=== PATIENT | female | born 1940 | race Caucasian/White ===

== ENCOUNTER 2016-07-15 17:40 | Emergency (ER) | payer BC, MEDICARE ==
--- NOTE | 2016-07-15 18:50 | REP ---
Clinical: Trauma. Comparison: 05/18/2014 . Findings: Age-related atrophy and microvascular ischemic changes are appreciated. The ventricles and sulci are symmetric. Randolph-white differentiation is maintained. There is no evidence for acute intracranial hemorrhage, mass/mass effect, pathology or infarction. Small chronic low density focus in the left hazel radiata unchanged from prior examination. No extra-axial fluid collection. Calvarium is intact. Paranasal sinuses and mastoid air cells are clear. Impression: Age related atrophy and microvascular ischemic changes. No acute intracranial hemorrhage, infarction, or mass/mass effect. Signed by Loc Garcia MD 07/15/2016 06:42 P
[2016-07-15] MEDS ORDERED: PERCOCET 5MG/325MG TAB As Ordered ONE (19:46)
[2016-07-15] MEDS ORDERED: OXYCODONE/APAP 5MG/325MG(BULK) 1 TAB TAB As Ordered ONE (19:47)
--- NOTE | 2016-07-15 19:51 | REP ---
Clinical: Trauma. Technique: AP, lateral, bilateral oblique and sunrise views. Findings: Five views of the left knee demonstrates moderate age-related arthritic degenerative changes. Soft tissue swelling. No acute fracture or dislocation. No obvious effusion. Impression: Degenerative changes and swelling. No obvious acute fracture or dislocation. If the patient remains symptomatic consider CT or MRI for further investigation. Signed by Loc Garcia MD 07/15/2016 07:43 P
--- NOTE | 2016-07-15 19:54 | REP ---
Clinical: Trauma. Technique: AP, lateral, bilateral oblique views of the left wrist. Findings: A comminuted posterior displaced fracture of the distal radius. Distal ulna and carpal bones appear intact. Visualized metacarpal bones appear intact. Impression: Comminuted intra-articular fracture of the distal radius with posterior displacement and angulation. Signed by Loc Garcia MD 07/15/2016 07:44 P
--- NOTE | 2016-07-15 20:14 | EDDOCDS ---
Physician Documentation [facility] Name: Leeanna Garcia Age: 75 yrs Sex: Female : 1940 Arrival Date: 07/15/2016 Time: 17:40 Bed 17 Private MD: Bridger Aponte Disposition: 07/15/16 19:51 Discharged to Home/Self Care. Impression: Displaced fracture of neck of left radius. - Condition is Stable. - Discharge Instructions: Head Injury, Adult, Wrist Fracture, Knee Pain. - Prescriptions for Percocet 5- 325 mg Oral Tablet - take 1 tablet by ORAL route every 6 hours As needed MDD: 4 tabs; 20 tablet. - Medication Reconciliation, Local Pharmacy Hours form. - Follow up: Bridger Aponte; When: 2 - 3 days; Reason: Recheck today's complaints, Continuance of care. Follow up: [facility]; When: Call to arrange an appointment; Reason: Further diagnostic work-up, Recheck today's complaints, Continuance of care. - Problem is new. - Symptoms are unchanged. Historical: - Allergies: No known drug Allergies; - Home Meds: 1. Synthroid 125 mcg Oral tab 1 tab once daily 2. Nexium 40 mg Oral cpDR 1 cap once daily 3. Cymbalta Unknown Oral once daily 4. Iron CR 100 mg Oral daily 5. pravastatin 40 mg oral tab nightly 6. losartan oral Unknown oral nightly 7. carvedilol oral Unknown oral 8. Melatonin Unknown Oral daily 9. Klonopin Unknown Oral Unknown (Last dose: 07/14/2016 22:00) 10. Requip Unknown Oral Unknown (Last dose: 07/15/2016 16:00) - PMHx: Hypertension; CAD; Hypercholesterolemia; GERD; Thyroid problem; - PSHx: Cesearean Section; Stents, Coronary; back surgeries; Laparoscopy; Adenoidectomy; Tonsillectomy; Appendectomy; - Social history: Smoking status: Patient states former smoker of tobacco. No barriers to communication noted, The patient speaks fluent Swiss. - Family history: Not pertinent. - : The pt / caregiver states he / she is not on anticoagulants. Home medication list is obtained from the patient. - Exposure Risk Screening:: None identified. Vital Signs: 07/15 17:41 BP 187 / 83; Pulse 80; Resp 18 S; Temp 97.9(O); Pulse Ox 99% on R/A; Weight 117.48 kg / dd6 259 lbs (R); Height 5 ft. 4 in. (162.56 cm) (R); 19:23 BP 202 / 86; Pulse 66; Resp 20; Temp 98(O); Pulse Ox 98% on R/A; Pain 8/10; jmv 20:04 BP 199 / 87 RA Sitting (auto/reg); Pulse 80 MON; Resp 22 S; Temp 98.0(T); Pulse Ox 96% cln on R/A; Pain 8/10; 17:41 Body Mass Index 44.46 (117.48 kg, 162.56 cm) dd6 MDM: 18:26 Knee, Complete Ordered. EDMS 18:26 Wrist, Complete Ordered. EDMS 18:26 CT Head Without Contrast Ordered. EDMS 19:44 oxyCODONE-acetaminophen 5 mg-325 mg 2 tabs PO once ordered. ke 19:44 oxyCODONE-acetaminophen 4 pack 5 mg-325 mg 1 packets PO once; Dispense with pt, take as ke per instruction on package ordered. 19:53 Sling ordered. ke Administered Medications: 19:53 Drug: oxyCODONE-acetaminophen 2 tabs [oxycodone-acetaminophen 5 mg-325 mg tablet (2 mgs tabs)] Route: PO; 19:53 Drug: oxyCODONE-acetaminophen 4 pack 1 packets [oxycodone-acetaminophen 5 mg-325 mg mgs tablet (1 tabs)] {Co-Signature: ko2 (Ana Fuller RN).} Route: PO; 19:54 Follow up: Response: Med's dispensed home mgs Signatures: Dispatcher [employer] EDKat Vargas RN Gerard Montemayor RN RN jmk Elsner, Karl, FNP HARNESS CUTTER Joselito Judd RN RN mgs Ana Fuller RN ko2 MTDD
--- NOTE | 2016-07-15 20:14 | EDDOCDS ---
Nurse's Notes [facility] Name: Leeanna Garcia Age: 75 yrs Sex: Female : 1940 Arrival Date: 07/15/2016 Time: 17:40 Bed 17 Private MD: Bridger Aponte Diagnosis: Displaced fracture of neck of left radius Presentation: 07/15 17:45 Presenting complaint: Patient states: she stepped out the door and tripped over the kcs sill and fell hitting her head - did not get knocked out. Presenting complaint: Patient states: injured her left knee, left wrist and right hand. Adult Sepsis Screening: The patient does not have new or worsening altered mentation. Patient's respiratory rate is less than 22. Systolic blood pressure is greater than 100. Patient has a qSOFA score of 0- Negative Sepsis Screen. Suicide/Homicide risk assessment- the patient denies having any suicidal and/or homicidal ideations and does not present with any other emotional, behavioral or mental health complaints. 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 Transition of care: patient was not received from another setting of care. Red Flag criteria, patient assessed and is suitable to finish the RCE Process. the to bed 17 - awaiting room to be cleaned. 17:45 Acuity: JENNIFFER Level 3 kcs 17:45 Method Of Arrival: Walkin/Carried/Asstd kcs Triage Assessment: 17:52 General: Appears comfortable, obese, well developed, well nourished, well groomed, kcs Behavior is cooperative, pleasant. Pain: Location: left wrist Pain currently is 8 out of 10 on a pain scale. Neurological: Level of Consciousness is awake, alert. Respiratory: Airway is patent Respiratory effort is even, unlabored, Respiratory pattern is regular, symmetrical. Derm: Skin is intact, is healthy with good turgor, Skin is dry, Skin is normal. 18:01 General: Bruising an slight swelling to right forehead - bruising to back of right kcs hand, abrasion to left knee and ? bony deformity to left wrist - strong left radial pulse and good CSM -pain with movement of left wrist - left wrist elevated and ice pack applied over washcloth.. Historical: - Allergies: No known drug Allergies; - Home Meds: 1. Synthroid 125 mcg Oral tab 1 tab once daily 2. Nexium 40 mg Oral cpDR 1 cap once daily 3. Cymbalta Unknown Oral once daily 4. Iron CR 100 mg Oral daily 5. pravastatin 40 mg oral tab nightly 6. losartan oral Unknown oral nightly 7. carvedilol oral Unknown oral 8. Melatonin Unknown Oral daily 9. Klonopin Unknown Oral Unknown (Last dose: 07/14/2016 22:00) 10. Requip Unknown Oral Unknown (Last dose: 07/15/2016 16:00) - PMHx: Hypertension; CAD; Hypercholesterolemia; GERD; Thyroid problem; - PSHx: Cesearean Section; Stents, Coronary; back surgeries; Laparoscopy; Adenoidectomy; Tonsillectomy; Appendectomy; - Social history: Smoking status: Patient states former smoker of tobacco. No barriers to communication noted, The patient speaks fluent Malagasy. - Family history: Not pertinent. - : The pt / caregiver states he / she is not on anticoagulants. Home medication list is obtained from the patient. - Exposure Risk Screening:: None identified. Screenin:06 Screening information is obtained from the patient. Fall risk: No risks identified. jmk Assistance ADL's: requires no assistance with activities of daily living. Abuse/DV Screen: The patient / caregiver reports he/she is: not in a situation that causes fear, pain or injury. Nutritional screening: No deficits noted. Advance Directives: Currently, there is a health care proxy, spouse, marcelo. There is no active DNR order. There is a living will, There is no Power of Financial Risk Manager. home support is adequate. Assessment: 18:06 General: Appears skin warm and dry color satisfactory. Moist pink oral mucosa. alert jmk and oriented with good recall of events,. AMILCAR brisk. 2" area of early ecchymosis with swelling to right forehead area. denies neck pain with palpation. chest CTA. abd obese and non distended with bowel sounds present x 4. denies abd or pelvic pain. left knee with very superficial abrasion over approx 2" area to patellar region. without obvious swelling. Is able to straight leg raise, left wrist with visible swelling with early ecchymosis. pulse is intact. 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 18:44 General: Appears comfortable, Behavior is appropriate for age, cooperative. kc3 Neurological: Level of Consciousness is awake, alert, obeys commands, Oriented to person, place, time. Respiratory: Respiratory effort is even, unlabored, Respiratory pattern is regular, symmetrical. Derm: Skin is pink, warm & dry. Musculoskeletal: Circulation, motion, and sensation intact other ? deformity to left wrist. 19:11 General: Appears uncomfortable, Behavior is appropriate for age, cooperative. Pain: mgs Location: left wrist Pain currently is 8 out of 10 on a pain scale. Neurological: Level of Consciousness is awake, alert, Oriented to person, place, time. Cardiovascular: Capillary refill < 3 seconds. Respiratory: Airway is patent Respiratory effort is even, unlabored, Respiratory pattern is regular, symmetrical. Derm: Skin is pink, warm & dry. 19:42 Adult Sepsis Screening: The patient does not have new or worsening altered mentation. mgs Patient's respiratory rate is less than 22. Systolic blood pressure is greater than 100. Patient has a qSOFA score of 0- Negative Sepsis Screen. 20:10 General: Appears comfortable, Behavior is appropriate for age, cooperative. Pain: mgs Location: left wrist Pain currently is 7 out of 10 on a pain scale. Neurological: Level of Consciousness is awake, alert, Oriented to person, place, time. Cardiovascular: Capillary refill < 3 seconds. Respiratory: Airway is patent Respiratory effort is even, unlabored, Respiratory pattern is regular, symmetrical. Derm: Skin is pink, warm & dry. 20:13 General: QMP aware of blood pressure. mgs Vital Signs: 17:41 BP 187 / 83; Pulse 80; Resp 18 S; Temp 97.9(O); Pulse Ox 99% on R/A; Weight 117.48 kg dd6 (R); Height 5 ft. 4 in. (162.56 cm) (R); 19:23 BP 202 / 86; Pulse 66; Resp 20; Temp 98(O); Pulse Ox 98% on R/A; Pain 8/10; jmv 20:04 BP 199 / 87 RA Sitting (auto/reg); Pulse 80 MON; Resp 22 S; Temp 98.0(T); Pulse Ox 96% cln on R/A; Pain 8/10; 17:41 Body Mass Index 44.46 (117.48 kg, 162.56 cm) dd6 Vitals: 17:41 Log In Time: July 15, 2016 at 17:39. dd6 ED Course: 17:41 Patient visited by Lloyd Tesfaye PCA. dd6 17:41 Bridger Aponte is Private Physician. dd6 17:41 Patient moved to Waiting dd6 17:42 Patient moved to Pre RCE dd6 17:47 Triage Initiated kcs 17:54 Melita Reeder,RN is Primary Nurse. kcs 17:54 Patient moved to 17 kcs 18:06 The patient / caregiver is instructed regarding the plan of care and ED course. jmk 18:44 Patient visited by Melita Reeder RN. kc3 19:09 CT Head Without Contrast Returned. EDMS 19:15 Patient visited by Joselito Rivera,SILVAI. mgs 19:22 Ubaldo Dumont FNP is PHCP. ke 19:22 Patient visited by Ubaldo Dumont FNP. ke 19:22 Patient visited by Ubaldo Dumont FNP. ke 19:23 Patient visited by Boy Bloom PCA. jmv 19:49 Bridger Aponte is Referral Physician. ke 19:49 [facility] is Referral Physician. ke 20:04 Sling applied to left arm. emmett 20:05 Patient visited by Homa Lerner PCA. cln 20:11 No IV's were initiated during this patient's visit. No procedures done that require mgs assistance. 20:12 Primary Nurse role handed off by Melita Reeder RN emmett 20:13 Patient visited by Joselito Rivera,SILVIA. mgs Administered Medications: 19:53 Drug: oxyCODONE-acetaminophen 2 tabs [oxycodone-acetaminophen 5 mg-325 mg tablet (2 mgs tabs)] Route: PO; 19:53 Drug: oxyCODONE-acetaminophen 4 pack 1 packets [oxycodone-acetaminophen 5 mg-325 mg mgs tablet (1 tabs)] {Co-Signature: ko2 (Ana Fuller RN).} Route: PO; 19:54 Follow up: Response: Med's dispensed home mgs Order Results: Radiology Order: CT Head Without Contrast Test: CT Head Without Contrast REASON FOR EXAMINATION: Trauma; Clinical: Trauma.; ; Comparison: 05/18/2014 .; ; Findings:; Age-related atrophy and microvascular ischemic changes are appreciated. The; ventricles and sulci are symmetric. Randolph-white differentiation is maintained.; There is no evidence for acute intracranial hemorrhage, mass/mass effect,; pathology or infarction. Small chronic low density focus in the left hazel; radiata unchanged from prior examination. No extra-axial fluid collection.; Calvarium is intact. Paranasal sinuses and mastoid air cells are clear.; ; Impression:; Age related atrophy and microvascular ischemic changes.; No acute intracranial hemorrhage, infarction, or mass/mass effect.; ; ; Signed by; Loc Garcia MD 07/15/2016 06:42 P; Outcome: 19:51 Discharge ordered by Provider. ke 20:11 Discharge Assessment: Patient awake, alert and oriented x 3. No cognitive and/or mgs functional deficits noted. Patient verbalized understanding of disposition instructions. patient administered narcotics - yes. Pt provided with safe discharge. The following High Risk Discharge criteria are identified: None. Discharged to home ambulatory, with family. Condition: stable. Discharge instructions given to patient, Instructed on discharge instructions, Demonstrated understanding of instructions, medications, Pt was receptive of discharge instructions/ teaching. Prescriptions given X 1. Property sent home with patient. 20:13 CT Study completed. mgs 20:13 Patient left the ED. mgs Signatures: Dispatcher [employer] EDMS Kat Nicholas, RN Gerard Montemayor,RN RN Ubaldo Doll, PROFESSIONAL CASTER PROFESSIONAL CASTER Lloyd Alfaro, [place] UNDERWRITER VA UNDERWRITER dd6 Zayda Wells, [place] UNDERWRITER VA UNDERWRITER Joselito Haro RN RN mgs Melita Reeder RN RN kc3 Homa Lerner, [place] UNDERWRITER VA UNDERWRITER cln Boy Bloom, [place] UNDERWRITER VA UNDERWRITER jmv Ana Fuller RN ko2 MTDD
--- NOTE | 2016-07-17 21:14 | EDDOCDS ---
Nurse's Notes [facility] Name: Leeanna Garcia Age: 75 yrs Sex: Female : 1940 Arrival Date: 07/15/2016 Time: 17:40 Bed 17 Private MD: Bridger Aponte Diagnosis: Displaced fracture of neck of left radius Presentation: 07/15 17:45 Presenting complaint: Patient states: she stepped out the door and tripped over the kcs sill and fell hitting her head - did not get knocked out. Presenting complaint: Patient states: injured her left knee, left wrist and right hand. Adult Sepsis Screening: The patient does not have new or worsening altered mentation. Patient's respiratory rate is less than 22. Systolic blood pressure is greater than 100. Patient has a qSOFA score of 0- Negative Sepsis Screen. Suicide/Homicide risk assessment- the patient denies having any suicidal and/or homicidal ideations and does not present with any other emotional, behavioral or mental health complaints. Status: Patient is not a street light servicer helper or dependent. Transition of care: patient was not received from another setting of care. Red Flag criteria, patient assessed and is suitable to finish the RCE Process. the to bed 17 - awaiting room to be cleaned. 17:45 Acuity: JENNIFFER Level 3 kcs 17:45 Method Of Arrival: Walkin/Carried/Asstd kcs Triage Assessment: 17:52 General: Appears comfortable, obese, well developed, well nourished, well groomed, kcs Behavior is cooperative, pleasant. Pain: Location: left wrist Pain currently is 8 out of 10 on a pain scale. Neurological: Level of Consciousness is awake, alert. Respiratory: Airway is patent Respiratory effort is even, unlabored, Respiratory pattern is regular, symmetrical. Derm: Skin is intact, is healthy with good turgor, Skin is dry, Skin is normal. 18:01 General: Bruising an slight swelling to right forehead - bruising to back of right kcs hand, abrasion to left knee and ? bony deformity to left wrist - strong left radial pulse and good CSM -pain with movement of left wrist - left wrist elevated and ice pack applied over washcloth.. Historical: - Allergies: No known drug Allergies; - Home Meds: 1. Synthroid 125 mcg Oral tab 1 tab once daily 2. Nexium 40 mg Oral cpDR 1 cap once daily 3. Cymbalta Unknown Oral once daily 4. Iron CR 100 mg Oral daily 5. pravastatin 40 mg oral tab nightly 6. losartan oral Unknown oral nightly 7. carvedilol oral Unknown oral 8. Melatonin Unknown Oral daily 9. Klonopin Unknown Oral Unknown (Last dose: 07/14/2016 22:00) 10. Requip Unknown Oral Unknown (Last dose: 07/15/2016 16:00) - PMHx: Hypertension; CAD; Hypercholesterolemia; GERD; Thyroid problem; - PSHx: Cesearean Section; Stents, Coronary; back surgeries; Laparoscopy; Adenoidectomy; Tonsillectomy; Appendectomy; - Social history: Smoking status: Patient states former smoker of tobacco. No barriers to communication noted, The patient speaks fluent Gambian. - Family history: Not pertinent. - : The pt / caregiver states he / she is not on anticoagulants. Home medication list is obtained from the patient. - Exposure Risk Screening:: None identified. Screenin:06 Screening information is obtained from the patient. Fall risk: No risks identified. jmk Assistance ADL's: requires no assistance with activities of daily living. Abuse/DV Screen: The patient / caregiver reports he/she is: not in a situation that causes fear, pain or injury. Nutritional screening: No deficits noted. Advance Directives: Currently, there is a health care proxy, spouse, marcelo. There is no active DNR order. There is a living will, There is no Power of Call Center Assistant. home support is adequate. Assessment: 18:06 General: Appears skin warm and dry color satisfactory. Moist pink oral mucosa. alert jmk and oriented with good recall of events,. AMILCAR brisk. 2" area of early ecchymosis with swelling to right forehead area. denies neck pain with palpation. chest CTA. abd obese and non distended with bowel sounds present x 4. denies abd or pelvic pain. left knee with very superficial abrasion over approx 2" area to patellar region. without obvious swelling. Is able to straight leg raise, left wrist with visible swelling with early ecchymosis. pulse is intact. CARRIER OPERATOR less than 2 sec, Rings removed and provided to spouse at bedside.. 18:44 General: Appears comfortable, Behavior is appropriate for age, cooperative. kc3 Neurological: Level of Consciousness is awake, alert, obeys commands, Oriented to person, place, time. Respiratory: Respiratory effort is even, unlabored, Respiratory pattern is regular, symmetrical. Derm: Skin is pink, warm & dry. Musculoskeletal: Circulation, motion, and sensation intact other ? deformity to left wrist. 19:11 General: Appears uncomfortable, Behavior is appropriate for age, cooperative. Pain: mgs Location: left wrist Pain currently is 8 out of 10 on a pain scale. Neurological: Level of Consciousness is awake, alert, Oriented to person, place, time. Cardiovascular: Capillary refill < 3 seconds. Respiratory: Airway is patent Respiratory effort is even, unlabored, Respiratory pattern is regular, symmetrical. Derm: Skin is pink, warm & dry. 19:42 Adult Sepsis Screening: The patient does not have new or worsening altered mentation. mgs Patient's respiratory rate is less than 22. Systolic blood pressure is greater than 100. Patient has a qSOFA score of 0- Negative Sepsis Screen. 20:10 General: Appears comfortable, Behavior is appropriate for age, cooperative. Pain: mgs Location: left wrist Pain currently is 7 out of 10 on a pain scale. Neurological: Level of Consciousness is awake, alert, Oriented to person, place, time. Cardiovascular: Capillary refill < 3 seconds. Respiratory: Airway is patent Respiratory effort is even, unlabored, Respiratory pattern is regular, symmetrical. Derm: Skin is pink, warm & dry. 20:13 General: QMP aware of blood pressure. mgs Vital Signs: 17:41 BP 187 / 83; Pulse 80; Resp 18 S; Temp 97.9(O); Pulse Ox 99% on R/A; Weight 117.48 kg dd6 (R); Height 5 ft. 4 in. (162.56 cm) (R); 19:23 BP 202 / 86; Pulse 66; Resp 20; Temp 98(O); Pulse Ox 98% on R/A; Pain 8/10; jmv 20:04 BP 199 / 87 RA Sitting (auto/reg); Pulse 80 MON; Resp 22 S; Temp 98.0(T); Pulse Ox 96% cln on R/A; Pain 8/10; 17:41 Body Mass Index 44.46 (117.48 kg, 162.56 cm) dd6 Vitals: 17:41 Log In Time: July 15, 2016 at 17:39. dd6 ED Course: 17:41 Patient visited by Lloyd Tesfaye PCA. dd6 17:41 Bridger Aponte is Private Physician. dd6 17:41 Patient moved to Waiting dd6 17:42 Patient moved to Pre RCE dd6 17:47 Triage Initiated kcs 17:54 Melita Reeder,RN is Primary Nurse. kcs 17:54 Patient moved to 17 kcs 18:06 The patient / caregiver is instructed regarding the plan of care and ED course. jmk 18:44 Patient visited by Melita Reeder RN. kc3 19:09 CT Head Without Contrast Returned. EDMS 19:15 Patient visited by Joselito iRvera,SILVIA. mgs 19:22 Ubaldo Dumont FNP is PHCP. ke 19:22 Patient visited by Ubaldo Dumont FNP. ke 19:22 Patient visited by Ubaldo Dumont FNP. ke 19:23 Patient visited by Boy Bloom PCA. jmv 19:49 Bridger Aponte is Referral Physician. ke 19:49 [facility] is Referral Physician. ke 20:04 Sling applied to left arm. emmett 20:05 Patient visited by Homa Lerner PCA. cln 20:11 No IV's were initiated during this patient's visit. No procedures done that require mgs assistance. 20:12 Primary Nurse role handed off by Melita Reeder RN emmett 20:13 Patient visited by Joselito Rivera,SILVIA. mgs 20:20 Knee, Complete Returned. EDMS 20:20 Wrist, Complete Returned. EDMS 20:43 [facility] Payment Agreement was scanned into [employer] and attached to record. zo 07/16 03:48 T-Sheet-- Draft Copy was scanned into [employer] and attached to record. hs2 Administered Medications: 07/15 19:53 Drug: oxyCODONE-acetaminophen 2 tabs [oxycodone-acetaminophen 5 mg-325 mg tablet (2 mgs tabs)] Route: PO; 19:53 Drug: oxyCODONE-acetaminophen 4 pack 1 packets [oxycodone-acetaminophen 5 mg-325 mg mgs tablet (1 tabs)] {Co-Signature: ko2 (Ana Fuller RN).} Route: PO; 19:54 Follow up: Response: Med's dispensed home mgs Order Results: Radiology Order: Knee, Complete Test: Knee, Complete REASON FOR EXAMINATION: Trauma; Clinical: Trauma.; ; Technique: AP, lateral, bilateral oblique and sunrise views.; ; Findings:; Five views of the left knee demonstrates moderate age-related arthritic; degenerative changes. Soft tissue swelling. No acute fracture or dislocation.; No obvious effusion.; ; Impression:; Degenerative changes and swelling.; No obvious acute fracture or dislocation.; If the patient remains symptomatic consider CT or MRI for further investigation.; ; ; Signed by; Loc Garcia MD 07/15/2016 07:43 P; Radiology Order: Wrist, Complete Test: Wrist, Complete REASON FOR EXAMINATION: Trauma; Clinical: Trauma.; ; Technique: AP, lateral, bilateral oblique views of the left wrist.; ; Findings:; A comminuted posterior displaced fracture of the distal radius. Distal ulna and; carpal bones appear intact. Visualized metacarpal bones appear intact.; ; Impression:; Comminuted intra-articular fracture of the distal radius with posterior; displacement and angulation.; ; ; Signed by; Loc Garcia MD 07/15/2016 07:44 P; Radiology Order: CT Head Without Contrast Test: CT Head Without Contrast REASON FOR EXAMINATION: Trauma; Clinical: Trauma.; ; Comparison: 05/18/2014 .; ; Findings:; Age-related atrophy and microvascular ischemic changes are appreciated. The; ventricles and sulci are symmetric. Randolph-white differentiation is maintained.; There is no evidence for acute intracranial hemorrhage, mass/mass effect,; pathology or infarction. Small chronic low density focus in the left hazel; radiata unchanged from prior examination. No extra-axial fluid collection.; Calvarium is intact. Paranasal sinuses and mastoid air cells are clear.; ; Impression:; Age related atrophy and microvascular ischemic changes.; No acute intracranial hemorrhage, infarction, or mass/mass effect.; ; ; Signed by; Loc Garcia MD 07/15/2016 06:42 P; Outcome: 19:51 Discharge ordered by Provider. ke 20:11 Discharge Assessment: Patient awake, alert and oriented x 3. No cognitive and/or mgs functional deficits noted. Patient verbalized understanding of disposition instructions. patient administered narcotics - yes. Pt provided with safe discharge. The following High Risk Discharge criteria are identified: None. Discharged to home ambulatory, with family. Condition: stable. Discharge instructions given to patient, Instructed on discharge instructions, Demonstrated understanding of instructions, medications, Pt was receptive of discharge instructions/ teaching. Prescriptions given X 1. Property sent home with patient. 20:13 CT Study completed. mgs 20:13 Patient left the ED. mgs Signatures: Dispatcher [employer] EDKat Vargas, RN RN Gerard Robbins,RN RN Ubaldo Doll, ROBOTIC WELDING OPERATOR ROBOTIC WELDING OPERATOR Cornelius Martínez Daniell, MECHANIC RECOVERY MECHANIC RECOVERY dd6 Zayda Wells, MECHANIC RECOVERY MECHANIC RECOVERY emmett Joselito Rivera,RN RN mgs Melita Reeder,RN RN kc3 Jael Davis, Reg Reg hs2 Homa Lerner, MECHANIC RECOVERY MECHANIC RECOVERY Boy Ramos, MECHANIC RECOVERY MECHANIC RECOVERY jmv Ana Fuller RN ko2 Chart Complete MTDAlexx
--- NOTE | 2016-07-17 21:14 | EDDOCDS ---
Physician Documentation [facility] Name: Leeanna Garcia Age: 75 yrs Sex: Female : 1940 Arrival Date: 07/15/2016 Time: 17:40 Bed 17 Private MD: Bridger Aponte Disposition: 07/15/16 19:51 Discharged to Home/Self Care. Impression: Displaced fracture of neck of left radius. - Condition is Stable. - Discharge Instructions: Head Injury, Adult, Wrist Fracture, Knee Pain. - Prescriptions for Percocet 5- 325 mg Oral Tablet - take 1 tablet by ORAL route every 6 hours As needed MDD: 4 tabs; 20 tablet. - Medication Reconciliation, Local Pharmacy Hours form. - Follow up: Bridger Aponte; When: 2 - 3 days; Reason: Recheck today's complaints, Continuance of care. Follow up: [facility]; When: Call to arrange an appointment; Reason: Further diagnostic work-up, Recheck today's complaints, Continuance of care. - Problem is new. - Symptoms are unchanged. Historical: - Allergies: No known drug Allergies; - Home Meds: 1. Synthroid 125 mcg Oral tab 1 tab once daily 2. Nexium 40 mg Oral cpDR 1 cap once daily 3. Cymbalta Unknown Oral once daily 4. Iron CR 100 mg Oral daily 5. pravastatin 40 mg oral tab nightly 6. losartan oral Unknown oral nightly 7. carvedilol oral Unknown oral 8. Melatonin Unknown Oral daily 9. Klonopin Unknown Oral Unknown (Last dose: 07/14/2016 22:00) 10. Requip Unknown Oral Unknown (Last dose: 07/15/2016 16:00) - PMHx: Hypertension; CAD; Hypercholesterolemia; GERD; Thyroid problem; - PSHx: Cesearean Section; Stents, Coronary; back surgeries; Laparoscopy; Adenoidectomy; Tonsillectomy; Appendectomy; - Social history: Smoking status: Patient states former smoker of tobacco. No barriers to communication noted, The patient speaks fluent Belgian. - Family history: Not pertinent. - : The pt / caregiver states he / she is not on anticoagulants. Home medication list is obtained from the patient. - Exposure Risk Screening:: None identified. Vital Signs: 07/15 17:41 BP 187 / 83; Pulse 80; Resp 18 S; Temp 97.9(O); Pulse Ox 99% on R/A; Weight 117.48 kg / dd6 259 lbs (R); Height 5 ft. 4 in. (162.56 cm) (R); 19:23 BP 202 / 86; Pulse 66; Resp 20; Temp 98(O); Pulse Ox 98% on R/A; Pain 8/10; jmv 20:04 BP 199 / 87 RA Sitting (auto/reg); Pulse 80 MON; Resp 22 S; Temp 98.0(T); Pulse Ox 96% cln on R/A; Pain 8/10; 17:41 Body Mass Index 44.46 (117.48 kg, 162.56 cm) dd6 MDM: 18:26 Knee, Complete Ordered. EDMS 18:26 Wrist, Complete Ordered. EDMS 18:26 CT Head Without Contrast Ordered. EDMS 19:44 oxyCODONE-acetaminophen 5 mg-325 mg 2 tabs PO once ordered. ke 19:44 oxyCODONE-acetaminophen 4 pack 5 mg-325 mg 1 packets PO once; Dispense with pt, take as ke per instruction on package ordered. 19:53 Sling ordered. ke 20:43 [facility] Payment Agreement was scanned into [employer] and attached to record. zo 20:43 Financial registration complete. zo 07/16 03:48 T-Sheet-- Draft Copy was scanned into [employer] and attached to record. hs2 Administered Medications: 07/15 19:53 Drug: oxyCODONE-acetaminophen 2 tabs [oxycodone-acetaminophen 5 mg-325 mg tablet (2 mgs tabs)] Route: PO; 19:53 Drug: oxyCODONE-acetaminophen 4 pack 1 packets [oxycodone-acetaminophen 5 mg-325 mg mgs tablet (1 tabs)] {Co-Signature: ko2 (Ana Fuller RN).} Route: PO; 19:54 Follow up: Response: Med's dispensed home mgs Signatures: Dispatcher [employer] EDKat Vargas RN RN kcs Knapp, Jean, RN RN jmk Elsner, Karl, HOUSING INSPECTORS HOUSING INSPECTORS Cornelius Martínez Matthew, RN RN mgs Jael Davis, Reg Reg hs2 Ana Fuller RN ko2 The chart was reviewed and I authenticate all verbal orders and agree with the evaluation and treatment provided.Attachments: 20:43 [facility] Payment Agreement zo 07/16 03:48 T-Sheet-- Draft Copy hs2 Chart Complete MTDD
--- NOTE | 2016-07-17 21:14 | EDDOCDS ---
Physician Documentation [facility] Name: Leeanna Garcia Age: 75 yrs Sex: Female : 1940 Arrival Date: 07/15/2016 Time: 17:40 Bed 17 Private MD: Bridger Aponte Disposition: 07/15/16 19:51 Discharged to Home/Self Care. Impression: Displaced fracture of neck of left radius. - Condition is Stable. - Discharge Instructions: Head Injury, Adult, Wrist Fracture, Knee Pain. - Prescriptions for Percocet 5- 325 mg Oral Tablet - take 1 tablet by ORAL route every 6 hours As needed MDD: 4 tabs; 20 tablet. - Medication Reconciliation, Local Pharmacy Hours form. - Follow up: Bridger Aponte; When: 2 - 3 days; Reason: Recheck today's complaints, Continuance of care. Follow up: [facility]; When: Call to arrange an appointment; Reason: Further diagnostic work-up, Recheck today's complaints, Continuance of care. - Problem is new. - Symptoms are unchanged. Historical: - Allergies: No known drug Allergies; - Home Meds: 1. Synthroid 125 mcg Oral tab 1 tab once daily 2. Nexium 40 mg Oral cpDR 1 cap once daily 3. Cymbalta Unknown Oral once daily 4. Iron CR 100 mg Oral daily 5. pravastatin 40 mg oral tab nightly 6. losartan oral Unknown oral nightly 7. carvedilol oral Unknown oral 8. Melatonin Unknown Oral daily 9. Klonopin Unknown Oral Unknown (Last dose: 07/14/2016 22:00) 10. Requip Unknown Oral Unknown (Last dose: 07/15/2016 16:00) - PMHx: Hypertension; CAD; Hypercholesterolemia; GERD; Thyroid problem; - PSHx: Cesearean Section; Stents, Coronary; back surgeries; Laparoscopy; Adenoidectomy; Tonsillectomy; Appendectomy; - Social history: Smoking status: Patient states former smoker of tobacco. No barriers to communication noted, The patient speaks fluent Azerbaijani. - Family history: Not pertinent. - : The pt / caregiver states he / she is not on anticoagulants. Home medication list is obtained from the patient. - Exposure Risk Screening:: None identified. Vital Signs: 07/15 17:41 BP 187 / 83; Pulse 80; Resp 18 S; Temp 97.9(O); Pulse Ox 99% on R/A; Weight 117.48 kg / dd6 259 lbs (R); Height 5 ft. 4 in. (162.56 cm) (R); 19:23 BP 202 / 86; Pulse 66; Resp 20; Temp 98(O); Pulse Ox 98% on R/A; Pain 8/10; jmv 20:04 BP 199 / 87 RA Sitting (auto/reg); Pulse 80 MON; Resp 22 S; Temp 98.0(T); Pulse Ox 96% cln on R/A; Pain 8/10; 17:41 Body Mass Index 44.46 (117.48 kg, 162.56 cm) dd6 MDM: 18:26 Knee, Complete Ordered. EDMS 18:26 Wrist, Complete Ordered. EDMS 18:26 CT Head Without Contrast Ordered. EDMS 19:44 oxyCODONE-acetaminophen 5 mg-325 mg 2 tabs PO once ordered. ke 19:44 oxyCODONE-acetaminophen 4 pack 5 mg-325 mg 1 packets PO once; Dispense with pt, take as ke per instruction on package ordered. 19:53 Sling ordered. ke 20:43 [facility] Payment Agreement was scanned into [employer] and attached to record. zo 20:43 Financial registration complete. zo 07/16 03:48 T-Sheet-- Draft Copy was scanned into [employer] and attached to record. hs2 Administered Medications: 07/15 19:53 Drug: oxyCODONE-acetaminophen 2 tabs [oxycodone-acetaminophen 5 mg-325 mg tablet (2 mgs tabs)] Route: PO; 19:53 Drug: oxyCODONE-acetaminophen 4 pack 1 packets [oxycodone-acetaminophen 5 mg-325 mg mgs tablet (1 tabs)] {Co-Signature: ko2 (Ana Fuller RN).} Route: PO; 19:54 Follow up: Response: Med's dispensed home mgs Signatures: Dispatcher [employer] EDKat Vargas RN RN kcs Knapp, Jean, RN RN jmk Elsner, Karl, SUPERINTENDENT CONTAINER TERMINAL SUPERINTENDENT CONTAINER TERMINAL Cornelius Martínez Matthew, RN RN mgs Jael Davis, Reg Reg hs2 Ana Fuller RN ko2 The chart was reviewed and I authenticate all verbal orders and agree with the evaluation and treatment provided.Attachments: 20:43 [facility] Payment Agreement zo 07/16 03:48 T-Sheet-- Draft Copy hs2 Chart Complete MTDD
== END 2016-07-15 20:13 | disposition home or self-care (01) ==
LOC: M ED 17:40
DX: S52.502A Unspecified fracture of the lower end of left radius, initial encounter for closed fracture (principal); W18.09XA Striking against other object with subsequent fall, initial encounter; Y92.019 Unspecified place in single-family (private) house as the place of occurrence of the external cause; Y93.89 Activity, other specified; Y99.8 Other external cause status; M79.89 Other specified soft tissue disorders; I10 Essential (primary) hypertension; I25.10 Atherosclerotic heart disease of native coronary artery without angina pectoris; E78.00 Pure hypercholesterolemia, unspecified; E07.9 Disorder of thyroid, unspecified; K21.9 Gastro-esophageal reflux disease without esophagitis; Z90.89 Acquired absence of other organs; Z95.5 Presence of coronary angioplasty implant and graft; Z87.891 Personal history of nicotine dependence; Z79.899 Other long term (current) drug therapy

== ENCOUNTER 2016-10-14 18:19 | Emergency (ER) | payer MEDICARE ==
[~2016-10-14] VITALS: Ht 162.6 cm; Wt 119.7 kg
[2016-10-14] MEDS ORDERED: PRAV40TA2 (18:54)
[2016-10-14] MEDS ORDERED: AMIT8CAP4 (18:54)
[2016-10-14] MEDS ORDERED: GLUC1CAP10 PO (18:54)
[2016-10-14] MEDS ORDERED: ROPI1TAB (18:54)
[2016-10-14] MEDS ORDERED: DULO1CAP3 (18:54)
[2016-10-14] MEDS ORDERED: CARV6.25 (18:54)
[2016-10-14] MEDS ORDERED: SYNT125T (18:54)
[2016-10-14] MEDS ORDERED: CLON0.5T (18:54)
[2016-10-14] MEDS ORDERED: LOSA25TA8 (18:54)
[2016-10-14] MEDS ORDERED: ESOM1CAP5 (18:54)
[2016-10-14] MEDS ORDERED: NORCO, ANEXSIA 5/325MG TABLET (HYDROcodone/ACETAMINOPHEN) PO ONE ×2 (19:45→21:00)
[2016-10-14] MEDS ORDERED: NORCOTAB PO (20:39)
[2016-10-14 20:45] VITALS: BP 128/74
--- NOTE | 2016-10-14 21:15 | ER ---
DATE OF CONSULTATION: 10/14/2016 CONSULTATION REPORT FOR: Syd Rajput DO and PIPPA Miller REASON FOR CONSULTATION: Left wrist injury. HISTORY OF PRESENT ILLNESS: Leeanna Garcia is a 75-year-old right hand dominant female who has a history of a left displaced distal radius fracture which she sustained on 07/15/2016, resulting in significant comminuted and dorsal displacement with angulation. She reportedly underwent closed reduction and was treated nonoperatively. She was taken out of her cast approximately 4 weeks ago and has slowly returned to normal function. Earlier today she sustained a fall from a stool onto her outstretched left upper extremity resulting in volar sided left wrist pain, resulting in presentation to the emergency department (ED) for further evaluation. She denies any numbness, tingling, or burning sensations distally above her left hand. She is able to flex and extend her wrist without significant pain. She denies any associated symptoms. PAST MEDICAL HISTORY: Significant for hypothyroidism, hypertension, coronary artery disease, hypercholesterolemia, gastroesophageal reflux disease (GERD), arthritis. ALLERGIES: No known drug allergies. MEDICATIONS: - Synthroid - clonazepam - duloxetine - carvedilol - losartan - lubiprostone - pravastatin - ropinirole - Nexium - glucosamine chondroitin supplementation PAST SURGICAL HISTORY: section, hysterectomy, scoliosis correction, appendectomy, tonsils and adenoids. FAMILY HISTORY: Noncontributory. SOCIAL HISTORY: Patient lives independently with her . She is a former smoker. Does not drink or use illicit drugs. REVIEW OF SYSTEMS: CONSTITUTIONAL: No fevers, chills, or night sweats. NEUROLOGIC: No numbness, tingling, or burning sensations. CARDIOVASCULAR: No chest pain, no palpitations. RESPIRATORY: No cough, wheeze, or shortness of breath. GASTROINTESTINAL (GI): No nausea, vomiting, or diarrhea. ENDOCRINE: No heat or cold intolerance or recent weight gain or loss. PHYSICAL EXAMINATION: VITAL SIGNS: Temperature 97.4, heart rate 89, blood pressure 146/67, respiratory rate 18, oxygen saturation 97% on room air. GENERAL: This is an obese female who appears her stated age, in no acute distress. NEUROLOGIC: She is awake, alert, and oriented to person, place, and time. She has intact sensory and motor function in her left upper extremity radial, median , ulnar and PIN distributions. CARDIOVASCULAR: She has 2+ radial pulse and brisk capillary refill in all digits of her left upper extremity. SKIN: There are no open wounds. There is a small superficial abrasion on the volar aspect of the left wrist. MUSCULOSKELETAL: Full physical exam of the left wrist demonstrates some visible deformity. There is a mild amount of swelling at the lower aspect of the wrist. There is no tenderness at the fracture site on the dorsal or radial aspect of the wrist. There is mild tenderness in the volar aspect of the wrist. There is no tenderness about the ulna. Patient has no pain with passive range of motion of the wrist. She has 5/5 strength with flexion and extension of the wrist with pain. There is mild pain with resisted motion. Plain radiographs of the original injury sustained in July 2016 were reviewed demonstrating displaced intraarticular distal radius fracture with approximately 42 degrees of dorsal tilt with about 4 mm of ulnar positivity and complete loss of radial height inclination. Post reduction views are not visible, however radiographs taken today demonstrate evidence of consolidation of the previous fracture with approximately 48 degrees of dorsal tilt, evidence of consolidation , approximately 4 mm of ulnar positivity, and complete loss of radial height and inclination. ASSESSMENT: This is a 75-year-old female with a significantly displaced distal radius fracture of the left wrist that appears minimally changed from 3 months ago with no tenderness at the fracture site, but somewhat mild volar tenderness with a small superficial abrasion. PLAN: I had a long discussion with the patient regarding the natural history of her condition. She has a significantly displaced left distal radius fracture that appears relatively unchanged from 3 months ago with clinical and radiographic evidence of fracture consolidation. Given this fact, I do not think that there would be a large utility in a closed reduction in the emergency department. Also discussed possibility for open reduction internal fixation with the patient. Given that she had relatively good function of the wrist just recently, she would like to avoid surgery if possible. I placed the patient into a removable wrist splint and she will followup in the office to discuss further treatment options to include watchful waiting versus an attempt at open reduction internal fixation. The patient expressed understanding and agreed with the plan. All of her questions were answered. LUCY
--- NOTE | 2016-10-15 06:10 | REP ---
LEFT FOREARM: Pain after trauma. Two views of the left forearm show a Colles fracture and associated soft tissue swelling. TWO VIEWS OF THE LEFT WRIST: Two views of the left wrist show a Colles fracture with bony demineralization and soft tissue swelling. Signed by Jose Guzman DO 10/15/2016 04:55 P
== END 2016-10-14 21:04 | disposition home or self-care (01) ==
LOC: M ED 19:53
DX: S52.532A Colles' fracture of left radius, initial encounter for closed fracture (principal); W01.0XXA Fall on same level from slipping, tripping and stumbling without subsequent striking against object, initial encounter; Y92.009 Unspecified place in unspecified non-institutional (private) residence as the place of occurrence of the external cause; Y93.89 Activity, other specified; Y99.8 Other external cause status; I10 Essential (primary) hypertension; I25.10 Atherosclerotic heart disease of native coronary artery without angina pectoris; Z95.5 Presence of coronary angioplasty implant and graft; E78.00 Pure hypercholesterolemia, unspecified; K21.9 Gastro-esophageal reflux disease without esophagitis; M19.90 Unspecified osteoarthritis, unspecified site; E03.9 Hypothyroidism, unspecified; Z87.891 Personal history of nicotine dependence; Z79.899 Other long term (current) drug therapy; Z87.81 Personal history of (healed) traumatic fracture

== ENCOUNTER → 2016-10-30 | Outpatient (REF) | payer MEDICARE, BC ==
[~2016-10-30] MED LIST: AMIT8CAP4; CARV6.25; CLON0.5T; DULO1CAP3; ESOM1CAP5; GLUC1CAP10 PO; LOSA25TA8; NORCOTAB PO; PRAV40TA2; ROPI1TAB; SYNT125T
[2016-10-30 12:07] LABS: MEAN CORPUSCULAR HEMOGLOBIN 31.9 pg (27.0-33.0); MEAN CORPUSCULAR HGB CONC 32.5 g/dl (32.0-36.5); MEAN CORPUSCULAR VOLUME 98.2 fl (80.0-96.0); RED CELL DISTRIBUTION WIDTH 12.3 % (11.5-14.5); WHITE BLOOD COUNT 6.5 K/mm3 (4.0-10.0)
[2016-10-30 12:53] LABS: ALBUMIN 3.5 GM/DL (3.2-5.2); ALBUMIN/GLOBULIN RATIO 0.97 (1.00-1.93); ALKALINE PHOSPHATASE 100 U/L (45-117); ALT/SGPT 16 U/L (12-78); ANION GAP 6 MEQ/L (8-16); AST/SGOT 12 U/L (15-37); BILIRUBIN,TOTAL 0.3 MG/DL (0.2-1.0); BLOOD UREA NITROGEN 16 MG/DL (7-18); CALCIUM LEVEL 8.8 MG/DL (8.8-10.2); CARBON DIOXIDE LEVEL 29 MEQ/L (21-32); CHLORIDE LEVEL 106 MEQ/L (98-107); CHOLESTEROL LEVEL 158 MG/DL (<200); CREATININE FOR GFR 0.77 MG/DL (0.55-1.02); GLOMERULAR FILTRATION RATE > 60.0 (>39); GLUCOSE, FASTING 89 MG/DL (83-110); POTASSIUM SERUM 4.5 MEQ/L (3.5-5.1); SODIUM LEVEL 141 MEQ/L (136-145); TOTAL PROTEIN 7.1 GM/DL (6.4-8.2); TRIGLYCERIDES LEVEL 76 MG/DL (<150)
== END ==
LOC: M SFHCPLAZ 09:10
PROVIDERS: ATTEND Internal Medicine
DX: D64.9 Anemia, unspecified (principal); E78.00 Pure hypercholesterolemia, unspecified; E03.9 Hypothyroidism, unspecified

== ENCOUNTER → 2016-11-13 | Outpatient (CLI) | payer MEDICARE ==
[~2016-11-13] MED LIST changes: -AMIT8CAP4; +AMIT8CAP4 PO; +ASPI1TAB PO; +COEN100C PO; +IRON1TAB PO; +LOSA25TA8 PO; +LYSI1000 PO; +MAGN400C2 PO; +MELA5TAB14 PO; +MULT1TAB10 PO; +NIGH25TA11 PO; -PRAV40TA2; +PRAV40TA2 PO; +ROPI1TAB PO; +ROPI2TAB PO; +TOPA200T6 PO; +potassium PO; +thyroxine PO
[2016-11-13 11:50] LABS: MEAN CORPUSCULAR HEMOGLOBIN 32.8 pg (27.0-33.0); MEAN CORPUSCULAR HGB CONC 33.1 g/dl (32.0-36.5); RED CELL DISTRIBUTION WIDTH 12.1 % (11.5-14.5); WHITE BLOOD COUNT 6.8 K/mm3 (4.0-10.0)
--- NOTE | 2016-11-13 12:20 | REP ---
Chest two views HISTORY: Arthritis Comparison: 11/19/2010 The lungs are clear. The heart is normal in size. The pulmonary vasculature is normal in appearance. The bony structure is intact. The patient is status post thoracolumbar posterior spinal fusion. IMPRESSION: No acute disease. Signed by Heber Mac MD 11/13/2016 12:12 P
[2016-11-13 12:24] LABS: ALBUMIN 3.5 GM/DL (3.2-5.2); ALKALINE PHOSPHATASE 91 U/L (45-117); ALT/SGPT 17 U/L (12-78); ANION GAP 6 MEQ/L (8-16); AST/SGOT 11 U/L (15-37); BILIRUBIN,TOTAL 0.3 MG/DL (0.2-1.0); BLOOD UREA NITROGEN 19 MG/DL (7-18); CALCIUM LEVEL 9.1 MG/DL (8.8-10.2); CARBON DIOXIDE LEVEL 31 MEQ/L (21-32); CHLORIDE LEVEL 107 MEQ/L (98-107); CREATININE FOR GFR 0.74 MG/DL (0.55-1.02); GLOMERULAR FILTRATION RATE > 60.0 (>39); GLUCOSE, FASTING 101 MG/DL (83-110); SODIUM LEVEL 144 MEQ/L (136-145)
--- NOTE | 2016-11-14 18:33 | ECGEPIP ---
Stationary ECG Study [facility] Test Date: 2016-11-13 Pat Name: MARCELO LOUIS Department: Room: - Gender: F Classroom Instructional Aide: DONNIE : 1940 Requested By: Berna Polanco Order Number: [id number] Reading MD: Lewis North Measurements Intervals [place] Rate: 70 P: 58 NH: 171 QRS: 17 QRSD: 123 T: 40 QT: 397 QTc: 429 Interpretive Statements SINUS RHYTHM RIGHT BUNDLE BRANCH BLOCK NO PRIOR TRACING IN THE SYSTEM Electronically Signed On 11-14-2016 18:33:05 EDT by Lewis North
== END ==
LOC: M ADMPAT 09:23
PROVIDERS: ATTEND Orthopaedic Surgery
DX: Z01.818 Encounter for other preprocedural examination (principal); M17.12 Unilateral primary osteoarthritis, left knee; D64.9 Anemia, unspecified; I11.9 Hypertensive heart disease without heart failure; I35.9 Nonrheumatic aortic valve disorder, unspecified; I25.10 Atherosclerotic heart disease of native coronary artery without angina pectoris; E78.00 Pure hypercholesterolemia, unspecified; Z79.899 Other long term (current) drug therapy; E03.9 Hypothyroidism, unspecified; K21.9 Gastro-esophageal reflux disease without esophagitis; G47.32 High altitude periodic breathing; F34.1 Dysthymic disorder; L40.0 Psoriasis vulgaris; M85.9 Disorder of bone density and structure, unspecified

== ENCOUNTER 2016-11-27 12:04 | Inpatient (IN) | payer MEDICARE ==
[2016-11-13 10:22] VITALS: BP 148/76
--- NOTE | 2016-11-21 15:33 | HPE ---
DATE OF ADMISSION: 11/27/2016 ATTENDING PHYSICIAN: Dr. Collin Thorne ADMISSION DIAGNOSIS: Osteoarthritis left knee. HISTORY: This is a pleasant 75-year-old female patient with progressively worsening left knee pain and stiffness. She has failed to improve with conservative management. She has pain with weightbearing activities and activities of daily living. She has elected for surgery for her continued symptoms. She has consented for a left total knee arthroplasty by Dr. Collin Thorne. Medical optimization Dr. Aponte. X-rays of her left knee notable for end-stage degenerative changes of the left knee. ALLERGIES: No known drug allergies. CURRENT MEDICATIONS: - lysine 500 mg two tablets in the morning on an empty stomach - magnesium 400 mg one tablet once per day - potassium otc she is unclear on the dose one tablet once per day - coenzyme Q10 100 mg one tablet once per day - iron 65 mg one tablet Friday and Friday - levothyroxine 125 mcg half a tablet once per day - Requip one tablet in the morning, two tablets at 2 p.m., two tablets at 9 p.m. - Cymbalta 60 mg one tablet in the morning - Nexium 40 mg one tablet in the morning - glucosamine chondroitin one tablet in the morning - multivitamin once per day - Topamax 200 mg one tablet in the morning - Coreg 6.25 mg one tablet twice a day - Klonopin 0.5 mg one tablet as needed for restless legs - Amitiza 80 mcg one tablet per day for constipation - melatonin 5 mg one tablet once per day - koly-mwk-rusvago sleep aid - baby aspirin 81 mg one tablet once per day, she will discontinue that 5 days prior to surgery - Cozaar 25 mg one tablet once per day - pravastatin 40 mg one tablet once per day MEDICAL HISTORY: Includes elevated cholesterol, coronary artery disease, hypothyroidism, chronic constipation, carotid artery stenosis, gastric reflux disease, sleep apnea, gallbladder disease, psoriasis, restless leg syndrome, anemia and aortic stenosis, along with symptomatic osteoarthritis of both knees. SURGICAL HISTORY: Includes tonsils removed, appendectomy, abdominal adhesion removal, section, hysterectomy, X-STOP placement and X-STOP removal, lumbar fusion, three heart stents. FAMILY HISTORY: Noncontributory. SOCIAL HISTORY: She does not smoke. She does not use alcohol. She is retired. REVIEW OF SYSTEMS: Denies fever or chills. Denies chest pain, shortness of breath or cough. Denies difficulty breathing. Denies abdominal pain. Denies nausea or vomiting. Denies recent upper respiratory infection (URI) or urinary tract infection (UTI) symptoms. Denies any change in her bowel or bladder habits. Denies nausea or vomiting. Has persistent pain in her left knee with weightbearing activities. PHYSICAL EXAMINATION: Today: Reveals an elderly female patient who ambulates with the use of a cane. She favors her left side. Exam of the left knee does reveal tenderness mainly over the medial aspect of the knee but some lateral tenderness as well. Range of motion is she can get to 120 degrees and she can almost completely extend, though there is irritability with extremes of range of motion. The skin is intact. No erythema, edema or ecchymosis. There is some venous congestion and 1+ pitting edema of the bilateral lower extremities. No irritability with hip range of motion. The neck is supple without adenopathy or jugular venous distention (JVD). Lungs are clear to auscultation without rales or wheeze. Heart: Regular rate and rhythm. Abdomen: Bowel sounds are present. Current vital signs: Blood pressure 130/70, pulse 62, respirations 16, temperature 97.2, height 64 inches, weight 258 pounds. IMPRESSION: Symptomatic osteoarthritis of the left knee. LABORATORY DATA: PT 13.3, INR 1.0. Urine culture no growth. Nasal culture normal varnider. Urinalysis remarkable for 1+ leukocyte esterase, otherwise unremarkable. Sedimentation rate 49, glucose 101, BUN 19, creatinine 0.74, sodium 144, potassium 4.0, WBC count 6.8, RBC count 3.7, hemoglobin 12.1, hematocrit 36.6. Chest x-ray: No acute cardiopulmonary disease process noted. EKG sinus rhythm. PLAN: She has consented for a left total knee arthroplasty by Dr. Thorne. LUCY
[~2016-11-27] VITALS: Ht 162.6 cm; Wt 128.0 kg
[2016-11-27] MEDS ORDERED: LR 1,000 ML IV ONE (12:15)
[2016-11-27] MEDS ORDERED: LR 1,000 ML IV SCH ×3 (12:15→19:15)
[2016-11-27] MEDS ORDERED: ACETAMINOPHEN 500 MG TAB PO ONE (12:15)
[2016-11-27] MEDS ORDERED: rOPINIRole 1MG TAB PO ONE (14:00)
[2016-11-27] MEDS ORDERED: MIDAZOLAM INJ 2 MG/2 ML VIAL (J2250) As Ordered ONE ×2 (15:41→17:33)
[2016-11-27] MEDS ORDERED: fentaNYL 100 MCG/2 ML INJECTION (J3010) As Ordered ONE ×3 (15:41→16:56)
[2016-11-27] MEDS ORDERED: BUPIVACAINE HCL 0.5% 10 ML VIAL As Ordered ONE (15:49)
[2016-11-27] MEDS ORDERED: TRANEXAMIC ACID 100 MG/ML 10ML VIAL As Ordered ONE (15:49)
[2016-11-27] MEDS ORDERED: ROPIvacaine 0.5% 30 ML INJECTION (J2795) As Ordered ONE (15:49)
[2016-11-27] MEDS ORDERED: EPINEPHrine INJ 1 MG/ML 1ML VIAL/AMP As Ordered ONE (15:50)
[2016-11-27] MEDS ORDERED: ceFAZolin 1GM INJ (J0690) As Ordered ONE (15:50)
[2016-11-27] MEDS: MIDAZOLAM INJ 2 MG/2 ML VIAL (J2250) IV PRN (15:57)
[2016-11-27] MEDS ORDERED: fentaNYL 100 MCG/2 ML INJECTION (J3010) IV PRN ×2 (16:30→19:15)
[2016-11-27] MEDS ORDERED: PROPOFOL 500 MG/50 ML VIAL As Ordered ONE (16:56)
[2016-11-27] MEDS ORDERED: ONDANSETRON 4MG/2ML VIAL (J2405) As Ordered ONE (16:56)
[2016-11-27] MEDS ORDERED: dexameTHASONE 4 MG/ML 1ML VIAL (J1100) As Ordered ONE (16:56)
[2016-11-27] MEDS ORDERED: METOCLOPRAMIDE INJ 10MG/2ML VIAL (J2765) As Ordered ONE (16:57)
[2016-11-27] MEDS ORDERED: PHENYLephrine HCL 500 MCG/5 ML (100MCG/ML) SYRINGE (J2370) As Ordered ONE (16:58)
[2016-11-27] MEDS ORDERED: LIDOCAINE 2% INJ 100 MG/5 ML SDV (FOR ANES.) As Ordered ONE (16:58)
[2016-11-27] MEDS ORDERED: MORPHINE 10 MG/ML 1ML VIAL As Ordered ONE (17:31)
[2016-11-27] MEDS ORDERED: LABETALOL HCL 100 MG/20 ML VIAL As Ordered ONE (17:36)
[2016-11-27] MEDS ORDERED: PROPOFOL 200 MG/20 ML VIAL As Ordered ONE (18:21)
[2016-11-27] MEDS ORDERED: MORPHINE 1MG/ML IN 0.9% NACL 100ML IV BAG As Ordered ONE (18:33)
[2016-11-27] MEDS ORDERED: EPIDURAL/PCA KEYS XX PRN (19:00)
[2016-11-27] MEDS ORDERED: NALBUPHINE HCL 10 MG/ML AMP (J2300) IV PRN (19:00)
[2016-11-27] MEDS ORDERED: PATIENT IS CURRENTLY ON AN ON-Q PAIN BUSTER PAIN RELIEF SYSTEM XX SCH (19:00)
[2016-11-27] MEDS ORDERED: MORPHINE 1MG/ML IN 0.9% NACL 100ML IV BAG IV PRN (19:00)
[2016-11-27] MEDS ORDERED: ONDANSETRON 4MG/2ML VIAL (J2405) IV PRN ×2 (19:00→19:15)
[2016-11-27] MEDS ORDERED: diphenhydrAMINE INJ 50MG/ML VIAL (J1200) IV PRN (19:00)
[2016-11-27] MEDS ORDERED: NALOXONE INJ 0.4 MG/1 ML VIAL (J2310) IV PRN (19:00)
[2016-11-27] MEDS ORDERED: METOCLOPRAMIDE INJ 10MG/2ML VIAL (J2765) IV PRN (19:15)
[2016-11-27] MEDS ORDERED: WARFARIN SOD 5 MG TAB PO ONE (19:15)
[2016-11-27] MEDS ORDERED: ACETAMINOPHEN TAB 650MG DOSE (2X325MG) PO PRN (19:15)
[2016-11-27] MEDS ORDERED: MORPHINE 2 MG/ML 1ML SYRINGE IV PRN (19:15)
[2016-11-27] MEDS ORDERED: FLEET ENEMA PR PRN (19:15)
[2016-11-27] MEDS ORDERED: PERCOCET 5MG/325MG TAB PO PRN (19:15)
[2016-11-27] MEDS: hydrALAZINE INJ 20 MG/ML VIAL IV SCH ×6 (19:15→19:40)
[2016-11-27 20:15] VITALS: BP 187/78
--- NOTE | 2016-11-27 20:28 | IPNPDOC ---
Subjective Date Seen The patient was seen on 11/27/16. Subjective Chief Complaint/HPI The patient is a 75-year-old female admitted with a reason for visit of Left Knee Arthritis. Events since last encounter pateint admitted for elective left total knee arthroplasty, preop clearance was done by Dr Mcconnell, surgery was uneventful. patient denies any chest pain or SOB , denies any nausea or vomiting or diarrhea Objective Physical Examination General Exam: Positive: Alert, No Acute Distress Eye Exam: Positive: PERRLA, Conjunctiva & lids normal, EOMI, Negative: Sclera icteric ENT Exam: Positive: Atraumatic, Mucous membr. moist/pink, Pharynx Normal Neck Exam: Positive: Supple, Negative: JVD, thyromegaly Chest Exam: Positive: Clear to auscultation, Normal air movement Heart Exam: Positive: Rate Normal, Regular Rhythm, Normal S1, Normal S2, Murmurs Abdomen Exam: Positive: Normal bowel sounds, Soft, Negative: Tenderness, Hepatospenomegaly Extremity Exam: Positive: Normal pulses, Negative: Clubbing, Cyanosis, Edema Assessment /Plan Problems (1) S/P total knee arthroplasty Problem Text: patient will be followed by Dr De Luna from 11/28/16 pain control and dvt prophylaxis as per ortho protocol. (2) Hypothyroid Status: Chronic Problem Text: continue synthroid (3) Hyperlipidemia Status: Chronic Problem Text: continue statin (4) CAD (coronary artery disease) Status: Chronic (5) DOMI (obstructive sleep apnea) Status: Chronic (6) Carotid arterial disease Status: Chronic (7) Psoriasis Status: Chronic (8) GERD (gastroesophageal reflux disease) Status: Chronic Problem Text: continue PPI (9) Restless leg syndrome Status: Chronic Problem Text: continue ropirinole (10) Aortic stenosis Status: Chronic (11) Hypertension Problem Text: continue coreg will hold losartan for now. will restart tomorrow. Plan/VTE VTE Prophylaxis Ordered?: Yes VS, I&O, 24H, Fishbone Vital Signs/I&O Vital Signs Date Time Temp Pulse Resp B/P (MAP) Pulse Ox O2 Delivery O2 Flow Rate FiO2 11/27/16 19:25 152/58 (89) 11/27/16 19:23 73 95 11/27/16 18:41 98.0 18 Nasal Cannula 2 DANIS PRASAD MD November 27, 2016 20:28
[2016-11-27 20:45] VITALS: BP 173/79
[2016-11-27] MEDS ORDERED: diphenhydrAMINE 25 MG CAP PO SCH (21:00)
[2016-11-27] MEDS: rOPINIRole 1MG TAB PO SCH (21:00)
[2016-11-27 21:45] VITALS: BP 173/77
[2016-11-27 22:45] VITALS: BP 164/83
[2016-11-27 23:45] VITALS: BP 127/81
[2016-11-27] MEDS: CARVedilol 6.25 MG TAB PO SCH (23:47)
[2016-11-27] MEDS: PRAVASTATIN 20 MG TAB PO SCH (23:47)
[2016-11-28 00:45] VITALS: BP 159/75
[2016-11-28 04:45] VITALS: BP 162/81
[2016-11-28] MEDS: LEVOTHYROXINE 0.125 MG TAB (125 MCG) PO SCH (05:47)
[2016-11-28] MEDS ORDERED: ONDANSETRON 4 MG TAB (S0181) PO PRN (06:30)
[2016-11-28 06:59] LABS: BASO % 0.1 % (0.0-1.0); EOS % 0.1 % (0.0-3.0); INR 1.12; LARGE UNSTAINED CELL # 0.2 K/mm3 (0.0-0.4); LARGE UNSTAINED CELL % 1.4 % (0.0-4.0); LYMPH # 0.9 K/mm3 (1.5-4.5); MEAN CORPUSCULAR HEMOGLOBIN 32.8 pg (27.0-33.0); MEAN CORPUSCULAR HGB CONC 32.5 g/dl (32.0-36.5); MEAN CORPUSCULAR VOLUME 100.9 fl (80.0-96.0); MONO # 0.6 K/mm3 (0.0-0.8); MONO % 5.3 % (0.0-5.0); NEUTROPHILS # 9.5 K/mm3 (1.8-7.7); PLATELET COUNT, AUTOMATED 305 k/mm3 (150-450); WHITE BLOOD COUNT 11.2 K/mm3 (4.0-10.0)
[2016-11-28 07:07] LABS: ANION GAP 7 MEQ/L (8-16); BLOOD UREA NITROGEN 20 MG/DL (7-18); CALCIUM LEVEL 8.6 MG/DL (8.8-10.2); CARBON DIOXIDE LEVEL 28 MEQ/L (21-32); CHLORIDE LEVEL 103 MEQ/L (98-107); CREATININE FOR GFR 0.77 MG/DL (0.55-1.02); GLOMERULAR FILTRATION RATE > 60.0 (>39); GLUCOSE, FASTING 104 MG/DL (83-110); POTASSIUM SERUM 4.4 MEQ/L (3.5-5.1); SODIUM LEVEL 138 MEQ/L (136-145)
--- NOTE | 2016-11-28 08:15 | RO ---
DATE OF PROCEDURE: 11/27/2016 PREPROCEDURE DIAGNOSIS: Left knee degenerative arthritis. POSTPROCEDURE DIAGNOSIS: Left knee degenerative arthritis. PROCEDURE: Left total knee arthroplasty using a size 4 narrow cruciate retaining femoral component and a size 3 tibial tray with 10 mm rotating platform polyethylene insert, 35 mm polyethylene button. All components were cemented. Prosthesis made by [employer]. It was a PFC knee. SURGEON: Dr. Berna Thorne. SEXUAL HEALTH PHYSICIAN: Jennifer Nathan. ANESTHESIA: General laryngeal mask anesthetic with left femoral nerve block. COMPLICATIONS: None. SPECIMENS: Joint surface. ESTIMATED BLOOD LOSS: 150 mL. PROCEDURE: After antibiotics were given intravenously preoperatively and successful left femoral nerve block and then general laryngeal mask anesthetic was established, and a tourniquet was placed on the left upper thigh and not inflated. She had a very large thigh difficult to maintain the tourniquet but we were able to eventually do so. Then the left lower extremity was prepped and draped in the usual sterile fashion and then elevated and then after appropriate tie out, the tourniquet was inflated to 275 mmHg. A longitudinal incision was then made for medial parapatellar approach to the knee. Bovie cautery was used to coagulate crossing vessels down to the deep fascia, then the arthrotomy was performed. Subperiosteal dissection around the proximal medial portion of the tibia was performed and then proximal lateral portion of the tibia, then we everted the patella and flexed the knee. There was difficult exposure most of the case because of the large size of her leg and the tissues were relatively tight and not very pliable and there was a continuous venous ooze because of the size of her leg and the tourniquet was not really a complete vein arterial tourniquet even though I increased the pressure to 300. I drilled down the center of the femoral canal followed by the intramedullary eryn and distal femoral cutting jig set at 5 degree valgus cut at 10 mm resection level for a left knee. Pinned into position. Distal femoral cut performed. The AP sizing jig was pinned into position and measured for a size 4 and then the 3 degree external rotation block was applied and the drill holes made and then the 4-in-1 block applied. Then we performed the anterior posterior chamfer cuts. We then exposed the proximal tibia and used the extramedullary eryn to be sure we appeared to be parallel to the mechanical axis of the tibia. We referencing off the medial tibial condyle. Pinned the block into position. Secondary check looked like we were well aligned and then the proximal tibial osteotomy performed. We then placed the alignment market maker laterally and performed a completion medial meniscectomy performed. Debridement of the posterior medial osteophytes. We then placed the alignment market maker medially and performed a completion lateral meniscectomy, debridement of posterior lateral osteophytes. The space blocks were then applied. The 10 mm fit just right. I did not I needed to go any larger and she had good stability of varus valgus stress testing both in flexion and in extension. We then exposed the tibia size for a #3 tibial tray which was pinned into position followed by the reamer and broach and then we placed trial and then placed the trial femoral component. I fit nicely. Brought the knee into extension, everted the patella, performed patellar osteotomy size for a 35 button. Lug holes were drilled and the trial prosthesis was applied and the patellofemoral tracking was anatomic. We drilled the lug holes for the femur, removed all the trial components, copiously pulsatile lavage and irrigated out the knee joint. Ms. Jennifer Nathan mixed the cement on the back table as I prepared the bony surfaces for cementing. Tried to get it as dry as possible with slight venous ooze but eventually we were able to get it reasonably dry and then cemented the tibial tray, removed excess cement, placed the polyethylene and then cemented the femoral component, removed the excess cement, brought the knee into extension and cemented the patellar button, removed excess cement and held the knee in extension until the cement hardened while we copiously pulsatile lavage irrigated out the knee joint once again, then applied the Tranexamic axis. Once the cement had hardened, I closed the apex of the arthrotomy with two #1 PDS sutures and the medial parapatellar area with one PDS #1 suture and flexed and extended the knee again. The patellar tracking was anatomic. We used the #1 running double arm Stratafix to close the capsule and then released the tourniquet and then flexed and extended the knee again. She had good range of motion. Irrigated out the subdermal tissues and closed the deep subdermal tissues with interrupted #2-0 PDS sutures, skin was closed with hilario covered by Adaptic dry sterile bulky dressing after we applied the PainBuster. She was then awakened from general laryngeal mask anesthetic after having tolerated the procedure well, transferred to the recovery room in stable condition. There were no intraoperative complications.
[2016-11-28] MEDS: PERCOCET 5MG/325MG TAB PO PRN ×4 (08:26→20:20)
[2016-11-28] MEDS: rOPINIRole 1MG TAB PO SCH ×3 (08:27→20:21)
[2016-11-28] MEDS: TOPIRAMATE (TopAMAX) 100 MG TAB PO SCH (08:27)
[2016-11-28] MEDS: SENOKOT S TAB PO SCH ×2 (08:27→20:21)
[2016-11-28] MEDS: DULoxetine 30 MG CAP (CYMBALTA) PO SCH (08:27)
[2016-11-28] MEDS: MOM 30ML SUSPENSION UDC PO SCH (08:30)
[2016-11-28] MEDS: MIRALAX *UNIT DOSE* 17GM PACKET PO SCH (08:30)
[2016-11-28] MEDS: CARVedilol 6.25 MG TAB PO SCH ×2 (08:30→20:21)
--- NOTE | 2016-11-28 08:54 | REP ---
Left knee to the views postoperative study: Comparison is 07/15/2016. There is a total knee arthroplasty as an interval change. The components are tightly applied and in satisfactory positions alignment. Skin hilario are incidentally noted. Signed by Huang Almazan MD 11/28/2016 08:46 A
[2016-11-28] MEDS: LOSARTAN 25 MG TAB PO SCH (12:22)
--- NOTE | 2016-11-28 14:18 | IPNPDOC ---
Text Note Date of Service The patient was seen on 11/28/16. NOTE Subjective: Pt feels well. Denies any complaints. Objective: Vitals: (see below) General: No acute distress, laying comfortably in bed. HEENT: Moist mucous membranes. Neck: No JVD or lymphadenopathy Cardiac: RRR, No murmurs Pulm: Clear to auscultation b/l. No wheezing, rhonchi Abd: NT/ND + BS. Obese Ext: No edema or cyanosis. Left knee with some swelling. No bleeding. Distal pulses intact. No erythema. Labs (see below) Images: CXR 11/27/16 Impression: Chronic changes predominantly involving the right hemithorax. No obvious acute cardiopulmonary process. Assessment/Plan 1. POD #1 s/p Left total knee arthroplasty - pain and DVT prophy management per ortho 2. HTN - uncontrolled. ARB restarted. 3. Hhypothyroidism- on synthroid 4. HLD - on statin 5. H/o CAD/Cartoid artery disease. ASA held while pt is on coumadin. Will need to be restarted once coumdain d/c. On statin/BB. 6. H/o Psoriasis 7. H/o GERD on PPI 8. H/o RLS on ropinirole 9. Chronic DVT prophy: Per orthopedics. VS,Fishbone, I+O VS, Fishbone, I+O Laboratory Tests 11/28/16 06:16 Red Blood Count 3.43 L, Mean Corpuscular Volume 100.9 H, Mean Corpuscular Hemoglobin 32.8, Mean Corpuscular Hemoglobin Concent 32.5, Red Cell Distribution Width 12.0, Neutrophils (%) (Auto) 85.0 H, Lymphocytes (%) (Auto) 8.0 L, Monocytes (%) (Auto) 5.3 H, Eosinophils (%) (Auto) 0.1, Basophils (%) ( Auto) 0.1, Neutrophils # (Auto) 9.5 H, Lymphocytes # (Auto) 0.9 L, Monocytes # ( Auto) 0.6, Eosinophils # (Auto) 0.0, Basophils # (Auto) 0.0, Calcium Level 8.6 L Vital Signs Date Time Temp Pulse Resp B/P (MAP) Pulse Ox O2 Delivery O2 Flow Rate FiO2 11/28/16 14:09 92 Room Air 11/28/16 12:48 16 11/28/16 12:22 146/72 11/28/16 08:30 86 11/28/16 07:30 0.0 11/28/16 04:45 98.6 I&O- Last 24 Hours up to 6 AM 11/28/16 05:59 Intake Total 1820 ml Output Total 550 ml Balance 1270 ml SAI SORTO MD November 28, 2016 14:18
[2016-11-28] MEDS ORDERED: MAALOX 30 ML SUSP *UDC PO PRN (15:45)
[2016-11-28] MEDS: PANTOPRAZOLE 40MG TAB (PROTONIX) PO SCH (16:09)
[2016-11-28] MEDS ORDERED: WARFARIN SOD 5 MG TAB PO ONE (17:00)
[2016-11-28] MEDS: PRAVASTATIN 20 MG TAB PO SCH (20:21)
[2016-11-28 22:00] VITALS: BP 149/71
[2016-11-29] MEDS: PERCOCET 5MG/325MG TAB PO PRN ×3 (01:59→12:19)
[2016-11-29 06:00] VITALS: BP 116/57
[2016-11-29] MEDS: LEVOTHYROXINE 0.125 MG TAB (125 MCG) PO SCH (06:11)
[2016-11-29 06:50] LABS: BASO % 0.2 % (0.0-1.0); EOS # 0.3 K/mm3 (0.0-0.50); EOS % 2.3 % (0.0-3.0); LARGE UNSTAINED CELL # 0.2 K/mm3 (0.0-0.4); LARGE UNSTAINED CELL % 1.7 % (0.0-4.0); LYMPH # 1.4 K/mm3 (1.5-4.5); LYMPH % 12.1 % (24.0-44.0); MEAN CORPUSCULAR HEMOGLOBIN 32.7 pg (27.0-33.0); MEAN CORPUSCULAR HGB CONC 32.9 g/dl (32.0-36.5); MEAN CORPUSCULAR VOLUME 99.6 fl (80.0-96.0); MONO # 0.5 K/mm3 (0.0-0.8); MONO % 4.2 % (0.0-5.0); NEUTROPHILS # 9.1 K/mm3 (1.8-7.7); NEUTROPHILS % 79.5 % (36.0-66.0); PLATELET COUNT, AUTOMATED 277 k/mm3 (150-450); RED CELL DISTRIBUTION WIDTH 12.1 % (11.5-14.5); WHITE BLOOD COUNT 11.5 K/mm3 (4.0-10.0)
[2016-11-29 06:55] LABS: INR 1.67
[2016-11-29 07:10] LABS: ANION GAP 6 MEQ/L (8-16); BLOOD UREA NITROGEN 21 MG/DL (7-18); CALCIUM LEVEL 8.2 MG/DL (8.8-10.2); CARBON DIOXIDE LEVEL 28 MEQ/L (21-32); CHLORIDE LEVEL 98 MEQ/L (98-107); CREATININE FOR GFR 0.71 MG/DL (0.55-1.02); GLOMERULAR FILTRATION RATE > 60.0 (>39); GLUCOSE, FASTING 101 MG/DL (83-110); SODIUM LEVEL 132 MEQ/L (136-145)
[2016-11-29] MEDS ORDERED: ROPIvacaine 0.5% 30 ML INJECTION (J2795) ONE (07:21)
[2016-11-29] MEDS ORDERED: LIDOCAINE 1% MDV 20ML VIAL ONE (07:21)
[2016-11-29] MEDS ORDERED: COUM2.5T11 PO (07:56)
[2016-11-29] MEDS ORDERED: PERC5TAB6 PO (07:56)
[2016-11-29] MEDS: MIRALAX *UNIT DOSE* 17GM PACKET PO SCH (08:18)
[2016-11-29] MEDS: PANTOPRAZOLE 40MG TAB (PROTONIX) PO SCH (08:18)
[2016-11-29] MEDS: TOPIRAMATE (TopAMAX) 100 MG TAB PO SCH (08:18)
[2016-11-29] MEDS: SENOKOT S TAB PO SCH (08:18)
[2016-11-29] MEDS: DULoxetine 30 MG CAP (CYMBALTA) PO SCH (08:18)
[2016-11-29] MEDS: MOM 30ML SUSPENSION UDC PO SCH (08:18)
[2016-11-29] MEDS: LOSARTAN 25 MG TAB PO SCH (08:18)
[2016-11-29] MEDS: rOPINIRole 1MG TAB PO SCH (08:18)
[2016-11-29 08:19] VITALS: BP 116/57
[2016-11-29] MEDS: CARVedilol 6.25 MG TAB PO SCH (08:19)
[2016-11-29] MEDS ORDERED: MAGNESIUM CITRATE 300 ML BTL PO ONE (09:30)
[2016-11-29 12:06] VITALS: BP 154/66
--- NOTE | 2016-11-29 15:07 | IPNPDOC ---
Text Note Date of Service The patient was seen on 11/29/16. NOTE Subjective: Denies any complaints. No acute changes overnight. Objective: Vitals: (see below) General: No acute distress, laying comfortably in bed. HEENT: Moist mucous membranes. Neck: No JVD or lymphadenopathy Cardiac: RRR, No murmurs Pulm: Clear to auscultation b/l. No wheezing, rhonchi Abd: NT/ND + BS. Obese Ext: No edema or cyanosis. Left knee with some swelling. Serosang drainage from left knee surgical site. Distal pulses intact. No erythema. Labs (see below) Images: CXR 11/27/16 Impression: Chronic changes predominantly involving the right hemithorax. No obvious acute cardiopulmonary process. Assessment/Plan 1. POD #1 s/p Left total knee arthroplasty - pain and DVT prophy management per ortho 2. HTN - controlled. On ARB. 3. Hhypothyroidism- on synthroid 4. HLD - on statin 5. H/o CAD/Cartoid artery disease. ASA held while pt is on coumadin. Will need to be restarted once coumdain d/c. On statin/BB. 6. H/o Psoriasis 7. H/o GERD on PPI 8. H/o RLS on ropinirole 9. Chronic DVT prophy: Per orthopedics. VS,Fishbone, I+O VS, Fishbone, I+O Laboratory Tests 11/29/16 06:40 Red Blood Count 3.08 L, Mean Corpuscular Volume 99.6 H, Mean Corpuscular Hemoglobin 32.7, Mean Corpuscular Hemoglobin Concent 32.9, Red Cell Distribution Width 12.1, Neutrophils (%) (Auto) 79.5 H, Lymphocytes (%) (Auto) 12.1 L, Monocytes (%) (Auto) 4.2, Eosinophils (%) (Auto) 2.3, Basophils (%) ( Auto) 0.2, Neutrophils # (Auto) 9.1 H, Lymphocytes # (Auto) 1.4 L, Monocytes # ( Auto) 0.5, Eosinophils # (Auto) 0.3, Basophils # (Auto) 0.0, Calcium Level 8.2 L Vital Signs Date Time Temp Pulse Resp B/P (MAP) Pulse Ox O2 Delivery O2 Flow Rate FiO2 11/29/16 12:19 20 11/29/16 12:06 98.4 76 154/66 (95) 94 Room Air 11/28/16 07:30 0.0 I&O- Last 24 Hours up to 6 AM 11/29/16 06:00 Intake Total 740 ml Output Total 900 ml Balance -160 ml SAI SORTO MD November 29, 2016 15:07
--- NOTE | 2016-12-02 19:58 | DSES ---
DATE OF ADMISSION: 11/27/2016 DATE OF DISCHARGE: 12/02/2016 ATTENDING PHYSICIAN: Dr. Collin Thorne ADMISSION DIAGNOSIS: Osteoarthritis of left knee. OTHER DIAGNOSES: Hypothyroidism, elevated lipids, coronary artery disease, sleep apnea, psoriasis, gastric reflux disease, restless leg syndrome, aortic stenosis, hypertension. DISCHARGE DIAGNOSIS: Osteoarthritis left knee status post left total knee arthroplasty. OPERATION PERFORMED: Left total knee arthroplasty. HISTORY: This is a pleasant 75-year-old patient with progressively worsening left knee pain and stiffness. She failed to improve with conservative management. She was admitted for elective knee replacement on the left side. HOSPITAL COURSE: The patient was admitted on day of surgery, underwent a left total knee arthroplasty which was uneventful. She did well in the postoperative period and hospital course was without complications. She was up with physical therapy per their protocol and her pain was controlled. On day of discharge she was doing well, weightbearing as tolerated on left lower extremity. She will move her left knee to prevent stiffness. She will use adjusted dose Coumadin and thromboembolism deterrent (ELI) stockings for 30 days postoperative for deep venous thrombosis (DVT) prophylaxis. She will resume her preoperative medications and diet. She will use oral pain medications for pain control. She will followup in our office in 10-14 days for surgical followup. She was given instructions to include but not limited to wound monitoring and activity limitations. Please refer to the medical record for further details.
== END 2016-11-29 12:20 | disposition home health service (06) | DRG 470 ==
LOC: M OR 12:04 → M MS5PR 19:45
PROVIDERS: ADMIT Orthopaedic Surgery; ATTEND Orthopaedic Surgery
PROC: 0SRD0J9 Replacement of Left Knee Joint with Synthetic Substitute, Cemented, Open Approach (ICD-10-PCS; principal; 2016-11-27 16:15)
DX: M17.12 Unilateral primary osteoarthritis, left knee (principal); E78.00 Pure hypercholesterolemia, unspecified; I25.10 Atherosclerotic heart disease of native coronary artery without angina pectoris; E03.9 Hypothyroidism, unspecified; K21.9 Gastro-esophageal reflux disease without esophagitis; G47.33 Obstructive sleep apnea (adult) (pediatric); G25.81 Restless legs syndrome; I65.29 Occlusion and stenosis of unspecified carotid artery; E78.5 Hyperlipidemia, unspecified; L40.9 Psoriasis, unspecified; I10 Essential (primary) hypertension; Z79.82 Long term (current) use of aspirin; Z79.899 Other long term (current) drug therapy; Z95.9 Presence of cardiac and vascular implant and graft, unspecified; Z90.710 Acquired absence of both cervix and uterus

== ENCOUNTER → 2016-12-03 | Outpatient (REF) | payer MEDICARE ==
[~2016-12-03] MED LIST changes: +COUM2.5T11 PO; +PERC5TAB6 PO
[2016-12-03 16:16] LABS: INR 1.42
== END ==
LOC: M SHH 15:50
PROVIDERS: ATTEND Nurse Practitioner Family
DX: Z79.01 Long term (current) use of anticoagulants (principal)

== ENCOUNTER → 2016-12-05 | Outpatient (REF) | payer MEDICARE ==
[2016-12-05 15:57] LABS: INR 1.52
== END ==
LOC: M SHH 15:11
PROVIDERS: ATTEND Nurse Practitioner Family
DX: Z79.01 Long term (current) use of anticoagulants (principal)

== ENCOUNTER → 2016-12-10 | Outpatient (REF) | payer MEDICARE ==
[2016-12-10 13:32] LABS: INR 2.72
== END ==
LOC: M SHH 12:28
PROVIDERS: ATTEND Nurse Practitioner Family
DX: Z79.01 Long term (current) use of anticoagulants (principal)

== ENCOUNTER → 2016-12-12 | Outpatient (REF) | payer MEDICARE ==
[2016-12-12 14:28] LABS: INR 2.46
== END ==
LOC: M SHH 13:33
PROVIDERS: ATTEND Nurse Practitioner Family
DX: Z79.01 Long term (current) use of anticoagulants (principal)

== ENCOUNTER → 2016-12-16 | Outpatient (REF) | payer MEDICARE ==
[2016-12-16 12:16] LABS: INR 1.85
== END ==
LOC: M LAB REF 11:17
PROVIDERS: ATTEND Nurse Practitioner Family
DX: Z79.01 Long term (current) use of anticoagulants (principal); Z96.652 Presence of left artificial knee joint

== ENCOUNTER → 2016-12-19 | Outpatient (REF) | payer MEDICARE ==
[2016-12-19 11:27] LABS: INR 1.5
== END ==
LOC: M SHH 10:54
PROVIDERS: ATTEND Nurse Practitioner Family
DX: Z51.81 Encounter for therapeutic drug level monitoring (principal); Z79.01 Long term (current) use of anticoagulants

== ENCOUNTER → 2016-12-23 | Outpatient (REF) | payer MEDICARE ==
[2016-12-23 12:26] LABS: INR 1.45
== END ==
LOC: M SHH 11:58
PROVIDERS: ATTEND Nurse Practitioner Family
DX: Z51.81 Encounter for therapeutic drug level monitoring (principal); Z79.01 Long term (current) use of anticoagulants

== ENCOUNTER → 2016-12-26 | Outpatient (REF) | payer MEDICARE ==
[2016-12-26 14:10] LABS: INR 1.58
== END ==
LOC: M SHH 13:33
PROVIDERS: ATTEND Nurse Practitioner Family
DX: Z51.81 Encounter for therapeutic drug level monitoring (principal); Z79.01 Long term (current) use of anticoagulants

== ENCOUNTER → 2017-03-12 | Outpatient (CLI) | payer MEDICARE ==
[~2017-03-12] MED LIST changes: -COUM2.5T11 PO; +COUM2.5T17 PO; -MELA5TAB14 PO; +MELA5TAB17 PO; +PERC5TAB12 PO; -PERC5TAB6 PO; -TOPA200T6 PO; +TOPA200T7 PO
--- NOTE | 2017-03-12 10:42 | REP ---
MRI LEFT WRIST WITHOUT CONTRAST: HISTORY: Left wrist sprain. Injury times two in July and October 2016. Comparison radiographs October 14, 2016. TECHNIQUE: Axial, coronal, and sagittal imaging planes are utilized. T1 and T2-weighted scans obtain in the usual fashion with and without fat saturation. FINDINGS: Radiographs demonstrate an impacted displaced distal radial metaphyseal fracture of the left wrist. On MR images, the displacement is improved but there is still considerable impaction in the alignment of the distal radial metaphyseal fracture. There is positive ulnar variance as a result. Some marrow edema persists along a portion of the fracture line where there is overriding. There is apex volar angulation visible on the sagittal images at the distal radial metaphyseal fracture. No radiocarpal malalignment is seen. There is subcortical cyst in the volar aspect of the lunate bone. No carpal fracture is seen. No tendinopathy is seen. Carpal tunnel and its contents are unremarkable. IMPRESSION: Healing distal radial fracture with impaction and apex volar angulation. Some residual marrow edema. Positive ulnar variance. Subcortical cyst formation in the volar aspect of the lunate. Signed by Peyman Gary MD 03/12/2017 01:41 P
== END ==
LOC: M RAD 06:40
PROVIDERS: ATTEND Physician Assistant Surgical
DX: S63.502D Unspecified sprain of left wrist, subsequent encounter (principal); X58.XXXD Exposure to other specified factors, subsequent encounter; Y93.9 Activity, unspecified; Y92.9 Unspecified place or not applicable; Y99.8 Other external cause status

== ENCOUNTER → 2017-03-25 | Outpatient (CLI) | payer MEDICARE ==
[2017-03-25 14:25] LABS: BASO % 0.3 % (0.0-1.0); EOS # 0.3 K/mm3 (0.0-0.50); LARGE UNSTAINED CELL # 0.1 K/mm3 (0.0-0.4); LARGE UNSTAINED CELL % 1.5 % (0.0-4.0); LYMPH % 13.8 % (24.0-44.0); MEAN CORPUSCULAR HGB CONC 31.5 g/dl (32.0-36.5); MEAN CORPUSCULAR VOLUME 92.2 fl (80.0-96.0); MONO # 0.4 K/mm3 (0.0-0.8); MONO % 5.7 % (0.0-5.0); NEUTROPHILS % 74.8 % (36.0-66.0); PLATELET COUNT, AUTOMATED 313 k/mm3 (150-450); RED CELL DISTRIBUTION WIDTH 13.2 % (11.5-14.5); WHITE BLOOD COUNT 6.7 K/mm3 (4.0-10.0)
[2017-03-25 14:50] LABS: VITAMIN B12 LEVEL 624 PG/ML (247-911)
[2017-03-25 14:52] LABS: FOLATE > 24.0 NG/ML (>5.4)
[2017-03-25 14:55] LABS: ALBUMIN 3.4 GM/DL (3.2-5.2); ALBUMIN/GLOBULIN RATIO 0.92 (1.00-1.93); ALKALINE PHOSPHATASE 83 U/L (45-117); ALT/SGPT 21 U/L (12-78); ANION GAP 8 MEQ/L (8-16); AST/SGOT 14 U/L (15-37); BILIRUBIN,TOTAL 0.3 MG/DL (0.2-1.0); BLOOD UREA NITROGEN 20 MG/DL (7-18); CARBON DIOXIDE LEVEL 30 MEQ/L (21-32); CHLORIDE LEVEL 103 MEQ/L (98-107); CREATININE FOR GFR 0.75 MG/DL (0.55-1.02); GLOMERULAR FILTRATION RATE > 60.0 (>39); GLUCOSE, FASTING 72 MG/DL (83-110); POTASSIUM SERUM 4.2 MEQ/L (3.5-5.1); SODIUM LEVEL 141 MEQ/L (136-145); TOTAL PROTEIN 7.1 GM/DL (6.4-8.2)
[2017-03-25 15:08] LABS: ERYTHROCYTE SEDIMENTATION RATE 45 mm/hr (0-30)
[2017-03-27 09:27] LABS: ALBUMIN 3.64 GM/DL (3.29-5.55); ALBUMIN % 51.2 % (55.8-66.1); GAMMA GLOBULIN % 15.4 % (11.1-18.8)
[2017-03-28 00:06] LABS: SJOGREN'S ANTI SS-A <0.2 AI (0.0-0.9); SJOGREN'S ANTI SS-B <0.2 AI (0.0-0.9); VITAMIN E LEVEL 13.1 mg/L (6.5-21.5)
== END ==
LOC: M LRY 10:22
PROVIDERS: ATTEND Psychiatry & Neurology Neurology
DX: G62.9 Polyneuropathy, unspecified (principal)

== ENCOUNTER → 2017-05-07 | Outpatient (REF) | payer MEDICARE, BC ==
[2017-05-07 11:54] LABS: MEAN CORPUSCULAR HEMOGLOBIN 28.6 pg (27.0-33.0); MEAN CORPUSCULAR HGB CONC 31.5 g/dl (32.0-36.5); MEAN CORPUSCULAR VOLUME 90.8 fl (80.0-96.0); PLATELET COUNT, AUTOMATED 311 10^3/uL (150-450); RED CELL DISTRIBUTION WIDTH 15.9 % (11.5-14.5); WHITE BLOOD COUNT 6.8 10^3/uL (4.0-10.0)
[2017-05-07 12:20] LABS: ALBUMIN 3.4 GM/DL (3.2-5.2); ALBUMIN/GLOBULIN RATIO 0.87 (1.00-1.93); ALKALINE PHOSPHATASE 93 U/L (45-117); ALT/SGPT 18 U/L (12-78); ANION GAP 4 MEQ/L (8-16); AST/SGOT 12 U/L (15-37); BILIRUBIN,TOTAL 0.3 MG/DL (0.2-1.0); BLOOD UREA NITROGEN 19 MG/DL (7-18); CALCIUM LEVEL 9.1 MG/DL (8.8-10.2); CARBON DIOXIDE LEVEL 32 MEQ/L (21-32); CHLORIDE LEVEL 104 MEQ/L (98-107); CREATININE FOR GFR 0.78 MG/DL (0.55-1.02); GLOMERULAR FILTRATION RATE > 60.0 (>39); GLUCOSE, FASTING 98 MG/DL (83-110); POTASSIUM SERUM 4.5 MEQ/L (3.5-5.1); SODIUM LEVEL 140 MEQ/L (136-145); TOTAL PROTEIN 7.3 GM/DL (6.4-8.2)
== END ==
LOC: M SFHCPLAZ 08:09
PROVIDERS: ATTEND Internal Medicine
DX: D64.9 Anemia, unspecified (principal); I11.9 Hypertensive heart disease without heart failure

== ENCOUNTER → 2017-06-18 | Outpatient (REF) | payer MEDICARE ==
[2017-06-18 11:14] LABS: BLOOD UREA NITROGEN 24 MG/DL (7-18); CREATININE FOR GFR 0.76 MG/DL (0.55-1.02); GLOMERULAR FILTRATION RATE > 60.0 (>39)
== END ==
LOC: M LABDRAW1 10:28
PROVIDERS: ATTEND Physical Medicine & Rehabilitation
DX: M51.37 Other intervertebral disc degeneration, lumbosacral region (principal)

== ENCOUNTER → 2017-11-14 | Outpatient (REF) | payer MEDICARE ==
[2017-11-14 12:12] LABS: HEMOGLOBIN 12.3 g/dl (12.0-15.5); MEAN CORPUSCULAR HEMOGLOBIN 30.4 pg (27.0-33.0); MEAN CORPUSCULAR HGB CONC 32.4 g/dl (32.0-36.5); MEAN CORPUSCULAR VOLUME 94.1 fl (80.0-96.0); PLATELET COUNT, AUTOMATED 309 10^3/uL (150-450); RED BLOOD COUNT 4.04 10^6/uL (4.00-5.40); RED CELL DISTRIBUTION WIDTH 15.8 % (11.5-14.5); WHITE BLOOD COUNT 6.8 10^3/uL (4.0-10.0)
[2017-11-14 13:06] LABS: ALBUMIN 3.6 GM/DL (3.2-5.2); ALBUMIN/GLOBULIN RATIO 0.88 (1.00-1.93); ALKALINE PHOSPHATASE 87 U/L (45-117); ALT/SGPT 24 U/L (12-78); ANION GAP 3 MEQ/L (8-16); AST/SGOT 26 U/L (7-37); BILIRUBIN,TOTAL 0.4 MG/DL (0.2-1.0); BLOOD UREA NITROGEN 21 MG/DL (7-18); CARBON DIOXIDE LEVEL 32 MEQ/L (21-32); CHLORIDE LEVEL 106 MEQ/L (98-107); CHOLESTEROL LEVEL 160 MG/DL (<200); CREATININE FOR GFR 0.84 MG/DL (0.55-1.30); GLOMERULAR FILTRATION RATE > 60.0 (>39); GLUCOSE, FASTING 106 MG/DL (70-100); HDL CHOLESTEROL 86 MG/DL (>40); MAGNESIUM LEVEL 2.5 MG/DL (1.8-2.4); NON-HDL-C 74 MG/DL; SODIUM LEVEL 141 MEQ/L (136-145); TOTAL PROTEIN 7.7 GM/DL (6.4-8.2); TRIGLYCERIDES LEVEL 55 MG/DL (<150)
[2017-11-14 13:22] LABS: POTASSIUM SERUM 5.4 MEQ/L (3.5-5.1)
== END ==
LOC: M SFHCPLAZ 09:27
DX: D64.9 Anemia, unspecified (principal); I11.9 Hypertensive heart disease without heart failure; E78.00 Pure hypercholesterolemia, unspecified; E03.9 Hypothyroidism, unspecified
CPT/HCPCS: 83735

== ENCOUNTER 2018-02-06 16:02 | Emergency (ER) | payer MEDICARE ==
[2018-02-06 19:04] LABS: BASO % 0.5 % (0.0-1.0); EOS # 0.4 10^3/uL (0.0-0.50); EOS % 5.2 % (0.0-3.0); HEMATOCRIT 37.9 % (36.0-47.0); HEMOGLOBIN 12.2 g/dl (12.0-15.5); IMMATURE GRANULOCYTE % 0.3 % (0-3.0); LYMPH # 1.3 10^3/uL (1.5-4.5); LYMPH % 16.9 % (24.0-44.0); MEAN CORPUSCULAR HEMOGLOBIN 31.1 pg (27.0-33.0); MEAN CORPUSCULAR HGB CONC 32.2 g/dl (32.0-36.5); MEAN CORPUSCULAR VOLUME 96.7 fl (80.0-96.0); MONO # 0.6 10^3/uL (0.0-0.8); MONO % 7.8 % (0.0-5.0); NEUTROPHILS # 5.2 10^3/uL (1.8-7.7); NEUTROPHILS % 69.3 % (36.0-66.0); PLATELET COUNT, AUTOMATED 288 10^3/uL (150-450); RED BLOOD COUNT 3.92 10^6/uL (4.00-5.40); RED CELL DISTRIBUTION WIDTH 13.4 % (11.5-14.5); WHITE BLOOD COUNT 7.5 10^3/uL (4.0-10.0)
[2018-02-06 19:22] LABS: ALBUMIN 3.5 GM/DL (3.2-5.2); ALKALINE PHOSPHATASE 88 U/L (45-117); ALT/SGPT 20 U/L (12-78); ANION GAP 4 MEQ/L (8-16); AST/SGOT 14 U/L (7-37); BILIRUBIN,TOTAL 0.3 MG/DL (0.2-1.0); BLOOD UREA NITROGEN 23 MG/DL (7-18); CARBON DIOXIDE LEVEL 32 MEQ/L (21-32); CHLORIDE LEVEL 104 MEQ/L (98-107); CK-MB VALUE MASS < 1.0 NG/ML (<3.6); CPK CREATINE PHOSPHOKINASE 64 U/L (26-192); CREATININE FOR GFR 0.84 MG/DL (0.55-1.30); GLOMERULAR FILTRATION RATE > 60.0 (>39); GLUCOSE, FASTING 85 MG/DL (70-100); MB/CK RELATIVE INDEX 1.56 (< OR =4); POTASSIUM SERUM 4.2 MEQ/L (3.5-5.1); SODIUM LEVEL 140 MEQ/L (136-145); TOTAL PROTEIN 7.9 GM/DL (6.4-8.2); TROPONIN I < 0.02 NG/ML (< 0.10)
[2018-02-06 22:19] LABS: NT-PRO BNP 50 PG/ML (<450)
== END 2018-02-06 22:34 | disposition home or self-care (01) ==
LOC: M ED 22:34
DX: R60.0 Localized edema (principal); E86.0 Dehydration; R06.02 Shortness of breath; I10 Essential (primary) hypertension; E78.5 Hyperlipidemia, unspecified; G47.33 Obstructive sleep apnea (adult) (pediatric); K21.9 Gastro-esophageal reflux disease without esophagitis; E07.9 Disorder of thyroid, unspecified; G25.81 Restless legs syndrome; Z88.8 Allergy status to other drugs, medicaments and biological substances; Z79.899 Other long term (current) drug therapy; Z79.82 Long term (current) use of aspirin
CPT/HCPCS: 71046

== ENCOUNTER → 2018-03-02 | Outpatient (REF) | payer MEDICARE ==
[2018-03-02 12:33] LABS: ANION GAP 8 MEQ/L (8-16); BLOOD UREA NITROGEN 24 MG/DL (7-18); CALCIUM LEVEL 9.4 MG/DL (8.8-10.2); CARBON DIOXIDE LEVEL 32 MEQ/L (21-32); CHLORIDE LEVEL 102 MEQ/L (98-107); CREATININE FOR GFR 0.89 MG/DL (0.55-1.30); GLOMERULAR FILTRATION RATE > 60.0 (>39); GLUCOSE, FASTING 101 MG/DL (70-100); MAGNESIUM LEVEL 2.5 MG/DL (1.8-2.4); POTASSIUM SERUM 4.5 MEQ/L (3.5-5.1); SODIUM LEVEL 142 MEQ/L (136-145)
== END ==
LOC: M SFHCPLAZ 08:50
DX: I11.9 Hypertensive heart disease without heart failure (principal)
CPT/HCPCS: 83735

== ENCOUNTER → 2018-04-27 | Outpatient (REF) | payer MEDICARE | LOC: M SFHCPLAZ 15:39 | DX: J02.9 Acute pharyngitis, unspecified (principal) ==

== ENCOUNTER → 2018-05-14 | Outpatient (CLI) | payer MEDICARE | LOC: M RAD 08:05 | DX: Z12.31 Encounter for screening mammogram for malignant neoplasm of breast (principal) | CPT/HCPCS: 77067 ==

== ENCOUNTER → 2018-05-27 | Outpatient (REF) | payer MEDICARE ==
[2018-05-27 12:17] LABS: HEMATOCRIT 39.1 % (36.0-47.0); HEMOGLOBIN 12.7 g/dl (12.0-15.5); MEAN CORPUSCULAR HEMOGLOBIN 30.8 pg (27.0-33.0); MEAN CORPUSCULAR HGB CONC 32.5 g/dl (32.0-36.5); MEAN CORPUSCULAR VOLUME 94.7 fl (80.0-96.0); PLATELET COUNT, AUTOMATED 328 10^3/uL (150-450); RED BLOOD COUNT 4.13 10^6/uL (4.00-5.40); RED CELL DISTRIBUTION WIDTH 13.3 % (11.5-14.5); WHITE BLOOD COUNT 7.2 10^3/uL (4.0-10.0)
[2018-05-27 12:26] LABS: ALBUMIN 3.3 GM/DL (3.2-5.2); ALBUMIN/GLOBULIN RATIO 0.79 (1.00-1.93); ALKALINE PHOSPHATASE 102 U/L (45-117); ALT/SGPT 21 U/L (12-78); ANION GAP 8 MEQ/L (8-16); AST/SGOT 16 U/L (7-37); BILIRUBIN,TOTAL 0.4 MG/DL (0.2-1.0); BLOOD UREA NITROGEN 23 MG/DL (7-18); CARBON DIOXIDE LEVEL 30 MEQ/L (21-32); CHLORIDE LEVEL 101 MEQ/L (98-107); GLOMERULAR FILTRATION RATE > 60.0 (>39); GLUCOSE, FASTING 95 MG/DL (70-100); MAGNESIUM LEVEL 2.3 MG/DL (1.8-2.4); POTASSIUM SERUM 4.7 MEQ/L (3.5-5.1); SODIUM LEVEL 139 MEQ/L (136-145); TOTAL PROTEIN 7.5 GM/DL (6.4-8.2)
== END ==
LOC: M SFHCPLAZ 08:21
DX: D64.9 Anemia, unspecified (principal); G47.33 Obstructive sleep apnea (adult) (pediatric); I11.9 Hypertensive heart disease without heart failure
CPT/HCPCS: 83735

== ENCOUNTER → 2018-11-17 | Outpatient (REF) | payer MEDICARE ==
[~2018-11-17] MED LIST changes: -ASPI1TAB PO; +ASPI81TA26 PO; -CLON0.5T; +CLON0.5T8; +COQ-100C2 PO; +COZA1TAB PO; +HYDR-3715 PO; +LASI20TA3 PO; +LEVO125T4 PO; +LOSA25TA14; +LOSA25TA14 PO; -LOSA25TA8; -LOSA25TA8 PO; +NEXI40CA PO; -NORCOTAB PO; +POTA8CAP4 PO; +[UNRECOGNIZED DRUG - CODE] PO
[2018-11-17 18:03] LABS: HEMATOCRIT 36.3 % (36.0-47.0); HEMOGLOBIN 11.4 g/dl (12.0-15.5); MEAN CORPUSCULAR HEMOGLOBIN 29.5 pg (27.0-33.0); MEAN CORPUSCULAR HGB CONC 31.4 g/dl (32.0-36.5); MEAN CORPUSCULAR VOLUME 93.8 fl (80.0-96.0); PLATELET COUNT, AUTOMATED 344 10^3/uL (150-450); RED BLOOD COUNT 3.87 10^6/uL (4.00-5.40); WHITE BLOOD COUNT 7.4 10^3/uL (4.0-10.0)
[2018-11-17 18:18] LABS: ALBUMIN 3.5 GM/DL (3.2-5.2); ALT/SGPT 16 U/L (12-78); BILIRUBIN,TOTAL 0.3 MG/DL (0.2-1.0); BLOOD UREA NITROGEN 28 MG/DL (7-18); C REACTIVE PROTEIN QUANTITATIV 2.47 MG/DL (0.00-0.30); CALCIUM LEVEL 9.3 MG/DL (8.8-10.2); CARBON DIOXIDE LEVEL 30 MEQ/L (21-32); CHLORIDE LEVEL 103 MEQ/L (98-107); CHOLESTEROL LEVEL 139 MG/DL (<200); CHOLESTEROL RISK RATIO 2.138 (<5); CREATININE FOR GFR 0.89 MG/DL (0.55-1.30); GLOMERULAR FILTRATION RATE > 60.0 (>39); GLUCOSE, FASTING 120 MG/DL (70-100); HDL CHOLESTEROL 65 MG/DL (>40); LDL CHOLESTEROL 59 MG/DL (<100); MAGNESIUM LEVEL 2.4 MG/DL (1.8-2.4); NON-HDL-C 74 MG/DL; POTASSIUM SERUM 4.3 MEQ/L (3.5-5.1); RHEUMATOID FACTOR QUANT 17.2 IU/ML (<15.0); SODIUM LEVEL 138 MEQ/L (136-145); TOTAL PROTEIN 7.4 GM/DL (6.4-8.2); TRIGLYCERIDES LEVEL 75 MG/DL (<150)
[2018-11-17 19:14] LABS: ERYTHROCYTE SEDIMENTATION RATE 65 mm/hr (0-30)
[2018-11-20 00:06] LABS: ANA (HEP2) Negative (.); CYCLIC CITRULLINATED PEPTIDE > 250 units (0-19); Lyme Disease IgG/IgM Antibodie <0.91 ISR (0.00-0.90); Lyme Disease IgM Ab Quantitati <0.80 index (0.00-0.79)
== END ==
LOC: M SFHCPLAZ 15:44
PROVIDERS: ATTEND Internal Medicine
DX: D64.9 Anemia, unspecified (principal); G47.33 Obstructive sleep apnea (adult) (pediatric); I11.9 Hypertensive heart disease without heart failure; E78.00 Pure hypercholesterolemia, unspecified; E03.9 Hypothyroidism, unspecified; M15.9 Polyosteoarthritis, unspecified
CPT/HCPCS: 36415; 80053; 80061; 83735; 84443; 85027; 85652; 86038; 86140; 86200; 86431; 86617; G0463

== ENCOUNTER → 2018-12-25 | Outpatient (CLI) | payer MEDICARE ==
--- NOTE | 2018-12-25 18:57 | REP ---
MRI RIGHT SHOULDER: TECHNIQUE: Axial T2 fat sat, coronal oblique T1, T2 fat sat, post arthrogram axial T1 fat sat, proton density, coronal oblique T1 fat sat, T2 sat, sagittal oblique T2 fat sat, ABER T1 fat sat. The study is limited due to patient motion. There is a full thickness partial tear of the supraspinatus tendon. There is mild to moderate tendinopathy of the subscapularis tendon. There are mild hypertrophic degenerative changes of the acromioclavicular joint. Acromion appears to be type 2. The biceps tendon is within the bicipital groove. There is no Hill-Sachs deformity. There is no abnormal signal in the deltoid muscle. There appears to be fraying of the biceps labral complex. No definite labral tear is seen. There is no occult fracture. There is a small joint effusion as well as a small amount of fluid in the subacromial subdeltoid bursa. IMPRESSION: Full thickness partial tear supraspinatus tendon. Mild to moderate tendinopathy subscapularis tendon. Mild hypertrophic degenerative changes acromioclavicular joint. Fraying of the biceps labral complex. Mild fluid in the subacromial subdeltoid bursa. Electronically Signed by Huang Randolph MD 12/25/2018 07:50 P
== END ==
LOC: M PLARAD 15:22
PROVIDERS: ATTEND Orthopaedic Surgery Sports Medicine
DX: S46.101A Unspecified injury of muscle, fascia and tendon of long head of biceps, right arm, initial encounter (principal); Y92.9 Unspecified place or not applicable; Y93.9 Activity, unspecified; M75.31 Calcific tendinitis of right shoulder; M75.51 Bursitis of right shoulder

== ENCOUNTER → 2019-01-04 | Outpatient (REF) | payer MEDICARE ==
[2019-01-04 17:31] LABS: BASO % 0.4 % (0.0-1.0); EOS # 0.3 10^3/uL (0.0-0.50); EOS % 2.9 % (0.0-3.0); HEMATOCRIT 37.3 % (36.0-47.0); HEMOGLOBIN 11.8 g/dl (12.0-15.5); LYMPH # 1.3 10^3/uL (1.5-4.5); LYMPH % 12.6 % (24.0-44.0); MEAN CORPUSCULAR HEMOGLOBIN 30.4 pg (27.0-33.0); MEAN CORPUSCULAR HGB CONC 31.6 g/dl (32.0-36.5); MEAN CORPUSCULAR VOLUME 96.1 fl (80.0-96.0); MONO # 0.7 10^3/uL (0.0-0.8); MONO % 6.4 % (0.0-5.0); NEUTROPHILS # 7.9 10^3/uL (1.8-7.7); NEUTROPHILS % 77.3 % (36.0-66.0); PLATELET COUNT, AUTOMATED 331 10^3/uL (150-450); RED BLOOD COUNT 3.88 10^6/uL (4.00-5.40); WHITE BLOOD COUNT 10.2 10^3/uL (4.0-10.0)
[2019-01-04 17:33] LABS: ALBUMIN 3.6 GM/DL (3.2-5.2); BILIRUBIN,TOTAL 0.3 MG/DL (0.2-1.0); C REACTIVE PROTEIN QUANTITATIV 0.71 MG/DL (0.00-0.30); CALCIUM LEVEL 9.6 MG/DL (8.8-10.2); CREATININE FOR GFR 0.98 MG/DL (0.55-1.30); GLOMERULAR FILTRATION RATE 58.6 (>39); POTASSIUM SERUM 4.9 MEQ/L (3.5-5.1); TOTAL PROTEIN 7.9 GM/DL (6.4-8.2); URIC ACID 5.8 MG/DL (2.6-6.0)
[2019-01-04 18:24] LABS: ERYTHROCYTE SEDIMENTATION RATE 74 mm/hr (0-30)
== END ==
LOC: M SFHCPLAZ 12:43
PROVIDERS: ATTEND Internal Medicine Rheumatology
DX: M05.79 Rheumatoid arthritis with rheumatoid factor of multiple sites without organ or systems involvement (principal); M15.0 Primary generalized (osteo)arthritis

== ENCOUNTER → 2019-01-04 | Outpatient (CLI) | payer MEDICARE ==
--- NOTE | 2019-01-04 13:52 | REP ---
Clinical: Rheumatoid arthritis. Technique: AP, lateral, bilateral oblique views of the right and left hand. Findings: Right hand demonstrates mild generalized age-related arthritic changes including subtle sclerosis and minimal joint space narrowing at the interphalangeal joints most notably involving the first interphalangeal joint as well as similar findings at the first metacarpophalangeal joint. Mild arthritic changes at the first and second carpometacarpal joints also noted including subchondral sclerosis very subtle subluxation. No significant periarticular soft tissue swelling, loose bodies or erosive changes are appreciated. Left hand demonstrates similar mild generalized age-related arthritic changes involving the interphalangeal joints as well as the first carpometacarpal joint. Post traumatic deformity involving the distal radius and the proximal carpal row is consistent with old injury. No periarticular soft tissue swelling, calcifications, loose bodies or erosive changes are appreciated. Impression: 1. Age related osteoarthritic degenerative changes primarily involving the interphalangeal joints as well as the first carpometacarpal joint bilaterally. 2. Chronic post traumatic changes involving the distal left radius and wrist. 3. No obvious inflammatory arthritic changes appreciated by radiographic evaluation. Electronically Signed by Loc Garcia MD 01/04/2019 01:44 P
== END ==
LOC: M LRY 12:45
PROVIDERS: ATTEND Internal Medicine Rheumatology
DX: M19.041 Primary osteoarthritis, right hand (principal); M19.042 Primary osteoarthritis, left hand; M05.79 Rheumatoid arthritis with rheumatoid factor of multiple sites without organ or systems involvement

== ENCOUNTER → 2019-01-19 | Outpatient (CLI) | payer MEDICARE ==
[~2019-01-19] MED LIST changes: -CARV6.25; +CARV6.25 PO; -CLON0.5T8; +CLON0.5T8 PO; +COQ-100C5 PO; -DULO1CAP3; +DULO1CAP6 PO; +FOLI1TAB11 PO; -MELA5TAB17 PO; +MELA5TAB31 PO; +METH2.5T48 PO; +MULTCAP PO; +NAPR-885 PO; +POTA8CAP10 PO; -POTA8CAP4 PO
--- NOTE | 2019-01-19 13:53 | REP ---
MRI LEFT SHOULDER: TECHNIQUE: Axial T2 fat sat, gradient echo, sagittal oblique T2 fat sat, coronal oblique T1, T2 fat sat. The supraspinatus and infraspinatus tendons demonstrate partial tears distally, portions of which appear to extend through the entire thickness of these tendons. There is also an incomplete tear of the subscapularis tendon. There is mild hypertrophic degenerative change of the acromioclavicular joint with downward sloping of the acromion, which is type 2. The biceps tendon is within the bicipital groove with mild surrounding fluid. There is no Hill-Sachs deformity. There is no abnormal signal of the deltoid muscle. There is fraying of the biceps labral complex as well as of the superior labrum diffusely. Otherwise, no discrete labral tear is seen. Mild subchondral cystic change is seen in the superolateral humeral head. There is no bone marrow edema or occult fracture. There is a moderate joint effusion with mild to moderate fluid also seen in the subacromial subdeltoid bursae. IMPRESSION: Full thickness partial tears of the supraspinatus and infraspinatus tendons. Incomplete tear of the subscapularis tendon. Mild hypertrophic degenerative changes of the acromioclavicular joint. The acromion is downward sloping and type 2. There is fraying of the biceps labral complex. There is diffuse fraying of the superior labrum. There is moderate joint effusion with mild to moderate fluid also seen on the subacromial subdeltoid bursae. Electronically Signed by Huang Randolph MD 01/21/2019 09:19 A
== END ==
LOC: M RAD 07:31
PROVIDERS: ATTEND Orthopaedic Surgery Sports Medicine
DX: M75.22 Bicipital tendinitis, left shoulder (principal)

== ENCOUNTER → 2019-01-27 | Outpatient (CLI) | payer MEDICARE ==
[2019-01-27 08:13] LABS: HEMATOCRIT 34.8 % (36.0-47.0); MEAN CORPUSCULAR HEMOGLOBIN 30.2 pg (27.0-33.0); MEAN CORPUSCULAR HGB CONC 31.6 g/dl (32.0-36.5); MEAN CORPUSCULAR VOLUME 95.6 fl (80.0-96.0); PLATELET COUNT, AUTOMATED 378 10^3/uL (150-450); RED BLOOD COUNT 3.64 10^6/uL (4.00-5.40); WHITE BLOOD COUNT 8.9 10^3/uL (4.0-10.0)
[2019-01-27 08:17] LABS: INR 1.02; PROTHROMBIN TIME 13.1 SECONDS (11.8-14.0)
[2019-01-27 08:18] LABS: PARTIAL THROMBOPLASTIN TIME 30.3 SECONDS (25.0-38.4)
[2019-01-27 08:25] LABS: ALBUMIN 3.3 GM/DL (3.2-5.2); BLOOD UREA NITROGEN 24 MG/DL (7-18); CALCIUM LEVEL 9.1 MG/DL (8.8-10.2); CARBON DIOXIDE LEVEL 30 MEQ/L (21-32); CHLORIDE LEVEL 104 MEQ/L (98-107); CREATININE FOR GFR 0.91 MG/DL (0.55-1.30); GLOMERULAR FILTRATION RATE > 60.0 (>39); GLUCOSE, FASTING 64 MG/DL (70-100); PHOSPHORUS LEVEL 3.8 MG/DL (2.5-4.9); POTASSIUM SERUM 4.5 MEQ/L (3.5-5.1); SODIUM LEVEL 139 MEQ/L (136-145)
--- NOTE | 2019-01-27 09:05 | ECGEPIP ---
[facility] Test Date: 2019-01-27 Pat Name: MARCELO LOUIS Department: Room: - Gender: Female Dental Assistant: : 1940 Requested By: HARLEY HERNÁNDEZ Order Number: [id number] Reading MD: Luis García Measurements Intervals [place] Rate: 71 P: 60 MO: 162 QRS: 34 QRSD: 125 T: 35 QT: 396 QTc: 432 Interpretive Statements Normal sinus rhythm LA conduction disturbance Right bundle branch block No change from 02/06/18. Electronically Signed on 01-27-2019 9:05:35 EDT by Luis García
--- NOTE | 2019-01-27 09:32 | REP ---
PA and lateral chest: Comparison is 02/06/2018. The lung velarde are clear. Cardiac size is normal. The osiel, mediastinum are unremarkable. There are Barber rods involving the inferior half of the thoracic spine and lumbar spine as previously. Impression: No acute cardiopulmonary changes. Spinal Barber rods, unchanged. Electronically Signed by Huang Almazan MD 01/27/2019 09:23 A
== END ==
LOC: M LAB 07:18
PROVIDERS: ATTEND Orthopaedic Surgery Sports Medicine
DX: Z01.818 Encounter for other preprocedural examination (principal); M75.101 Unspecified rotator cuff tear or rupture of right shoulder, not specified as traumatic; Z95.5 Presence of coronary angioplasty implant and graft; I45.10 Unspecified right bundle-branch block; Z79.899 Other long term (current) drug therapy

== ENCOUNTER → 2019-02-01 | Outpatient (REF) | payer MEDICARE ==
[2019-02-01 14:44] LABS: ALBUMIN 3.4 GM/DL (3.2-5.2); BILIRUBIN,TOTAL 0.3 MG/DL (0.2-1.0); C REACTIVE PROTEIN QUANTITATIV 1.66 MG/DL (0.00-0.30); CALCIUM LEVEL 9.3 MG/DL (8.8-10.2); CREATININE FOR GFR 1.02 MG/DL (0.55-1.30); GLOMERULAR FILTRATION RATE 55.9 (>39); POTASSIUM SERUM 5.5 MEQ/L (3.5-5.1); TOTAL PROTEIN 7.1 GM/DL (6.4-8.2)
[2019-02-01 15:23] LABS: BASO % 0.4 % (0.0-1.0); EOS # 0.4 10^3/uL (0.0-0.50); EOS % 4.6 % (0.0-3.0); HEMATOCRIT 32.9 % (36.0-47.0); HEMOGLOBIN 10.7 g/dl (12.0-15.5); LYMPH # 0.9 10^3/uL (1.5-4.5); LYMPH % 10.3 % (24.0-44.0); MEAN CORPUSCULAR HEMOGLOBIN 31.1 pg (27.0-33.0); MEAN CORPUSCULAR HGB CONC 32.5 g/dl (32.0-36.5); MEAN CORPUSCULAR VOLUME 95.6 fl (80.0-96.0); MONO # 0.8 10^3/uL (0.0-0.8); MONO % 8.9 % (0.0-5.0); NEUTROPHILS # 6.8 10^3/uL (1.8-7.7); NEUTROPHILS % 75.6 % (36.0-66.0); PLATELET COUNT, AUTOMATED 372 10^3/uL (150-450); RED BLOOD COUNT 3.44 10^6/uL (4.00-5.40)
[2019-02-01 16:43] LABS: ERYTHROCYTE SEDIMENTATION RATE 72 mm/hr (0-30)
== END ==
LOC: M SFHCRHEU 11:07
PROVIDERS: ATTEND Internal Medicine Rheumatology
DX: M05.79 Rheumatoid arthritis with rheumatoid factor of multiple sites without organ or systems involvement (principal)

== ENCOUNTER 2019-02-09 05:32 | Day surgery (SDC) | payer MEDICARE ==
[~2019-02-09] VITALS: Ht 162.6 cm; Wt 131.5 kg
[2019-02-09] MEDS ORDERED: EPINEPHrine INJ 1 MG/ML 1ML AMP ONE ×2 (05:33)
[2019-02-09] MEDS ORDERED: dexameTHASONE 10 MG/1 ML VIAL PRES.FREE (J1100) ONE ×2 (05:33)
[2019-02-09] MEDS ORDERED: ROPIvacaine 0.5% 30 ML INJECTION (J2795 PER 1MG) ONE ×2 (05:33)
[2019-02-09] MEDS ORDERED: fentaNYL 100 MCG/2 ML INJECTION (J3010) IV SCH (06:00)
[2019-02-09] MEDS ORDERED: LIDOCAINE 1% MDV 20ML VIAL SQ PRN (06:00)
[2019-02-09] MEDS ORDERED: LR 1,000 ML IV ONE (06:00)
[2019-02-09] MEDS ORDERED: MIDAZOLAM INJ 2 MG/2 ML VIAL (J2250) As Ordered ONE ×2 (06:36→08:50)
[2019-02-09] MEDS ORDERED: fentaNYL 100 MCG/2 ML INJECTION (J3010) As Ordered ONE ×2 (06:36→08:50)
[2019-02-09] MEDS ORDERED: LIDOCAINE 1% SDV INJ 30 ML VIAL As Ordered ONE (06:43)
[2019-02-09] MEDS ORDERED: EPINEPHrine 1MG/ML INJ 30ML MD-VIAL As Ordered ONE (06:44)
[2019-02-09] MEDS: MIDAZOLAM INJ 2 MG/2 ML VIAL (J2250) IV SCH ×2 (07:25→07:28)
[2019-02-09] MEDS ORDERED: TRANEXAMIC ACID 100 MG/ML 10ML VIAL As Ordered ONE (08:10)
[2019-02-09] MEDS ORDERED: ROCURONIUM BROMIDE 50 MG/5 ML VIAL As Ordered ONE (08:50)
[2019-02-09] MEDS ORDERED: PROPOFOL 200 MG/20 ML VIAL As Ordered ONE (08:50)
[2019-02-09] MEDS ORDERED: ONDANSETRON 4MG/2ML VIAL (J2405) As Ordered ONE (08:50)
[2019-02-09] MEDS ORDERED: LIDOCAINE 2% INJ 100 MG/5 ML SDV (FOR ANES.) As Ordered ONE (08:50)
[2019-02-09] MEDS ORDERED: PHENYLEPHRINE INJ 10MG/ML VIAL (J2370) As Ordered ONE (08:50)
[2019-02-09] MEDS ORDERED: dexameTHASONE 4 MG/ML 1ML VIAL (J1100) As Ordered ONE (08:50)
[2019-02-09] MEDS ORDERED: ePHEDrine SULFATE 25 MG/5 ML(5MG/ML) SYRINGE As Ordered ONE (08:50)
[2019-02-09] MEDS ORDERED: PHENYLephrine HCL 500 MCG/5 ML (100MCG/ML) SYRINGE (J2370) As Ordered ONE (08:50)
[2019-02-09] MEDS ORDERED: LR 1,000 ML IV SCH ×2 (10:30)
[2019-02-09] MEDS ORDERED: ONDANSETRON 4MG/2ML VIAL (J2405) IV PRN (10:30)
[2019-02-09] MEDS ORDERED: NORCO, ANEXSIA 5/325MG TABLET (HYDROcodone/ACETAMINOPHEN) PO PRN (10:30)
--- NOTE | 2019-02-09 11:35 | RO ---
DATE OF PROCEDURE: 02/09/2019 PREOPERATIVE DIAGNOSIS: Right shoulder supraspinatus tendon tear. POSTOPERATIVE DIAGNOSES: Right shoulder supraspinatus tendon tear and upper border subscapularis tear. PLANNED PROCEDURE: Right shoulder arthroscopy, rotator cuff repair, intra-articular surgery. PROCEDURE PERFORMED: Right shoulder arthroscopy, supraspinatus tendon repair, upper border subscapularis repair and a biceps tenotomy. ANESTHESIA: General anesthesia plus block. SURGEON: Dr. Héctor Luke CURRICULUM DESIGNER: PIPPA Obando OPERATIVE PREAMBLE: 78-year-old female had recalcitrant shoulder pain that did not respond to nonoperative means. MRI showed a moderate sized supraspinatus tear, as well as fraying biceps labral complex and tendinosis/ tendonitis of the subscapularis tendon. We talked about pros, cons, risks, benefits of nonsurgical versus operative management, both preoperatively in the clinic, as well as in holding. She continued to have a lateral shoulder pain, worse with lifting overhead. I marked the right upper extremity and went ahead with surgery. DESCRIPTION OF PROCEDURE: The patient was administered a block prior to surgery. She was taken to the operating theater. She was placed supine on the beach chair with the spider arm positioner to the right side. Two grams IV Ancef was administered, as well as 2 grams of IV tranexamic acid prior to start the case. General anesthesia was induced. The patient was fully sat up to approximately 45 degrees angle. Blood pressure was maintained. Preoperative time-out was performed to confirm both the site and the patient. Limb was prepped and draped in the usual sterile fashion with the spider arm positioner. Once prep solution was thoroughly dry, I began by making a standard posterior working portal and inserting the scope into the intra-articular portion of the right shoulder. I performed a full diagnostic arthroscopy. Cartilage on the glenoid and femoral head appeared normal with only grade 1 softening changes, grade 2 areas at most. Labrum was frayed throughout. Biceps root appeared slightly unstable on probing and there was some fraying of the long head biceps tendon and did appear medially subluxed. Supraspinatus tendon showed an anterior full-thickness tear in the anterior most 1-2 cm. This was a localized with a spinal needle. I also established an anterior portal through the rotator cuff interval just posterior and superior the biceps root. I debrided the rotator interval. There was a commasign indicating a subscapularis tear. I performed the lever push maneuver to fully confirm this. I inserted a cannula anteriorly. I withdrew the scope and inserted it in the subacromial space. I established a lateral working portal and placed a cannula in this as well. I performed a subacromial debridement of a moderate amount of bursitis. I debrided the undersurface of the anterolateral acromion. There was no obvious large spur, she did have a previous AC joint operation. Rotator cuff tear was localized from the bursal side as well using a spinal needle and any partial tendon that was remaining was taken down to create a full-thickness defect that was approximately 1.5 cm anterior to posterior. Scope was reinserted into the intra-articular space. Two #2 FiberWire sutures were inserted in the upper border the subscapularis through the anterior cannula. These were inserted in a locking loop fashion. I then prepared the upper border of the biceps groove. I performed a biceps tenotomy. I released this down to the biceps groove and released the upper border of the transverse humeral ligament overlying the biceps tendon sheath, as well as preparing the lesser tuberosity with a bur. I used a punch at that location. I then inserted the four suture limbs from the to stitches that I put in the upper border of subscapularis into the 4.75 mm Arthrex SwiveLock anchor and placed this into the created tunnel for the anchor and secured this down. I cut the suture short, removed the stay suture. This appropriately restored tension to the subscapularis tendon. Next, I turned my attention towards the supraspinatus tendon tear. I reinserted the scope into the subacromial space. I prepared the tuberosity. I gently debrided the edges of the tear. I then inserted another 4.5 mm SwiveLock anchor in the medial aspect of the greater tuberosity just at the edge of the articular cartilage. I passed these two fiber tape limbs in an inverted horizontal mattress fashion, as well as the stay suture anteriorly in an inverted mattress fashion. I used these four suture limbs to then take the repair out laterally. I prepared the tuberosity fully laterally down to bleeding bone with a bur and cauterizing instrument. I then preliminary tensioned the rotator cuff using the sutures to determine the ideal placement for the lateral row. I placed this in line with the first medial row anchor. I then used a smaller punch and then inserted the SwiveLock anchor with the rotator cuff fully covering the tuberosity. It was a solid repair that came down nicely without tension. Arthroscopy pictures were taken throughout and saved onto the systematic and a copy saved by myself. Scope was withdrawn after the shoulder was fairly irrigated. Subcutaneous tissues closed with interrupted 3-0 Monocryl. Steri-Strips were applied. Skin was cleaned with dry dressing followed by application of Adaptic, 4 x 8 gauze and ABD with cloth tape. The patient was placed into an abduction pillow sling. There woken up from general anesthetic, transferred off the operating table and taken to the postanesthetic care unit in stable condition. All sponge, needle, instrument counts were correct. No complications. Estimated blood loss 100 mL. PLAN: The patient will be discharged home according to day surgery criteria. Prescription has been called to the pharmacy. Followup in 5 days to check the wound and change the dressing postoperative two. They can do hand, wrist and elbow range of motion and gentle pendulums four times a day, as well as using ice to control swelling. I will communicate with Leeanna's Chad and sister Marlin. LUCY
[2019-02-09 11:50] VITALS: BP 140/65
[2019-02-09] MEDS ORDERED: SUGAMMADEX SODIUM 500 MG/5 ML VIAL (BRIDION) As Ordered ONE (12:39)
== END 2019-02-09 11:58 | disposition home or self-care (01) ==
LOC: M SDC 05:32
PROVIDERS: ATTEND Orthopaedic Surgery Sports Medicine
DX: M75.101 Unspecified rotator cuff tear or rupture of right shoulder, not specified as traumatic (principal); I10 Essential (primary) hypertension; I25.10 Atherosclerotic heart disease of native coronary artery without angina pectoris; E78.00 Pure hypercholesterolemia, unspecified; G47.33 Obstructive sleep apnea (adult) (pediatric); I45.0 Right fascicular block; I35.1 Nonrheumatic aortic (valve) insufficiency; D63.8 Anemia in other chronic diseases classified elsewhere; E03.9 Hypothyroidism, unspecified; Z79.82 Long term (current) use of aspirin; Z87.891 Personal history of nicotine dependence; Z79.899 Other long term (current) drug therapy; Z95.5 Presence of coronary angioplasty implant and graft; Z88.8 Allergy status to other drugs, medicaments and biological substances
CPT/HCPCS: 29827; 29828; C1713; J0690; J1100; J2250; J2370; J2405; J2795; J3010

== ENCOUNTER → 2019-02-23 | Outpatient (REF) | payer MEDICARE ==
[2019-02-23 17:04] LABS: ALBUMIN 3.5 GM/DL (3.2-5.2); ALT/SGPT 14 U/L (12-78); BILIRUBIN,TOTAL 0.4 MG/DL (0.2-1.0); BLOOD UREA NITROGEN 26 MG/DL (7-18); C REACTIVE PROTEIN QUANTITATIV 1.28 MG/DL (0.00-0.30); CALCIUM LEVEL 9.1 MG/DL (8.8-10.2); CARBON DIOXIDE LEVEL 29 MEQ/L (21-32); CHLORIDE LEVEL 102 MEQ/L (98-107); CREATININE FOR GFR 0.96 MG/DL (0.55-1.30); GLUCOSE, FASTING 111 MG/DL (70-100); POTASSIUM SERUM 4.4 MEQ/L (3.5-5.1); SODIUM LEVEL 140 MEQ/L (136-145); TOTAL PROTEIN 6.9 GM/DL (6.4-8.2)
[2019-02-23 17:10] LABS: BASO # 0.1 10^3/uL (0.0-0.2); BASO % 0.7 % (0.0-1.0); EOS # 0.4 10^3/uL (0.0-0.50); EOS % 4.8 % (0.0-3.0); HEMATOCRIT 31.8 % (36.0-47.0); LYMPH # 0.9 10^3/uL (1.5-4.5); LYMPH % 10.1 % (24.0-44.0); MEAN CORPUSCULAR HEMOGLOBIN 30.7 pg (27.0-33.0); MEAN CORPUSCULAR HGB CONC 31.4 g/dl (32.0-36.5); MEAN CORPUSCULAR VOLUME 97.5 fl (80.0-96.0); MONO # 0.6 10^3/uL (0.0-0.8); MONO % 6.6 % (0.0-5.0); NEUTROPHILS # 7.1 10^3/uL (1.8-7.7); NEUTROPHILS % 77.4 % (36.0-66.0); PLATELET COUNT, AUTOMATED 446 10^3/uL (150-450); RED BLOOD COUNT 3.26 10^6/uL (4.00-5.40); WHITE BLOOD COUNT 9.1 10^3/uL (4.0-10.0)
[2019-02-23 19:09] LABS: ERYTHROCYTE SEDIMENTATION RATE 66 mm/hr (0-30)
[2019-02-24 09:30] LABS: HEPATITIS B SURFACE ANTIBODY NEGATIVE (POSITIVE)
[2019-02-24 09:40] LABS: HEPATITIS B SURFACE ANTIGEN NEGATIVE (NEGATIVE)
[2019-02-24 10:07] LABS: HEPATITIS C VIRUS ABY INDEX 0.1 INDEX (<0.8)
== END ==
LOC: M SFHCRHEU 10:49
PROVIDERS: ATTEND Internal Medicine Rheumatology
DX: M05.79 Rheumatoid arthritis with rheumatoid factor of multiple sites without organ or systems involvement (principal); Z79.899 Other long term (current) drug therapy; Z79.82 Long term (current) use of aspirin

== ENCOUNTER → 2019-05-17 | Outpatient (CLI) | payer MEDICARE ==
--- NOTE | 2019-05-17 13:48 | REP ---
Right hip: Three views. History: Right hip pain. Findings: The right femoral head is smooth and rounded. Hip joint space is preserved. Periarticular soft tissues are unremarkable. Orthopedic stabilization rods are noted in the right iliac bone, sacrum, and lower lumbar spine at the edge of the field of view. Impression: Negative right hip radiographs. Electronically Signed by Peyman Gary MD 05/17/2019 06:49 P
== END ==
LOC: M LRY 11:07
PROVIDERS: ATTEND Nurse Practitioner Adult Health
DX: M25.551 Pain in right hip (principal)
CPT/HCPCS: 73502; G0463

== ENCOUNTER → 2019-06-01 | Outpatient (REF) | payer MEDICARE ==
[~2019-06-01] MED LIST changes: +CLON0.5T2 PO; -CLON0.5T8 PO
[2019-06-01 16:39] LABS: BASO % 0.5 % (0.0-1.0); EOS # 0.3 10^3/uL (0.0-0.5); EOS % 3.2 % (0.0-3.0); HEMATOCRIT 34.6 % (36.0-47.0); HEMOGLOBIN 10.5 g/dl (12.0-15.5); LYMPH # 1.1 10^3/uL (1.5-5.0); LYMPH % 12.5 % (24.0-44.0); MEAN CORPUSCULAR HEMOGLOBIN 28.4 pg (27.0-33.0); MEAN CORPUSCULAR HGB CONC 30.3 g/dl (32.0-36.5); MEAN CORPUSCULAR VOLUME 93.5 fl (80.0-96.0); MONO # 0.8 10^3/uL (0.0-0.8); MONO % 8.7 % (0.0-5.0); NEUTROPHILS # 6.5 10^3/uL (1.5-8.5); NEUTROPHILS % 74.8 % (36.0-66.0); PLATELET COUNT, AUTOMATED 371 10^3/uL (150-450); WHITE BLOOD COUNT 8.7 10^3/uL (4.0-10.0)
[2019-06-01 16:45] LABS: ALBUMIN 3.4 GM/DL (3.2-5.2); ALT/SGPT 18 U/L (12-78); BILIRUBIN,TOTAL 0.3 MG/DL (0.2-1.0); BLOOD UREA NITROGEN 21 MG/DL (7-18); C REACTIVE PROTEIN QUANTITATIV 0.67 MG/DL (0.00-0.30); CALCIUM LEVEL 9.2 MG/DL (8.8-10.2); CARBON DIOXIDE LEVEL 31 MEQ/L (21-32); CHLORIDE LEVEL 104 MEQ/L (98-107); GLOMERULAR FILTRATION RATE > 60.0 (>39); GLUCOSE, FASTING 92 MG/DL (70-100); POTASSIUM SERUM 5.1 MEQ/L (3.5-5.1); SODIUM LEVEL 140 MEQ/L (136-145); TOTAL PROTEIN 7.4 GM/DL (6.4-8.2)
[2019-06-01 17:12] LABS: ERYTHROCYTE SEDIMENTATION RATE 63 mm/hr (0-30)
== END ==
LOC: M SFHCLERA 12:14
PROVIDERS: ATTEND Internal Medicine Rheumatology
DX: M06.9 Rheumatoid arthritis, unspecified (principal)
CPT/HCPCS: 80053; 85025; 85652; 86140; G0463

== ENCOUNTER → 2019-06-18 | Outpatient (CLI) | payer MEDICARE ==
--- NOTE | 2019-06-18 14:37 | REP ---
MRI RIGHT SHOULDER: TECHNIQUE: Axial T2 fat sat, gradient echo, sagittal oblique T2 fat sat, coronal oblique T1, T2 fat sat. COMPARISON: 12/25/2018. The patient has had surgery of the right shoulder 02/09/2019 with repair of supraspinatus tear and biceps tenotomy. There is a complete full thickness tear of the supraspinatus tendon on the current exam. A fluid gap in the tendon measures between 1 and 1.8 cm. Tendon is somewhat retracted. Subscapularis tendon has a similar appearance compared to the prior study with mild ill-defined high signal on T2-weighted images. No definite tear is seen of the infraspinatus or teres minor. Acromioclavicular joint is unchanged in appearance. The biceps tenotomy is noted. The deltoid muscle demonstrates no abnormal signal. Labrum again appears truncated and diffusely frayed. There is mild diffuse chondromalacia at the glenohumeral joint. Surgical anchors are seen in the humeral head. There is a relatively small joint effusion with mild fluid extending into the subacromial subdeltoid region. No paralabral cyst is seen. IMPRESSION: Complete full thickness tear supraspinatus tendon with mild retraction. The gap is between 1 and 1.8 cm. Other rotator cuff tendons are unchanged in appearance compared to the prior study. There is evidence of the biceps tenotomy since the prior exam. Labrum again appears diffusely truncated and somewhat frayed. Small joint effusion in the glenohumeral joint with mild fluid in the subacromial subdeltoid bursae. Electronically Signed by Huang Randolph MD 06/18/2019 03:56 P
== END ==
LOC: M PLARAD 09:45
PROVIDERS: ATTEND Orthopaedic Surgery Sports Medicine
DX: S46.011D Strain of muscle(s) and tendon(s) of the rotator cuff of right shoulder, subsequent encounter (principal); W18.30XD Fall on same level, unspecified, subsequent encounter; Y92.009 Unspecified place in unspecified non-institutional (private) residence as the place of occurrence of the external cause

== ENCOUNTER → 2019-06-23 | Outpatient (REF) | payer MEDICARE ==
[2019-06-23 12:03] LABS: HEMOGLOBIN 10.4 g/dl (12.0-15.5); MEAN CORPUSCULAR HEMOGLOBIN 27.4 pg (27.0-33.0); MEAN CORPUSCULAR HGB CONC 30.6 g/dl (32.0-36.5); MEAN CORPUSCULAR VOLUME 89.7 fl (80.0-96.0); PLATELET COUNT, AUTOMATED 408 10^3/uL (150-450); RED BLOOD COUNT 3.79 10^6/uL (4.00-5.40); WHITE BLOOD COUNT 6.9 10^3/uL (4.0-10.0)
[2019-06-23 12:22] LABS: ALBUMIN 3.5 GM/DL (3.2-5.2); ALT/SGPT 18 U/L (12-78); BILIRUBIN,TOTAL 0.4 MG/DL (0.2-1.0); BLOOD UREA NITROGEN 23 MG/DL (7-18); CALCIUM LEVEL 9.3 MG/DL (8.8-10.2); CARBON DIOXIDE LEVEL 30 MEQ/L (21-32); CHLORIDE LEVEL 103 MEQ/L (98-107); CHOLESTEROL LEVEL 165 MG/DL (<200); CREATININE FOR GFR 0.87 MG/DL (0.55-1.30); GLOMERULAR FILTRATION RATE > 60.0 (>39); GLUCOSE, FASTING 96 MG/DL (70-100); HDL CHOLESTEROL 75 MG/DL (>40); LDL CHOLESTEROL 76 MG/DL (<100); NON-HDL-C 90 MG/DL; POTASSIUM SERUM 4.5 MEQ/L (3.5-5.1); SODIUM LEVEL 140 MEQ/L (136-145); TOTAL PROTEIN 7.7 GM/DL (6.4-8.2); TRIGLYCERIDES LEVEL 68 MG/DL (<150)
== END ==
LOC: M SFHCPLAZ 08:54
PROVIDERS: ATTEND Internal Medicine
DX: G47.33 Obstructive sleep apnea (adult) (pediatric) (principal); I11.9 Hypertensive heart disease without heart failure; E78.00 Pure hypercholesterolemia, unspecified

== ENCOUNTER → 2019-09-20 | Outpatient (REF) | payer MEDICARE ==
[~2019-09-20] MED LIST changes: -COEN100C PO; -ROPI1TAB; -ROPI1TAB PO; +ROPI1TAB3; +ROPI1TAB3 PO; -ROPI2TAB PO; +ROPI2TAB3 PO; +UBID100C6 PO
[2019-09-20 17:31] LABS: ALBUMIN 3.2 GM/DL (3.2-5.2); ALT/SGPT 13 U/L (12-78); BILIRUBIN,TOTAL 0.3 MG/DL (0.2-1.0); BLOOD UREA NITROGEN 21 MG/DL (7-18); CALCIUM LEVEL 8.8 MG/DL (8.8-10.2); CARBON DIOXIDE LEVEL 29 MEQ/L (21-32); CHLORIDE LEVEL 100 MEQ/L (98-107); CREATININE FOR GFR 0.89 MG/DL (0.55-1.30); GLOMERULAR FILTRATION RATE > 60.0 (>39); GLUCOSE, FASTING 108 MG/DL (70-100); MAGNESIUM LEVEL 2.4 MG/DL (1.8-2.4); POTASSIUM SERUM 4.6 MEQ/L (3.5-5.1); SODIUM LEVEL 135 MEQ/L (136-145); THYROID STIMULATING HORMONE 0.996 uIU/ML (0.358-3.740); TOTAL PROTEIN 7.7 GM/DL (6.4-8.2)
== END ==
LOC: M SFHCLERA 14:30
PROVIDERS: ATTEND Internal Medicine
DX: I11.9 Hypertensive heart disease without heart failure (principal); E03.9 Hypothyroidism, unspecified

== ENCOUNTER → 2019-09-20 | Outpatient (CLI) | payer MEDICARE ==
--- NOTE | 2019-09-20 16:00 | REP ---
Chest x-ray: Two views. History: Shortness of breath. Comparison chest x-ray: January 27, 2019. Findings: There is linear plate-like atelectasis in the left base. There is evidence of a hiatal hernia. Lung velarde are otherwise clear. Heart is not enlarged. The aorta somewhat tortuous. Thoracolumbar a dorsal spine fixation hardware is noted as before. Thoracic kyphosis is somewhat exaggerated. There is diffuse degenerative disc disease. Impression: Linear plate-like atelectasis left base. Hiatal hernia. Thoracolumbar spine fusion hardware. Otherwise no acute disease. Electronically Signed by Peyman Gary MD 09/20/2019 03:52 P
== END ==
LOC: M LRY 15:22
PROVIDERS: ATTEND Nurse Practitioner Family
DX: J98.11 Atelectasis (principal); K44.9 Diaphragmatic hernia without obstruction or gangrene; I11.9 Hypertensive heart disease without heart failure; E03.9 Hypothyroidism, unspecified; R06.02 Shortness of breath
CPT/HCPCS: 71046; 80053; 83735; 84443; 94640; G0463

== ENCOUNTER → 2019-12-14 | Outpatient (REF) | payer MEDICARE ==
[~2019-12-14] MED LIST changes: +ALDA25TA2 PO; +CBD OIL; +PRED5PAK2 PO; +VOLT1GEL15 TOP
[2019-12-14 18:37] LABS: ALBUMIN 3.1 GM/DL (3.2-5.2); ALT/SGPT 15 U/L (12-78); BASO # 0.1 10^3/uL (0.0-0.2); BASO % 0.6 % (0.0-1.0); BILIRUBIN,TOTAL 0.2 MG/DL (0.2-1.0); BLOOD UREA NITROGEN 24 MG/DL (7-18); C REACTIVE PROTEIN QUANTITATIV 1.59 MG/DL (0.00-0.30); CALCIUM LEVEL 8.8 MG/DL (8.8-10.2); CARBON DIOXIDE LEVEL 29 MEQ/L (21-32); CHLORIDE LEVEL 105 MEQ/L (98-107); CREATININE FOR GFR 0.77 MG/DL (0.55-1.30); EOS # 0.4 10^3/uL (0.0-0.5); EOS % 4.3 % (0.0-3.0); GLOMERULAR FILTRATION RATE > 60.0 (>39); GLUCOSE, FASTING 82 MG/DL (70-100); HEMATOCRIT 28.7 % (36.0-47.0); HEMOGLOBIN 8.7 g/dl (12.0-15.5); LYMPH # 1.3 10^3/uL (1.5-5.0); LYMPH % 14.8 % (24.0-44.0); MEAN CORPUSCULAR HEMOGLOBIN 24.5 pg (27.0-33.0); MEAN CORPUSCULAR HGB CONC 30.3 g/dl (32.0-36.5); MEAN CORPUSCULAR VOLUME 80.8 fl (80.0-96.0); MONO # 0.7 10^3/uL (0.0-0.8); MONO % 7.5 % (0.0-5.0); NEUTROPHILS # 6.3 10^3/uL (1.5-8.5); NEUTROPHILS % 72.5 % (36.0-66.0); PLATELET COUNT, AUTOMATED 483 10^3/uL (150-450); POTASSIUM SERUM 4.2 MEQ/L (3.5-5.1); RED BLOOD COUNT 3.55 10^6/uL (4.00-5.40); SODIUM LEVEL 138 MEQ/L (136-145); TOTAL PROTEIN 7.6 GM/DL (6.4-8.2); WHITE BLOOD COUNT 8.6 10^3/uL (4.0-10.0)
[2019-12-14 19:10] LABS: ERYTHROCYTE SEDIMENTATION RATE 103 mm/hr (0-30)
== END ==
LOC: M SFHCRHEU 11:29
PROVIDERS: ATTEND Internal Medicine
DX: M05.79 Rheumatoid arthritis with rheumatoid factor of multiple sites without organ or systems involvement (principal)
CPT/HCPCS: 36415; 80053; 85025; 85652; 86140; G0463

== ENCOUNTER → 2019-12-24 | Outpatient (CLI) | payer MEDICARE | LOC: M LABSMTC 09:39 | PROVIDERS: ATTEND Anesthesiology | DX: Z11.59 Encounter for screening for other viral diseases (principal) | CPT/HCPCS: C9803; U0003 ==

== ENCOUNTER 2019-12-27 12:04 | Day surgery (SDC) | payer MEDICARE ==
[~2019-12-27] VITALS: Ht 162.6 cm; Wt 90.7 kg
[~2019-12-27 12:04] MED LIST changes: +COEN100C4 PO; -MELA5TAB31 PO; +MELA5TAB36 PO; +NS 1,000 ML IV ONE; -UBID100C6 PO
[2019-12-27] MEDS ORDERED: LIDOCAINE 2% 100MG/5ML SDV (FOR ANES.) As Ordered ONE (12:43)
[2019-12-27] MEDS ORDERED: propofoL 200 MG/20 ML VIAL As Ordered ONE ×2 (12:43→13:54)
--- NOTE | 2019-12-27 13:47 | ROOR ---
Patient Name: Leeanna Garcia Procedure Date: 12/27/2019 1:22 PM Date of : 1940 Age: 79 Room: [facility] Gender: Female Note Status: Finalized Procedure: Upper Endoscopy + Biopsies Indications: Heartburn, Exclusion of Kim's esophagus Providers: Moisés Carl MD Referring MD: Bridger Aponte MD Requesting Provider: Medicines: Monitored Anesthesia Care Complications: No immediate complications. Procedure: Pre-Anesthesia Assessment: - The heart rate, respiratory rate, oxygen saturations, blood pressure, adequacy of pulmonary ventilation, and response to care were monitored throughout the procedure. The Endoscope was introduced through the mouth, and advanced to the second part of duodenum. The upper GI endoscopy was accomplished without difficulty. The patient tolerated the procedure well. Findings: The Z-line was variable and was found 38 cm from the incisors. Multiple biopsies were obtained with cold forceps for evaluation to rule out Kim's Esophagus randomly at the gastroesophageal junction. A medium-sized hiatal hernia was present. Localized mild inflammation characterized by congestion (edema) and erythema was found in the gastric antrum. Biopsies were taken with a cold forceps for Helicobacter pylori testing. The exam of the duodenum was otherwise normal. Impression: - Z-line variable, 38 cm from the incisors. - Medium-sized hiatal hernia. - Mucosal changes suspicious for gastritis. Biopsied. - Multiple biopsies were obtained at the gastroesophageal junction. - The examination was otherwise normal. Recommendation: - Patient has a contact number available for emergencies. The signs and symptoms of potential delayed complications were discussed with the patient. Return to normal activities tomorrow. Written discharge instructions were provided to the patient. - High fiber diet. - Discharge patient to home. - Follow an antireflux regimen. - Continue present medications. - Await pathology results. - Telephone GI clinic for pathology results in 1 week. - Return to referring physician. - The findings and recommendations were discussed with the patient's family. Moisés Carl MD Moisés Carl MD 12/27/2019 1:47:18 PM Electronically signed by Moisés Carl MD Number of Addenda: 0 Note Initiated On: 12/27/2019 1:22 PM Estimated Blood Loss: Estimated blood loss: none.
--- NOTE | 2019-12-27 14:16 | ROOR ---
Patient Name: Leeanna Garcia Procedure Date: 12/27/2019 1:23 PM Date of : 1940 Age: 79 Room: [facility] Gender: Female Note Status: Finalized Procedure: Total Colonoscopy to Cecum + Bx.+ Carbon Spot Marking Indications: Rectal bleeding Providers: Moisés Carl MD Referring MD: Bridger Aponte MD Requesting Provider: Medicines: Monitored Anesthesia Care Complications: No immediate complications. Procedure: Pre-Anesthesia Assessment: - The heart rate, respiratory rate, oxygen saturations, blood pressure, adequacy of pulmonary ventilation, and response to care were monitored throughout the procedure. The Colonoscope was introduced through the anus and advanced to the cecum, identified by appendiceal orifice and ileocecal valve. The colonoscopy was performed without difficulty. The patient tolerated the procedure well. The quality of the bowel preparation was good. Findings: The perianal and digital rectal examinations were normal. Non-bleeding internal hemorrhoids were found during retroflexion. The hemorrhoids were small and Grade I (internal hemorrhoids that do not prolapse). Scattered small-mouthed diverticula were found in the recto-sigmoid colon, sigmoid colon and descending colon. A polypoid non-obstructing large mass was found at 10 cm proximal to the anus. The mass was partially circumferential (involving one-third of the lumen circumference). The mass measured four cm in length. No bleeding was present. This was biopsied with a cold forceps for histology. Area was successfully injected with Spot (carbon black) for tattooing. The exam was otherwise without abnormality on direct and retroflexion views. Impression: - Non-bleeding internal hemorrhoids. - Diverticulosis in the recto-sigmoid colon, in the sigmoid colon and in the descending colon. - Rule out malignancy, tumor at 10 cm proximal to the anus. Biopsied. Injected. - The examination was otherwise normal on direct and retroflexion views. - The exam was otherwise normal to the cecum. Recommendation: - Patient has a contact number available for emergencies. The signs and symptoms of potential delayed complications were discussed with the patient. Return to normal activities tomorrow. Written discharge instructions were provided to the patient. - Resume previous diet. - Discharge patient to home. - Continue present medications. - Await pathology results. - Telephone GI clinic for pathology results in 1 week. - Check CEA today. - Check hemogram with white blood cell count and platelets today. - Check liver enzymes (AST, ALT, alkaline phosphatase, bilirubin) today. - Refer to a surgeon at appointment to be scheduled. - The findings and recommendations were discussed with the patient. Moisés Carl MD Moisés Carl MD 12/27/2019 2:15:31 PM Electronically signed by Moisés Carl MD Number of Addenda: 0 Note Initiated On: 12/27/2019 1:23 PM Estimated Blood Loss: Estimated blood loss: none.
[2019-12-27 14:50] VITALS: BP 178/86
[2019-12-27 15:32] LABS: HEMATOCRIT 29.7 % (36.0-47.0); HEMOGLOBIN 9.2 g/dl (12.0-15.5); MEAN CORPUSCULAR HEMOGLOBIN 24.6 pg (27.0-33.0); MEAN CORPUSCULAR VOLUME 79.4 fl (80.0-96.0); PLATELET COUNT, AUTOMATED 473 10^3/uL (150-450); RED BLOOD COUNT 3.74 10^6/uL (4.00-5.40); WHITE BLOOD COUNT 7.2 10^3/uL (4.0-10.0)
[2019-12-27 15:57] LABS: ALBUMIN 3.2 GM/DL (3.2-5.2); ALT/SGPT 18 U/L (12-78); BILIRUBIN,TOTAL 0.4 MG/DL (0.2-1.0); BLOOD UREA NITROGEN 16 MG/DL (7-18); CALCIUM LEVEL 9.4 MG/DL (8.8-10.2); CARBON DIOXIDE LEVEL 30 MEQ/L (21-32); CHLORIDE LEVEL 102 MEQ/L (98-107); CREATININE FOR GFR 0.65 MG/DL (0.55-1.30); GLOMERULAR FILTRATION RATE > 60.0 (>39); GLUCOSE, FASTING 81 MG/DL (70-100); POTASSIUM SERUM 3.7 MEQ/L (3.5-5.1); SODIUM LEVEL 139 MEQ/L (136-145); TOTAL PROTEIN 7.8 GM/DL (6.4-8.2)
== END 2019-12-27 15:26 | disposition home or self-care (01) ==
LOC: M OPP 12:04
PROVIDERS: ATTEND Internal Medicine Gastroenterology
DX: C18.7 Malignant neoplasm of sigmoid colon (principal); K64.9 Unspecified hemorrhoids; K62.5 Hemorrhage of anus and rectum; K57.30 Diverticulosis of large intestine without perforation or abscess without bleeding; K22.8 Other specified diseases of esophagus; K44.9 Diaphragmatic hernia without obstruction or gangrene; K31.89 Other diseases of stomach and duodenum; R12 Heartburn; K21.9 Gastro-esophageal reflux disease without esophagitis; Z79.82 Long term (current) use of aspirin; Z79.899 Other long term (current) drug therapy; Z88.8 Allergy status to other drugs, medicaments and biological substances; Z87.891 Personal history of nicotine dependence; Z95.5 Presence of coronary angioplasty implant and graft

== ENCOUNTER → 2019-12-30 | Outpatient (CLI) | payer MEDICARE ==
[~2019-12-30] MED LIST changes: +ECOT81TA5 PO; -NS 1,000 ML IV ONE
[2019-12-30 12:26] LABS: BLOOD UREA NITROGEN 20 MG/DL (7-18); CREATININE FOR GFR 0.84 MG/DL (0.55-1.30); GLOMERULAR FILTRATION RATE > 60.0 (>39)
== END ==
LOC: M LRY 09:46
PROVIDERS: ATTEND Surgery
DX: Z01.818 Encounter for other preprocedural examination (principal)

== ENCOUNTER → 2020-02-02 | Outpatient (CLI) | payer MEDICARE ==
[~2020-02-02] MED LIST changes: -ECOT81TA5 PO
== END ==
LOC: M LABSMTC 09:43
PROVIDERS: ATTEND Anesthesiology
DX: Z01.818 Encounter for other preprocedural examination (principal); Z11.59 Encounter for screening for other viral diseases; Z20.828 Contact with and (suspected) exposure to other viral communicable diseases
CPT/HCPCS: C9803; U0003

== ENCOUNTER 2020-02-07 10:21 | Inpatient (IN) | payer MEDICARE ==
[~2020-02-07] VITALS: Ht 162.6 cm; Wt 115.0 kg
[~2020-02-07 10:21] MED LIST changes: +ACETAMINOPHEN 1000MG 100ML IV BTL (OFIRMEV) (J0131 PER 10MG) ONE; +ALVIMOPAN 12 MG CAPSULE (ENTEREG) As Ordered ONE; +ALVIMOPAN 12 MG CAPSULE (ENTEREG) ONE; +ASPIRIN 81 MG CHEW TABLET ONE; +BUPIVACAINE HCL 0.25% 30ML VIAL ONE; -COEN100C4 PO; +HYDROmorphone HCL 2 MG/ML 1ML VIAL (J1170) ONE; +MELA5TAB31 PO; -MELA5TAB36 PO; +METOPROLOL 5 MG/5 ML VIAL ONE; +REMIFENTANIL 1MG 3ML VIAL ONE; +ROCURONIUM BROMIDE 50 MG/5 ML VIAL ONE; +SUGAMMADEX SODIUM 500 MG/5 ML VIAL (BRIDION) ONE; +UBID100C6 PO; +cefoTEtan INJ 2GM VIAL (S0074 PER 500MG) As Ordered ONE; +cefoTEtan INJ 2GM VIAL (S0074 PER 500MG) ONE; +ePHEDrine SULFATE 25 MG/5 ML(5MG/ML) SYRINGE ONE
[2020-02-07] MEDS ORDERED: ASPIRIN 81 MG CHEW TABLET As Ordered ONE (10:26)
[2020-02-07] MEDS ORDERED: BUPIVACAINE HCL 0.25% 30ML VIAL As Ordered ONE (10:56)
[2020-02-07] MEDS ORDERED: fentaNYL 250 MCG/5 ML INJECTION (J3010) ONE (11:14)
[2020-02-07] MEDS ORDERED: CARVedilol 6.25 MG TAB ONE (11:14)
[2020-02-07] MEDS ORDERED: ROCURONIUM BROMIDE 50 MG/5 ML VIAL ONE (11:14)
[2020-02-07] MEDS ORDERED: clonazePAM 1 MG TAB ONE (11:14)
[2020-02-07] MEDS ORDERED: dexameTHASONE 4 MG/ML 1ML VIAL (J1100 PER 1MG) ONE (11:14)
[2020-02-07] MEDS ORDERED: rOPINIRole 1MG TAB ONE (11:14)
[2020-02-07] MEDS ORDERED: ONDANSETRON 4MG/2ML VIAL ONE (11:14)
[2020-02-07] MEDS ORDERED: LIDOCAINE 2% 100MG/5ML SDV (FOR ANES.) ONE (11:14)
[2020-02-07] MEDS ORDERED: propofoL 200 MG/20 ML VIAL ONE (11:14)
[2020-02-07] MEDS ORDERED: MIDAZOLAM INJ 2MG/2ML VIAL (J2250 PER 1MG) ONE (11:14)
[2020-02-07] MEDS ORDERED: propofoL 200 MG/20 ML VIAL As Ordered ONE (13:31)
[2020-02-07] MEDS ORDERED: MIDAZOLAM INJ 2MG/2ML VIAL (J2250 PER 1MG) As Ordered ONE (13:31)
[2020-02-07] MEDS ORDERED: LIDOCAINE 2% 100MG/5ML SDV (FOR ANES.) As Ordered ONE (13:31)
[2020-02-07] MEDS ORDERED: dexameTHASONE 4 MG/ML 1ML VIAL (J1100 PER 1MG) As Ordered ONE (13:31)
[2020-02-07] MEDS ORDERED: fentaNYL 250 MCG/5 ML INJECTION (J3010) As Ordered ONE (13:31)
[2020-02-07] MEDS ORDERED: ONDANSETRON 4MG/2ML VIAL As Ordered ONE (13:31)
[2020-02-07] MEDS ORDERED: ROCURONIUM BROMIDE 50 MG/5 ML VIAL As Ordered ONE ×2 (13:31→17:15)
[2020-02-07] MEDS ORDERED: METOPROLOL 5 MG/5 ML VIAL As Ordered ONE (13:57)
[2020-02-07] MEDS ORDERED: HYDROmorphone HCL 2 MG/ML 1ML VIAL (J1170) As Ordered ONE (14:15)
[2020-02-07] MEDS ORDERED: ACETAMINOPHEN 1000MG 100ML IV BTL (OFIRMEV) (J0131 PER 10MG) As Ordered ONE (14:15)
[2020-02-07] MEDS ORDERED: REMIFENTANIL 1MG 3ML VIAL As Ordered ONE (14:34)
[2020-02-07] MEDS ORDERED: ePHEDrine SULFATE 25 MG/5 ML(5MG/ML) SYRINGE As Ordered ONE (14:56)
[2020-02-07] MEDS ORDERED: SUGAMMADEX SODIUM 500 MG/5 ML VIAL (BRIDION) As Ordered ONE (17:50)
[2020-02-07] MEDS ORDERED: sulfaSALAzine 500 MG TABEC ONE (21:00)
[2020-02-07] MEDS ORDERED: cefoTEtan INJ 1GM VIAL (S0074 PER 500MG) ONE (21:00)
[2020-02-07] MEDS ORDERED: CO-ENZYME Q10 50 MG CAP ONE (21:00)
[2020-02-07] MEDS ORDERED: ALVIMOPAN 12 MG CAPSULE (ENTEREG) ONE (21:00)
[2020-02-07] MEDS ORDERED: CARVedilol 6.25 MG TAB As Ordered ONE (23:14)
[2020-02-07] MEDS ORDERED: rOPINIRole 1MG TAB As Ordered ONE (23:14)
[2020-02-07] MEDS ORDERED: clonazePAM 1 MG TAB As Ordered ONE (23:43)
[2020-02-08] MEDS ORDERED: FUROSEMIDE 20 MG TAB ONE (10:06)
[2020-02-08] MEDS ORDERED: rOPINIRole 1MG TAB ONE ×3 (10:06→12:43)
[2020-02-08] MEDS ORDERED: SPIRONOLACTONE 25 MG TAB As Ordered ONE (10:06)
[2020-02-08] MEDS ORDERED: LOSARTAN 25 MG TAB ONE (10:06)
[2020-02-08] MEDS ORDERED: CARVedilol 3.125 MG TAB ONE ×2 (10:06→12:43)
[2020-02-08] MEDS ORDERED: FOLIC ACID 1 MG TAB ONE (10:06)
[2020-02-08] MEDS ORDERED: DULoxetine 30 MG CAP (CYMBALTA) ONE (10:06)
[2020-02-08] MEDS ORDERED: PANTOPRAZOLE 40MG TAB (PROTONIX) ONE (10:06)
[2020-02-08] MEDS ORDERED: SPIRONOLACTONE 25 MG TAB ONE (10:06)
[2020-02-08] MEDS ORDERED: PRAVASTATIN 20 MG TAB ONE (10:06)
[2020-02-08] MEDS ORDERED: FOLIC ACID 1 MG TAB As Ordered ONE (10:07)
[2020-02-08] MEDS ORDERED: LOSARTAN 25 MG TAB As Ordered ONE (10:07)
[2020-02-08] MEDS ORDERED: CARVedilol 3.125 MG TAB As Ordered ONE ×2 (10:07→18:21)
[2020-02-08] MEDS ORDERED: PRAVASTATIN 20 MG TAB As Ordered ONE (10:07)
[2020-02-08] MEDS ORDERED: rOPINIRole 1MG TAB As Ordered ONE ×4 (10:08→22:25)
[2020-02-08] MEDS ORDERED: DULoxetine 30 MG CAP (CYMBALTA) As Ordered ONE (10:08)
[2020-02-08] MEDS ORDERED: LEVOTHYROXINE 25MCG TABLET (0.025MG) As Ordered ONE (10:08)
[2020-02-08] MEDS ORDERED: FUROSEMIDE 20 MG TAB As Ordered ONE (10:16)
[2020-02-08] MEDS ORDERED: PANTOPRAZOLE 40MG TAB (PROTONIX) As Ordered ONE (10:31)
[2020-02-08] MEDS ORDERED: clonazePAM 1 MG TAB As Ordered ONE (22:31)
[2020-02-09] MEDS ORDERED: LEVOTHYROXINE 25MCG TABLET (0.025MG) As Ordered ONE (05:58)
[2020-02-09] MEDS ORDERED: LEVOTHYROXINE 25MCG TABLET (0.025MG) ONE (05:58)
[2020-02-09] MEDS ORDERED: LEVOTHYROXINE 100MCG TABLET (0.1MG) As Ordered ONE (05:58)
[2020-02-09] MEDS ORDERED: LEVOTHYROXINE 100MCG TABLET (0.1MG) ONE (05:58)
[2020-02-09] MEDS ORDERED: rOPINIRole 1MG TAB ONE ×3 (09:57→21:40)
[2020-02-09] MEDS ORDERED: PANTOPRAZOLE 40MG TAB (PROTONIX) As Ordered ONE (09:57)
[2020-02-09] MEDS ORDERED: PANTOPRAZOLE 40MG TAB (PROTONIX) ONE (09:57)
[2020-02-09] MEDS ORDERED: FOLIC ACID 1 MG TAB ONE (09:57)
[2020-02-09] MEDS ORDERED: SPIRONOLACTONE 25 MG TAB As Ordered ONE (09:57)
[2020-02-09] MEDS ORDERED: LOSARTAN 25 MG TAB ONE (09:57)
[2020-02-09] MEDS ORDERED: CARVedilol 6.25 MG TAB ONE ×2 (09:57→18:22)
[2020-02-09] MEDS ORDERED: PRAVASTATIN 20 MG TAB ONE (09:57)
[2020-02-09] MEDS ORDERED: FUROSEMIDE 40 MG TAB As Ordered ONE (09:57)
[2020-02-09] MEDS ORDERED: SPIRONOLACTONE 25 MG TAB ONE (09:57)
[2020-02-09] MEDS ORDERED: DULoxetine 30 MG CAP (CYMBALTA) ONE (09:57)
[2020-02-09] MEDS ORDERED: PRAVASTATIN 20 MG TAB As Ordered ONE (09:57)
[2020-02-09] MEDS ORDERED: FUROSEMIDE 40 MG TAB ONE (09:57)
[2020-02-09] MEDS ORDERED: LOSARTAN 25 MG TAB As Ordered ONE (09:58)
[2020-02-09] MEDS ORDERED: FOLIC ACID 1 MG TAB As Ordered ONE (09:58)
[2020-02-09] MEDS ORDERED: DULoxetine 30 MG CAP (CYMBALTA) As Ordered ONE (09:58)
[2020-02-09] MEDS ORDERED: rOPINIRole 1MG TAB As Ordered ONE ×3 (09:58→21:40)
[2020-02-09] MEDS ORDERED: CARVedilol 6.25 MG TAB As Ordered ONE ×2 (09:58→18:22)
[2020-02-09] MEDS ORDERED: sulfaSALAzine 500 MG TABEC ONE (13:00)
[2020-02-09] MEDS ORDERED: ALVIMOPAN 12 MG CAPSULE (ENTEREG) ONE (13:00)
[2020-02-09] MEDS ORDERED: CO-ENZYME Q10 50 MG CAP ONE (13:00)
[2020-02-09] MEDS ORDERED: clonazePAM 1 MG TAB ONE (21:40)
[2020-02-09] MEDS ORDERED: clonazePAM 1 MG TAB As Ordered ONE (21:47)
[2020-02-10] MEDS ORDERED: LEVOTHYROXINE 25MCG TABLET (0.025MG) As Ordered ONE (05:47)
[2020-02-10] MEDS ORDERED: LEVOTHYROXINE 25MCG TABLET (0.025MG) ONE (05:47)
[2020-02-10] MEDS ORDERED: LEVOTHYROXINE 100MCG TABLET (0.1MG) ONE (05:47)
[2020-02-10] MEDS ORDERED: LEVOTHYROXINE 100MCG TABLET (0.1MG) As Ordered ONE (05:47)
[2020-02-10] MEDS ORDERED: PRAVASTATIN 20 MG TAB As Ordered ONE (09:21)
[2020-02-10] MEDS ORDERED: FUROSEMIDE 40 MG TAB ONE (09:21)
[2020-02-10] MEDS ORDERED: PRAVASTATIN 20 MG TAB ONE (09:21)
[2020-02-10] MEDS ORDERED: PANTOPRAZOLE 40MG TAB (PROTONIX) As Ordered ONE (09:21)
[2020-02-10] MEDS ORDERED: ENOXAPARIN 40MG/0.4ML SYRINGE (J1650 PER 10MG) ONE (09:21)
[2020-02-10] MEDS ORDERED: rOPINIRole 1MG TAB ONE ×2 (09:21→14:29)
[2020-02-10] MEDS ORDERED: LOSARTAN 25 MG TAB ONE (09:21)
[2020-02-10] MEDS ORDERED: FOLIC ACID 1 MG TAB ONE (09:21)
[2020-02-10] MEDS ORDERED: SPIRONOLACTONE 25 MG TAB As Ordered ONE (09:21)
[2020-02-10] MEDS ORDERED: DULoxetine 30 MG CAP (CYMBALTA) ONE (09:21)
[2020-02-10] MEDS ORDERED: CARVedilol 3.125 MG TAB ONE (09:21)
[2020-02-10] MEDS ORDERED: PANTOPRAZOLE 40MG TAB (PROTONIX) ONE (09:21)
[2020-02-10] MEDS ORDERED: SPIRONOLACTONE 25 MG TAB ONE (09:21)
[2020-02-10] MEDS ORDERED: FOLIC ACID 1 MG TAB As Ordered ONE (09:24)
[2020-02-10] MEDS ORDERED: CARVedilol 3.125 MG TAB As Ordered ONE (09:24)
[2020-02-10] MEDS ORDERED: FUROSEMIDE 40 MG TAB As Ordered ONE (09:24)
[2020-02-10] MEDS ORDERED: LOSARTAN 25 MG TAB As Ordered ONE (09:24)
[2020-02-10] MEDS ORDERED: ENOXAPARIN 40MG/0.4ML SYRINGE (J1650 PER 10MG) As Ordered ONE (09:25)
[2020-02-10] MEDS ORDERED: DULoxetine 30 MG CAP (CYMBALTA) As Ordered ONE (09:25)
[2020-02-10] MEDS ORDERED: rOPINIRole 1MG TAB As Ordered ONE ×2 (09:25→14:29)
== END 2020-02-10 15:32 | disposition home or self-care (01) | DRG 330 ==
LOC: M MSPAV 10:21
PROVIDERS: ADMIT Surgery; ATTEND Surgery
PROC: 0DBN4ZZ Excision of Sigmoid Colon, Percutaneous Endoscopic Approach (ICD-10-PCS; principal; 2020-02-07)
PROC: 0DBP4ZZ Excision of Rectum, Percutaneous Endoscopic Approach (ICD-10-PCS; 2020-02-07)
PROC: 07BB4ZX Excision of Mesenteric Lymphatic, Percutaneous Endoscopic Approach, Diagnostic (ICD-10-PCS; 2020-02-07)
PROC: 8E0W4CZ Robotic Assisted Procedure of Trunk Region, Percutaneous Endoscopic Approach (ICD-10-PCS; 2020-02-07)
DX: C20 Malignant neoplasm of rectum (principal); Z68.41 Body mass index [BMI] 40.0-44.9, adult; G47.33 Obstructive sleep apnea (adult) (pediatric); E66.01 Morbid (severe) obesity due to excess calories; E78.00 Pure hypercholesterolemia, unspecified; M05.79 Rheumatoid arthritis with rheumatoid factor of multiple sites without organ or systems involvement; I25.10 Atherosclerotic heart disease of native coronary artery without angina pectoris; R91.1 Solitary pulmonary nodule; I11.9 Hypertensive heart disease without heart failure; E03.9 Hypothyroidism, unspecified; D64.9 Anemia, unspecified; I35.8 Other nonrheumatic aortic valve disorders; G25.81 Restless legs syndrome; K21.9 Gastro-esophageal reflux disease without esophagitis; F34.1 Dysthymic disorder; L40.0 Psoriasis vulgaris; R29.6 Repeated falls; Z87.891 Personal history of nicotine dependence; Z79.82 Long term (current) use of aspirin; Z79.52 Long term (current) use of systemic steroids; Z79.899 Other long term (current) drug therapy; Z96.652 Presence of left artificial knee joint; Z95.5 Presence of coronary angioplasty implant and graft; Z88.8 Allergy status to other drugs, medicaments and biological substances

== ENCOUNTER → 2020-03-14 | Outpatient (REF) | payer MEDICARE ==
[~2020-03-14] MED LIST changes: -ACETAMINOPHEN 1000MG 100ML IV BTL (OFIRMEV) (J0131 PER 10MG) ONE; -ALVIMOPAN 12 MG CAPSULE (ENTEREG) As Ordered ONE; -ALVIMOPAN 12 MG CAPSULE (ENTEREG) ONE; -ASPIRIN 81 MG CHEW TABLET ONE; -BUPIVACAINE HCL 0.25% 30ML VIAL ONE; +COEN100C4 PO; -HYDROmorphone HCL 2 MG/ML 1ML VIAL (J1170) ONE; -MELA5TAB31 PO; +MELA5TAB36 PO; -METOPROLOL 5 MG/5 ML VIAL ONE; -REMIFENTANIL 1MG 3ML VIAL ONE; -ROCURONIUM BROMIDE 50 MG/5 ML VIAL ONE; -SUGAMMADEX SODIUM 500 MG/5 ML VIAL (BRIDION) ONE; -UBID100C6 PO; -cefoTEtan INJ 2GM VIAL (S0074 PER 500MG) As Ordered ONE; -cefoTEtan INJ 2GM VIAL (S0074 PER 500MG) ONE; -ePHEDrine SULFATE 25 MG/5 ML(5MG/ML) SYRINGE ONE
[2020-03-14 19:50] LABS: BASO % 0.3 % (0.0-1.0); EOS # 0.4 10^3/uL (0.0-0.5); EOS % 4.8 % (0.0-3.0); HEMATOCRIT 33.3 % (36.0-47.0); HEMOGLOBIN 10.1 g/dl (12.0-15.5); LYMPH # 0.7 10^3/uL (1.5-5.0); LYMPH % 9.5 % (24.0-44.0); MEAN CORPUSCULAR HEMOGLOBIN 27.9 pg (27.0-33.0); MEAN CORPUSCULAR HGB CONC 30.3 g/dl (32.0-36.5); MONO # 0.4 10^3/uL (0.0-0.8); MONO % 5.8 % (0.0-5.0); NEUTROPHILS # 5.9 10^3/uL (1.5-8.5); NEUTROPHILS % 79.2 % (36.0-66.0); PLATELET COUNT, AUTOMATED 387 10^3/uL (150-450); RED BLOOD COUNT 3.62 10^6/uL (4.00-5.40); WHITE BLOOD COUNT 7.5 10^3/uL (4.0-10.0)
[2020-03-14 20:15] LABS: ALBUMIN 2.8 GM/DL (3.2-5.2); ALT/SGPT 20 U/L (12-78); BILIRUBIN,TOTAL 0.3 MG/DL (0.2-1.0); BLOOD UREA NITROGEN 19 MG/DL (7-18); C REACTIVE PROTEIN QUANTITATIV 2.61 MG/DL (0.00-0.30); CARBON DIOXIDE LEVEL 30 MEQ/L (21-32); CHLORIDE LEVEL 104 MEQ/L (98-107); CREATININE FOR GFR 0.75 MG/DL (0.55-1.30); GLOMERULAR FILTRATION RATE > 60.0 (>39); GLUCOSE, FASTING 162 MG/DL (70-100); POTASSIUM SERUM 4.4 MEQ/L (3.5-5.1); SODIUM LEVEL 138 MEQ/L (136-145); TOTAL PROTEIN 7.1 GM/DL (6.4-8.2)
[2020-03-14 20:38] LABS: ERYTHROCYTE SEDIMENTATION RATE 89 mm/hr (0-30)
== END ==
LOC: M SFHCLERA 18:54
PROVIDERS: ATTEND Internal Medicine
DX: M05.79 Rheumatoid arthritis with rheumatoid factor of multiple sites without organ or systems involvement (principal); I11.9 Hypertensive heart disease without heart failure; D64.9 Anemia, unspecified

== ENCOUNTER → 2020-03-21 | Outpatient (CLI) | payer MEDICARE ==
--- NOTE | 2020-04-03 11:59 | REP ---
PET CT: HISTORY: Solitary pulmonary nodule. COMPARISON: CT study of the chest retrieved from [facility] dated January 11, 2020. This showed a spiculated nodular opacity in the right lower lobe, 2.8 cm in greatest diameter. Several other tiny subcentimeter pulmonary nodules are scattered bilaterally. TECHNIQUE: 47 minutes following the intravenous injection of an 8.47 mCi dose of F18 FDG, 3D PET CT imaging is acquired from the skull base to the proximal thighs. PET CT FINDINGS: The recently identified spiculated right lower lobe pulmonary nodule has resolved. No hypermetabolic uptake is seen in the thorax. The head and neck soft tissues demonstrate minimally increased uptake in the right thyroid, but no observable nodule or mass. Maximum SUV value is 4.77. There is arthropathy associated uptake involving the glenohumeral and sternoclavicular joints bilaterally. There are small hypermetabolic lymph nodes in each axilla, one on the left and two on the right. The largest lymph node is in the right axilla. Maximum standard uptake value in it is 7.06. This lymph node measures 20 x 14 mm. The other right-sided lymph node shows maximum standard uptake value of 3.93. The hypermetabolic lymph node in the left axilla has maximum SUV value of 4.64. These two lymph nodes are mildly hypermetabolic. No other abnormal hypermetabolic uptake is seen. No abnormality is noted in the abdomen or pelvis. No hepatic hypermetabolic focus is observed. No adenopathy is seen. Surgical sutures are noted in the rectal region. IMPRESSION: 1. The spiculated right lower lobe nodule seen on recent chest CT has resolved. No abnormal intrathoracic hypermetabolic uptake is seen. 2. There are mildly hypermetabolic bilateral axillary lymph nodes, the largest and most avid of which is in the right axilla, as above. Uncertain significance. There is also mild incidental uptake in the right thyroid without observable mass. 3. There is a peripherally calcified lesion along the anterior margin of the spleen in the left upper quadrant, unchanged from prior study. This may be a calcified cyst or conceivably a thrombosed splenic artery aneurysm. It is unchanged from recent CT study. ADDENDUM: In view of the axillary mima uptake, right axillary ultrasound could be performed with possibly ultrasound directed needle biopsy if this lymph node can be identified. The patient's last mammography was from 2018 and this could be repeated on the right side as well. Addendum dictated: AISHA 03/21/2020 1300 Addendum transcribed: zack 03/28/2020 1041 LUCY
== END ==
LOC: M PLARAD 11:30
PROVIDERS: ATTEND Internal Medicine Pulmonary Disease
DX: R91.1 Solitary pulmonary nodule (principal)
CPT/HCPCS: 78815; A9552

== ENCOUNTER → 2020-03-29 | Outpatient (CLI) | payer MEDICARE ==
--- NOTE | 2020-03-29 14:43 | REPVR ---
PROCEDURE INFORMATION: Exam: CT Temporal Bones Without Contrast. Exam date and time: 03/29/2020 1:31 PM Age: 79 years old Clinical indication: Other: Otorrhagia TECHNIQUE: Imaging protocol: Computed tomography images of the temporal bones without contrast.Sagittal and coronal reconstructions were obtained. Radiation optimization: All CT scans at this facility use at least one of these dose optimization techniques: automated exposure control; mA and/or kV adjustment per patient size (includes targeted exams where dose is matched to clinical indication); or iterative reconstruction. COMPARISON: CT Orbit without contrast 05/18/2014 5:08 PM FINDINGS: Right inner ear: Normal. Right ossicles and middle ear: Normal. The middle ear ossicles are intact. Right external auditory canal: Normal. Right facial nerve canal: Normal. Right jugular foramen: No jugular dehiscence. Right carotid canal: No aberrent carotid canal. Right mastoid air cells: Normal. No mastoid effusions. Left inner ear: Normal. Left ossicles and middle ear: Normal. The middle ear ossicles are intact. Left external auditory canal: Normal. Left facial nerve canal: Normal. Left jugular foramen: No jugular dehiscence. Left carotid canal: No aberrent carotid canal. Left mastoid air cells: Normal. No mastoid effusions. Soft tissues: Unremarkable. IMPRESSION: No acute findings. There is no evidence for mastoiditis, otitis externa or otitis media bilaterally. Electronically signed by: Kannan Smith On 03/29/2020 14:43:23 PM
== END ==
LOC: M RAD 13:02
PROVIDERS: ATTEND Otolaryngology
DX: H92.23 Otorrhagia, bilateral (principal); M19.011 Primary osteoarthritis, right shoulder; M19.012 Primary osteoarthritis, left shoulder

== ENCOUNTER → 2020-03-29 | Outpatient (CLI) | payer MEDICARE ==
--- NOTE | 2020-04-03 12:02 | REP ---
BILATERAL SHOULDER RADIOGRAPHS: 6-VIEWS HISTORY: Shoulder pain. COMPARISON: No comparison shoulder radiographs. FINDINGS: Three views of each shoulder are obtained. Barber rods are noted in the thoracolumbar spine. There is normal alignment of the glenohumeral and acromioclavicular joints bilaterally. There is mild joint space narrowing and spur formation at the AC joint on the left. There is some sclerosis in the humeral head on the left and subcortical cyst formation is seen consistent with glenohumeral arthropathy on the left mild in degree. No erosive change is seen. On the right, there is evidence of avascular necrosis in the humeral head with some flattening and subcortical lucency associated with this. Subcortical cyst formation is seen elsewhere in the humeral head as well. Mild hypertrophy of the distal clavicle is seen. There is mild spurring on the inferior surface of the acromion process. No malalignment is seen. IMPRESSION: 1. 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 2. 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 MTDD
== END ==
LOC: M RAD 13:09
PROVIDERS: ATTEND Internal Medicine
DX: M19.011 Primary osteoarthritis, right shoulder (principal); M19.012 Primary osteoarthritis, left shoulder

== ENCOUNTER → 2020-05-12 | Outpatient (CLI) | payer MEDICARE ==
--- NOTE | 2020-05-12 13:21 | REPMRS ---
Patient History No known family history of cancer. Taking unspecified hormones for 10 years. 3D TOMOSYNTHESIS WAS PERFORMED. The [facility] lifetime risk for breast cancer is 2.1%. Volpara breast density a. Diagnostic Bilateral Mammo: May 12, 2020 - Exam #: [id number] Bilateral CC and MLO view(s) were taken. Technologist: Lydia Tay, Technologist Prior study comparison: May 14, 2018, bilateral digital mammo screening bilat, performed at [facility]. 2016, bilateral digital mammo screening bilat, performed at [facility]. FINDINGS: There are scattered fibroglandular densities. There has been no change in the appearance of the mammogram from the prior studies. There is a mild amount of residual fibroglandular tissue which is fairly symmetric. There is no interval development of dominant mass, architectural distortion, or clustered microcalcification suggestive of malignancy. Assessment: BI-RADS/ACR category 1 mammogram. Negative Mammogram. Recommendation Routine screening mammogram in 1 year (for women over age 40). This mammogram was interpreted with the aid of an FDA-approved computer-aided dectection system. Electronically Signed By: Huang Randolph MD 05/12/20 9132
--- NOTE | 2020-05-12 13:28 | REP ---
INDICATION: RT AXILLA U/S,R59.0 AXILLARY ADENOPATHY,R94.8 ABN PET SCAN. COMPARISON: PET CT 03/21/2020. TECHNIQUE: Real-time sonographic evaluation of right axilla performed. FINDINGS: Multiple lymph nodes are seen in the right axilla. There is a lymph node with a hyperechoic fatty hilum but this demonstrates cortical thickening up to 5 mm. It measures 1.3 x 1.8 x 0.8 cm. This could correspond to the lymph node with increased uptake on the PET-CT. Slightly inferior to this is another lymph node with an echogenic hilum. Portions of the cortex reach 5 mm in thickness. This measures 3.9 x 2.1 x 0.8 cm. IMPRESSION: It is difficult to determine with certainty which of the 2 lymph nodes described above corresponds to the lymph node demonstrating increased uptake on the PET-CT. I would recommend ultrasound-guided sampling of both lymph nodes. <Electronically signed by Huang Randolph > 05/12/20 [id number]
== END ==
LOC: M WHC 11:05
PROVIDERS: ATTEND Internal Medicine
DX: Z12.31 Encounter for screening mammogram for malignant neoplasm of breast (principal); R59.0 Localized enlarged lymph nodes; R94.8 Abnormal results of function studies of other organs and systems; Z92.29 Personal history of other drug therapy
CPT/HCPCS: 76882; 77066; G0279

== ENCOUNTER → 2020-05-22 | Outpatient (CLI) | payer MEDICARE ==
[~2020-05-22] MED LIST changes: +LIDOCAINE 1% MDV 20ML VIAL As Ordered ONE; +SODIUM BICARBONATE 8.4% INJ 50MEQ 50 ML VIAL As Ordered ONE
[2020-05-22 13:43] VITALS: BP 137/67
--- NOTE | 2020-05-22 17:02 | REP ---
INDICATION: AXILLARY ADENOPATHY (POSSIBLE X2). COMPARISON: None. TECHNIQUE: The procedure was performed by Gena Montgomery [facility], under the direct supervision of Dr. Gary. The risks and benefits of the procedure were explained to the patient and an informed consent was obtained both verbally and written. Directly prior to the start of the procedure a formal time-out was completed in the procedure room. FINDINGS: Using ultrasound guidance both of the right axillary lymph nodes were localized. One was more medial in the axilla and the other 1 was more lateral. The skin was prepped and draped in a sterile fashion. Eleven mL of buffered lidocaine was used as a local anesthetic in total. Using ultrasound guidance a 17/18 gauge coaxial needle biopsy system was inserted and advanced into the medial lymph node. Eight core biopsy specimens were obtained. Four specimens were sent to our lab here, and remaining 4 were sent out in RPMI solution, for further testing. Using ultrasound guidance the lateral lymph node was then localized. A 17/18 gauge coaxial needle biopsy system was inserted and advanced into the lateral lymph node. Eight core biopsy specimens were obtained. Four specimens were sent to our lab here, and remaining 4 were sent out in RPMI solution, for further testing. The patient tolerated the procedure well and there were no immediate complications. After the appropriate amount of monitored convalescence the patient was discharged from the department. IMPRESSION: 1. Ultrasound-guided lymph node biopsy, of two right axilla lymph nodes. <Electronically signed by Gena Montgomery > 05/22/20 [id number] <Electronically signed by Isai Gary > 05/22/20 [id number]
== END ==
LOC: M IRPRO 11:56
PROVIDERS: ATTEND Internal Medicine
DX: R59.0 Localized enlarged lymph nodes (principal); Z85.038 Personal history of other malignant neoplasm of large intestine

== ENCOUNTER → 2020-06-22 | Outpatient (REF) | payer MEDICARE ==
[~2020-06-22] MED LIST changes: -LIDOCAINE 1% MDV 20ML VIAL As Ordered ONE; -SODIUM BICARBONATE 8.4% INJ 50MEQ 50 ML VIAL As Ordered ONE
[2020-06-22 16:55] LABS: ALBUMIN 3.4 GM/DL (3.2-5.2); ALT/SGPT 26 U/L (12-78); BILIRUBIN,TOTAL 0.2 MG/DL (0.2-1.0); BLOOD UREA NITROGEN 32 MG/DL (7-18); C REACTIVE PROTEIN QUANTITATIV 0.72 MG/DL (0.00-0.30); CALCIUM LEVEL 8.8 MG/DL (8.8-10.2); CARBON DIOXIDE LEVEL 28 MEQ/L (21-32); CHLORIDE LEVEL 104 MEQ/L (98-107); CREATININE FOR GFR 0.77 MG/DL (0.55-1.30); GLOMERULAR FILTRATION RATE > 60.0 (>39); GLUCOSE, FASTING 122 MG/DL (70-100); POTASSIUM SERUM 4.4 MEQ/L (3.5-5.1); SODIUM LEVEL 138 MEQ/L (136-145); TOTAL PROTEIN 7.4 GM/DL (6.4-8.2)
[2020-06-22 16:57] LABS: BASO % 0.4 % (0.0-1.0); EOS # 0.2 10^3/uL (0.0-0.5); EOS % 3.2 % (0.0-3.0); HEMATOCRIT 37.2 % (36.0-47.0); HEMOGLOBIN 11.7 g/dl (12.0-15.5); LYMPH # 0.8 10^3/uL (1.5-5.0); LYMPH % 11.5 % (24.0-44.0); MEAN CORPUSCULAR HEMOGLOBIN 30.4 pg (27.0-33.0); MEAN CORPUSCULAR HGB CONC 31.5 g/dl (32.0-36.5); MEAN CORPUSCULAR VOLUME 96.6 fl (80.0-96.0); MONO # 0.5 10^3/uL (0.0-0.8); MONO % 7.9 % (0.0-5.0); NEUTROPHILS # 5.2 10^3/uL (1.5-8.5); NEUTROPHILS % 76.7 % (36.0-66.0); PLATELET COUNT, AUTOMATED 341 10^3/uL (150-450); RED BLOOD COUNT 3.85 10^6/uL (4.00-5.40); WHITE BLOOD COUNT 6.8 10^3/uL (4.0-10.0)
[2020-06-22 17:24] LABS: ERYTHROCYTE SEDIMENTATION RATE 61 mm/hr (0-30)
== END ==
LOC: M SFHCRHEU 11:07
PROVIDERS: ATTEND Internal Medicine
DX: M05.79 Rheumatoid arthritis with rheumatoid factor of multiple sites without organ or systems involvement (principal)

== ENCOUNTER → 2020-07-20 | Outpatient (CLI) | payer MEDICARE ==
[2020-07-20 10:43] LABS: HEMATOCRIT 38.7 % (36.0-47.0); HEMOGLOBIN 12.1 g/dl (12.0-15.5); MEAN CORPUSCULAR HEMOGLOBIN 30.3 pg (27.0-33.0); MEAN CORPUSCULAR HGB CONC 31.3 g/dl (32.0-36.5); PLATELET COUNT, AUTOMATED 322 10^3/uL (150-450); RED BLOOD COUNT 3.99 10^6/uL (4.00-5.40); WHITE BLOOD COUNT 7.4 10^3/uL (4.0-10.0)
--- NOTE | 2020-07-20 10:44 | REP ---
INDICATION: R KNEE OSTEOARTHRITS PRE OP LAB 1ST EKG 2ND XR 3RD COMPARISON: 09/20/2019 TECHNIQUE: PA and lateral. FINDINGS: The mediastinum and cardiac silhouette are normal. The lung velarde are clear and without acute consolidation, effusion, or pneumothorax. The skeletal structures are intact and normal. IMPRESSION: No acute cardiopulmonary process. <Electronically signed by Loc Garcia > 07/20/20 104
[2020-07-20 10:59] LABS: INR 0.98; PROTHROMBIN TIME 13.2 SECONDS (12.5-14.3)
[2020-07-20 11:02] LABS: ERYTHROCYTE SEDIMENTATION RATE 57 mm/hr (0-30)
[2020-07-20 11:59] LABS: ALBUMIN 3.5 GM/DL (3.2-5.2); ALT/SGPT 23 U/L (12-78); BILIRUBIN,TOTAL 0.4 MG/DL (0.2-1.0); BLOOD UREA NITROGEN 24 MG/DL (7-18); CALCIUM LEVEL 9.1 MG/DL (8.8-10.2); CARBON DIOXIDE LEVEL 29 MEQ/L (21-32); CHLORIDE LEVEL 102 MEQ/L (98-107); CREATININE FOR GFR 0.84 MG/DL (0.55-1.30); GLOMERULAR FILTRATION RATE > 60.0 (>39); GLUCOSE, FASTING 120 MG/DL (70-100); SODIUM LEVEL 137 MEQ/L (136-145); TOTAL PROTEIN 7.4 GM/DL (6.4-8.2)
--- NOTE | 2020-07-22 11:10 | ECGEPIP ---
[facility] Test Date: 2020-07-20 Pat Name: MARCELO LOUIS Department: Room: - Gender: Female Technical Assoc: RF : 1940 Requested By: Berna Polanco Order Number: [id number] Reading MD: Luis García Measurements Intervals [place] Rate: 71 P: 51 AK: 172 QRS: 20 QRSD: 137 T: 40 QT: 392 QTc: 428 Interpretive Statements SINUS RHYTHM RIGHT BUNDLE BRANCH BLOCK No change from 01/27/19 Electronically Signed on 07-22-2020 11:10:01 EST by Luis García
== END ==
LOC: M LAB 09:51
PROVIDERS: ATTEND Orthopaedic Surgery
DX: Z01.812 Encounter for preprocedural laboratory examination (principal); M17.11 Unilateral primary osteoarthritis, right knee; Z11.52 Encounter for screening for COVID-19; Z79.899 Other long term (current) drug therapy
CPT/HCPCS: 36415; 71046; 80053; 85027; 85610; 85652; 93005; U0003

== ENCOUNTER → 2020-07-20 | Outpatient (CLI) | payer MEDICARE | LOC: M LABSMTC 11:18 | PROVIDERS: ATTEND Anesthesiology | DX: Z01.812 Encounter for preprocedural laboratory examination (principal); Z11.52 Encounter for screening for COVID-19 ==

== ENCOUNTER 2020-07-24 10:52 | Inpatient (IN) | payer MEDICARE ==
[~2020-07-24] VITALS: Ht 165.1 cm; Wt 115.7 kg
[~2020-07-24 10:52] MED LIST changes: +LR 1,000 ML IV ONE; +ceFAZolin SOD 2 GM in IV 1 EA IV ONE; +fentaNYL 100 MCG/2 ML INJECTION (J3010) IV PRN
--- NOTE | 2020-07-24 11:06 | HPE ---
PRE-OP HISTORY AND PHYSICAL DATE OF ANTICIPATED ADMISSION: 07/24/2020 ATTENDING PHYSICIAN: Collin Thorne M.D. CHIEF COMPLAINT: Right knee pain. HISTORY OF PRESENT ILLNESS: Leeanna is a pleasant 79-year-old female with a progressively worsening right knee pain and stiffness. She has failed to improve with conservative treatment. She has elected for surgery for her continued symptoms. She has pain with weightbearing activities and her activities of daily living. X-rays of her knee are notable for advanced osteoarthritis of the right knee joint. She has consented for a right total knee arthroplasty by Dr. Collin Thorne. Medical optimization was performed by Dr. Munoz. PAST MEDICAL HISTORY: Includes hypothyroidism, heart disease, rheumatoid arthritis, polyosteoarthritis, hypertension, malignant neoplasm of the sigmoid colon, hypercholesterolemia, anemia, aortic valve disease, pulmonary lesion, restless leg syndrome, GERD, obstructive sleep apnea, morbid obesity, osteoporosis, insomnia. PAST SURGICAL HISTORY: Hysterectomy, , appendectomy, spinal fusion, laminectomy, left knee replacement, right shoulder surgery, three heart stents. ALLERGIES: Neurontin. CURRENT MEDICATIONS: 1. Losartan potassium 25 mg a day. 2. Aspirin 81 mg a day. 3. Sulfasalazine 500 mg two tablets orally twice a day. 4. Methotrexate 2.5 mg six tablets orally once a week. 5. Tramadol 50 mg one tablet every 4 to 6 hours as needed. 6. Lasix 40 mg once a day. 7. Spironolactone 25 mg one half tablet with food orally once a day. 8. Co-Q10 100 mg daily. 9. Multivitamin. 10. Melatonin 5 mg at bedtime. 11. Rtaz-uvm-yunmsfu sleep aid at bedtime. 12. MAG 64 once a day. 13. Nitrostat 0.4 mg sublingual as needed. 14. Duloxetine HCL 60 mg once a day. 15. Nexium 40 mg once a day. 16. Pravastatin sodium 40 mg once a day. 17. Carvedilol 6.25 mg twice a day. 18. Synthroid 125 mcg once a day. 19. Voltaren Gel 1% 2 grams to each hand transdermal three times a day as needed. 20. Folic Acid 1 mg once a day. 21. Klonopin 1 mg two tablets orally at bedtime. 22. Ropinirole 1 mg as directed two tabs at 8:00 a.m., two tabs at 2:00 and two at 9:00. SOCIAL HISTORY: Patient is a former smoker, does not drink alcohol and is retired. FAMILY HISTORY: Noncontributory. REVIEW OF SYSTEMS: This patient denies chest pain, heart palpitations, cough, wheezing, difficulty breathing and shortness of breath. She denies abdominal pain, nausea, vomiting, diarrhea or constipation. She denies recent upper respiratory infection or urinary tract infection symptoms. She does complain of persistent pain in her right knee with weightbearing activities. PHYSICAL EXAMINATION: GENERAL: She is a well-nourished, well developed, in no acute distress, alert female patient. She ambulates with a significant limp, favoring her right lower extremity. She uses a walker. VITAL SIGNS: She is 5' 4" tall, weighs 255 pounds, temperature 96.6, blood pressure 116/76, pulse 68 and respirations 12. NECK: Supple without adenopathy or jugular venous distention. LUNGS: Clear to auscultation, without rales or wheeze. HEART: Regular rate and rhythm. ABDOMEN: Bowel sounds were present. EXTREMITIES: Inspection of the knee revealed intact skin. She is tender over the knee as she took a fall a couple days ago, but x-rays were negative and the skin is intact. She has decreased range of motion due to pain and stiffness. IMAGING: Chest x-ray showed no acute cardiopulmonary disease processes. LABORATORY DATA: CBC showed red count 3.85, hemoglobin 11.7, MCV 96.6, MCHC 31.5, RDW 17.2; otherwise within normal limits. Sed rate 61. Glucose 122, BUN 32, creatinine 0.77, sodium 138, potassium 4.4. We are still pending an EKG. IMPRESSION: Symptomatic osteoarthritis of the right knee. PLAN: Consented for a right total knee arthroplasty by Dr. Collin Thorne.
[2020-07-24] MEDS ORDERED: LIDOCAINE 2% 100MG/5ML SDV (FOR ANES.) As Ordered ONE (13:37)
[2020-07-24] MEDS ORDERED: ONDANSETRON 4MG/2ML VIAL As Ordered ONE (13:37)
[2020-07-24] MEDS ORDERED: fentaNYL 100 MCG/2 ML INJECTION (J3010) As Ordered ONE (13:37)
[2020-07-24] MEDS ORDERED: propofoL 500 MG/50 ML VIAL As Ordered ONE (13:37)
[2020-07-24] MEDS ORDERED: ROPIvacaine 0.5% 30ML INJECTION (J2795 PER 1MG) XX ONE (14:00)
[2020-07-24] MEDS ORDERED: EPINEPHrine INJ 1 MG/ML 1ML AMP XX ONE (14:00)
[2020-07-24] MEDS ORDERED: dexameTHASONE 10MG/1ML VIAL PRES.FREE (J1100 PER 1MG) XX ONE (14:00)
[2020-07-24] MEDS ORDERED: ceFAZolin 1GM VIAL (J0690 PER 500MG) As Ordered ONE (14:28)
[2020-07-24] MEDS ORDERED: ROCURONIUM BROMIDE 50 MG/5 ML VIAL As Ordered ONE ×2 (14:28→16:02)
[2020-07-24] MEDS ORDERED: BUPIVACAINE LIPOSOME/PF 1.3% 20ML VIAL (13.3MG/ML)(EXPAREL)(C9290 PER1MG) As Ordered ONE (14:28)
[2020-07-24] MEDS ORDERED: ACETAMINOPHEN 1000MG 100ML IV BTL (OFIRMEV) (J0131 PER 10MG) As Ordered ONE (14:29)
[2020-07-24] MEDS ORDERED: HYDROmorphone HCL 2 MG/ML 1ML VIAL (J1170) As Ordered ONE (14:29)
[2020-07-24] MEDS ORDERED: TRANEXAMIC ACID 100 MG/ML 10ML VIAL As Ordered ONE (14:29)
[2020-07-24] MEDS ORDERED: EPINEPHrine INJ 1 MG/ML 1ML AMP As Ordered ONE (14:29)
[2020-07-24] MEDS ORDERED: dexameTHASONE 4 MG/ML 1ML VIAL (J1100 PER 1MG) As Ordered ONE (14:29)
[2020-07-24] MEDS ORDERED: BUPIVACAINE HCL 0.25% 10ML VIAL As Ordered ONE (14:29)
[2020-07-24] MEDS ORDERED: LIDOCAINE 1% MDV 20ML VIAL As Ordered ONE (14:38)
[2020-07-24] MEDS: MIDAZOLAM INJ 2MG/2ML VIAL (J2250 PER 1MG) IV PRN (14:43)
[2020-07-24] MEDS ORDERED: LABETALOL 100MG/20ML VIAL As Ordered ONE (15:59)
[2020-07-24] MEDS ORDERED: hydrALAZINE 20MG/ML 1ML VIAL (J0360 PER 20MG) As Ordered ONE (16:04)
[2020-07-24] MEDS ORDERED: SUGAMMADEX SODIUM 500 MG/5 ML VIAL (BRIDION) As Ordered ONE (16:59)
[2020-07-24] MEDS ORDERED: LR 1,000 ML IV SCH ×2 (18:00)
[2020-07-24] MEDS ORDERED: MORPHINE 4 MG/ML 1ML VIAL/SYRINGE (J2270) IV PRN (18:00)
[2020-07-24] MEDS ORDERED: ACETAMINOPHEN TAB 650MG DOSE (2X325MG) PO PRN (18:00)
[2020-07-24] MEDS ORDERED: fentaNYL 100 MCG/2 ML INJECTION (J3010) IV PRN (18:00)
[2020-07-24] MEDS ORDERED: MORPHINE 2 MG/ML 1ML VIAL (J2270) IV PRN (18:00)
[2020-07-24] MEDS ORDERED: PERCOCET 5MG/325MG TAB PO PRN ×2 (18:00)
[2020-07-24] MEDS ORDERED: oxyCODONE 5MG TAB PO PRN (18:00)
[2020-07-24] MEDS ORDERED: METOCLOPRAMIDE INJ 10MG/2ML VIAL (J2765 PER 1) IV PRN (18:00)
[2020-07-24] MEDS ORDERED: ONDANSETRON 4MG/2ML VIAL IV PRN ×2 (18:00)
--- NOTE | 2020-07-24 18:00 | REP ---
INDICATION: S/P TOTAL RIGHT KNEE COMPARISON: None. TECHNIQUE: AP and cross-table lateral views. FINDINGS: Normal appearance and positioning to the femoral and tibial components. Overlying postsurgical changes and skin hilario noted. IMPRESSION: Status post right knee replacement. Satisfactory positioning. <Electronically signed by Loc Garcia > 07/24/20 [id number]
[2020-07-24 18:45] VITALS: BP 171/80
[2020-07-24 19:15] VITALS: BP 150/75
--- NOTE | 2020-07-24 19:38 | RO ---
OPERATIVE NOTE DATE OF OPERATION: 07/24/2020 PREOPERATIVE DIAGNOSIS: Right knee degenerative arthritis. POSTOPERATIVE DIAGNOSIS: Right knee degenerative arthritis. PROCEDURE: Right total knee arthroplasty using a size 6 cruciate retaining femoral component, size 5 tibial tray with a 6 mm rotating platform polyethylene insert and a 35 mm polyethylene button. All components were cemented. Prosthesis was made by [employer]. It was an Attune knee. SURGEON: Berna Thorne M.D. RADIATION / CHEMISTRY TECHNICIAN: Travis Noe PA-C ANESTHESIA: General endotracheal anesthetic with a right femoral nerve block. COMPLICATIONS: None. ESTIMATED BLOOD LOSS: 200 mL SPECIMENS: Joint surface. PROCEDURE: Antibiotics were given intravenously preoperatively and then a right femoral nerve block anesthetic was established and a general endotracheal tube anesthetic was established. The tourniquet was placed on the right upper thigh. It was noteworthy she had an extremely large thigh, difficult to hold the tourniquet but eventually we were able to do so. Her BMI was 44. Her right lower extremity was then carefully prepped and draped in the usual sterile fashion. Then after an appropriate timeout, the leg was elevated and then the tourniquet initially inflated to 250 mmHg, then up to 275 mmHg. It was noteworthy that seven minutes into the procedure, we realized the tourniquet was adequate for her because of the body habitus. Basically, it amounted to a venous tourniquet so we elected to do the majority of the operation without the tourniquet and the tourniquet was thus let down. A longitudinal incision was made from a medial patellar approach to the knee. Bovie cautery was used to coagulate crossing vessels. A medial parapatellar arthrotomy was performed. Subperiosteal dissection over the proximal and medial lateral plateaus was then performed and we managed to rocio the patella and then flexed the knee and debrided the ACL. The drill was placed down the center of the femoral canal followed by the intramedullary eryn and the distal femoral cutting jig set at 5 degree valgus cut at 9 mm resection level for a right knee. The block was pinned into position, the distal femoral cut performed. The AP sizing jig was measured for a size 6. Three degrees of external rotation was dialed in for a right knee. Pins were placed, the 4-in-1 block applied. Anterior-posterior chamfer cuts performed and then the sulcus osteotomy jig was applied and a sulcus osteotomy was performed. We exposed the proximal tibia, used the extramedullary eryn to estimate being parallel to the mechanical axis, referencing off the medial tibial condyle at 4 mm. The block was pinned into position. A secondary check with extramedullary eryn confirmed we appeared to be parallel to the mechanical axis and thus a proximal tibial osteotomy thus performed. A laminar etch operator semiconductor wafers was then placed medially and we performed a completion lateral meniscectomy with debridement of posterolateral osteophytes. We then placed a laminar etch operator semiconductor wafers laterally and performed a completion medial meniscectomy with debridement of posteromedial osteophytes. The spacer block was applied and the 6 mm actually fit very well both in flexion and in extension with good symmetry to varus-valgus stress testing. Thus I felt this was the appropriate size to use. We then exposed the proximal tibia, sized for a #5 tibial tray. The block was pinned into position followed by the reamer and then the broach and then the trial polyethylene was placed and the trial femoral component was placed, brought the knee into extension, everted the patella, performed a patellar osteotomy, sized for a 35 button. Lug holes were drilled, trial placed. Patellofemoral tracking was noted to be anatomic. We then drilled the lug holes for the femur and then removed all the trial components and placed Exparel in the subperiosteal tissues around the distal femur and the proximal tibia. It was noteworthy that throughout the operation, copious amounts of irrigation were applied because we did not have a tourniquet up but despite that, we did not have a lot of blood loss. Thus at this point, we elected to elevate the tourniquet for the cementing portion of the procedure. An Esmarch was applied and with the leg elevated, the tourniquet was reinflated to 275 mmHg for an additional 21 minutes. As I prepared the bony surface for cementing with a copious amount of pulsatile lavage irrigant solution to all the bony surfaces and thoroughly dried them, my physician assistant surgery, Mr. Timothy Noe mixed the cement on the back table. He was also critical to the success of this difficult procedure by helping with appropriate soft tissue retraction, helped to manipulate the knee as necessary, helped to mix the cement, helped to close the wound, helped to prepare the patient for surgery amongst many other tasks to allow me to perform the operation smoothly, efficiently and safely. We then cemented the tibial tray, removing excess cement, placed the polyethylene and cemented the femoral component, removed excess cement, brought the knee into extension and cemented the patellar button and held it with a clamp, removed the excess cement and held the knee in full extension with a clamp applied as we awaited for the cement to harden. As we were doing so, we copiously pulse lavaged irrigated out the knee joint once again and then placed tranexamic acid into the knee and then closed the apex of the arthrotomy with two #1 PDS sutures. The medial parapatellar area was closed with a #1 PDS suture and then the arthrotomy was closed with a double-armed #1 Stratafix. The tourniquet was then released and then we irrigated again between layers, closed the deep subdermal tissues with interrupted 2-0 PDS sutures. The skin was closed with hilario, covered by Optifoam and dry sterile bulky dressing. She was then transferred to the recovery room in stable condition. There were no intraoperative complications. [facility]
[2020-07-24] MEDS ORDERED: LOSARTAN 25 MG TAB PO SCH (21:00)
[2020-07-24] MEDS ORDERED: diphenhydrAMINE 25MG CAP PO SCH (21:00)
[2020-07-24] MEDS ORDERED: PRAVASTATIN 20 MG TAB PO SCH (21:00)
[2020-07-24] MEDS ORDERED: clonazePAM 0.5 MG TAB PO SCH (21:00)
--- NOTE | 2020-07-24 21:13 | CR.PDOC ---
General Date of Consultation: Jul 24, 2020 Consultation REASON FOR CONSULTATION/CHIEF COMPLAINT: post op day 0 for R knee total arthroplasty HISTORY OF PRESENT ILLNESS: 79 yo F with a hx of HTN, CAD, hypothyroidism, DOMI, admitted following R total knee arthroplasty by Dr. Mckeon. Hospitalist consulted for medical comanagement. Patietn states she is doing well, just has 4/10 R knee pain. Denies chest pain, cough, SOB, palpitations, n/v or subjective chills. Tolerating diet. ALLERGIES: Please see below. HOME MEDICATIONS: Please see below. PAST MEDICAL HISTORY: CAD s/p 3 stents, last cath 12/2010. Last stress test november 2019. hypothyroid obesity BMI 42.4 RA HTN polyosteoarthritis colon cancer - sigmoid, s/p resection Bowel incontinence post colectomy RLS pulmonary nodules GERD DOMI insomnia osteoporosis aortic valve disease PAST SURGICAL HISTORY: Hysterectomy Appendectomy spinal fusion laminectomy L knee replacement R shoulder surgery colon resection FAMILY HISTORY: family hx reviewed with patient, non contributory SOCIAL HISTORY: Former smoker no alcohol, no illicit drug use REVIEW OF SYSTEMS: CONSTITUTIONAL: patient denies fevers, chills HEENT: patient denies blurred vision, loss of vision, headache,. CARDIOVASCULAR: patient denies chest pain, palpitations. RESPIRATORY: patient denies shortness of breath, cough, hemoptysis. GASTROINTESTINAL: patient denies abdominal pain, n/v/d, blood in stool. GENITOURINARY: patient denies dysuria, discharge. SKIN: patient denies rashes. MUSCULOSKELETAL: Mild right knee pain NEUROLOGICAL: patient denies focal weakness, numbness, seizures. PSYCHIATRIC: patient denies SI/HI. ENDOCRINE: patient denies polyuria, heat intolerance, cold intolerance. HEMATOLOGIC/LYMPHATIC: patient denies easy bruising. PHYSICAL EXAMINATION: VITAL SIGNS: please see below General: NAD, comfortable HEENT: PERRLA, EOMI, sclerae clear Neck: supple, normal ROM, no JVD Respiratory: lungs CTAB, no wheeze, no rales, no crackles CVS: RRR, normal S1, S2, no murmurs Abdo: soft, no masses, no hepatosplenomegaly, BS+, no rebound tenderness Extremities: no edema, pulses 2+ MSK: Right knee Shaggy wrap Neuro: no focal neuro deficits, moving all 4 extremities, CN2-12 intact. Strength 5/5 in all 4 extremities. No nystagmus. Psych: calm, cooperative, AAO x 3 LABORATORY DATA: Please see below. ASSESSMENT/PLAN: #s/p total R knee replacement: POD #0. pain control, DVT ppx per ortho. #CAD: resume ASA/statin. BB. last stress test 11/2019. LVEF 67% on stress test and 75% on echo in 2019. No angina. #hypothyroid: resume home meds #DOMI: uses cpap at night, compliant. On nocturnal O2 while admitted. Saturating well. #RA: follows with rheum. methotrexate. sulfasalazine. #HTN: resume coreg. spironoloactone. lasix. #insomnia: takes ativan. Rozerem prn. #depressionL: cymbalta DVT ppx: per ortho. ASA bid Vital Signs/I&O Vital Signs Date Time Temp Pulse Resp B/P (MAP) Pulse Ox O2 Delivery O2 Flow Rate FiO2 07/24/20 19:15 98.3 75 20 150/75 (100) 98 Nasal Cannula 2.0 Allergies Coded Allergies: gabapentin (Verified Allergy, Unknown, unsure, 02/09/19) Home Medications Scheduled Aspirin (Aspirin EC) 81 Mg Tab, 1 TAB PO DAILY for pain for 30 Days, #30 (Reported) Carvedilol (Carvedilol) 6.25 Mg Tab, 6.25 MG PO BID, #180 (Reported) Clonazepam (Clonazepam) 0.5 Mg Tab, 1 MG PO QHS, #90 (Reported) Diphenhydramine HCl (Nighttime Sleep Aid) 25 Mg Tab, 25 MG PO QHS, (Reported) Duloxetine Hcl (Duloxetine HCl) 60 Mg Cap, 60 MG PO DAILY, #90 (Reported) Esomeprazole Magnesium (Nexium) 40 Mg Cap, 1 CAP PO DAILY for 30 Days, #30 (Reported) Folic Acid (Folic Acid) 1 Mg Tablet, 1 MG PO DAILY, #90 (Reported) Furosemide (Lasix) 20 Mg Tab, 1 TAB PO DAILY for 30 Days, #30 (Reported) Gluc Tompkins/Chondro Tompkins A/Vit C/Mn (Glucosamine-Chondroitin Cap) 1 Cap Cap, 1 CAP PO DAILY, (Reported) Levothyroxine Sodium (Levothyroxine Sodium) 125 Mcg Tab, 1 TAB PO DAILY for 30 Days, #30 (Reported) Losartan Potassium (Losartan Potassium) 25 Mg Tab, 25 MG PO QHS, (Reported) Lysine (Lysine) 1,000 Mg Tab, 1,000 MG PO DAILY, (Reported) Magnesium Oxide (Magnesium) 400 Mg Cap, 400 MG PO DAILY, (Reported) Melatonin (Melatonin) 5 Mg Tab, 5 MG PO QHS, (Reported) Methotrexate Sodium (Methotrexate) 2.5 Mg Tablet, 15 MG PO QWEEK, (Reported) Pravastatin Sodium (Pravastatin Sodium) 40 Mg Tab, 40 MG PO QHS, #90 (Reported) Prednisone (Prednisone) 5 Mg Tab.ds.pk, 5 MG PO ASDIRECTED, (Reported) Ropinirole HCl (Ropinirole HCl) 2 Mg Tab, 4 MG PO TID, (Reported) 8am and 2 pm and 9 pm Spironolactone (Aldactone) 25 Mg Tablet, 25 MG PO DAILY, (Reported) Ubidecarenone (Coq-10) 100 Mg Capsule, 100 MG PO DAILY, (Reported) ANISA CANNON MD Jul 24, 2020 21:13
[2020-07-24 21:15] VITALS: BP 147/73
[2020-07-24] MEDS ORDERED: RAMELTEON 8 MG TAB (ROZEREM) PO PRN (21:15)
[2020-07-24] MEDS: rOPINIRole 1MG TAB PO SCH (21:58)
[2020-07-24] MEDS: ASPIRIN 81 MG ENTERIC TAB PO SCH (21:58)
[2020-07-24] MEDS: CARVedilol 6.25 MG TAB PO SCH (21:59)
[2020-07-24] MEDS ORDERED: METAMUCIL (PSYLLIUM) PACKET PO PRN (22:15)
[2020-07-24 22:25] VITALS: BP 147/72
[2020-07-24] MEDS: ceFAZolin SOD 2 GM in IV 1 EA IV SCH (22:44)
[2020-07-24 23:15] VITALS: BP 148/70
[2020-07-25 02:41] VITALS: BP 146/62
[2020-07-25 06:00] VITALS: BP 141/70
[2020-07-25] MEDS ORDERED: ECOT81TA5 PO (06:41)
[2020-07-25] MEDS ORDERED: PERC5TAB12 PO (06:41)
[2020-07-25 06:42] LABS: HEMATOCRIT 30.7 % (36.0-47.0); HEMOGLOBIN 9.5 g/dl (12.0-15.5); MEAN CORPUSCULAR HEMOGLOBIN 30.4 pg (27.0-33.0); MEAN CORPUSCULAR HGB CONC 30.9 g/dl (32.0-36.5); MEAN CORPUSCULAR VOLUME 98.1 fl (80.0-96.0); PLATELET COUNT, AUTOMATED 270 10^3/uL (150-450); RED BLOOD COUNT 3.13 10^6/uL (4.00-5.40); WHITE BLOOD COUNT 10.9 10^3/uL (4.0-10.0)
[2020-07-25 07:06] LABS: ALBUMIN 2.9 GM/DL (3.2-5.2); ALT/SGPT 20 U/L (12-78); BILIRUBIN,TOTAL 0.3 MG/DL (0.2-1.0); BLOOD UREA NITROGEN 19 MG/DL (7-18); CALCIUM LEVEL 8.4 MG/DL (8.8-10.2); CARBON DIOXIDE LEVEL 28 MEQ/L (21-32); CHLORIDE LEVEL 104 MEQ/L (98-107); CREATININE FOR GFR 0.72 MG/DL (0.55-1.30); GLOMERULAR FILTRATION RATE > 60.0 (>39); GLUCOSE, FASTING 112 MG/DL (70-100); POTASSIUM SERUM 4.9 MEQ/L (3.5-5.1); SODIUM LEVEL 139 MEQ/L (136-145); TOTAL PROTEIN 6.1 GM/DL (6.4-8.2)
[2020-07-25] MEDS: ceFAZolin SOD 2 GM in IV 1 EA IV SCH ×2 (07:45→11:45)
[2020-07-25] MEDS ORDERED: DULoxetine 30 MG CAP (CYMBALTA) PO SCH (09:00)
[2020-07-25] MEDS ORDERED: FOLIC ACID 1 MG TAB PO SCH (09:00)
[2020-07-25] MEDS ORDERED: LEVOTHYROXINE 125MCG TABLET (0.125MG) PO SCH (09:00)
[2020-07-25] MEDS ORDERED: FUROSEMIDE 20 MG TAB PO SCH (09:00)
[2020-07-25] MEDS ORDERED: SPIRONOLACTONE 25 MG TAB PO SCH (09:00)
[2020-07-25] MEDS ORDERED: PANTOPRAZOLE 40MG TAB (PROTONIX) PO SCH (09:00)
[2020-07-25] MEDS ORDERED: MAGNESIUM OXIDE 400 MG TAB (MAG-OX) PO SCH (09:00)
[2020-07-25] MEDS ORDERED: MIRALAX *UNIT DOSE* 17GM PACKET PO SCH (09:00)
[2020-07-25] MEDS: ASPIRIN 81 MG ENTERIC TAB PO SCH (09:01)
[2020-07-25] MEDS: rOPINIRole 1MG TAB PO SCH (09:05)
[2020-07-25 09:06] VITALS: BP 141/70
[2020-07-25] MEDS: CARVedilol 6.25 MG TAB PO SCH (09:06)
[2020-07-25 10:00] VITALS: BP 133/70
--- NOTE | 2020-07-27 14:43 | DSES ---
DISCHARGE SUMMARY DATE OF ADMISSION: 07/24/2020 DATE OF DISCHARGE: 07/25/2020 ATTENDING: Berna Thorne ADMITTING DIAGNOSIS: Osteoarthritis right knee. OTHER DIAGNOSES: Include: 1. Coronary artery disease. 2. Hypothyroidism. 3. Obesity. 4. Rheumatoid arthritis. 5. Hypertension. 6. History of colon cancer. 7. Bowel incontinence. 8. Restless leg syndrome. 9. Gastric reflux disease. 10. Sleep apnea. 11. Insomnia. 12. Osteoporosis. 13. Aortic valve disease. DISCHARGE DIAGNOSIS: Osteoarthritis right knee status post right total knee arthroplasty. HISTORY: This is a 79-year-old female with progressively worsening right knee pain and stiffness. She failed to improve with conservative management. She was admitted for an elective knee replacement on the right side. OPERATION PERFORMED: Right total knee arthroplasty. HOSPITAL COURSE: The patient was admitted on the day of surgery and underwent a right total knee arthroplasty which was uneventful. She did well in the post-operative period and hospital course was without complications. She was up with physical therapy per their protocol and her pain was controlled. On the day of discharge she was weightbearing as tolerated on her right lower extremity. She is to use aspirin 81 mg for DVT prophylaxis twice a day per the protocol. She will also use Marty stockings for 30 days post-operatively for DVT prophylaxis. She will resume her pre-operative medications and diet. She will use oral pain medications for pain control. She will follow up in our office in 10-14 days for a surgical follow up. She was given instructions including, but not limited to have wound monitoring and activity limitations. Please refer to the medical record for further details. Berna Thorne MD
== END 2020-07-25 13:10 | disposition home or self-care (01) | DRG 470 ==
LOC: M OR 10:57 → M MS5PR 18:35
PROVIDERS: ADMIT Orthopaedic Surgery; ATTEND Orthopaedic Surgery
PROC: 0SRC0J9 Replacement of Right Knee Joint with Synthetic Substitute, Cemented, Open Approach (ICD-10-PCS; principal; 2020-07-24 15:00)
DX: M17.11 Unilateral primary osteoarthritis, right knee (principal); Z68.41 Body mass index [BMI] 40.0-44.9, adult; E03.9 Hypothyroidism, unspecified; M06.9 Rheumatoid arthritis, unspecified; I10 Essential (primary) hypertension; E78.00 Pure hypercholesterolemia, unspecified; D64.9 Anemia, unspecified; G25.81 Restless legs syndrome; K21.9 Gastro-esophageal reflux disease without esophagitis; G47.33 Obstructive sleep apnea (adult) (pediatric); E66.01 Morbid (severe) obesity due to excess calories; R26.89 Other abnormalities of gait and mobility; I35.8 Other nonrheumatic aortic valve disorders; F32.9 Major depressive disorder, single episode, unspecified; M81.0 Age-related osteoporosis without current pathological fracture; R91.8 Other nonspecific abnormal finding of lung field; G47.00 Insomnia, unspecified; Z96.642 Presence of left artificial hip joint; Z95.5 Presence of coronary angioplasty implant and graft; Z87.891 Personal history of nicotine dependence; Z79.82 Long term (current) use of aspirin; Z79.891 Long term (current) use of opiate analgesic; Z79.899 Other long term (current) drug therapy; I25.10 Atherosclerotic heart disease of native coronary artery without angina pectoris; Z85.038 Personal history of other malignant neoplasm of large intestine; Z90.49 Acquired absence of other specified parts of digestive tract; Z79.52 Long term (current) use of systemic steroids; Z88.8 Allergy status to other drugs, medicaments and biological substances

== ENCOUNTER → 2020-08-01 | Outpatient (REF) | payer MEDICARE ==
[~2020-08-01] MED LIST changes: +ECOT81TA5 PO; -LR 1,000 ML IV ONE; -ceFAZolin SOD 2 GM in IV 1 EA IV ONE; -fentaNYL 100 MCG/2 ML INJECTION (J3010) IV PRN
[2020-08-01 13:45] LABS: BASO # 0.1 10^3/uL (0.0-0.2); BASO % 0.7 % (0.0-1.0); EOS # 0.4 10^3/uL (0.0-0.5); EOS % 5.1 % (0.0-3.0); HEMATOCRIT 32.2 % (36.0-47.0); HEMOGLOBIN 10.2 g/dl (12.0-15.5); LYMPH % 12.6 % (24.0-44.0); MEAN CORPUSCULAR HEMOGLOBIN 31.5 pg (27.0-33.0); MEAN CORPUSCULAR HGB CONC 31.7 g/dl (32.0-36.5); MEAN CORPUSCULAR VOLUME 99.4 fl (80.0-96.0); MONO # 0.6 10^3/uL (0.0-0.8); MONO % 7.9 % (0.0-5.0); NEUTROPHILS # 5.6 10^3/uL (1.5-8.5); NEUTROPHILS % 72.9 % (36.0-66.0); PLATELET COUNT, AUTOMATED 402 10^3/uL (150-450); RED BLOOD COUNT 3.24 10^6/uL (4.00-5.40); WHITE BLOOD COUNT 7.7 10^3/uL (4.0-10.0)
[2020-08-01 14:03] LABS: ALBUMIN 3.2 GM/DL (3.2-5.2); ALT/SGPT 18 U/L (12-78); BILIRUBIN,TOTAL 0.5 MG/DL (0.2-1.0); BLOOD UREA NITROGEN 18 MG/DL (7-18); CALCIUM LEVEL 9.3 MG/DL (8.8-10.2); CARBON DIOXIDE LEVEL 33 MEQ/L (21-32); CHLORIDE LEVEL 102 MEQ/L (98-107); CHOLESTEROL LEVEL 162 MG/DL (<200); CHOLESTEROL RISK RATIO 2.842 (<5); CREATININE FOR GFR 0.69 MG/DL (0.55-1.30); GLOMERULAR FILTRATION RATE > 60.0 (>39); GLUCOSE, FASTING 92 MG/DL (70-100); HDL CHOLESTEROL 57 MG/DL (>40); LDL CHOLESTEROL 86 MG/DL (<100); NON-HDL-C 105 MG/DL; SODIUM LEVEL 139 MEQ/L (136-145); TOTAL PROTEIN 7.3 GM/DL (6.4-8.2); TRIGLYCERIDES LEVEL 93 MG/DL (<150)
== END ==
LOC: M PLALAB 09:40
PROVIDERS: ATTEND Internal Medicine
DX: D64.9 Anemia, unspecified (principal); C18.7 Malignant neoplasm of sigmoid colon; I11.9 Hypertensive heart disease without heart failure; E03.9 Hypothyroidism, unspecified

== ENCOUNTER → 2020-08-15 | Outpatient (CLI) | payer MEDICARE ==
--- NOTE | 2020-08-15 13:32 | REP ---
INDICATION: R60.0 EDEMA RT LOWER EXTREMILTY,R/O DVT COMPARISON: None. TECHNIQUE: Randolph scale and color Doppler evaluation right lower extremity using linear high frequency transducer. FINDINGS: Ultrasound examination of the right lower extremity deep venous structures from the common femoral vein to the popliteal vein demonstrates normal compressibility flow and wave patterns in response to respiration and augmentation. There is no evidence for deep venous thrombosis. IMPRESSION: No evidence for deep venous thrombosis. <Electronically signed by Loc Garcia > 08/15/20 [id number]
== END ==
LOC: M WHC 12:17
PROVIDERS: ATTEND Internal Medicine
DX: R60.0 Localized edema (principal)
CPT/HCPCS: 93971; G0463

== ENCOUNTER → 2020-11-06 | Outpatient (REF) | payer MEDICARE ==
[2020-11-06 14:26] LABS: APPEARANCE, URINE CLOUDY (CLEAR); BACTERIA, URINE AUTO 1+ (NEGATIVE); BILIRUBIN, URINE AUTO NEGATIVE (NEGATIVE); BLOOD, URINE BLOOD 3+ (NEGATIVE); COLOR, URINE YELLOW (YELLOW); GLUCOSE, URINE (UA) AUTO NEGATIVE (NEGATIVE); KETONE, URINE AUTO NEGATIVE (NEGATIVE); LEUKOCYTE ESTERASE, URINE AUTO NEGATIVE (NEGATIVE); NITRITE, URINE AUTO NEGATIVE (NEGATIVE); PROTEIN, URINE AUTO 1+ mg/dL (NEGATIVE); RBC, URINE AUTO TNTC /HPF (0-3); SPECIFIC GRAVITY URINE AUTO 1.012 (1.002-1.035); SQUAMOUS EPITHELIAL CELL UR AU 0 /HPF (0-6); UROBILINOGEN, URINE AUTO 0.2 mg/dL (0.0-2.0); WBC, URINE AUTO 30 /HPF (0-3)
== END ==
LOC: M SFHCPLAZ 13:31
PROVIDERS: ATTEND Physician Assistant
DX: R31.9 Hematuria, unspecified (principal)

== ENCOUNTER → 2020-11-22 | Outpatient (REF) | payer MEDICARE ==
[2020-11-22 17:32] LABS: APPEARANCE, URINE CLEAR (CLEAR); BACTERIA, URINE AUTO NEGATIVE (NEGATIVE); BILIRUBIN, URINE AUTO NEGATIVE (NEGATIVE); BLOOD, URINE BLOOD 1+ (NEGATIVE); COLOR, URINE YELLOW (YELLOW); GLUCOSE, URINE (UA) AUTO NEGATIVE (NEGATIVE); KETONE, URINE AUTO NEGATIVE (NEGATIVE); LEUKOCYTE ESTERASE, URINE AUTO NEGATIVE (NEGATIVE); MUCUS, URINE SMALL (NEGATIVE); NITRITE, URINE AUTO NEGATIVE (NEGATIVE); PROTEIN, URINE AUTO NEGATIVE (NEGATIVE); RBC, URINE AUTO 71 /HPF (0-3); SQUAMOUS EPITHELIAL CELL UR AU 0 /HPF (0-6); UROBILINOGEN, URINE AUTO 0.2 mg/dL (0.0-2.0); WBC, URINE AUTO 8 /HPF (0-3)
== END ==
LOC: M SMT 16:49
PROVIDERS: ATTEND Nurse Practitioner Family
DX: R31.0 Gross hematuria (principal); N39.0 Urinary tract infection, site not specified
CPT/HCPCS: 81001; 87088; 87186; 88108; G0463

== ENCOUNTER → 2021-01-13 | Outpatient (CLI) | payer MEDICARE ==
[~2021-01-13] MED LIST changes: +BACT800T5 PO; +CLON1TAB8 PO; +DICL20GE TOP; +FERR325T3 PO; +FURO40TA2 PO; +KETO2CR EXT; +LOSA25TA13; +LOSA25TA13 PO; -LOSA25TA14; -LOSA25TA14 PO; +MACR100C43 PO; +MAGN64TASA PO; +MELA10CA PO; +META0.52 PO; +NITR100C2 PO; +POTA10TA17 PO; +PRED5TA PO; +PYRI1TAB5 PO; +QC A650T3 PO; +ROPI1TAB86 PO; +SULF500T2 PO; +TRAM50TA2 PO
== END ==
LOC: M RAD 10:47
PROVIDERS: ATTEND Nurse Practitioner Family
DX: M75.42 Impingement syndrome of left shoulder (principal); Z53.9 Procedure and treatment not carried out, unspecified reason

== ENCOUNTER → 2021-01-18 | Outpatient (REF) | payer MEDICARE ==
[~2021-01-18] MED LIST changes: -BACT800T5 PO; -CLON1TAB8 PO; -DICL20GE TOP; -FERR325T3 PO; -FURO40TA2 PO; -KETO2CR EXT; -LOSA25TA13; -LOSA25TA13 PO; +LOSA25TA14; +LOSA25TA14 PO; -MACR100C43 PO; -MAGN64TASA PO; -MELA10CA PO; -META0.52 PO; -NITR100C2 PO; -POTA10TA17 PO; -PRED5TA PO; -PYRI1TAB5 PO; -QC A650T3 PO; -ROPI1TAB86 PO; -SULF500T2 PO; -TRAM50TA2 PO
[2021-01-18 17:44] LABS: BASO % 0.5 % (0.0-1.0); EOS # 0.2 10^3/uL (0.0-0.5); EOS % 2.6 % (0.0-3.0); HEMATOCRIT 34.7 % (36.0-47.0); HEMOGLOBIN 10.6 g/dl (12.0-15.5); LYMPH # 0.9 10^3/uL (1.5-5.0); LYMPH % 10.1 % (24.0-44.0); MEAN CORPUSCULAR HGB CONC 30.5 g/dl (32.0-36.5); MEAN CORPUSCULAR VOLUME 91.6 fl (80.0-96.0); MONO # 0.6 10^3/uL (0.0-0.8); MONO % 6.8 % (2.0-8.0); NEUTROPHILS # 6.8 10^3/uL (1.5-8.5); NEUTROPHILS % 79.5 % (36.0-66.0); PLATELET COUNT, AUTOMATED 394 10^3/uL (150-450); RED BLOOD COUNT 3.79 10^6/uL (4.00-5.40); WHITE BLOOD COUNT 8.5 10^3/uL (4.0-10.0)
[2021-01-18 18:03] LABS: ALBUMIN 3.2 GM/DL (3.2-5.2); ALT/SGPT 24 U/L (12-78); BILIRUBIN,TOTAL 0.3 MG/DL (0.2-1.0); BLOOD UREA NITROGEN 21 MG/DL (7-18); C REACTIVE PROTEIN QUANTITATIV 3.36 MG/DL (0.00-0.30); CARBON DIOXIDE LEVEL 28 MEQ/L (21-32); CHLORIDE LEVEL 105 MEQ/L (98-107); CREATININE FOR GFR 0.69 MG/DL (0.55-1.30); GLOMERULAR FILTRATION RATE > 60.0 (>39); GLUCOSE, FASTING 140 MG/DL (70-100); POTASSIUM SERUM 4.6 MEQ/L (3.5-5.1); SODIUM LEVEL 142 MEQ/L (136-145); TOTAL PROTEIN 7.4 GM/DL (6.4-8.2)
[2021-01-18 21:16] LABS: ERYTHROCYTE SEDIMENTATION RATE 72 mm/hr (0-30)
== END ==
LOC: M SFHCRHEU 11:48
PROVIDERS: ATTEND Internal Medicine Rheumatology
DX: M05.79 Rheumatoid arthritis with rheumatoid factor of multiple sites without organ or systems involvement (principal); M87.00 Idiopathic aseptic necrosis of unspecified bone; M89.49 Other hypertrophic osteoarthropathy, multiple sites; Z79.899 Other long term (current) drug therapy
CPT/HCPCS: 80053; 85025; 85652; 86140; G0463

== ENCOUNTER → 2021-02-06 | Outpatient (REF) | payer MEDICARE ==
[~2021-02-06] MED LIST changes: +BACT800T5 PO; +CLON1TAB8 PO; +FERR325T3 PO; +FURO40TA2 PO; +MAGN64TASA PO; +MELA10CA PO; +NITR100C2 PO; +POTA10TA17 PO; +PRED5TA PO; +QC A650T3 PO; +ROPI1TAB86 PO; +SULF500T2 PO; +TRAM50TA2 PO
[2021-02-06 13:51] LABS: APPEARANCE, URINE CLEAR (CLEAR); BACTERIA, URINE AUTO NEGATIVE (NEGATIVE); BILIRUBIN, URINE AUTO NEGATIVE (NEGATIVE); BLOOD, URINE BLOOD 3+ (NEGATIVE); COLOR, URINE YELLOW (YELLOW); GLUCOSE, URINE (UA) AUTO NEGATIVE (NEGATIVE); KETONE, URINE AUTO NEGATIVE (NEGATIVE); LEUKOCYTE ESTERASE, URINE AUTO NEGATIVE (NEGATIVE); MUCUS, URINE SMALL (NEGATIVE); NITRITE, URINE AUTO NEGATIVE (NEGATIVE); PROTEIN, URINE AUTO NEGATIVE (NEGATIVE); RBC, URINE AUTO TNTC /HPF (0-3); SPECIFIC GRAVITY URINE AUTO 1.006 (1.002-1.035); SQUAMOUS EPITHELIAL CELL UR AU 0 /HPF (0-6); UROBILINOGEN, URINE AUTO 0.2 mg/dL (0.0-2.0); WBC, URINE AUTO 3 /HPF (0-3)
== END ==
LOC: M SFHCPLAZ 13:02
PROVIDERS: ATTEND Internal Medicine
DX: R31.0 Gross hematuria (principal)
CPT/HCPCS: 81001; 87088; 87186; G0463

== ENCOUNTER → 2021-02-09 | Outpatient (CLI) | payer MEDICARE ==
[~2021-02-09] MED LIST changes: -BACT800T5 PO; -FERR325T3 PO; -POTA10TA17 PO
--- NOTE | 2021-02-09 16:12 | REP ---
INDICATION: IMPINGEMENT SYNDROME; LT SHOULDER. COMPARISON: Comparison MRI left shoulder January 19, 2019.. TECHNIQUE: Axial, oblique coronal, and sagittal imaging planes utilized. T1 and T2 weighted scans are included with without fat saturation. FINDINGS: Glenohumeral and acromioclavicular joints are normally aligned. There is a small to moderate glenohumeral joint effusion. There is a moderate-sized subacromial subdeltoid bursal effusion. There is inferolateral spurring of the acromion process. AC joint hypertrophy with some marrow edema is seen. Infraspinatus and subscapularis tendons appear intact although there is some motion artifact on the axial images through the region of the subscapularis tendon. Tendinosis is suspected in the subscapularis tendon. There is advanced tendinitis tendinosis change in the distal supraspinatus tendon with full-thickness partial T2 hyperintensity distally similar to the prior study. No tendon retraction is appreciated. No occult fracture is seen. Superior labrum appears intact. The anterior and posterior cartilaginous labral structures are somewhat frayed in appearance. No loose body is seen. Tendinosis changes are seen in the biceps labral complex. IMPRESSION: No occult fracture is seen. Partial-thickness distal supraspinatus tear is again seen. Joint effusion and subacromial subdeltoid bursal effusion. Acromion process and AC joint spurring are again noted. Tendinosis is suspected in the subscapularis tendon. Findings are similar to the prior exam. <Electronically signed by Isai Gary > 02/09/21 [id number]
== END ==
LOC: M PLARAD 10:35
PROVIDERS: ATTEND Nurse Practitioner Family
DX: M75.112 Incomplete rotator cuff tear or rupture of left shoulder, not specified as traumatic (principal); M75.82 Other shoulder lesions, left shoulder; M75.42 Impingement syndrome of left shoulder

== ENCOUNTER 2021-02-11 20:15 | Observation (INO) | payer MEDICARE ==
[~2021-02-11] VITALS: Ht 162.6 cm; Wt 118.1 kg
[~2021-02-11 20:15] MED LIST changes: -CLON1TAB8 PO; -FURO40TA2 PO; -MAGN64TASA PO; -MELA10CA PO; -NITR100C2 PO; -PRED5TA PO; -QC A650T3 PO; -ROPI1TAB86 PO; -SULF500T2 PO; -TRAM50TA2 PO
[2021-02-11] MEDS ORDERED: ACETAMINOPHEN 325 MG TAB PO ONE (20:45)
[2021-02-11] MEDS: PRAVASTATIN 20 MG TAB PO SCH (21:00)
[2021-02-11] MEDS: ASPIRIN 81MG ENTERIC TABLET PO SCH (21:00)
[2021-02-11 21:07] LABS: HEMATOCRIT 33.9 % (36.0-47.0); HEMOGLOBIN 10.9 g/dl (12.0-15.5); MEAN CORPUSCULAR HEMOGLOBIN 28.2 pg (27.0-33.0); MEAN CORPUSCULAR HGB CONC 32.2 g/dl (32.0-36.5); MEAN CORPUSCULAR VOLUME 87.6 fl (80.0-96.0); PLATELET COUNT, AUTOMATED 312 10^3/uL (150-450); RED BLOOD COUNT 3.87 10^6/uL (4.00-5.40); WHITE BLOOD COUNT 9.5 10^3/uL (4.0-10.0)
[2021-02-11 21:35] LABS: ALBUMIN 2.8 GM/DL (3.2-5.2); ALT/SGPT 103 U/L (12-78); BILIRUBIN,DIRECT 0.6 MG/DL (0.0-0.2); BILIRUBIN,TOTAL 0.8 MG/DL (0.2-1.0); CK-MB VALUE MASS 2.2 NG/ML (<3.6); CPK CREATINE PHOSPHOKINASE 79 U/L (26-192); LIPASE 225 U/L (73-393); MB/CK RELATIVE INDEX 2.78 (< OR =4); TOTAL PROTEIN 6.8 GM/DL (6.4-8.2); TROPONIN I < 0.02 NG/ML (< 0.10)
[2021-02-11] MEDS: NS 1,000 ML IV SCH (21:39)
[2021-02-11 21:48] LABS: EOSINOPHILS 1 % (0-3); LYMPHOCYTES 1 % (16-44); MONOCYTES 1 % (0-5); NEUTROPHILS 88 % (28-66); PLATELET ESTIMATE NORMAL (NORMAL)
[2021-02-11 21:49] LABS: ANISOCYTOSIS 1+
--- NOTE | 2021-02-11 22:10 | REPVR ---
PROCEDURE INFORMATION: Exam: XR Chest Exam date and time: 02/11/2021 9:03 PM Age: 80 years old Clinical indication: Other: Fever/waekness; Additional info: Fever/weakness TECHNIQUE: Imaging protocol: XR of the chest. Views: 1 view. COMPARISON: CR Chest, 2 view PA, Lat 07/20/2020 10:29 AM FINDINGS: Lungs: Left base linear scar is similar. There are no interval infiltrates. Pleural spaces: Unremarkable. No pleural effusion. No pneumothorax. Heart/Mediastinum: Unremarkable. No cardiomegaly. Bones/joints: Thoracolumbar pedicular fusion. Soft tissues: There are moderately generous overlying soft tissues. IMPRESSION: There has been little change from 07/20/2020. No acute interval process is identified. Electronically signed by: Wilberto Graves On 02/11/2021 22:09:38 PM
[2021-02-11] MEDS ORDERED: clonazePAM 1 MG TAB PO ONE (22:25)
[2021-02-11] MEDS ORDERED: ISOVUE-370 76% 100ML VIAL As Ordered ONE (22:27)
--- NOTE | 2021-02-11 23:08 | REPVR ---
PROCEDURE INFORMATION: Exam: CT Abdomen And Pelvis With Contrast Exam date and time: 02/11/2021 10:51 PM Age: 80 years old Clinical indication: Abdominal pain; Localized; Lower; Additional info: Low abdominal pain TECHNIQUE: Imaging protocol: Computed tomography of the abdomen and pelvis with contrast. Radiation optimization: All CT scans at this facility use at least one of these dose optimization techniques: automated exposure control; mA and/or kV adjustment per patient size (includes targeted exams where dose is matched to clinical indication); or iterative reconstruction. Contrast material: ISOVUE 370; Contrast volume: 100 ml; Contrast route: INTRAVENOUS (IV); COMPARISON: PT PET/CT Skull/mid thigh 03/21/2020 12:48 PM FINDINGS: Lungs: The slight bibasilar interstitial prominence with minimal bibasilar fibro-atelectatic change. Mediastinal space: Mild hiatal hernia. Liver: Normal. No mass. Gallbladder and bile ducts: Normal. No calcified stones. No ductal dilation. Pancreas: Normal. No ductal dilation. Spleen: Peripherally calcified exophytic splenic cyst measuring 6.2 x 5.3 x 5.5 cm. Adrenal glands: Normal. No mass. Kidneys and ureters: Normal. No hydronephrosis. Stomach and bowel: Moderate stool throughout much of the colon. Rectal anastomosis is noted. Appendix: There are no changes of appendicitis. A normal appendix is not seen. Intraperitoneal space: Unremarkable. No free air. No significant fluid collection. Vasculature: There is mild calcification of the abdominal aorta with extension into the iliac arteries. Lymph nodes: Unremarkable. No enlarged lymph nodes. Urinary bladder: Unremarkable as visualized. Reproductive: Status post hysterectomy. Bones/joints: Status post fusion from the lower thoracic spine to the S1 level and pelvis. Anterior wedge compression of T8 and T9 which appear to be chronic. Soft tissues: Unremarkable. IMPRESSION: 1. Fusion from T9 to the pelvis. There is wedge configuration of T8 and T9 which appear to be chronic. 2. Mild hiatal hernia. 3. Peripherally calcified exophytic splenic cyst suggesting old infection. 4. Status post hysterectomy. 5. Partial resection of the rectum with rectal anastomosis. 6. Moderate stool throughout the colon. Electronically signed by: Wilberto Graves On 02/11/2021 23:07:26 PM
[2021-02-11] MEDS ORDERED: NS 500 ML IV ONE (23:55)
[2021-02-12] MEDS ORDERED: CIPROFLOXACIN 400 MG in IV 1 EA IV ONE (00:05)
[2021-02-12] MEDS ORDERED: NS 3,570 ML in IV 1 EA IV ONE (00:05)
--- NOTE | 2021-02-12 00:17 | REPVR ---
PROCEDURE INFORMATION: Exam: US Abdomen, Limited; Right Upper Quadrant Exam date and time: 02/12/2021 12:03 AM Age: 80 years old Clinical indication: Abdominal pain; Additional info: Elevated liver enzymes; Fever TECHNIQUE: Imaging protocol: US abdomen. Real time ultrasound with image documentation. Limited exam focused on the right upper quadrant. COMPARISON: CT ABD/PEL W/IV CONTRAST ONLY 02/11/2021 10:37 PM FINDINGS: Liver: The liver demonstrates no focal defects. Gallbladder: The gallbladder demonstrates shadowing mobile stones with no wall thickening measuring 1 mm. Common bile duct: The common bile duct measures 2-3 mm. Pancreas: The pancreas appears normal. Right kidney: The right kidney is normal measuring 11.0 cm with no hydronephrosis. IMPRESSION: Negative right upper quadrant sonogram. Electronically signed by: Wilberto Graves On 02/12/2021 00:17:04 AM
[2021-02-12 00:40] LABS: RSV AMPLIFICATION NEGATIVE (NEGATIVE)
[2021-02-12] MEDS ORDERED: MAGN64TASA PO (00:45)
[2021-02-12] MEDS ORDERED: ECOT81TA5 PO (00:45)
[2021-02-12] MEDS ORDERED: PRED5TA PO (00:45)
[2021-02-12] MEDS ORDERED: ROPI1TAB86 PO (00:45)
[2021-02-12] MEDS ORDERED: MELA10CA PO (00:45)
[2021-02-12] MEDS ORDERED: CLON1TAB8 PO (00:45)
[2021-02-12] MEDS ORDERED: FURO40TA2 PO (00:45)
[2021-02-12] MEDS ORDERED: NITR100C2 PO (00:45)
[2021-02-12] MEDS ORDERED: TRAM50TA2 PO (00:45)
[2021-02-12] MEDS ORDERED: HOME MED LIST COMPLETE! XX SCH (00:45)
[2021-02-12] MEDS ORDERED: SULF500T2 PO (00:45)
[2021-02-12] MEDS ORDERED: QC A650T3 PO (00:45)
[2021-02-12] MEDS ORDERED: ACETAMINOPHEN TAB 650MG DOSE (2X325MG) PO PRN (01:15)
[2021-02-12] MEDS ORDERED: MAALOX 30 ML SUSP *UDC PO PRN (01:15)
[2021-02-12] MEDS ORDERED: MOM 30ML SUSPENSION UDC PO PRN (01:15)
--- NOTE | 2021-02-12 02:20 | HPEPDOC ---
General Date of Admission 02/12/21 Date of Service: Feb 12, 2021 Chief Complaint The patient is a 80-year-old female admitted with a reason for visit of Fever, Transaminitis, Uti. Source: Patient Exam Limitations: No limitations Associated Symptoms: Loss of appetite, Vomiting History of Present Illness Leeanna Garcia is a 80-year-old white female with significant history of hypertension, CAD, history of cardiac stents, hypothyroidism, anemia, psoriasis, RA, GERD, colorectal cancer and 2-month urinary tract infection for which she javier s been seeing urology arrives via EMS for malaise and poor appetite. Patient reports that she has been "dealing with UTI for the past 2 months" and sees Koko Velazquez with urology. She reports she was started on Macrobid on Friday. She reports that she has not been able to take it twice a day as she has had poor appetite. She reports compliance with other medications however. Patient had multiple episodes of emesis during transit with EMS; she vomited several times as she reports "with any movement". Patient reports otherwise she has not had any GI symptoms since starting a new antibiotic Friday, Macrobid, from her urologist Koko Velazquez. Her last BM was today and normal reportedly. Pt denies javier, sinus congestion, sore throat, productive cough, sob, palpitations, chest pain, d, sensory changes or syncope. She does endorse fatigueshe coined herself "a fall risk" with generalized weakness. She denies abdominal pain but did report a sensation where she felt it was hard for her to take a deep breath due to the epigastric region in her abdomen for a moment when she came to ED. P atient denies present urinary complaints. Of note, patient did arrive hypertensive to the ER blood pressure 218/91. Later, her blood pressure decreased significantly (98/64) without medication-however she was given Klonopin in ED. BP has sustained above 60 MAP during admission. Patient with no leukocytosis or lactic acidosis but febrile 103 F. Chest x-ray nonacute. CT abdomen pelvis nonacute. Right upper quadrant ultrasound negative. Patient will be admitted for observation for further evaluation of presenting concerns. Home Medications Scheduled Aspirin (Ecotrin) 81 Mg Tablet.dr, 81 MG PO QHS, (Reported) Carvedilol (Carvedilol) 6.25 Mg Tab, 6.25 MG PO BID, (Reported) Clonazepam (Clonazepam) 1 Mg Tablet, 1 MG PO BID, (Reported) Duloxetine Hcl (Duloxetine HCl) 60 Mg Cap, 60 MG PO DAILY, (Reported) Esomeprazole Magnesium (Nexium) 40 Mg Cap, 40 MG PO DAILY, (Reported) Folic Acid (Folic Acid) 1 Mg Tablet, 1 MG PO DAILY, (Reported) Furosemide (Furosemide) 40 Mg Tablet, 40 MG PO DAILY, (Reported) Gluc Tompkins/Chondro Tompkins A/Vit C/Mn (Glucosamine-Chondroitin Cap) 1 Cap Cap, 1 CAP PO DAILY, (Reported) Levothyroxine Sodium (Levothyroxine Sodium) 125 Mcg Tab, 125 MCG PO DAILY, (Re ported) Losartan Potassium (Losartan Potassium) 25 Mg Tab, 25 MG PO QHS, (Reported) Lysine (Lysine) 1,000 Mg Tab, 1,000 MG PO DAILY, (Reported) Magnesium Chloride (Mag64) 64 Mg Tablet.dr, 64 MG PO DAILY, (Reported) Melatonin (Melatonin) 10 Mg Capsule, 10 MG PO QHS, (Reported) Methotrexate Sodium (Methotrexate) 2.5 Mg Tablet, 15 MG PO QWEEK, (Reported) FRIDAY Nitrofurantoin Monohyd/M-Cryst (Nitrofurantoin Loup-Mcr 100 mg) 100 Mg Capsule, 100 MG PO BID, (Reported) STARTED 02/08/21 X 10 DAYS Pravastatin Sodium (Pravastatin Sodium) 40 Mg Tab, 40 MG PO QHS, (Reported) Prednisone (Prednisone) 5 Mg Tablet, 5 MG PO DAILY, (Reported) Ropinirole HCl (Ropinirole HCl) 1 Mg Tablet, 1 MG PO TID, (Reported) Sulfasalazine (Sulfasalazine) 500 Mg Tablet, 1,000 MG PO BID, (Reported) Ubidecarenone (Coq-10) 100 Mg Capsule, 100 MG PO DAILY, (Reported) Scheduled PRN Acetaminophen (Acetaminophen 8 Hour) 650 Mg Tablet.er, 1,300 MG PO Q8H PRN for PAIN, (Reported) Tramadol HCl (Tramadol HCl) 50 Mg Tablet, 50 MG PO BID PRN for PAIN, (Reported) Allergies Coded Allergies: gabapentin (Verified Allergy, Unknown, unsure, 02/09/19) Past Medical History Medical History RA, psoriasis, anxiety, anemia, GERD, CAD with stents and a 48% blockage without intervention being monitored, hypothyroidism, obesity and colorectal cancer Surgical History Hysterectomy, bilateral knee replacements, laminectomy with fused rods, appendectomy, resection rectum and rectal and a stoma January 2020 Family History Significant Family History: No pertinent family hx Social History * Smoker: Denies Alcohol: Denies Recent Travel/Sick Contacts: Reports: Recent travel (On January 27 for a week; she reports that they brought their own food) Psychosocial History: No pertinent psych hx A-FIB/CHADSVASC A-FIB History Current/History of A-Fib/PAF?: No Current PO Anticoag Therapy: No Review of Systems Constitutional: Reports: Malaise, Fatigue, Other (Loss of appetite) Eyes: Denies: Pain, Vision change ENT: Denies: Head Aches, Ear Pain, Dysphagia Skin: Denies: Rash, Lesions, Breakdown Pulmonary: Denies: Dyspnea, Cough Cardiovascular: Denies: Chest Pain, Palpitations, Orthopnea, Paroxysmal Noc. Dyspnea, Lt Headedness Gastrointestinal: Reports: Vomiting; Denies: Nausea, Abdominal Pain, Diarrhea Genitourinary: Denies: Dysuria, Frequency, Incontinence, Retention Hematologic: Denies: Bruising, Bleeding Excessively Musculoskeletal: Denies: Neck Pain, Back Pain, Joint Pain, Muscle Pain, Spasms Neurological: Denies: Weakness, Numbness, Change in speech, Confusion Psych: Reports: Mood Normal; Denies: Depression, Memory Issues Physical Examination General Exam: Positive: Alert, Cooperative, No Acute Distress Eye Exam: Positive: PERRLA, Conjunctiva & lids normal, EOMI; Negative: Sclera icteric ENT Exam: Positive: Atraumatic, Mucous membr. moist/pink, Pharynx Normal, Other ENT (Hard of hearing; wears glasses) Neck Exam: Positive: Supple; Negative: JVD, thyromegaly Chest Exam: Positive: Clear to auscultation, Normal air movement Heart Exam: Positive: Rate Normal, Regular Rhythm, Normal S1, Normal S2; Negative: Murmurs, Rubs Telemetry: Positive: No significant arrhythmia Abdomen Exam: Positive: Normal bowel sounds, Soft, Other (+ Body habitus; obese); Negative: Tenderness, Hepatospenomegaly Extremity Exam: Positive: Normal pulses; Negative: Clubbing, Cyanosis, Edema Skin Exam: Positive: Nl turgor and temperature; Negative: Breakdown, Lesion Neuro Exam: Positive: Normal Tone, Sensation Intact; Negative: Normal Gait Psych Exam: Positive: Mental status NL, Mood NL, Oriented x 3 Vital Signs Vital Signs Date Time Temp Pulse Resp B/P (MAP) Pulse Ox O2 Delivery O2 Flow Rate FiO2 02/12/21 00:30 98.9 97 20 94/55 (68) 94 Nasal Cannula 1.0 Laboratory Data Labs 24H Laboratory Tests 2 02/11/21 20:54: Neutrophils (%) (Auto) , Nucleated Red Blood Cells % (auto) 0.0, Neutrophils 88H, Band Neutrophils 9, Lymphocytes (Manual) 1L, Monocytes (Manual) 1, Eosinophils (Manual) 1, Anisocytosis 1+, Platelet Estimate NORMAL, Lactic Acid Level 1.8, Total Bilirubin 0.8, Direct Bilirubin 0.6H, Aspartate Amino Transf (AST/SGOT) 116H, Alanine Aminotransferase (ALT/SGPT) 103H, Alkaline Phosphatase 178H, Total Creatine Kinase 79, Creatine Kinase MB 2.2, Creatine Kinase MB Relative Index 2.78, Troponin I < 0.02, Total Protein 6.8, Albumin 2.8L, Albumin/Globulin Ratio 0.7L, Lipase 225 02/11/21 21:00: POC Glucose (Misc Panel) 100, POC Sodium (Misc Panel) 134L, POC Potassium (Misc Panel) 3.6, POC Chloride (Misc Panel) 95L, POC Total CO2 (Misc Panel) 26.0, POC Blood Urea Nitrogen (Misc Panel 28H, POC Ionized Calcium (Misc Panel) 4.3L, POC Creatinine (Misc Panel) 0.8, POC Hematocrit (Misc Panel) 35.0L 02/11/21 23:03: Urine Color SHARRON, Urine Appearance HAZY, Urine pH 5.0, Urine Specific [place] 1.019, Urine Protein 1+H, Urine Glucose (UA) NEGATIVE, Urine Ketones NEGATIVE, Urine Blood NEGATIVE, Urine Nitrite NEGATIVE, Urine Bilirubin NEGATIVE, Urine Urobilinogen 0.2, Urine Leukocyte Esterase NEGATIVE, Urine WBC (Auto) 6H, Urine RBC (Auto) 5H, Urine Hyaline Casts (Auto) 0, Urine Bacteria (Auto) NEGATIVE, Urine Squamous Epithelial Cells 0, Urine Mucus (Auto) SMALL, Urine Sperm (Auto) 02/11/21 23:50: Coronavirus (COVID-19)(PCR) NEGATIVE, Influenza Type A (RT-PCR) NEGATIVE, Influenza Type B (RT-PCR) NEGATIVE, Respiratory Syncytial Virus (PCR) NEGATIVE CBC/BMP Laboratory Tests 02/11/21 20:54 Microbiology Microbiology 02/12/21 Blood Culture, Received Pending 02/11/21 Blood Culture, Received Pending RAD Interpretation STUDY: CXR RAD Interpretation: Normal STUDY: CT abdomen pelvis Rad Actions: Report Reviewed STUDY: Right upper quadrant US Rad Actions: Report Reviewed RAD Interpretation: Normal Assessment/Plan UTI: Patient arrives febrile, but UA without overt infection. -Monitor patient, monitor for worsening signs symptoms of infection. Check lactic and pro Madhu. Blood culture sent. Will cover with Cipro given last urine culture sensitive to Cipro. A.m. labs. Encourage urology f/u with d/c- pt reports she did not have cystoscopy done. Fever: Possibly attributed to UTI and UA may be sterile related to the Macrobid. However, consider other components given patient autoimmune history, cancer and transaminitis. Will check further lab work and consider other sources. Patient with chest x-ray nonacute. She did have episodes of emesis on the way to hospital possible scenario of reactivity with partial aspiration however did not clinically show/present on x-ray yet. Transaminitis: CT abdomen pelvis with out hepatic abnormality. No obvious cholecystitis. Right upper quadrant ultrasound negative. Possibly related to Macrobid use - however will check hepatitis panel. Consider differentials. Hypertension: Monitor patient blood pressure. Patient was hypertensive upon admission and then after Klonopin was borderline soft BP. Could be underlying infectious process versus medication induced. Will hold off on restarting home medications at present pending patient response Anemia: Hemoglobin 10. Stable. Patient denied diagnosis. Check anemia panel. Monitor patient, a.m. labs. Deconditioning in obese elder: Monitor patient, ambulate with assistance. Fall risk. Appreciate PT for therapeutic purposes. DVT: Heparin SQ, SCDs CODE STATUS: Full Dispo: Home once stable. Plan / VTE VTE Prophylaxis Ordered?: Yes ASH MA NP Feb 12, 2021 02:06
[2021-02-12] MEDS: NS 1,000 ML IV SCH (03:32)
[2021-02-12] MEDS ORDERED: traMADol 50 MG TAB PO PRN (03:35)
[2021-02-12] MEDS: HEPARIN SOD (PORCINE) 5000UNITS/ML 1ML VIAL/SYRINGE SC SCH ×3 (06:00→21:00)
[2021-02-12 06:17] VITALS: BP 115/53
[2021-02-12 07:19] VITALS: BP 114/57
[2021-02-12 08:45] LABS: BASO % 0.1 % (0.0-1.0); EOS # 0.1 10^3/uL (0.0-0.5); EOS % 0.9 % (0.0-3.0); HEMATOCRIT 30.2 % (36.0-47.0); HEMOGLOBIN 9.5 g/dl (12.0-15.5); LYMPH # 0.3 10^3/uL (1.5-5.0); LYMPH % 3.7 % (24.0-44.0); MEAN CORPUSCULAR HEMOGLOBIN 27.9 pg (27.0-33.0); MEAN CORPUSCULAR HGB CONC 31.5 g/dl (32.0-36.5); MEAN CORPUSCULAR VOLUME 88.6 fl (80.0-96.0); MONO # 0.2 10^3/uL (0.0-0.8); MONO % 2.1 % (2.0-8.0); NEUTROPHILS % 92.7 % (36.0-66.0); PLATELET COUNT, AUTOMATED 268 10^3/uL (150-450); RED BLOOD COUNT 3.41 10^6/uL (4.00-5.40); WHITE BLOOD COUNT 7.6 10^3/uL (4.0-10.0)
[2021-02-12 09:10] LABS: BLOOD UREA NITROGEN 24 MG/DL (7-18); CARBON DIOXIDE LEVEL 27 MEQ/L (21-32); CHLORIDE LEVEL 105 MEQ/L (98-107); CREATININE FOR GFR 0.64 MG/DL (0.55-1.30); GLOMERULAR FILTRATION RATE > 60.0 (>39); GLUCOSE, FASTING 73 MG/DL (70-100); POTASSIUM SERUM 3.4 MEQ/L (3.5-5.1); SODIUM LEVEL 139 MEQ/L (136-145)
[2021-02-12] MEDS: SUCRALFATE SUSP 1GM/10ML UD PO SCH ×4 (09:33→20:59)
[2021-02-12] MEDS: LACTOBACILLUS ACIDOPHILUS CAP (BACID) PO SCH (09:34)
[2021-02-12] MEDS: CARVedilol 6.25 MG TAB PO SCH ×2 (09:35→20:59)
[2021-02-12] MEDS: FOLIC ACID 1 MG TAB PO SCH (09:35)
[2021-02-12] MEDS: LEVOTHYROXINE 125MCG TABLET (0.125MG) PO SCH (09:35)
[2021-02-12] MEDS: predniSONE 5 MG TAB PO SCH (09:35)
[2021-02-12] MEDS: FUROSEMIDE 40 MG TAB PO SCH (09:36)
[2021-02-12] MEDS: PANTOPRAZOLE 40MG TAB (PROTONIX) PO SCH (09:36)
[2021-02-12] MEDS: DOCUSATE SODIUM 100MG CAPSULE PO SCH ×2 (09:36→20:59)
[2021-02-12 11:08] LABS: HEPATITIS A ANTIBODY IGM NEGATIVE (NEGATIVE); HEPATITIS B CORE ANTIBODY IGM NEGATIVE (NEGATIVE); HEPATITIS B SURFACE ANTIGEN NEGATIVE (NEGATIVE); HEPATITIS C VIRUS ABY INDEX 0.1 INDEX (<0.8)
--- NOTE | 2021-02-12 11:16 | IPNPDOC ---
Subjective Date Seen The patient was seen on 02/12/21. Subjective Chief Complaint/HPI Mrs. Garcia is a 80 year old female with RA, psoriasis, anxiety, and CAD s/p stents who is here for dyspepsia and nausea. When I saw her this morning, she had just arrived to the floor 1 hour prior. She is very fatigued and sleepy. Denies chest pain or dyspnea. Nausea is improved. Objective Physical Examination General Exam: Positive: Cooperative Eye Exam: Negative: Sclera icteric ENT Exam: Positive: Other ENT (Hard of hearing; wears glasses) Neck Exam: Positive: Supple Chest Exam: Positive: Clear to auscultation Heart Exam: Positive: Rate Normal, Regular Rhythm Abdomen Exam: Positive: Normal bowel sounds, Soft; Negative: Tenderness Extremity Exam: Negative: Edema Neuro Exam: Positive: Normal Speech Psych Exam: Positive: Mental status NL, Mood NL Assessment /Plan Assessment Mrs. Garcia is a 80 year old female with RA, psoriasis, anxiety, and CAD s/p stents who is here for dyspepsia and nausea. She recently started Macrobid on Friday, which is the most likely cause to her symptoms. The urine culture from 02/06 demonstrates enterococcus >100,000 which is penicillin and ciprofloxacin sensitive. Continue ciprofloxacin for now. Will add on Carafate to the Protonix to help with the dyspepsia. Will have physical therapy work with patient. Plan/VTE VTE Prophylaxis Ordered?: Yes Plan 1. Adverse effect of medication -Patient had nausea and dyspepsia due to Macrobid -Hold Macrobid and provide supportive care 2. Enterococcus UTI -Switch from Macrobid to ciprofloxacin day 1 -Fever of 103.3 on 02/11/21 at 20:46 (blood cultures x2 pending) -Continue probiotic 3. Dyspepsia and nausea -Secondary to medication -Continue Protonix -Add on Carafate 4. Transaminitis -Mildly elevated AST and ALT -US RUQ negative -Hepatitis panel pending 5. CAD s/p stents -No active chest pain -Continue aspirin, pravastatin, and Coreg -Blood pressure soft, hold Losartan 6. Leg edema -No history of CHF seen in chart -Continue furosemide 7. RA -Continue prednisone 8. Hypothyroidism -Continue levothyroxine 9. DVT ppx -Heparin subq Disposition: Pending resolution of fever and improvement in dyspepsia. Pending recommendation from PT VS, I&O, 24H, [place] Vital Signs/I&O Vital Signs Date Time Temp Pulse Resp B/P (MAP) Pulse Ox O2 Delivery O2 Flow Rate FiO2 02/12/21 09:35 90 117/58 02/12/21 07:19 97.9 20 94 Nasal Cannula 2.0 I&O- Last 24 Hours up to 6 AM 02/12/21 06:00 Intake Total 200 ml Output Total 500 ml Balance -300 ml Laboratory Data 24H LABS Laboratory Tests 2 02/11/21 20:54: Neutrophils (%) (Auto) , Nucleated Red Blood Cells % (auto) 0.0, Neutrophils 88H, Band Neutrophils 9, Lymphocytes (Manual) 1L, Monocytes (Manual) 1, Eosinop hils (Manual) 1, Anisocytosis 1+, Platelet Estimate NORMAL, Lactic Acid Level 1.8, Total Bilirubin 0.8, Direct Bilirubin 0.6H, Aspartate Amino Transf (AST/SGOT) 116H, Alanine Aminotransferase (ALT/SGPT) 103H, Alkaline Phosphatase 178H, Total Creatine Kinase 79, Creatine Kinase MB 2.2, Creatine Kinase MB Relative Index 2.78, Troponin I < 0.02, Total Protein 6.8, Albumin 2.8L, Albumin/Globulin Ratio 0.7L, Lipase 225 02/11/21 21:00: POC Glucose (Misc Panel) 100, POC Sodium (Misc Panel) 134L, POC Potassium (Misc Panel) 3.6, POC Chloride (Misc Panel) 95L, POC Total CO2 (Misc Panel) 26.0, POC Blood Urea Nitrogen (Misc Panel 28H, POC Ionized Calcium (Misc Panel) 4.3L, POC Creatinine (Misc Panel) 0.8, POC Hematocrit (Misc Panel) 35.0L 02/11/21 23:03: Urine Color SHARRON, Urine Appearance HAZY, Urine pH 5.0, Urine Specific [place] 1.019, Urine Protein 1+H, Urine Glucose (UA) NEGATIVE, Urine Ketones NEGATIVE, Urine Blood NEGATIVE, Urine Nitrite NEGATIVE, Urine Bilirubin NEGATIVE, Urine Urobilinogen 0.2, Urine Leukocyte Esterase NEGATIVE, Urine WBC (Auto) 6H, Urine RBC (Auto) 5H, Urine Hyaline Casts (Auto) 0, Urine Bacteria (Auto) NEGATIVE, Urine Squamous Epithelial Cells 0, Urine Mucus (Auto) SMALL, Urine Sperm (Auto) 02/11/21 23:50: Coronavirus (COVID-19)(PCR) NEGATIVE, Influenza Type A (RT-PCR) NEGATIVE, Influenza Type B (RT-PCR) NEGATIVE, Respiratory Syncytial Virus (PCR) NEGATIVE 02/12/21 00:53: 02/12/21 08:03: Immature Granulocyte % (Auto) 0.5, Neutrophils (%) (Auto) 92.7H, Lymphocytes (%) (Auto) 3.7L, Monocytes (%) (Auto) 2.1, Eosinophils (%) (Auto) 0.9, Basophils (%) (Auto) 0.1, Neutrophils # (Auto) 7.0, Lymphocytes # (Auto) 0.3L, Monocytes # (Auto) 0.2, Eosinophils # (Auto) 0.1, Basophils # (Auto) 0.0, Nucleated Red Blood Cells % (auto) 0.0, Anion Gap 7L, Glomerular Filtration Rate > 60.0, Lac tic Acid Level 1.4, Calcium Level 8.0L CBC/BMP Laboratory Tests 02/11/21 20:54 02/12/21 08:03 Microbiology Microbiology 02/12/21 Blood Culture, Received Pending 02/11/21 Blood Culture, Received Pending ANIA KELSEY DO Feb 12, 2021 11:16
[2021-02-12 11:20] VITALS: BP 123/56
[2021-02-12] MEDS: CIPROFLOXACIN 400 MG in IV 1 EA IV SCH (12:42)
[2021-02-12 15:19] VITALS: BP 133/60
[2021-02-12] MEDS: rOPINIRole 1MG TAB PO SCH ×2 (17:29→20:59)
--- NOTE | 2021-02-12 19:51 | ECGEPIP ---
[facility] - ED Test Date: 2021-02-11 Pat Name: MARCELO HERIBERTO Department: Room: [place] [address] Gender: Female Powder Guard: arsalan : 1940 Requested By: CAROLA NASCIMENTO Order Number: [id number] Reading MD: Zhane Win Measurements Intervals [place] Rate: 105 P: 24 AK: 146 QRS: -17 QRSD: 126 T: 20 QT: 352 QTc: 465 Interpretive Statements Sinus tachycardia Right bundle branch block Inferior infarct , age undetermined increased rate 07/20/20 Electronically Signed on 02-12-2021 19:50:58 EDT by Zhane Win
[2021-02-12 20:00] VITALS: BP 138/76
[2021-02-12] MEDS: PRAVASTATIN 20 MG TAB PO SCH (20:59)
[2021-02-12] MEDS: clonazePAM 1 MG TAB PO SCH (20:59)
[2021-02-12] MEDS: ASPIRIN 81MG ENTERIC TABLET PO SCH (20:59)
[2021-02-13] MEDS: CIPROFLOXACIN 400 MG in IV 1 EA IV SCH ×2 (01:11→12:16)
[2021-02-13 01:40] VITALS: BP 117/63
[2021-02-13] MEDS: HEPARIN SOD (PORCINE) 5000UNITS/ML 1ML VIAL/SYRINGE SC SCH (05:11)
[2021-02-13 06:15] VITALS: BP 136/65
[2021-02-13 06:42] LABS: BASO % 0.4 % (0.0-1.0); EOS # 0.2 10^3/uL (0.0-0.5); EOS % 4.2 % (0.0-3.0); HEMATOCRIT 29.3 % (36.0-47.0); HEMOGLOBIN 9.3 g/dl (12.0-15.5); LYMPH # 0.8 10^3/uL (1.5-5.0); LYMPH % 14.4 % (24.0-44.0); MEAN CORPUSCULAR HEMOGLOBIN 27.8 pg (27.0-33.0); MEAN CORPUSCULAR HGB CONC 31.7 g/dl (32.0-36.5); MEAN CORPUSCULAR VOLUME 87.7 fl (80.0-96.0); MONO # 0.4 10^3/uL (0.0-0.8); MONO % 7.1 % (2.0-8.0); NEUTROPHILS % 73.4 % (36.0-66.0); PLATELET COUNT, AUTOMATED 281 10^3/uL (150-450); RED BLOOD COUNT 3.34 10^6/uL (4.00-5.40); WHITE BLOOD COUNT 5.5 10^3/uL (4.0-10.0)
[2021-02-13 07:14] LABS: BLOOD UREA NITROGEN 19 MG/DL (7-18); CALCIUM LEVEL 8.2 MG/DL (8.8-10.2); CARBON DIOXIDE LEVEL 28 MEQ/L (21-32); CHLORIDE LEVEL 106 MEQ/L (98-107); FERRITIN 54 NG/ML (8-252); GLOMERULAR FILTRATION RATE > 60.0 (>39); GLUCOSE, FASTING 81 MG/DL (70-100); IRON (FE) 18 UG/DL (50-170); PERCENT SATURATION 6.5 % (13.2-45.0); POTASSIUM SERUM 3.4 MEQ/L (3.5-5.1); SODIUM LEVEL 142 MEQ/L (136-145); TOTAL IRON BINDING CAPACITY 276 UG/DL (250-450)
[2021-02-13] MEDS: FUROSEMIDE 40 MG TAB PO SCH (08:04)
[2021-02-13] MEDS: LEVOTHYROXINE 125MCG TABLET (0.125MG) PO SCH (08:04)
[2021-02-13] MEDS: rOPINIRole 1MG TAB PO SCH (08:04)
[2021-02-13] MEDS: SUCRALFATE SUSP 1GM/10ML UD PO SCH ×2 (08:04→12:15)
[2021-02-13] MEDS: DOCUSATE SODIUM 100MG CAPSULE PO SCH (08:04)
[2021-02-13] MEDS: PANTOPRAZOLE 40MG TAB (PROTONIX) PO SCH (08:04)
[2021-02-13] MEDS: predniSONE 5 MG TAB PO SCH (08:04)
[2021-02-13] MEDS: FOLIC ACID 1 MG TAB PO SCH (08:04)
[2021-02-13] MEDS: LACTOBACILLUS ACIDOPHILUS CAP (BACID) PO SCH (08:04)
[2021-02-13 08:05] VITALS: BP 115/81
[2021-02-13] MEDS: CARVedilol 6.25 MG TAB PO SCH (08:05)
[2021-02-13] MEDS: clonazePAM 1 MG TAB PO SCH (08:07)
[2021-02-13 09:03] LABS: VITAMIN B12 LEVEL 536 PG/ML (247-911)
[2021-02-13 09:04] LABS: FOLATE 20.7 NG/ML (>5.4)
[2021-02-13] MEDS ORDERED: POTASSIUM CHLORIDE 10 MEQ SR TABLET PO ONE (11:00)
[2021-02-13] MEDS ORDERED: BACT800T5 PO (12:04)
[2021-02-13] MEDS ORDERED: FERR325T3 PO (12:04)
[2021-02-13] MEDS ORDERED: POTA10TA17 PO (12:37)
--- NOTE | 2021-02-13 20:23 | DS.PDOC ---
Discharge Summary General Date of Admission Feb 11, 2021 at 20:16 Date of Discharge 02/13/21 Discharge Summary 80-year-old female presented to the emergency department with complaints of dyspepsia, nausea, and malaise she has a past medical history of hypertension, coronary artery disease, hypothyroidism, anemia, psoriasis, rheumatoid arthritis, GERD, and colorectal cancer, and a urinary tract infection. She reported being on Macrobid as an outpatient and subsequently began to experience GI symptoms including dyspepsia, and nausea. Her Macrobid was held and she was treated with iv ciprofloxacin during hospitalizations according to urinary cultures from 02/06. She had significant improvements in her symptoms and she was transitioned to a short course of Bactrim as outpatient -ciprofloxacin was not prescribed due to the interactions with some of her chronic ambulatory medications. At the time of discharge she endorsed no urinary tract symptoms. She was afebrile. Her blood cultures were negative. She was instructed to follow-up with her urologist and primary care physician upon discharge in 1 to 2 weeks. Vital Signs/I&Os Vital Signs Date Time Temp Pulse Resp B/P (MAP) Pulse Ox O2 Delivery O2 Flow Rate FiO2 02/13/21 08:05 80 115/81 02/13/21 06:15 97.7 17 95 Room Air 02/12/21 11:20 2.0 I&O- Last 24 Hours up to 6 AM 02/13/21 06:00 Intake Total 2450 ml Output Total 1551 ml Balance 899 ml Laboratory Data Labs 24H Laboratory Tests 2 02/13/21 06:26: Immature Granulocyte % (Auto) 0.5, Neutrophils (%) (Auto) 73.4H, Lymphocytes (%) (Auto) 14.4L, Monocytes (%) (Auto) 7.1, Eosinophils (%) (Auto) 4.2H, Basophils (%) (Auto) 0.4, Neutrophils # (Auto) 4.0, Lymphocytes # (Auto) 0.8L, Monocytes # (Auto) 0.4, Eosinophils # (Auto) 0.2, Basophils # (Auto) 0.0, Nucleated Red Blood Cells % (auto) 0.0, Anion Gap 8, Glomerular Filtration Rate > 60.0, Calcium Level 8.2L, Iron Level 18L, Total Iron Binding Capacity 276, Transferrin % Saturation 6.5L, Ferritin 54, Vitamin B12 Level 536, Folate 20.7 CBC/BMP Laboratory Tests 02/13/21 06:26 Microbiology Microbiology 02/12/21 Blood Culture - Preliminary, Resulted No growth after 24 hours . All specim... 02/11/21 Blood Culture - Preliminary, Resulted No growth after 24 hours . All specim... Discharge Medications Scheduled Aspirin (Ecotrin) 81 Mg Tablet.dr, 81 MG PO QHS, (Reported) Carvedilol (Carvedilol) 6.25 Mg Tab, 6.25 MG PO BID, (Reported) Clonazepam (Clonazepam) 1 Mg Tablet, 1 MG PO BID, (Reported) Duloxetine Hcl (Duloxetine HCl) 60 Mg Cap, 60 MG PO DAILY, (Reported) Esomeprazole Magnesium (Nexium) 40 Mg Cap, 40 MG PO DAILY, (Reported) Ferrous Sulfate (Ferrous Sulfate) 325 Mg Tablet.dr, 1 TAB PO DAILY Folic Acid (Folic Acid) 1 Mg Tablet, 1 MG PO DAILY, (Reported) Furosemide (Furosemide) 40 Mg Tablet, 40 MG PO DAILY, (Reported) Gluc Tompkins/Chondro Tompkins A/Vit C/Mn (Glucosamine-Chondroitin Cap) 1 Cap Cap, 1 CAP PO DAILY, (Reported) Levothyroxine Sodium (Levothyroxine Sodium) 125 Mcg Tab, 125 MCG PO DAILY, (Reported) Losartan Potassium (Losartan Potassium) 25 Mg Tab, 25 MG PO QHS, (Reported) Lysine (Lysine) 1,000 Mg Tab, 1,000 MG PO DAILY, (Reported) Magnesium Chloride (Mag64) 64 Mg Tablet.dr, 64 MG PO DAILY, (Reported) Melatonin (Melatonin) 10 Mg Capsule, 10 MG PO QHS, (Reported) Methotrexate Sodium (Methotrexate) 2.5 Mg Tablet, 15 MG PO QWEEK, (Reported) FRIDAY Potassium Chloride (Potassium Chloride) 10 Meq Tab.er.prt, 10 MEQ PO DAILY Pravastatin Sodium (Pravastatin Sodium) 40 Mg Tab, 40 MG PO QHS, (Reported) Prednisone (Prednisone) 5 Mg Tablet, 5 MG PO DAILY, (Reported) Ropinirole HCl (Ropinirole HCl) 1 Mg Tablet, 1 MG PO TID, (Reported) Sulfamethoxazole/Trimethoprim (Bactrim Ds Tablet) 1 Each Tablet, 1 TAB PO BID Sulfasalazine (Sulfasalazine) 500 Mg Tablet, 1,000 MG PO BID, (Reported) Ubidecarenone (Coq-10) 100 Mg Capsule, 100 MG PO DAILY, (Reported) Scheduled PRN Tramadol HCl (Tramadol HCl) 50 Mg Tablet, 50 MG PO BID PRN for PAIN, (Reported) Allergies Coded Allergies: gabapentin (Verified Allergy, Unknown, unsure, 02/09/19) GURMEET GÓMEZ M.D. Feb 13, 2021 20:19
--- NOTE | 2021-02-13 20:23 | IPNPDOC ---
Subjective Date Seen The patient was seen on 02/13/21. Subjective Chief Complaint/HPI Patient was seen and examined at bedside this morning. She reports feeling back to her baseline and wants to go home. She denies dysuria, frequency, and abdominal pain. She denies chest pain, shortness of breath, nausea, vomiting, problems with urination and bowel movements. Other systems 10 point review of system was negative except for what is noted in the HPI. Objective Physical Examination General Exam: Positive: Alert, Cooperative; Negative: No Acute Distress Eye Exam: Positive: PERRLA, Conjunctiva & lids normal; Negative: Sclera icteric ENT Exam: Positive: Atraumatic, Mucous membr. moist/pink, Other ENT (Hard of h earing; wears glasses) Neck Exam: Positive: Supple; Negative: JVD Chest Exam: Positive: Clear to auscultation, Normal air movement; Negative: Wheezing Heart Exam: Positive: Rate Normal, Regular Rhythm, Normal S1, Normal S2; Negative: Murmurs Abdomen Exam: Positive: Normal bowel sounds, Soft; Negative: Tenderness, Hepatospenomegaly Extremity Exam: Negative: Edema Neuro Exam: Positive: Normal Speech Psych Exam: Positive: Mental status NL, Mood NL, Oriented x 3 Assessment /Plan Assessment 80-year-old female with past medical history of rheumatoid arthritis, psoriasis, anxiety, coronary artery disease presented with complaints of dyspepsia and nausea. She was started on Macrobid on 02/09 for urinary tract infections following which she started to experience the symptoms. Urine culture from 727 was done that was positive for Enterococcus. #Urinary tract -Started on Macrobid but had adverse side effects including nausea, dyspepsia and transaminitis. She was started on ciprofloxacin during hospitalization according to sensitivities from urine cultures from 02/06. Today, she reports no suprapubic tenderness, dysuria, and frequency. At the time of discharge we will switch her antibiotics from ciprofloxacin to Bactrim due to the interactions of fluoroquinolones with some of her chronic ambulatory medications. #Transaminitis -Suspect this was from the Macrobid. She was told to follow-up with her primary care physician for repeat liver function tests to ensure that these are downtrending -Right upper quadrant sound was negative. Hepatitis panel was negative. #Rheumatoid arthritis -Continue with ambulatory DMARDs #Coronary artery -Chronic. Continue with aspirin, statin, and Coreg. Can reintroduce losartan #Leg edema -This is chronic. Continue his furosemide. #Hypothyroidism -Continue levothyroxine. #DVT -Heparin subcu. Disposition: She can be discharged as she has been afebrile for over 24 hours. Improvement in her dyspepsia. She would like to go home, despite PT r ecommendations. Plan/VTE VTE Prophylaxis Ordered?: Yes VS, I&O, 24H, Fishbone Vital Signs/I&O Vital Signs Date Time Temp Pulse Resp B/P (MAP) Pulse Ox O2 Delivery O2 Flow Rate FiO2 02/13/21 08:05 80 115/81 02/13/21 06:15 97.7 17 95 Room Air 02/12/21 11:20 2.0 I&O- Last 24 Hours up to 6 AM 02/13/21 06:00 Intake Total 2450 ml Output Total 1551 ml Balance 899 ml Laboratory Data 24H LABS Laboratory Tests 2 02/13/21 06:26: Immature Granulocyte % (Auto) 0.5, Neutrophils (%) (Auto) 73.4H, Lymphocytes (%) (Auto) 14.4L, Monocytes (%) (Auto) 7.1, Eosinophils (%) (Auto) 4.2H, Basophils (%) (Auto) 0.4, Neutrophils # (Auto) 4.0, Lymphocytes # (Auto) 0.8L, Monocytes # (Auto) 0.4, Eosinophils # (Auto) 0.2, Basophils # (Auto) 0.0, Nucleated Red Blood Cells % (auto) 0.0, Anion Gap 8, Glomerular Filtration Rate > 60.0, Calcium Level 8.2L, Iron Level 18L, Total Iron Binding Capacity 276, Transferrin % Saturation 6.5L, Ferritin 54, Vitamin B12 Level 536, Folate 20.7 CBC/BMP Laboratory Tests 02/13/21 06:26 Microbiology Microbiology 02/12/21 Blood Culture - Preliminary, Resulted No growth after 24 hours . All specim... 02/11/21 Blood Culture - Preliminary, Resulted No growth after 24 hours . All specim... GURMEET GÓMEZ M.D. Feb 13, 2021 19:43
[2021-02-14 14:10] LABS: DRVV SCREEN 45.6 SEC
[2021-02-14 14:11] LABS: PTT LUPUS TYPE ANTICOAG SCREEN 1.2 (0-1.2)
[2021-02-14 14:20] LABS: DRVV CONFIRM 39.1 SEC; LUPUS CONFIRM RATIO 1.1
[2021-02-14 14:23] LABS: NORMALIZED RATIO 1.09 (0.00-1.20)
== END 2021-02-13 14:22 | disposition home or self-care (01) ==
LOC: M ED 20:15 → M ED INP 20:16 → ENRESERVDT 02-12 03:14 → ENRESERVTM 02-12 03:14 → M PCU 02-12 05:33 → M MSPAV 02-13 00:47
PROVIDERS: ADMIT Family Medicine; ATTEND Internal Medicine
DX: N39.0 Urinary tract infection, site not specified (principal); B95.2 Enterococcus as the cause of diseases classified elsewhere; R11.0 Nausea; R10.13 Epigastric pain; R74.01 Elevation of levels of liver transaminase levels; T37.8X5A Adverse effect of other specified systemic anti-infectives and antiparasitics, initial encounter; R53.81 Other malaise; R50.9 Fever, unspecified; M06.9 Rheumatoid arthritis, unspecified; I25.10 Atherosclerotic heart disease of native coronary artery without angina pectoris; R60.0 Localized edema; E03.9 Hypothyroidism, unspecified; I10 Essential (primary) hypertension; D64.9 Anemia, unspecified; L40.9 Psoriasis, unspecified; K21.9 Gastro-esophageal reflux disease without esophagitis; Z95.5 Presence of coronary angioplasty implant and graft; Z85.038 Personal history of other malignant neoplasm of large intestine; Z79.899 Other long term (current) drug therapy; Z79.82 Long term (current) use of aspirin; Z79.52 Long term (current) use of systemic steroids; Z88.8 Allergy status to other drugs, medicaments and biological substances
CPT/HCPCS: 36415; 51701; 71045; 74177; 76705; 80047; 80048; 80076; 81001; 82550; 82553; 82607; 82728; 82746; 83605; 83690; 84145; 84466; 84484; 85025; 85613; 85730; 86705; 86709; 86803; 87040; 87340; 87631; 93005; 93041; 94760; 96365; 96366; 96372; 96376; 97161; 97530; 99285; G0378; J0744; J1644; J7512; Q9967

== ENCOUNTER → 2021-02-20 | Outpatient (CLI) | payer MEDICARE ==
[~2021-02-20] MED LIST changes: +BACT800T5 PO; +CLON1TAB8 PO; +FERR325T3 PO; +FURO40TA2 PO; +MAGN64TASA PO; +MELA10CA PO; +NITR100C2 PO; +POTA10TA17 PO; +PRED5TA PO; +QC A650T3 PO; +ROPI1TAB86 PO; +SULF500T2 PO; +TRAM50TA2 PO
--- NOTE | 2021-02-20 10:43 | REP ---
INDICATION: M05.79 RHEUMATOID ARTHRITIS INVOLVING MULTIPLE SITES. COMPARISON: None. TECHNIQUE: Four views of each foot were obtained FINDINGS: Right foot: Osteoporosis. No erosions. No fracture or dislocation. No soft tissue abnormality. Left foot: Osteoporosis PA no fracture dislocation. No erosions. No soft tissue abnormality. IMPRESSION: Osteoporosis. No erosion, fracture or dislocation. <Electronically signed by Koko Marie > 02/20/21 1038
--- NOTE | 2021-02-20 10:52 | REP ---
INDICATION: M05.79 RHEUMATOID ARTHRITIS INVOLVING MULTIPLE SITES. COMPARISON: 01/04/2019 TECHNIQUE: Three views of both hands were obtained FINDINGS: Right hand: Small erosions involve the 3rd and 4th metacarpal heads. There is osteoporosis. No fracture or dislocation. No soft tissue abnormality. Degenerative change distal interphalangeal joints. Left hand: Small erosions base proximal phalanx 5th finger base proximal phalanx 2nd finger. Head proximal phalanx 2nd finger. Osteoporosis. No fracture or dislocation. Old fracture deformity of the radius. IMPRESSION: Swell bilaterally erosions in osteoporosis consistent with rheumatoid arthritis. No fracture or malalignment. Old fracture deformity left distal radius. <Electronically signed by Koko Marie > 02/20/21 1040
== END ==
LOC: M WUC 09:54
PROVIDERS: ATTEND Internal Medicine Rheumatology
DX: M05.79 Rheumatoid arthritis with rheumatoid factor of multiple sites without organ or systems involvement (principal)

== ENCOUNTER → 2021-02-20 | Outpatient (CLI) | payer MEDICARE ==
[2021-02-20 12:50] LABS: BLOOD UREA NITROGEN 15 MG/DL (7-18); CALCIUM LEVEL 9.2 MG/DL (8.8-10.2); CARBON DIOXIDE LEVEL 33 MEQ/L (21-32); CHLORIDE LEVEL 100 MEQ/L (98-107); CREATININE FOR GFR 0.75 MG/DL (0.55-1.30); GLOMERULAR FILTRATION RATE > 60.0 (>39); GLUCOSE, FASTING 103 MG/DL (70-100); POTASSIUM SERUM 5.3 MEQ/L (3.5-5.1); SODIUM LEVEL 137 MEQ/L (136-145)
[2021-02-20 13:00] LABS: ALBUMIN 3.4 GM/DL (3.2-5.2); ALT/SGPT 29 U/L (12-78); BILIRUBIN,TOTAL 0.3 MG/DL (0.2-1.0); BLOOD UREA NITROGEN 15 MG/DL (7-18); CALCIUM LEVEL 9.3 MG/DL (8.8-10.2); CARBON DIOXIDE LEVEL 33 MEQ/L (21-32); CHLORIDE LEVEL 101 MEQ/L (98-107); CHOLESTEROL LEVEL 197 MG/DL (<200); CHOLESTEROL RISK RATIO 2.626 (<5); GLOMERULAR FILTRATION RATE > 60.0 (>39); GLUCOSE, FASTING 104 MG/DL (70-100); HDL CHOLESTEROL 75 MG/DL (>40); LDL CHOLESTEROL 106 MG/DL (<100); MAGNESIUM LEVEL 2.7 MG/DL (1.8-2.4); NON-HDL-C 122 MG/DL; POTASSIUM SERUM 5.2 MEQ/L (3.5-5.1); SODIUM LEVEL 138 MEQ/L (136-145); TOTAL PROTEIN 7.4 GM/DL (6.4-8.2); TRIGLYCERIDES LEVEL 80 MG/DL (<150)
== END ==
LOC: M WUC 10:02
PROVIDERS: ATTEND Nurse Practitioner Family
DX: R31.0 Gross hematuria (principal); E03.9 Hypothyroidism, unspecified; I11.9 Hypertensive heart disease without heart failure; E78.00 Pure hypercholesterolemia, unspecified; M05.79 Rheumatoid arthritis with rheumatoid factor of multiple sites without organ or systems involvement

== ENCOUNTER → 2021-02-26 | Outpatient (REF) | payer MEDICARE | LOC: M SFHCPLAZ 15:01 | PROVIDERS: ATTEND Nurse Practitioner Adult Health | DX: N39.0 Urinary tract infection, site not specified (principal) ==

== ENCOUNTER → 2021-02-26 | Outpatient (CLI) | payer MEDICARE ==
[~2021-02-26] MED LIST changes: +ISOVUE-370 76% 100ML VIAL As Ordered ONE
--- NOTE | 2021-02-26 16:54 | REP ---
INDICATION: GROSS HEMATURIA, UTI. COMPARISON: Multiple the latest 15 days ago TECHNIQUE: Standard helical technique before and after intravenous contrast. 100 cc Isovue 370. Delayed imaging was also obtained FINDINGS: The lung bases are clear and unchanged. The pre contrast enhanced portion examination shows a patent splenic densities to be within normal limits. There is no nephrolithiasis on the right, however, the distal right ureter there is a 6 mm sized ureterolith. There is mild hydroureter and periureteral edema. There is a single 2 mm sized left nephrolith which which is not causing obstructive phenomena. There are numerous pelvic phleboliths. There are no urinary bladder calcifications. Contrast-enhanced examination including delayed imaging shows increased right-sided hydroureter to the level of the aforementioned ureterolith. There is no evidence of an enhancing renal lesion. The liver, gallbladder, spleen, pancreas, and adrenal glands are essentially unchanged from the prior exam. There is a large rim calcified splenic cyst status quo. The abdominal aorta and para-aortic regions are essentially unchanged for the bowel loops and the mesenteries are within normal limits. There is no free fluid or free air. There is no change in the imaged osseous structures. IMPRESSION: There is evidence of a distal right ureterolith as described above. The finding is a somewhat obscured secondary to intense artifact arising from bilateral transpedicular screws. Other findings as described above. <Electronically signed by Jose Guzman > 02/26/21 [id number]
== END ==
LOC: M RAD 15:23
PROVIDERS: ATTEND Nurse Practitioner Family
DX: N20.1 Calculus of ureter (principal); R31.0 Gross hematuria; N39.0 Urinary tract infection, site not specified
CPT/HCPCS: 74178; 87086; Q9967

== ENCOUNTER → 2021-03-08 | Outpatient (CLI) | payer MEDICARE ==
[~2021-03-08] MED LIST changes: -ISOVUE-370 76% 100ML VIAL As Ordered ONE
[2021-03-08 16:02] LABS: BLOOD UREA NITROGEN 18 MG/DL (7-18); CALCIUM LEVEL 9.3 MG/DL (8.8-10.2); CARBON DIOXIDE LEVEL 35 MEQ/L (21-32); CHLORIDE LEVEL 103 MEQ/L (98-107); CREATININE FOR GFR 0.72 MG/DL (0.55-1.30); GLOMERULAR FILTRATION RATE > 60.0 (>39); GLUCOSE, FASTING 96 MG/DL (70-100); MAGNESIUM LEVEL 2.6 MG/DL (1.8-2.4); POTASSIUM SERUM 4.8 MEQ/L (3.5-5.1); SODIUM LEVEL 140 MEQ/L (136-145)
== END ==
LOC: M PLALAB 09:55
PROVIDERS: ATTEND Internal Medicine
DX: R60.0 Localized edema (principal)
CPT/HCPCS: 36415; 80048; 83735; G0463

== ENCOUNTER → 2021-03-26 | Outpatient (REF) | payer MEDICARE ==
[~2021-03-26] MED LIST changes: +DICL20GE TOP; +KETO2CR EXT; +MACR100C43 PO; +META0.52 PO; +PYRI1TAB5 PO
== END ==
LOC: M SMT 18:09
PROVIDERS: ATTEND Urology
DX: R31.0 Gross hematuria (principal)

== ENCOUNTER → 2021-03-30 | Outpatient (CLI) | payer MEDICARE ==
[~2021-03-30] MED LIST changes: -DICL20GE TOP; -KETO2CR EXT; -MACR100C43 PO; -META0.52 PO; -PYRI1TAB5 PO
--- NOTE | 2021-03-30 13:52 | REP ---
INDICATION: GROSS HEMATURIA-LAB/EKG FIRST. COMPARISON: Multiple the latest 02/11/2021 a portable exam TECHNIQUE: PA and lateral FINDINGS: The heart size is borderline. The lung velarde are stable. No acute patchy parenchymal opacities or pleural effusions have developed. There is no change in the osseous structures. IMPRESSION: There is no acute cardiopulmonary disease. <Electronically signed by Jose Guzman > 03/30/21 [id number]
--- NOTE | 2021-03-30 19:24 | ECGEPIP ---
[facility] Test Date: 2021-03-30 Pat Name: MACRELO DODSONN Department: Room: - Gender: Female [employer] Consultant: bre : 1940 Requested By: MACK VANCE Order Number: [id number] Reading MD: Mann Chaudhari Measurements Intervals [place] Rate: 77 P: 47 [place]: 154 QRS: 0 QRSD: 118 T: 23 QT: 406 QTc: 459 Interpretive Statements Normal sinus rhythm Possible Left atrial enlargement Right bundle branch block No change since 02/11/21 but for slower HR Electronically Signed on 03-30-2021 19:24:27 EDT by Mann Chaudhari
== END ==
LOC: M LAB 11:54
PROVIDERS: ATTEND Urology
DX: R31.0 Gross hematuria (principal); I45.10 Unspecified right bundle-branch block

== ENCOUNTER → 2021-03-31 | Outpatient (CLI) | payer MEDICARE ==
[~2021-03-31] MED LIST changes: +DICL20GE TOP; +KETO2CR EXT; +META0.52 PO
== END ==
LOC: M LABSMTC 09:55
PROVIDERS: ATTEND Anesthesiology
DX: Z01.812 Encounter for preprocedural laboratory examination (principal); Z20.822 Contact with and (suspected) exposure to COVID-19

== ENCOUNTER 2021-04-05 14:11 | Day surgery (SDC) | payer MEDICARE ==
[~2021-04-05] VITALS: Ht 167.6 cm; Wt 115.7 kg
[~2021-04-05 14:11] MED LIST changes: +CIPROFLOXACIN 400 MG in IV 1 EA IV ONE; +LR 1,000 ML IV ONE
[2021-04-05] MEDS ORDERED: LIDOCAINE 2% 100MG/5ML SDV (FOR ANES.) As Ordered ONE (19:01)
[2021-04-05] MEDS ORDERED: propofoL 200 MG/20 ML VIAL As Ordered ONE (19:01)
[2021-04-05] MEDS ORDERED: fentaNYL 100 MCG/2 ML INJECTION (J3010) As Ordered ONE (19:02)
[2021-04-05] MEDS ORDERED: MIDAZOLAM INJ 2MG/2ML VIAL (J2250 PER 1MG) As Ordered ONE (19:02)
--- NOTE | 2021-04-05 19:19 | ROOPDOC ---
[facility] Report Of Operation Report of Operation DATE OF PROCEDURE: 04/05/21 PREPROCEDURE DIAGNOSES: [bladder lesions]. POSTPROCEDURE DIAGNOSES: [Bladder lesions resembling a cystitis cystica]. PROCEDURE PERFORMED: [Cystoscopy with directed bladder lesion biopsies]. SURGEON: [Henna Matthews MD [employer] MECH[employer]IC HELPER: [none], ANESTHESIA: [general]. ESTIMATED BLOOD LOSS: Approximately [1] mL. COMPLICATIONS: [None]. REMARKS: [80-year-old white female. Recently cystoscoped by Dr. Love. Bladder lesions noted. Some worrisome. Cystoscopy with bladder biopsies under anesthesia arranged. Informed consent obtained. Risks were discussed such as infection, bleeding, pain, scarring, injury to the urinary tract, risks of anesthesia and others.]. FINDINGS: SPECIMENS REMOVED: [Several bladder biopsies] PROCEDURE NOTE: . DESCRIPTION OF PROCEDURE: [I met with the patient before surgery in the preop area. Surgery discussed. Questions answered. Patient wished to proceed. Patient brought to operating room. Supine position at first. General anesthesia secured without difficulty. Positioning then dorsolithotomy. Well- padded. Prepping and draping in the usual sterile fashion. Timeout performed. Surgery done under antimicrobial coverage. Rigid cystoscopy performed. Urethral mucosa normal. Bladder thoroughly inspected. Small blebs consistent with cystitis cystica. I did not see any worrisome bladder lesions. No erythematous areas. No papillary lesions. UOs normal. Significant cystocele. I reduced the cystocele with a finger in the vagina while I was scoping. No stone or foreign body. With a cold cup biopsy forceps several biopsies of the above-mentioned lesions were obtained. All biopsy sites were then cauterized with Bugbee. Hemostasis was secured. Patient tolerated everything well. No need for a urethral catheter. The bladder was emptied and the cystoscope was removed. Patient left the room in satisfactory condition.]. GONSALO MATTHEWS MD Apr 05, 2021 19:19
[2021-04-05] MEDS ORDERED: ONDANSETRON 4MG/2ML VIAL As Ordered ONE (19:47)
[2021-04-05] MEDS ORDERED: dexameTHASONE 4 MG/ML 1ML VIAL (J1100 PER 1MG) As Ordered ONE (19:47)
[2021-04-05] MEDS ORDERED: PHENYLephrine 500MCG 5ML (100MCG/ML) SYRINGE As Ordered ONE (19:54)
[2021-04-05] MEDS ORDERED: PYRI1TAB5 PO (20:15)
[2021-04-05] MEDS ORDERED: MACR100C43 PO (20:15)
[2021-04-05] MEDS ORDERED: LABETALOL 100MG/20ML VIAL As Ordered ONE (20:49)
[2021-04-05] MEDS ORDERED: fentaNYL 100 MCG/2 ML INJECTION (J3010) IV PRN (21:05)
[2021-04-05] MEDS ORDERED: LABETALOL 100MG/20ML VIAL IV ONE (21:05)
[2021-04-05] MEDS ORDERED: ONDANSETRON 4MG/2ML VIAL IV PRN (21:05)
[2021-04-05] MEDS ORDERED: LR 1,000 ML IV SCH (21:05)
[2021-04-05] MEDS ORDERED: PERCOCET 5MG/325MG TAB PO PRN (21:05)
[2021-04-05 22:25] VITALS: BP 166/82
== END 2021-04-05 22:35 | disposition home or self-care (01) ==
LOC: M SDC 14:11
PROVIDERS: ATTEND Urology
DX: D30.3 Benign neoplasm of bladder (principal); I50.32 Chronic diastolic (congestive) heart failure; I11.0 Hypertensive heart disease with heart failure; I25.10 Atherosclerotic heart disease of native coronary artery without angina pectoris; R94.31 Abnormal electrocardiogram [ECG] [EKG]; G47.33 Obstructive sleep apnea (adult) (pediatric); Z87.891 Personal history of nicotine dependence; Z88.6 Allergy status to analgesic agent; Z95.5 Presence of coronary angioplasty implant and graft
CPT/HCPCS: 52204; 88305; J0744; J1100; J2250; J2370; J2405; J3010

== ENCOUNTER → 2021-04-23 | Outpatient (CLI) | payer MEDICARE ==
[~2021-04-23] MED LIST changes: -CIPROFLOXACIN 400 MG in IV 1 EA IV ONE; -LR 1,000 ML IV ONE; +MACR100C43 PO; +PYRI1TAB5 PO
== END ==
LOC: M LABSMTC 09:28
PROVIDERS: ATTEND Nurse Practitioner Family
DX: Z11.52 Encounter for screening for COVID-19 (principal)

== ENCOUNTER → 2021-05-08 | Outpatient (CLI) | payer MEDICARE ==
[2021-05-08 16:16] LABS: BASO # 0.1 10^3/uL (0.0-0.2); BASO % 0.5 % (0.0-1.0); EOS # 0.2 10^3/uL (0.0-0.5); EOS % 1.9 % (0.0-3.0); HEMATOCRIT 33.4 % (36.0-47.0); HEMOGLOBIN 10.1 g/dl (12.0-15.5); LYMPH # 0.8 10^3/uL (1.5-5.0); LYMPH % 9.2 % (24.0-44.0); MEAN CORPUSCULAR HEMOGLOBIN 27.7 pg (27.0-33.0); MEAN CORPUSCULAR HGB CONC 30.2 g/dl (32.0-36.5); MEAN CORPUSCULAR VOLUME 91.8 fl (80.0-96.0); MONO # 0.3 10^3/uL (0.0-0.8); MONO % 2.7 % (2.0-8.0); NEUTROPHILS # 7.8 10^3/uL (1.5-8.5); NEUTROPHILS % 85.3 % (36.0-66.0); PLATELET COUNT, AUTOMATED 470 10^3/uL (150-450); RED BLOOD COUNT 3.64 10^6/uL (4.00-5.40); WHITE BLOOD COUNT 9.2 10^3/uL (4.0-10.0)
[2021-05-08 16:38] LABS: ERYTHROCYTE SEDIMENTATION RATE 79 mm/hr (0-30)
[2021-05-08 18:37] LABS: ALBUMIN 3.1 GM/DL (3.2-5.2); ALT/SGPT 16 U/L (12-78); BILIRUBIN,TOTAL 0.3 MG/DL (0.2-1.0); BLOOD UREA NITROGEN 20 MG/DL (7-18); C REACTIVE PROTEIN QUANTITATIV 1.24 MG/DL (0.00-0.30); CALCIUM LEVEL 9.2 MG/DL (8.8-10.2); CARBON DIOXIDE LEVEL 31 MEQ/L (21-32); CHLORIDE LEVEL 102 MEQ/L (98-107); CREATININE FOR GFR 0.72 MG/DL (0.55-1.30); GLOMERULAR FILTRATION RATE > 60.0 (>39); GLUCOSE, FASTING 133 MG/DL (70-100); POTASSIUM SERUM 4.6 MEQ/L (3.5-5.1); SODIUM LEVEL 138 MEQ/L (136-145); TOTAL PROTEIN 7.3 GM/DL (6.4-8.2)
== END ==
LOC: M WUC 11:26
PROVIDERS: ATTEND Internal Medicine Rheumatology
DX: M05.79 Rheumatoid arthritis with rheumatoid factor of multiple sites without organ or systems involvement (principal)

== ENCOUNTER → 2021-05-28 | Outpatient (CLI) | payer MEDICARE ==
--- NOTE | 2021-05-28 12:41 | REP ---
INDICATION: RT URETERAL STONE XR FIRST US 2ND COMPARISON: None. TECHNIQUE: Supine view of the abdomen and pelvis. FINDINGS: Evaluation of the urinary tract system is severely limited due to significant fecal stasis and bowel gas pattern. No obvious urinary tract calcifications are appreciated. Calcifications in the pelvis likely represent phleboliths. Suture material in the pelvis suggest prior rectosigmoid procedure. Bilateral Barber rods noted. IMPRESSION: Evaluation of the urinary tract system is limited and relatively nondiagnostic. Significant fecal stasis noted. <Electronically signed by Loc Garcia > 05/28/21 [id number]
--- NOTE | 2021-05-28 14:47 | REP ---
INDICATION: RT URETERAL STONE XR FIRST US 2ND COMPARISON: CT dated 02/26/2021 TECHNIQUE: Real time briggs scale ultrasound examination using curved array transducer. FINDINGS: Right kidney is normal in contour, size, echogenicity, and reniform shape measuring 11.6 x 5.2 x 5.0 cm. No hydronephrosis, nephrolithiasis, cystic or renal mass lesion identified. Left kidney is not visualized. Bladder is grossly unremarkable. IMPRESSION: 1. Normal right kidney. 2. Left kidney not visualized. <Electronically signed by Loc Garcia > 05/28/21 [id number]
== END ==
LOC: M RAD 12:07
PROVIDERS: ATTEND Urology
DX: N20.1 Calculus of ureter (principal)

== ENCOUNTER → 2021-08-10 | Outpatient (CLI) | payer MEDICARE ==
[~2021-08-10] MED LIST changes: +LOSA25TA13; +LOSA25TA13 PO; -LOSA25TA14; -LOSA25TA14 PO
[2021-08-10 13:16] LABS: BASO % 0.5 % (0.0-1.0); EOS # 0.2 10^3/uL (0.0-0.5); EOS % 2.8 % (0.0-3.0); HEMATOCRIT 32.9 % (36.0-47.0); HEMOGLOBIN 10.2 g/dl (12.0-15.5); LYMPH # 0.6 10^3/uL (1.5-5.0); LYMPH % 6.8 % (24.0-44.0); MEAN CORPUSCULAR HEMOGLOBIN 27.1 pg (27.0-33.0); MEAN CORPUSCULAR VOLUME 87.3 fl (80.0-96.0); MONO # 0.7 10^3/uL (0.0-0.8); MONO % 7.8 % (2.0-8.0); NEUTROPHILS # 6.9 10^3/uL (1.5-8.5); NEUTROPHILS % 81.7 % (36.0-66.0); PLATELET COUNT, AUTOMATED 354 10^3/uL (150-450); RED BLOOD COUNT 3.77 10^6/uL (4.00-5.40); WHITE BLOOD COUNT 8.5 10^3/uL (4.0-10.0)
[2021-08-10 13:45] LABS: ERYTHROCYTE SEDIMENTATION RATE 73 mm/hr (0-30)
[2021-08-10 14:13] LABS: ALBUMIN 3.2 GM/DL (3.2-5.2); ALT/SGPT 19 U/L (12-78); BILIRUBIN,TOTAL 0.3 MG/DL (0.2-1.0); BLOOD UREA NITROGEN 23 MG/DL (7-18); C REACTIVE PROTEIN QUANTITATIV 3.45 MG/DL (0.00-0.30); CARBON DIOXIDE LEVEL 30 MEQ/L (21-32); CHLORIDE LEVEL 102 MEQ/L (98-107); CHOLESTEROL LEVEL 172 MG/DL (<200); CHOLESTEROL RISK RATIO 2.047 (<5); CREATININE FOR GFR 0.72 MG/DL (0.55-1.30); GLOMERULAR FILTRATION RATE > 60.0 (>39); GLUCOSE, FASTING 122 MG/DL (70-100); HDL CHOLESTEROL 84 MG/DL (>40); LDL CHOLESTEROL 78 MG/DL (<100); MAGNESIUM LEVEL 2.5 MG/DL (1.8-2.4); NON-HDL-C 88 MG/DL; POTASSIUM SERUM 4.5 MEQ/L (3.5-5.1); SODIUM LEVEL 139 MEQ/L (136-145); TOTAL PROTEIN 7.2 GM/DL (6.4-8.2); TRIGLYCERIDES LEVEL 52 MG/DL (<150)
== END ==
LOC: M PLAIMG 09:35
PROVIDERS: ATTEND Internal Medicine
DX: S69.92XA Unspecified injury of left wrist, hand and finger(s), initial encounter (principal); W18.30XA Fall on same level, unspecified, initial encounter; Y92.009 Unspecified place in unspecified non-institutional (private) residence as the place of occurrence of the external cause; E78.00 Pure hypercholesterolemia, unspecified

== ENCOUNTER → 2021-09-18 | Outpatient (CLI) | payer MEDICARE ==
[2021-09-18 10:52] LABS: BASO # 0.1 10^3/uL (0.0-0.2); BASO % 0.5 % (0.0-1.0); EOS # 0.2 10^3/uL (0.0-0.5); EOS % 2.5 % (0.0-3.0); HEMATOCRIT 32.8 % (36.0-47.0); HEMOGLOBIN 10.2 g/dl (12.0-15.5); LYMPH # 0.5 10^3/uL (1.5-5.0); LYMPH % 5.5 % (24.0-44.0); MEAN CORPUSCULAR HEMOGLOBIN 27.1 pg (27.0-33.0); MEAN CORPUSCULAR HGB CONC 31.1 g/dl (32.0-36.5); MEAN CORPUSCULAR VOLUME 87.2 fl (80.0-96.0); MONO # 0.4 10^3/uL (0.0-0.8); MONO % 4.4 % (2.0-8.0); NEUTROPHILS # 8.1 10^3/uL (1.5-8.5); NEUTROPHILS % 86.6 % (36.0-66.0); PLATELET COUNT, AUTOMATED 349 10^3/uL (150-450); RED BLOOD COUNT 3.76 10^6/uL (4.00-5.40); WHITE BLOOD COUNT 9.3 10^3/uL (4.0-10.0)
[2021-09-18 11:15] LABS: ERYTHROCYTE SEDIMENTATION RATE 60 mm/hr (0-30)
[2021-09-18 11:32] LABS: ALBUMIN 3.1 GM/DL (3.2-5.2); ALT/SGPT 22 U/L (12-78); BILIRUBIN,TOTAL 0.3 MG/DL (0.2-1.0); BLOOD UREA NITROGEN 23 MG/DL (7-18); C REACTIVE PROTEIN QUANTITATIV 1.93 MG/DL (0.00-0.30); CARBON DIOXIDE LEVEL 30 MEQ/L (21-32); CHLORIDE LEVEL 104 MEQ/L (98-107); CREATININE FOR GFR 0.72 MG/DL (0.55-1.30); GLOMERULAR FILTRATION RATE > 60.0 (>39); GLUCOSE, FASTING 88 MG/DL (70-100); POTASSIUM SERUM 4.8 MEQ/L (3.5-5.1); SODIUM LEVEL 139 MEQ/L (136-145); TOTAL PROTEIN 6.9 GM/DL (6.4-8.2)
== END ==
LOC: M PLALAB 07:59
PROVIDERS: ATTEND Internal Medicine Rheumatology
DX: M05.79 Rheumatoid arthritis with rheumatoid factor of multiple sites without organ or systems involvement (principal)

== ENCOUNTER → 2021-12-11 | Outpatient (CLI) | payer MEDICARE ==
[~2021-12-11] MED LIST changes: +NIGH25TA PO; -NIGH25TA11 PO
[2021-12-11 16:15] LABS: BASO % 0.3 % (0.0-1.0); EOS # 0.2 10^3/uL (0.0-0.5); HEMATOCRIT 36.4 % (36.0-47.0); HEMOGLOBIN 11.1 g/dl (12.0-15.5); LYMPH # 0.9 10^3/uL (1.5-5.0); LYMPH % 9.3 % (24.0-44.0); MEAN CORPUSCULAR HEMOGLOBIN 27.8 pg (27.0-33.0); MEAN CORPUSCULAR HGB CONC 30.5 g/dl (32.0-36.5); MONO # 0.7 10^3/uL (0.0-0.8); MONO % 7.7 % (2.0-8.0); NEUTROPHILS # 7.5 10^3/uL (1.5-8.5); NEUTROPHILS % 80.5 % (36.0-66.0); PLATELET COUNT, AUTOMATED 330 10^3/uL (150-450); WHITE BLOOD COUNT 9.3 10^3/uL (4.0-10.0)
[2021-12-11 16:36] LABS: ALBUMIN 3.4 GM/DL (3.2-5.2); ALT/SGPT 15 U/L (12-78); BILIRUBIN,TOTAL 0.4 MG/DL (0.2-1.0); BLOOD UREA NITROGEN 22 MG/DL (7-18); C REACTIVE PROTEIN QUANTITATIV 1.27 MG/DL (0.00-0.30); CARBON DIOXIDE LEVEL 32 MEQ/L (21-32); CHLORIDE LEVEL 103 MEQ/L (98-107); CREATININE FOR GFR 0.77 MG/DL (0.55-1.30); GLOMERULAR FILTRATION RATE > 60.0 (>39); GLUCOSE, FASTING 115 MG/DL (70-100); POTASSIUM SERUM 4.3 MEQ/L (3.5-5.1); SODIUM LEVEL 138 MEQ/L (136-145); TOTAL PROTEIN 7.3 GM/DL (6.4-8.2)
[2021-12-11 18:42] LABS: ERYTHROCYTE SEDIMENTATION RATE 60 mm/hr (0-30)
== END ==
LOC: M WUC 11:09
PROVIDERS: ATTEND Internal Medicine Rheumatology
DX: M05.79 Rheumatoid arthritis with rheumatoid factor of multiple sites without organ or systems involvement (principal); M87.00 Idiopathic aseptic necrosis of unspecified bone; M89.49 Other hypertrophic osteoarthropathy, multiple sites; Z79.899 Other long term (current) drug therapy

== ENCOUNTER → 2021-12-31 | Outpatient (CLI) | payer MEDICARE ==
[2021-12-31 10:35] LABS: BASO % 0.4 % (0.0-1.0); EOS # 0.2 10^3/uL (0.0-0.5); EOS % 2.6 % (0.0-3.0); HEMATOCRIT 36.5 % (36.0-47.0); HEMOGLOBIN 11.4 g/dl (12.0-15.5); LYMPH # 0.8 10^3/uL (1.5-5.0); LYMPH % 8.4 % (24.0-44.0); MEAN CORPUSCULAR HEMOGLOBIN 27.6 pg (27.0-33.0); MEAN CORPUSCULAR HGB CONC 31.2 g/dl (32.0-36.5); MEAN CORPUSCULAR VOLUME 88.4 fl (80.0-96.0); MONO # 0.7 10^3/uL (0.0-0.8); MONO % 7.4 % (2.0-8.0); NEUTROPHILS # 7.2 10^3/uL (1.5-8.5); NEUTROPHILS % 80.9 % (36.0-66.0); PLATELET COUNT, AUTOMATED 402 10^3/uL (150-450); RED BLOOD COUNT 4.13 10^6/uL (4.00-5.40); WHITE BLOOD COUNT 8.9 10^3/uL (4.0-10.0)
[2021-12-31 10:55] LABS: ERYTHROCYTE SEDIMENTATION RATE 65 mm/hr (0-30)
[2021-12-31 11:14] LABS: ALBUMIN 3.3 GM/DL (3.2-5.2); ALT/SGPT 9 U/L (12-78); BILIRUBIN,TOTAL 0.2 MG/DL (0.2-1.0); BLOOD UREA NITROGEN 14 MG/DL (7-18); C REACTIVE PROTEIN QUANTITATIV 5.86 MG/DL (0.00-0.30); CALCIUM LEVEL 9.1 MG/DL (8.8-10.2); CARBON DIOXIDE LEVEL 31 MEQ/L (21-32); CHLORIDE LEVEL 100 MEQ/L (98-107); CREATININE FOR GFR 0.63 MG/DL (0.55-1.30); GLOMERULAR FILTRATION RATE > 60.0 (>32); GLUCOSE, FASTING 106 MG/DL (70-100); POTASSIUM SERUM 4.7 MEQ/L (3.5-5.1); SODIUM LEVEL 137 MEQ/L (136-145); TOTAL PROTEIN 7.3 GM/DL (6.4-8.2)
== END ==
LOC: M PLALAB 08:28
PROVIDERS: ATTEND Internal Medicine Rheumatology
DX: M05.79 Rheumatoid arthritis with rheumatoid factor of multiple sites without organ or systems involvement (principal)

== ENCOUNTER → 2021-12-31 | Outpatient (CLI) | payer MEDICARE | LOC: M PLALAB 08:48 | PROVIDERS: ATTEND Internal Medicine | DX: I11.9 Hypertensive heart disease without heart failure (principal) ==

== ENCOUNTER → 2022-04-23 | Outpatient (CLI) | payer MEDICARE ==
[~2022-04-23] MED LIST changes: +POTA-150 PO; -POTA10TA17 PO
[2022-04-23 11:39] LABS: BLOOD UREA NITROGEN 22 MG/DL (7-18); CALCIUM LEVEL 9.1 MG/DL (8.8-10.2); CARBON DIOXIDE LEVEL 33 MEQ/L (21-32); CHLORIDE LEVEL 105 MEQ/L (98-107); GLOMERULAR FILTRATION RATE > 60.0 (>32); GLUCOSE, FASTING 99 MG/DL (70-100); POTASSIUM SERUM 4.7 MEQ/L (3.5-5.1); SODIUM LEVEL 140 MEQ/L (136-145)
== END ==
LOC: M PLALAB 08:06
PROVIDERS: ATTEND Internal Medicine Hematology
DX: E88.81 Metabolic syndrome and other insulin resistance (principal)

== ENCOUNTER → 2022-04-24 | Outpatient (REF) | payer MEDICARE ==
[2022-04-24 12:54] LABS: BASO # 0.1 10^3/uL (0.0-0.2); EOS # 0.2 10^3/uL (0.0-0.5); EOS % 4.8 % (0.0-3.0); HEMATOCRIT 33.4 % (36.0-47.0); HEMOGLOBIN 10.5 g/dl (12.0-15.5); LYMPH % 21.4 % (24.0-44.0); MEAN CORPUSCULAR HEMOGLOBIN 28.8 pg (27.0-33.0); MEAN CORPUSCULAR HGB CONC 31.4 g/dl (32.0-36.5); MEAN CORPUSCULAR VOLUME 91.8 fl (80.0-96.0); MONO # 0.6 10^3/uL (0.0-0.8); MONO % 11.9 % (2.0-8.0); NEUTROPHILS # 2.9 10^3/uL (1.5-8.5); NEUTROPHILS % 60.7 % (36.0-66.0); PLATELET COUNT, AUTOMATED 285 10^3/uL (150-450); RED BLOOD COUNT 3.64 10^6/uL (4.00-5.40); WHITE BLOOD COUNT 4.8 10^3/uL (4.0-10.0)
[2022-04-24 13:27] LABS: ALBUMIN 3.5 GM/DL (3.2-5.2); ALT/SGPT 16 U/L (12-78); BILIRUBIN,DIRECT 0.2 MG/DL (0.0-0.2); BILIRUBIN,TOTAL 0.3 MG/DL (0.2-1.0); C REACTIVE PROTEIN QUANTITATIV < 0.30 MG/DL (0.00-0.30)
[2022-04-24 14:06] LABS: ERYTHROCYTE SEDIMENTATION RATE 50 mm/hr (0-30)
== END ==
LOC: M SFHCRHEU 10:55
PROVIDERS: ATTEND Internal Medicine Rheumatology
DX: M05.79 Rheumatoid arthritis with rheumatoid factor of multiple sites without organ or systems involvement (principal); M87.00 Idiopathic aseptic necrosis of unspecified bone; M89.49 Other hypertrophic osteoarthropathy, multiple sites; Z79.899 Other long term (current) drug therapy

== ENCOUNTER 2022-05-07 03:28 | Inpatient (IN) | payer MEDICARE ==
[~2022-05-07] VITALS: Ht 165.1 cm; Wt 107.6 kg
[2022-05-07] VITALS (7 sets, daily range): BP systolic 112–140; BP diastolic 43–66
[~2022-05-07 03:28] MED LIST changes: -KETO2CR EXT; +KETO2CR TOP
[2022-05-07] MEDS ORDERED: ceFAZolin SOD 2 GM in IV 1 EA IV ONE (04:20)
[2022-05-07] MEDS: HYDROMORPHONE HCL 0.5 MG/ 0.5 ML SYRINGE (J1170 PER 1) IV PRN ×2 (04:36→07:26)
[2022-05-07 04:43] LABS: BASO % 0.6 % (0.0-1.0); EOS # 0.3 10^3/uL (0.0-0.5); EOS % 6.5 % (0.0-3.0); HEMOGLOBIN 10.3 g/dl (12.0-15.5); LYMPH # 0.9 10^3/uL (1.5-5.0); LYMPH % 18.8 % (24.0-44.0); MEAN CORPUSCULAR HEMOGLOBIN 29.5 pg (27.0-33.0); MEAN CORPUSCULAR HGB CONC 32.2 g/dl (32.0-36.5); MEAN CORPUSCULAR VOLUME 91.7 fl (80.0-96.0); MONO # 0.4 10^3/uL (0.0-0.8); MONO % 8.2 % (2.0-8.0); NEUTROPHILS % 65.7 % (36.0-66.0); PLATELET COUNT, AUTOMATED 259 10^3/uL (150-450); RED BLOOD COUNT 3.49 10^6/uL (4.00-5.40); WHITE BLOOD COUNT 4.6 10^3/uL (4.0-10.0)
[2022-05-07 05:13] LABS: BLOOD UREA NITROGEN 30 MG/DL (7-18); CALCIUM LEVEL 8.4 MG/DL (8.8-10.2); CARBON DIOXIDE LEVEL 29 MEQ/L (21-32); CHLORIDE LEVEL 106 MEQ/L (98-107); CREATININE FOR GFR 0.79 MG/DL (0.55-1.30); GLOMERULAR FILTRATION RATE > 60.0 (>32); GLUCOSE, FASTING 113 MG/DL (70-100); POTASSIUM SERUM 4.1 MEQ/L (3.5-5.1); RSV AMPLIFICATION NEGATIVE (NEGATIVE); SODIUM LEVEL 139 MEQ/L (136-145)
[2022-05-07 05:17] LABS: CK-MB VALUE MASS < 1.0 NG/ML (<3.6); CPK CREATINE PHOSPHOKINASE 61 U/L (26-192); MB/CK RELATIVE INDEX 1.64 (< OR =4)
[2022-05-07] MEDS: LEVOTHYROXINE 125MCG TABLET (0.125MG) PO SCH (06:00)
[2022-05-07] MEDS ORDERED: BOOSTRIX/ADACEL VACCINE (DIPHTH/PERTUSS/ACELL/TETANUS) 0.5ML SYR IM ONE (06:20)
[2022-05-07 06:21] LABS: INR 1.36
[2022-05-07] MEDS ORDERED: ACET32TAB PO (08:54)
[2022-05-07] MEDS ORDERED: HUMI40KI2 SC (08:54)
[2022-05-07] MEDS ORDERED: HYDR200T3 PO (08:54)
[2022-05-07] MEDS ORDERED: FERR325T3 PO (08:54)
[2022-05-07] MEDS: FUROSEMIDE 40 MG TAB PO SCH (09:00)
[2022-05-07] MEDS: CARVedilol 6.25 MG TAB PO SCH ×2 (09:00→20:39)
[2022-05-07] MEDS: PANTOPRAZOLE 40MG TAB (PROTONIX) PO SCH (09:00)
[2022-05-07] MEDS: DULoxetine 30MG CAPSULE (CYMBALTA) PO SCH (09:00)
[2022-05-07] MEDS: FERROUS SULFATE 325MG TAB PO SCH (09:00)
[2022-05-07] MEDS: FOLIC ACID 1MG TAB PO SCH (09:00)
[2022-05-07] MEDS: METAMUCIL (PSYLLIUM) PACKET PO SCH ×2 (09:00→20:41)
[2022-05-07] MEDS ORDERED: HOME MED LIST COMPLETE! XX SCH (09:30)
[2022-05-07] MEDS ORDERED: MORPHINE 2 MG/ML 1ML VIAL IV PRN (11:25)
[2022-05-07] MEDS ORDERED: KETOCONAZOLE 2% CREAM TOP PRN (11:25)
[2022-05-07] MEDS ORDERED: RAMELTEON 8 MG TAB (ROZEREM) PO PRN (11:25)
[2022-05-07] MEDS: ACETAMINOPHEN TAB 650MG DOSE (2X325MG) PO PRN (12:45)
[2022-05-07] MEDS ORDERED: BACITRACIN OINTMENT 30GM TUBE As Ordered ONE (13:36)
[2022-05-07] MEDS ORDERED: ONDANSETRON 4MG 2ML VIAL As Ordered ONE (13:44)
[2022-05-07] MEDS ORDERED: fentaNYL 100 MCG/2 ML INJECTION As Ordered ONE ×2 (13:44→15:55)
[2022-05-07] MEDS ORDERED: LIDOCAINE 2% 100MG/5ML SDV (FOR ANES.) As Ordered ONE (13:44)
[2022-05-07] MEDS ORDERED: dexameTHASONE 4 MG/ML 1ML VIAL (J1100 PER 1MG) As Ordered ONE (13:44)
[2022-05-07] MEDS ORDERED: propofoL 200 MG/20 ML VIAL As Ordered ONE (13:44)
[2022-05-07] MEDS: ceFAZolin SOD 1 GM in D5W MINI-BAG PLUS 50 ML IV SCH ×2 (14:00→22:20)
[2022-05-07] MEDS ORDERED: dexameTHASONE 10MG/1ML VIAL PRES.FREE (J1100 PER 1MG) PN ONE (14:10)
[2022-05-07] MEDS ORDERED: ROPIvacaine 0.5% 30ML INJECTION (J2795 PER 1MG) PN ONE (14:10)
[2022-05-07] MEDS ORDERED: MIDAZOLAM INJ 2MG/2ML VIAL (J2250 PER 1MG) IV PRN (14:10)
[2022-05-07] MEDS ORDERED: EPINEPHrine INJ 1 MG/ML 1ML AMP PN ONE (14:10)
[2022-05-07] MEDS ORDERED: fentaNYL 100 MCG/2 ML INJECTION IV PRN ×2 (14:10→17:05)
[2022-05-07] MEDS ORDERED: ROCURONIUM BROMIDE 50 MG/5 ML VIAL As Ordered ONE (14:52)
[2022-05-07] MEDS ORDERED: ceFAZolin 2 GM/D5W 50 ML IV BAG (J0690 PER 500MG) As Ordered ONE (15:10)
[2022-05-07] MEDS ORDERED: ACETAMINOPHEN 1000MG 100ML IV BTL (OFIRMEV) (J0131 PER 10MG) As Ordered ONE (15:26)
[2022-05-07] MEDS ORDERED: SUGAMMADEX SODIUM 500 MG/5 ML VIAL (BRIDION) As Ordered ONE (15:27)
[2022-05-07] MEDS ORDERED: hydrALAZINE 20MG/ML 1ML VIAL (J0360 PER 20MG) As Ordered ONE (15:36)
[2022-05-07] MEDS ORDERED: LABETALOL 100MG/20ML VIAL As Ordered ONE (16:17)
[2022-05-07] MEDS ORDERED: ONDANSETRON 4MG 2ML VIAL IV PRN (17:05)
[2022-05-07] MEDS ORDERED: LR 1,000 ML IV SCH (17:05)
[2022-05-07] MEDS ORDERED: oxyCODONE 5MG TAB PO PRN (17:05)
[2022-05-07] MEDS: oxyCODONE 5MG TAB PO PRN (17:34)
[2022-05-07] MEDS: rOPINIRole 1MG TAB PO SCH ×2 (17:37→20:15)
[2022-05-07] MEDS: HYDROXYCHLOROQUINE 200 MG TAB PO SCH (20:38)
[2022-05-07] MEDS ORDERED: PRAVASTATIN 20 MG TAB PO SCH (21:00)
[2022-05-07] MEDS ORDERED: PANTOPRAZOLE 40MG TAB (PROTONIX) PO ONE (21:00)
[2022-05-07] MEDS ORDERED: LOSARTAN 25 MG TAB PO SCH (21:00)
[2022-05-07] MEDS ORDERED: clonazePAM 1 MG TAB PO SCH (21:00)
[2022-05-08] MEDS: LEVOTHYROXINE 125MCG TABLET (0.125MG) PO SCH (05:18)
[2022-05-08] MEDS: ceFAZolin SOD 1 GM in D5W MINI-BAG PLUS 50 ML IV SCH ×2 (05:19→14:00)
[2022-05-08 06:00] VITALS: BP 121/55
[2022-05-08 06:53] LABS: HEMATOCRIT 30.8 % (36.0-47.0); HEMOGLOBIN 9.8 g/dl (12.0-15.5); MEAN CORPUSCULAR HEMOGLOBIN 29.8 pg (27.0-33.0); MEAN CORPUSCULAR HGB CONC 31.8 g/dl (32.0-36.5); MEAN CORPUSCULAR VOLUME 93.6 fl (80.0-96.0); PLATELET COUNT, AUTOMATED 255 10^3/uL (150-450); RED BLOOD COUNT 3.29 10^6/uL (4.00-5.40); WHITE BLOOD COUNT 9.5 10^3/uL (4.0-10.0)
[2022-05-08 07:33] LABS: ALBUMIN 2.9 GM/DL (3.2-5.2); ALT/SGPT 15 U/L (12-78); BILIRUBIN,TOTAL 0.3 MG/DL (0.2-1.0); BLOOD UREA NITROGEN 24 MG/DL (7-18); CALCIUM LEVEL 8.5 MG/DL (8.8-10.2); CARBON DIOXIDE LEVEL 31 MEQ/L (21-32); CHLORIDE LEVEL 103 MEQ/L (98-107); CREATININE FOR GFR 0.76 MG/DL (0.55-1.30); GLOMERULAR FILTRATION RATE > 60.0 (>32); GLUCOSE, FASTING 139 MG/DL (70-100); MAGNESIUM LEVEL 2.2 MG/DL (1.8-2.4); POTASSIUM SERUM 4.4 MEQ/L (3.5-5.1); SODIUM LEVEL 137 MEQ/L (136-145); TOTAL PROTEIN 6.3 GM/DL (6.4-8.2)
[2022-05-08 09:00] VITALS: BP 126/42
[2022-05-08] MEDS: CARVedilol 6.25 MG TAB PO SCH (09:00)
[2022-05-08] MEDS: HYDROXYCHLOROQUINE 200 MG TAB PO SCH (09:27)
[2022-05-08] MEDS: FUROSEMIDE 40 MG TAB PO SCH (09:27)
[2022-05-08] MEDS: METAMUCIL (PSYLLIUM) PACKET PO SCH (09:27)
[2022-05-08] MEDS: rOPINIRole 1MG TAB PO SCH (09:28)
[2022-05-08] MEDS: FOLIC ACID 1MG TAB PO SCH (09:28)
[2022-05-08] MEDS: FERROUS SULFATE 325MG TAB PO SCH (09:31)
[2022-05-08] MEDS: PANTOPRAZOLE 40MG TAB (PROTONIX) PO SCH (09:32)
[2022-05-08] MEDS: DULoxetine 30MG CAPSULE (CYMBALTA) PO SCH (09:32)
[2022-05-08] MEDS: oxyCODONE 5MG TAB PO PRN (10:52)
[2022-05-08] MEDS ORDERED: OXYC-517 PO (12:13)
[2022-05-08] MEDS: ACETAMINOPHEN TAB 650MG DOSE (2X325MG) PO PRN (13:37)
[2022-05-08] MEDS ORDERED: ENOXAPARIN 40MG/0.4ML SYRINGE (J1650 PER 10MG) SC SCH (17:00)
== END 2022-05-08 16:30 | disposition home health service (06) | DRG 512 ==
LOC: M ED 03:28 → M ED INP 11:18 → M MS5PR 18:45
PROVIDERS: ADMIT Family Medicine; ATTEND Family Medicine
PROC: 0PSJ04Z Reposition Left Radius with Internal Fixation Device, Open Approach (ICD-10-PCS; 2022-05-07)
PROC: 0PSL04Z Reposition Left Ulna with Internal Fixation Device, Open Approach (ICD-10-PCS; principal; 2022-05-07 14:00)
DX: S52.602B Unspecified fracture of lower end of left ulna, initial encounter for open fracture type I or II (principal); S52.502A Unspecified fracture of the lower end of left radius, initial encounter for closed fracture; I10 Essential (primary) hypertension; I25.10 Atherosclerotic heart disease of native coronary artery without angina pectoris; E03.9 Hypothyroidism, unspecified; L40.9 Psoriasis, unspecified; M06.9 Rheumatoid arthritis, unspecified; K21.9 Gastro-esophageal reflux disease without esophagitis; W18.30XA Fall on same level, unspecified, initial encounter; Y93.89 Activity, other specified; Y99.8 Other external cause status; Y92.009 Unspecified place in unspecified non-institutional (private) residence as the place of occurrence of the external cause; G47.33 Obstructive sleep apnea (adult) (pediatric); R60.9 Edema, unspecified; Z79.890 Hormone replacement therapy; Z79.899 Other long term (current) drug therapy; Z88.8 Allergy status to other drugs, medicaments and biological substances

== ENCOUNTER → 2022-05-16 | Outpatient (CLI) | payer MEDICARE ==
[~2022-05-16] MED LIST changes: +ACET32TAB PO; +HUMI40KI2 SC; +HYDR200T3 PO; +OXYC-517 PO
== END ==
LOC: M SOG 08:05
PROVIDERS: ATTEND Orthopaedic Surgery Hand Surgery
DX: Z47.89 Encounter for other orthopedic aftercare (principal)

== ENCOUNTER → 2022-05-17 | Outpatient (CLI) | payer MEDICARE ==
[2022-05-17 10:21] LABS: HEMATOCRIT 32.4 % (36.0-47.0); HEMOGLOBIN 10.2 g/dl (12.0-15.5); MEAN CORPUSCULAR HEMOGLOBIN 29.5 pg (27.0-33.0); MEAN CORPUSCULAR HGB CONC 31.5 g/dl (32.0-36.5); MEAN CORPUSCULAR VOLUME 93.6 fl (80.0-96.0); PLATELET COUNT, AUTOMATED 316 10^3/uL (150-450); RED BLOOD COUNT 3.46 10^6/uL (4.00-5.40); WHITE BLOOD COUNT 5.2 10^3/uL (4.0-10.0)
[2022-05-17 11:14] LABS: PERCENT SATURATION 11.6 % (13.2-45.0)
== END ==
LOC: M PLALAB 08:19
PROVIDERS: ATTEND Internal Medicine Hematology
DX: D50.8 Other iron deficiency anemias (principal)

== ENCOUNTER → 2022-05-30 | Outpatient (CLI) | payer MEDICARE | LOC: M SOG 08:16 | PROVIDERS: ATTEND Orthopaedic Surgery Hand Surgery | DX: Z47.89 Encounter for other orthopedic aftercare (principal) ==

== ENCOUNTER → 2022-06-17 | Outpatient (CLI) | payer MEDICARE | LOC: M PLAIMG 10:42 | PROVIDERS: ATTEND Nurse Practitioner Family | DX: M75.42 Impingement syndrome of left shoulder (principal); M25.512 Pain in left shoulder ==

== ENCOUNTER → 2022-06-20 | Outpatient (CLI) | payer MEDICARE | LOC: M WHC 08:29 | PROVIDERS: ATTEND Internal Medicine | DX: Z12.31 Encounter for screening mammogram for malignant neoplasm of breast (principal); M85.851 Other specified disorders of bone density and structure, right thigh; M85.852 Other specified disorders of bone density and structure, left thigh ==

== ENCOUNTER → 2022-06-27 | Outpatient (CLI) | payer MEDICARE | LOC: M SOG 10:03 | PROVIDERS: ATTEND Orthopaedic Surgery Hand Surgery | DX: S52.202D Unspecified fracture of shaft of left ulna, subsequent encounter for closed fracture with routine healing (principal); W18.30XD Fall on same level, unspecified, subsequent encounter ==

== ENCOUNTER → 2022-07-30 | Outpatient (CLI) | payer MEDICARE ==
[~2022-07-30] MED LIST changes: +AZUL500T3 PO; +BAYE81TA7 PO; +ESOM40CA35 PO; +HUMI40IN2 SC; +L-FO500T PO; +NITR0.4S14 SL; +PLAQ200T4 PO; +SYNT125T PO; +VITMTA PO
== END ==
LOC: M SOG 08:04
PROVIDERS: ATTEND Orthopaedic Surgery Hand Surgery
DX: S52.202D Unspecified fracture of shaft of left ulna, subsequent encounter for closed fracture with routine healing (principal); W18.30XD Fall on same level, unspecified, subsequent encounter

== ENCOUNTER → 2022-07-31 | Outpatient (CLI) | payer MEDICARE | LOC: M LABSMTC 09:26 | PROVIDERS: ATTEND Anesthesiology | DX: Z01.812 Encounter for preprocedural laboratory examination (principal); Z20.822 Contact with and (suspected) exposure to COVID-19 ==

== ENCOUNTER 2022-08-05 12:38 | Day surgery (SDC) | payer MEDICARE ==
[~2022-08-05] VITALS: Ht 162.6 cm; Wt 112.9 kg
[~2022-08-05 12:38] MED LIST changes: +NS 1,000 ML IV ONE
[2022-08-05] MEDS ORDERED: propofoL 200 MG/20 ML VIAL As Ordered ONE (14:16)
[2022-08-05] MEDS ORDERED: LIDOCAINE 2% 100MG/5ML SDV (FOR ANES.) As Ordered ONE (14:16)
[2022-08-05 14:50] VITALS: BP 136/60
== END 2022-08-05 14:50 | disposition home or self-care (01) ==
LOC: M OPP 12:38
PROVIDERS: ATTEND Internal Medicine Gastroenterology
DX: Z12.11 Encounter for screening for malignant neoplasm of colon (principal); Z85.038 Personal history of other malignant neoplasm of large intestine; K64.0 First degree hemorrhoids; Z98.0 Intestinal bypass and anastomosis status; Z53.8 Procedure and treatment not carried out for other reasons

== ENCOUNTER → 2022-08-08 | Outpatient (CLI) | payer MEDICARE ==
[~2022-08-08] MED LIST changes: -NS 1,000 ML IV ONE
[2022-08-08 10:43] LABS: BASO % 0.7 % (0.0-1.0); EOS # 0.3 10^3/uL (0.0-0.5); EOS % 5.6 % (0.0-3.0); HEMATOCRIT 35.9 % (36.0-47.0); HEMOGLOBIN 11.4 g/dl (12.0-15.5); LYMPH % 17.1 % (24.0-44.0); MEAN CORPUSCULAR HEMOGLOBIN 32.5 pg (27.0-33.0); MEAN CORPUSCULAR HGB CONC 31.8 g/dl (32.0-36.5); MEAN CORPUSCULAR VOLUME 102.3 fl (80.0-96.0); MONO # 0.5 10^3/uL (0.0-0.8); NEUTROPHILS # 3.9 10^3/uL (1.5-8.5); NEUTROPHILS % 68.4 % (36.0-66.0); PLATELET COUNT, AUTOMATED 253 10^3/uL (150-450); RED BLOOD COUNT 3.51 10^6/uL (4.00-5.40); WHITE BLOOD COUNT 5.7 10^3/uL (4.0-10.0)
[2022-08-08 10:55] LABS: ERYTHROCYTE SEDIMENTATION RATE 34 mm/hr (0-30)
[2022-08-08 11:02] LABS: C REACTIVE PROTEIN QUANTITATIV < 0.40 MG/DL (<1.0)
[2022-08-08 11:03] LABS: ALBUMIN 3.5 G/DL (3.2-5.2); ALKALINE PHOSPHATASE 68 U/L (46-116); ALT/SGPT 20 U/L (7.0-40); AST/SGOT 23 U/L (<34); BILIRUBIN,TOTAL 0.3 MG/DL (0.3-1.2); BLOOD UREA NITROGEN 24 MG/DL (9-23); CALCIUM LEVEL 8.7 MG/DL (8.3-10.6); CARBON DIOXIDE LEVEL 31 MMOL/L (20-31); CHLORIDE LEVEL 103 MMOL/L (98-107); CREATININE FOR GFR 0.73 MG/DL (0.55-1.30); GLOMERULAR FILTRATION RATE > 60.0 (>32); GLUCOSE, FASTING 92 MG/DL (74-106); POTASSIUM SERUM 4.3 MMOL/L (3.5-5.1); SODIUM LEVEL 138 MMOL/L (136-145); TOTAL PROTEIN 6.6 G/DL (5.7-8.2)
== END ==
LOC: M PLALAB 08:13
PROVIDERS: ATTEND Internal Medicine Rheumatology
DX: M05.79 Rheumatoid arthritis with rheumatoid factor of multiple sites without organ or systems involvement (principal); M87.00 Idiopathic aseptic necrosis of unspecified bone; M89.49 Other hypertrophic osteoarthropathy, multiple sites; Z79.899 Other long term (current) drug therapy

== ENCOUNTER → 2022-08-29 | Outpatient (CLI) | payer MEDICARE | LOC: M SOG 08:10 | PROVIDERS: ATTEND Orthopaedic Surgery Hand Surgery | DX: S52.202D Unspecified fracture of shaft of left ulna, subsequent encounter for closed fracture with routine healing (principal); W18.30XD Fall on same level, unspecified, subsequent encounter ==

== ENCOUNTER 2022-09-09 12:29 | Outpatient (CLI) | payer MEDICARE ==
[~2022-09-09] VITALS: Ht 162.6 cm; Wt 112.4 kg
[~2022-09-09 12:29] MED LIST changes: +ALBUTEROL SULFATE 2.5MG/0.5ML INH NEB SOLN INH PRN; +EPINEPHrine INJ 1 MG/ML 1ML AMP IM PRN; +FERRIC CARBOXYMALTOSE INJ 750 MG in NS 250 ML (>50kg) IV ONE; +NS 1,000 ML IV SCH; +diphenhydrAMINE 50MG/ML VIAL IV PRN; +methylPREDNISolone 125MG 2ML VIAL IV PRN
[2022-09-09 12:45] VITALS: BP 114/56
[2022-09-09] MEDS ORDERED: NS 1,000 ML IV SCH (13:00)
[2022-09-09] MEDS ORDERED: FERRIC CARBOXYMALTOSE INJ 750 MG in NS 250 ML (>50kg) IV ONE ×3 (13:00)
== END 2022-09-09 14:00 | disposition home or self-care (01) ==
LOC: M INFU 12:29
PROVIDERS: ATTEND Internal Medicine Hematology
DX: D64.9 Anemia, unspecified (principal); Z88.8 Allergy status to other drugs, medicaments and biological substances
CPT/HCPCS: 96365; J1439

== ENCOUNTER → 2022-09-20 | Outpatient (CLI) | payer MEDICARE ==
[~2022-09-20] MED LIST changes: -ALBUTEROL SULFATE 2.5MG/0.5ML INH NEB SOLN INH PRN; -EPINEPHrine INJ 1 MG/ML 1ML AMP IM PRN; -FERRIC CARBOXYMALTOSE INJ 750 MG in NS 250 ML (>50kg) IV ONE; -NS 1,000 ML IV SCH; -diphenhydrAMINE 50MG/ML VIAL IV PRN; -methylPREDNISolone 125MG 2ML VIAL IV PRN
== END ==
LOC: M PLAIMG 10:00
PROVIDERS: ATTEND Internal Medicine Rheumatology
DX: M05.70 Rheumatoid arthritis with rheumatoid factor of unspecified site without organ or systems involvement (principal); M87.00 Idiopathic aseptic necrosis of unspecified bone; M89.49 Other hypertrophic osteoarthropathy, multiple sites

== ENCOUNTER → 2022-10-10 | Outpatient (CLI) | payer MEDICARE | LOC: M SOG 07:57 | PROVIDERS: ATTEND Physician Assistant | DX: S52.202D Unspecified fracture of shaft of left ulna, subsequent encounter for closed fracture with routine healing (principal); S52.302D Unspecified fracture of shaft of left radius, subsequent encounter for closed fracture with routine healing; W18.30XD Fall on same level, unspecified, subsequent encounter; Y92.009 Unspecified place in unspecified non-institutional (private) residence as the place of occurrence of the external cause ==

== ENCOUNTER → 2022-10-23 | Outpatient (CLI) | payer MEDICARE | LOC: M PLAIMG 15:54 | PROVIDERS: ATTEND Internal Medicine Hematology | DX: R09.89 Other specified symptoms and signs involving the circulatory and respiratory systems (principal) ==

== ENCOUNTER → 2022-11-06 | Outpatient (CLI) | payer MEDICARE ==
[2022-11-06 11:23] LABS: HEMATOCRIT 37.6 % (36.0-47.0); HEMOGLOBIN 12.1 g/dl (12.0-15.5); MEAN CORPUSCULAR HEMOGLOBIN 33.9 pg (27.0-33.0); MEAN CORPUSCULAR HGB CONC 32.2 g/dl (32.0-36.5); MEAN CORPUSCULAR VOLUME 105.3 fl (80.0-96.0); PLATELET COUNT, AUTOMATED 245 10^3/uL (150-450); RED BLOOD COUNT 3.57 10^6/uL (4.00-5.40); WHITE BLOOD COUNT 6.1 10^3/uL (4.0-10.0)
[2022-11-06 11:49] LABS: HEMOGLOBIN A1c 5.3 % (4.0-6.0)
[2022-11-06 11:57] LABS: CREATININE, URINE 40.1 MG/DL
[2022-11-06 11:58] LABS: MALB URINE SIEMENS < 3.0 MG/L; MAU/CREAT RATIO 7.4 MCG/MG (0.0-30.0); TOTAL IRON BINDING CAPACITY 276 UG/DL (250-425)
[2022-11-06 11:59] LABS: ALBUMIN 3.2 G/DL (3.2-5.2); ALKALINE PHOSPHATASE 73 U/L (46-116); ALT/SGPT 32 U/L (7.0-40); AST/SGOT 28 U/L (<34); BILIRUBIN,TOTAL 0.4 MG/DL (0.3-1.2); BLOOD UREA NITROGEN 17 MG/DL (9-23); C REACTIVE PROTEIN QUANTITATIV < 0.40 MG/DL (<1.0); CALCIUM LEVEL 8.5 MG/DL (8.3-10.6); CARBON DIOXIDE LEVEL 30 MMOL/L (20-31); CHLORIDE LEVEL 106 MMOL/L (98-107); CHOLESTEROL LEVEL 141 MG/DL (<200); CREATININE FOR GFR 0.67 MG/DL (0.55-1.30); FREE T4 0.94 NG/DL (0.89-1.76); GLOMERULAR FILTRATION RATE > 60.0 (>32); GLUCOSE, FASTING 76 MG/DL (74-106); IRON (FE) 55 UG/DL (50-170); PERCENT SATURATION 19.9 % (13.2-45.0); POTASSIUM SERUM 4.6 MMOL/L (3.5-5.1); SODIUM LEVEL 140 MMOL/L (136-145); THYROID STIMULATING HORMONE 3.331 uIU/ML (0.55-4.78); TOTAL PROTEIN 6.4 G/DL (5.7-8.2); TRIGLYCERIDES LEVEL 50 MG/DL (<150)
[2022-11-06 12:00] LABS: FERRITIN 129.5 NG/ML (7.3-270.7); TOTAL 25(OH) VITAMIN D 27.6 NG/ML (20.0-100.0)
[2022-11-06 12:01] LABS: VITAMIN B12 LEVEL 288 PG/ML (211-911)
== END ==
LOC: M PLALAB 08:25
PROVIDERS: ATTEND Internal Medicine Hematology
DX: I25.10 Atherosclerotic heart disease of native coronary artery without angina pectoris (principal); D64.9 Anemia, unspecified; M05.79 Rheumatoid arthritis with rheumatoid factor of multiple sites without organ or systems involvement; M89.49 Other hypertrophic osteoarthropathy, multiple sites; M87.00 Idiopathic aseptic necrosis of unspecified bone; Z79.899 Other long term (current) drug therapy

== ENCOUNTER → 2023-02-04 | Outpatient (CLI) | payer MEDICARE ==
[~2023-02-04] MED LIST changes: -HYDR200T3 PO; +HYDR200T46 PO; -ROPI1TAB3; -ROPI1TAB3 PO; +ROPI1TAB73; +ROPI1TAB73 PO; -ROPI2TAB3 PO; +ROPI2TAB46 PO
[2023-02-04 10:49] LABS: BASO % 0.8 % (0.0-1.0); EOS # 0.4 10^3/uL (0.0-0.5); EOS % 7.7 % (0.0-3.0); HEMATOCRIT 40.5 % (36.0-47.0); HEMOGLOBIN 13.2 g/dl (12.0-15.5); LYMPH % 18.4 % (24.0-44.0); MEAN CORPUSCULAR HEMOGLOBIN 34.5 pg (27.0-33.0); MEAN CORPUSCULAR HGB CONC 32.6 g/dl (32.0-36.5); MEAN CORPUSCULAR VOLUME 105.7 fl (80.0-96.0); MONO # 0.3 10^3/uL (0.0-0.8); MONO % 5.3 % (2.0-8.0); NEUTROPHILS # 3.6 10^3/uL (1.5-8.5); NEUTROPHILS % 67.6 % (36.0-66.0); PLATELET COUNT, AUTOMATED 260 10^3/uL (150-450); RED BLOOD COUNT 3.83 10^6/uL (4.00-5.40); WHITE BLOOD COUNT 5.3 10^3/uL (4.0-10.0)
[2023-02-04 11:15] LABS: ALKALINE PHOSPHATASE 73 U/L (46-116); ALT/SGPT 21 U/L (7.0-40); AST/SGOT 19 U/L (<34); BILIRUBIN,TOTAL 0.5 MG/DL (0.3-1.2); BLOOD UREA NITROGEN 30 MG/DL (9-23); C REACTIVE PROTEIN QUANTITATIV < 0.40 MG/DL (<1.0); CALCIUM LEVEL 9.3 MG/DL (8.3-10.6); CARBON DIOXIDE LEVEL 31 MMOL/L (20-31); CHLORIDE LEVEL 102 MMOL/L (98-107); CREATININE FOR GFR 0.78 MG/DL (0.55-1.30); GLOMERULAR FILTRATION RATE > 60.0 (>32); GLUCOSE, FASTING 84 MG/DL (74-106); POTASSIUM SERUM 3.8 MMOL/L (3.5-5.1); SODIUM LEVEL 140 MMOL/L (136-145); TOTAL PROTEIN 7.4 G/DL (5.7-8.2)
[2023-02-04 11:31] LABS: ERYTHROCYTE SEDIMENTATION RATE 51 mm/hr (0-30)
== END ==
LOC: M PLALAB 08:08
PROVIDERS: ATTEND Internal Medicine Rheumatology
DX: M05.79 Rheumatoid arthritis with rheumatoid factor of multiple sites without organ or systems involvement (principal); M87.00 Idiopathic aseptic necrosis of unspecified bone; M89.49 Other hypertrophic osteoarthropathy, multiple sites; Z79.899 Other long term (current) drug therapy

== ENCOUNTER → 2023-02-04 | Outpatient (CLI) | payer MEDICARE | LOC: M PLAIMG 11:07 | PROVIDERS: ATTEND Internal Medicine Hematology | DX: R05.2 Subacute cough (principal); R19.02 Left upper quadrant abdominal swelling, mass and lump ==

== ENCOUNTER → 2023-03-27 | Outpatient (CLI) | payer MEDICARE ==
[~2023-03-27] MED LIST changes: -COZA1TAB PO; +GASTROGRAFIN SOLUTION 30ML As Ordered ONE; +ISOVUE-370 76% 100ML VIAL As Ordered ONE; +LOSA-527 PO
== END ==
LOC: M RAD 07:26
PROVIDERS: ATTEND Internal Medicine Hematology
DX: R19.02 Left upper quadrant abdominal swelling, mass and lump (principal)
CPT/HCPCS: 74178; Q9963; Q9967

== ENCOUNTER → 2023-04-17 | Outpatient (CLI) | payer MEDICARE ==
[~2023-04-17] MED LIST changes: -GASTROGRAFIN SOLUTION 30ML As Ordered ONE; -ISOVUE-370 76% 100ML VIAL As Ordered ONE
[2023-04-17 18:11] LABS: HEMATOCRIT 35.7 % (36.0-47.0); HEMOGLOBIN 11.6 g/dl (12.0-15.5); MEAN CORPUSCULAR HEMOGLOBIN 34.4 pg (27.0-33.0); MEAN CORPUSCULAR HGB CONC 32.5 g/dl (32.0-36.5); MEAN CORPUSCULAR VOLUME 105.9 fl (80.0-96.0); PLATELET COUNT, AUTOMATED 227 10^3/uL (150-450); RED BLOOD COUNT 3.37 10^6/uL (4.00-5.40); WHITE BLOOD COUNT 5.2 10^3/uL (4.0-10.0)
[2023-04-17 18:36] LABS: BLOOD UREA NITROGEN 34 MG/DL (9-23); CARBON DIOXIDE LEVEL 30 MMOL/L (20-31); CHLORIDE LEVEL 105 MMOL/L (98-107); CREATININE FOR GFR 0.73 MG/DL (0.55-1.30); GLOMERULAR FILTRATION RATE > 60.0 (>32); GLUCOSE, FASTING 82 MG/DL (74-106); POTASSIUM SERUM 4.4 MMOL/L (3.5-5.1); SODIUM LEVEL 141 MMOL/L (136-145)
== END ==
LOC: M PLALAB 13:25
PROVIDERS: ATTEND Physician Assistant
DX: I50.32 Chronic diastolic (congestive) heart failure (principal)

== ENCOUNTER → 2023-05-05 | Outpatient (CLI) | payer MEDICARE | LOC: M PLARAD 13:21 | PROVIDERS: ATTEND Internal Medicine Hematology | DX: R91.1 Solitary pulmonary nodule (principal) | CPT/HCPCS: 78815; A9552 ==

== ENCOUNTER → 2023-05-09 | Outpatient (CLI) | payer MEDICARE ==
[2023-05-09 11:09] LABS: BASO % 0.8 % (0.0-1.0); EOS # 0.2 10^3/uL (0.0-0.5); EOS % 4.8 % (0.0-3.0); HEMATOCRIT 36.4 % (36.0-47.0); HEMOGLOBIN 11.9 g/dl (12.0-15.5); LYMPH # 0.8 10^3/uL (1.5-5.0); LYMPH % 17.1 % (24.0-44.0); MEAN CORPUSCULAR HEMOGLOBIN 34.4 pg (27.0-33.0); MEAN CORPUSCULAR HGB CONC 32.7 g/dl (32.0-36.5); MEAN CORPUSCULAR VOLUME 105.2 fl (80.0-96.0); MONO # 0.6 10^3/uL (0.0-0.8); MONO % 11.9 % (2.0-8.0); NEUTROPHILS # 3.1 10^3/uL (1.5-8.5); PLATELET COUNT, AUTOMATED 210 10^3/uL (150-450); RED BLOOD COUNT 3.46 10^6/uL (4.00-5.40); WHITE BLOOD COUNT 4.8 10^3/uL (4.0-10.0)
[2023-05-09 11:28] LABS: ERYTHROCYTE SEDIMENTATION RATE 33 mm/hr (0-30)
[2023-05-09 11:42] LABS: C REACTIVE PROTEIN QUANTITATIV < 0.40 MG/DL (<1.0)
[2023-05-09 11:44] LABS: ALBUMIN 3.7 G/DL (3.2-5.2); ALKALINE PHOSPHATASE 67 U/L (46-116); ALT/SGPT 28 U/L (7.0-40); AST/SGOT 20 U/L (<34); BILIRUBIN,TOTAL 0.4 MG/DL (0.3-1.2); BLOOD UREA NITROGEN 31 MG/DL (9-23); CALCIUM LEVEL 9.2 MG/DL (8.3-10.6); CARBON DIOXIDE LEVEL 34 MMOL/L (20-31); CHLORIDE LEVEL 101 MMOL/L (98-107); CREATININE FOR GFR 0.76 MG/DL (0.55-1.30); GLOMERULAR FILTRATION RATE > 60.0 (>32); GLUCOSE, FASTING 81 MG/DL (74-106); POTASSIUM SERUM 4.1 MMOL/L (3.5-5.1); SODIUM LEVEL 141 MMOL/L (136-145); TOTAL PROTEIN 6.8 G/DL (5.7-8.2)
== END ==
LOC: M PLALAB 07:52
PROVIDERS: ATTEND Internal Medicine Rheumatology
DX: M05.79 Rheumatoid arthritis with rheumatoid factor of multiple sites without organ or systems involvement (principal); M87.00 Idiopathic aseptic necrosis of unspecified bone; M89.49 Other hypertrophic osteoarthropathy, multiple sites; I50.32 Chronic diastolic (congestive) heart failure

== ENCOUNTER → 2023-05-09 | Outpatient (CLI) | payer MEDICARE ==
[2023-05-09 11:30] LABS: BLOOD UREA NITROGEN 31 MG/DL (9-23); CALCIUM LEVEL 9.1 MG/DL (8.3-10.6); CARBON DIOXIDE LEVEL 32 MMOL/L (20-31); CHLORIDE LEVEL 104 MMOL/L (98-107); CREATININE FOR GFR 0.76 MG/DL (0.55-1.30); GLOMERULAR FILTRATION RATE > 60.0 (>32); GLUCOSE, FASTING 83 MG/DL (74-106); POTASSIUM SERUM 4.2 MMOL/L (3.5-5.1); SODIUM LEVEL 142 MMOL/L (136-145)
== END ==
LOC: M PLALAB 07:55
PROVIDERS: ATTEND Physician Assistant
DX: I50.32 Chronic diastolic (congestive) heart failure (principal)

== ENCOUNTER → 2023-05-16 | Outpatient (CLI) | payer MEDICARE ==
[2023-05-16 10:02] LABS: PLATELET COUNT, AUTOMATED 224 10^3/uL (150-450)
[2023-05-16 10:14] LABS: INR 1.14; PROTHROMBIN TIME 14.3 SECONDS (12.5-14.5)
[2023-05-16 10:15] LABS: PARTIAL THROMBOPLASTIN TIME 25.9 SECONDS (24.8-34.2)
== END ==
LOC: M PLALAB 08:19
PROVIDERS: ATTEND Internal Medicine Pulmonary Disease
DX: R91.8 Other nonspecific abnormal finding of lung field (principal); Z79.01 Long term (current) use of anticoagulants

== ENCOUNTER → 2023-05-22 | Outpatient (CLI) | payer MEDICARE ==
[~2023-05-22] MED LIST changes: +COQ150CH PO; +MAGN250T7 PO; +[UNRECOGNIZED DRUG - OTHER]
== END ==
LOC: M CARPUL 10:48
PROVIDERS: ATTEND Internal Medicine Pulmonary Disease
DX: R91.8 Other nonspecific abnormal finding of lung field (principal)

== ENCOUNTER → 2023-06-13 | Outpatient (CLI) | payer MEDICARE ==
[~2023-06-13] MED LIST changes: +LIDOCAINE 1% MDV 20ML VIAL As Ordered ONE
[2023-06-13 08:15] VITALS: TEMP 97.1
[2023-06-13 11:15] VITALS: BP 124/56; O2SAT 97
== END ==
LOC: M IRPRO 08:04
PROVIDERS: ATTEND Internal Medicine Medical Oncology
DX: C34.32 Malignant neoplasm of lower lobe, left bronchus or lung (principal)

== ENCOUNTER → 2023-07-04 | Outpatient (CLI) | payer MEDICARE ==
[~2023-07-04] MED LIST changes: -LIDOCAINE 1% MDV 20ML VIAL As Ordered ONE
== END ==
LOC: M ONCR 13:58
PROVIDERS: ATTEND General Practice
DX: C34.32 Malignant neoplasm of lower lobe, left bronchus or lung (principal); Z87.891 Personal history of nicotine dependence; Z99.3 Dependence on wheelchair; Z85.038 Personal history of other malignant neoplasm of large intestine; Z90.710 Acquired absence of both cervix and uterus; Z80.1 Family history of malignant neoplasm of trachea, bronchus and lung; Z88.8 Allergy status to other drugs, medicaments and biological substances; Z79.82 Long term (current) use of aspirin; Z79.890 Hormone replacement therapy; Z79.899 Other long term (current) drug therapy; Z79.631 Long term (current) use of antimetabolite agent; Z71.2 Person consulting for explanation of examination or test findings

== ENCOUNTER → 2023-07-04 | Outpatient (CLI) | payer MEDICARE ==
[~2023-07-04] MED LIST changes: +CEPH500C PO; +MIRA3350 PO; +ONDA8TAB8 PO; +PROC10TA5 PO
== END ==
LOC: M PLARAD 08:49
PROVIDERS: ATTEND Internal Medicine Medical Oncology
DX: C34.92 Malignant neoplasm of unspecified part of left bronchus or lung (principal)
CPT/HCPCS: 70553; G0463

== ENCOUNTER 2023-07-12 07:45 | Emergency (ER) | payer MEDICARE ==
[~2023-07-12] VITALS: Ht 162.6 cm; Wt 116.8 kg
[~2023-07-12 07:45] MED LIST changes: -CEPH500C PO; -MIRA3350 PO
[2023-07-12] MEDS ORDERED: KETO2CR TOP (08:04)
[2023-07-12] MEDS ORDERED: MIRA3350 PO (08:04)
[2023-07-12] MEDS ORDERED: LASI20TA3 PO (08:04)
[2023-07-12] MEDS ORDERED: LIDOCAINE 1% MDV 20ML VIAL INFIL ONE (09:15)
[2023-07-12] MEDS ORDERED: diazePAM 10MG/2ML SYRINGE IV ONE (09:15)
[2023-07-12] MEDS ORDERED: CEPH500C PO (10:50)
[2023-07-12 12:24] VITALS: BP 111/57; TEMP 97; O2SAT 97
== END 2023-07-12 13:05 | disposition home or self-care (01) ==
LOC: M ED 07:45
DX: S61.216A Laceration without foreign body of right little finger without damage to nail, initial encounter (principal); S63.286A Dislocation of proximal interphalangeal joint of right little finger, initial encounter; W19.XXXA Unspecified fall, initial encounter; Y92.009 Unspecified place in unspecified non-institutional (private) residence as the place of occurrence of the external cause; Y93.89 Activity, other specified; Y99.8 Other external cause status; E03.9 Hypothyroidism, unspecified; K44.9 Diaphragmatic hernia without obstruction or gangrene; Z95.4 Presence of other heart-valve replacement; F17.200 Nicotine dependence, unspecified, uncomplicated; Z88.8 Allergy status to other drugs, medicaments and biological substances; Z79.899 Other long term (current) drug therapy
CPT/HCPCS: 12001; 26770; 73140; 73630; 96374; 99285; J3360

== ENCOUNTER → 2023-07-30 | Outpatient (CLI) | payer MEDICARE ==
[~2023-07-30] MED LIST changes: +CEPH500C PO; +LIDO30CR18 TOP; +LIDOCAINE 1% MDV 20ML VIAL As Ordered ONE; +LIDOCAINE W/EPINEPHRINE 1% 20ML VIAL As Ordered ONE; +MIDAZOLAM INJ 2MG/2ML VIAL As Ordered ONE; +MIRA3350 PO; +NS 1,000 ML IV SCH; +NYST1POW9 TOP; +ceFAZolin 1GM VIAL As Ordered ONE; +ceFAZolin 2 GM/D5W 50 ML IV BAG As Ordered ONE; +ceFAZolin SOD 2 GM in IV 1 EA IV ONE; +fentaNYL 100 MCG/2 ML INJECTION As Ordered ONE
[2023-07-30 12:58] VITALS: TEMP 97.8
[2023-07-30 13:45] LABS: INR 0.98; PROTHROMBIN TIME 12.7 SECONDS (12.5-14.5)
[2023-07-30 15:30] VITALS: BP 166/81; O2SAT 99
== END ==
LOC: M IRPRO 12:36
PROVIDERS: ATTEND Internal Medicine Medical Oncology
DX: C34.92 Malignant neoplasm of unspecified part of left bronchus or lung (principal)
CPT/HCPCS: 36561; 85610; 99152; 99153; J0690; J2250; J3010

== ENCOUNTER → 2023-08-13 | Outpatient (RCR) | payer MEDICARE ==
[~2023-08-13] MED LIST changes: -LIDOCAINE 1% MDV 20ML VIAL As Ordered ONE; -LIDOCAINE W/EPINEPHRINE 1% 20ML VIAL As Ordered ONE; -MIDAZOLAM INJ 2MG/2ML VIAL As Ordered ONE; +MULTTAB24 PO; -NS 1,000 ML IV SCH; -ceFAZolin 1GM VIAL As Ordered ONE; -ceFAZolin 2 GM/D5W 50 ML IV BAG As Ordered ONE; -ceFAZolin SOD 2 GM in IV 1 EA IV ONE; -fentaNYL 100 MCG/2 ML INJECTION As Ordered ONE
== END ==
LOC: M ONCR 07-25 14:06
PROVIDERS: ATTEND General Practice
DX: Z51.0 Encounter for antineoplastic radiation therapy (principal); C34.32 Malignant neoplasm of lower lobe, left bronchus or lung

== ENCOUNTER → 2023-08-18 | Outpatient (CLI) | payer MEDICARE ==
[~2023-08-18] MED LIST changes: +BACT400T PO
== END ==
LOC: M SOG 14:34
PROVIDERS: ATTEND Physician Assistant
DX: S92.354A Nondisplaced fracture of fifth metatarsal bone, right foot, initial encounter for closed fracture (principal); S63.286A Dislocation of proximal interphalangeal joint of right little finger, initial encounter; W18.30XA Fall on same level, unspecified, initial encounter; Y92.009 Unspecified place in unspecified non-institutional (private) residence as the place of occurrence of the external cause

== ENCOUNTER → 2023-09-08 | Outpatient (CLI) | payer MEDICARE | LOC: M SOG 07:59 | PROVIDERS: ATTEND Physician Assistant | DX: S92.354A Nondisplaced fracture of fifth metatarsal bone, right foot, initial encounter for closed fracture (principal); S63.286A Dislocation of proximal interphalangeal joint of right little finger, initial encounter ==

== ENCOUNTER → 2023-09-11 | Outpatient (RCR) | payer MEDICARE | LOC: M ONCR 08-14 11:35 | PROVIDERS: ATTEND General Practice | DX: Z51.0 Encounter for antineoplastic radiation therapy (principal); C34.32 Malignant neoplasm of lower lobe, left bronchus or lung ==

== ENCOUNTER 2023-09-24 10:58 | Outpatient (RCR) | payer MEDICARE | END 2023-10-12 | LOC: M ONCR 10:58 | PROVIDERS: ATTEND General Practice | DX: Z51.0 Encounter for antineoplastic radiation therapy (principal); C34.32 Malignant neoplasm of lower lobe, left bronchus or lung ==

== ENCOUNTER → 2023-10-21 | Outpatient (CLI) | payer MEDICARE ==
[~2023-10-21] MED LIST changes: +PROHANCE 279.3MG/ML 15ML VIAL ONE; +PROHANCE 279.3MG/ML 5ML VIAL ONE
== END ==
LOC: M PLAIMG 10:47
PROVIDERS: ATTEND General Practice
DX: C34.90 Malignant neoplasm of unspecified part of unspecified bronchus or lung (principal)
CPT/HCPCS: 70553; A9576

== ENCOUNTER → 2023-10-22 | Outpatient (CLI) | payer MEDICARE ==
[~2023-10-22] MED LIST changes: -PROHANCE 279.3MG/ML 15ML VIAL ONE; -PROHANCE 279.3MG/ML 5ML VIAL ONE
== END ==
LOC: M SOG 09:20
PROVIDERS: ATTEND Physician Assistant
DX: S92.354A Nondisplaced fracture of fifth metatarsal bone, right foot, initial encounter for closed fracture (principal); S63.286A Dislocation of proximal interphalangeal joint of right little finger, initial encounter; W18.30XA Fall on same level, unspecified, initial encounter; Y92.009 Unspecified place in unspecified non-institutional (private) residence as the place of occurrence of the external cause

== ENCOUNTER → 2023-10-28 | Outpatient (CLI) | payer MEDICARE | LOC: M ONCR 08:57 | PROVIDERS: ATTEND General Practice | DX: C34.32 Malignant neoplasm of lower lobe, left bronchus or lung (principal); Z87.891 Personal history of nicotine dependence; Z71.2 Person consulting for explanation of examination or test findings; Z79.82 Long term (current) use of aspirin; Z79.890 Hormone replacement therapy; Z79.631 Long term (current) use of antimetabolite agent; Z79.899 Other long term (current) drug therapy; Z88.8 Allergy status to other drugs, medicaments and biological substances; Z92.21 Personal history of antineoplastic chemotherapy; Z92.3 Personal history of irradiation ==

== ENCOUNTER → 2023-11-03 | Outpatient (CLI) | payer MEDICARE ==
[~2023-11-03] MED LIST changes: +ISOVUE-370 76% 100ML VIAL As Ordered ONE
== END ==
LOC: M RAD 15:54
PROVIDERS: ATTEND Internal Medicine Medical Oncology
DX: C34.90 Malignant neoplasm of unspecified part of unspecified bronchus or lung (principal)
CPT/HCPCS: 71260; Q9967

== ENCOUNTER → 2023-11-17 | Outpatient (CLI) | payer MEDICARE ==
[~2023-11-17] MED LIST changes: -ISOVUE-370 76% 100ML VIAL As Ordered ONE
[2023-11-17 18:07] LABS: CHOLESTEROL RISK RATIO 2.18 (<5); HDL CHOLESTEROL 78.3 MG/DL (>40); LDL CHOLESTEROL 78.7 MG/DL (<100); NON-HDL-C 92.7 MG/DL
[2023-11-17 18:11] LABS: THYROID STIMULATING HORMONE 4.41 uIU/ML (0.55-4.78)
[2023-11-17 18:13] LABS: FREE T4 1.08 NG/DL (0.89-1.76)
[2023-11-17 18:22] LABS: HEMOGLOBIN A1c 4.6 % (4.0-6.0)
== END ==
LOC: M PLALAB 15:54
PROVIDERS: ATTEND Internal Medicine Hematology
DX: E03.9 Hypothyroidism, unspecified (principal); Z79.899 Other long term (current) drug therapy

== ENCOUNTER 2023-12-20 13:26 | Inpatient (IN) | payer MEDICARE ==
[~2023-12-20] VITALS: Ht 162.6 cm; Wt 108.5 kg
[~2023-12-20 13:26] MED LIST changes: +ESOM1CAP20; -ESOM1CAP5; +ONDA-284 PO; -ONDA8TAB8 PO; +ROPI1TA PO; -ROPI1TAB86 PO
[2023-12-20 13:57] LABS: BASO % 0.5 % (0.0-1.0); EOS # 0.2 10^3/uL (0.0-0.5); EOS % 3.3 % (0.0-3.0); HEMATOCRIT 38.7 % (36.0-47.0); LYMPH # 0.7 10^3/uL (1.5-5.0); LYMPH % 12.8 % (24.0-44.0); MEAN CORPUSCULAR HEMOGLOBIN 35.8 pg (27.0-33.0); MEAN CORPUSCULAR HGB CONC 33.6 g/dl (32.0-36.5); MEAN CORPUSCULAR VOLUME 106.6 fl (80.0-96.0); MONO # 0.5 10^3/uL (0.0-0.8); MONO % 9.8 % (2.0-8.0); NEUTROPHILS % 73.4 % (36.0-66.0); PLATELET COUNT, AUTOMATED 271 10^3/uL (150-450); RED BLOOD COUNT 3.63 10^6/uL (4.00-5.40); WHITE BLOOD COUNT 5.5 10^3/uL (4.0-10.0)
[2023-12-20] MEDS: dilTIAZem 25MG/5ML VIAL IV STA (14:09)
[2023-12-20] MEDS: ASPIRIN 81MG CHEW TABLET PO ONE (14:12)
[2023-12-20 14:22] LABS: INR 0.98; PARTIAL THROMBOPLASTIN TIME 26.7 SECONDS (24.8-34.2); PROTHROMBIN TIME 12.7 SECONDS (12.5-14.5)
[2023-12-20 14:28] LABS: CK-MB VALUE MASS < 1.0 NG/ML (<3.6); LIPASE 25 U/L (12-53)
[2023-12-20 14:30] LABS: ALBUMIN 3.7 G/DL (3.2-5.2); ALKALINE PHOSPHATASE 91 U/L (46-116); ALT/SGPT 16 U/L (7.0-40); AST/SGOT 30 U/L (<34); BILIRUBIN,DIRECT < 0.1 MG/DL (<0.4); BILIRUBIN,TOTAL 0.2 MG/DL (0.3-1.2); BLOOD UREA NITROGEN 31 MG/DL (9-23); CALCIUM LEVEL 9.6 MG/DL (8.3-10.6); CARBON DIOXIDE LEVEL 28 MMOL/L (20-31); CHLORIDE LEVEL 104 MMOL/L (98-107); CREATININE FOR GFR 0.87 MG/DL (0.55-1.30); GLOMERULAR FILTRATION RATE > 60.0 (>32); GLUCOSE, FASTING 106 MG/DL (74-106); MAGNESIUM LEVEL 1.7 MG/DL (1.8-2.4); POTASSIUM SERUM 3.9 MMOL/L (3.5-5.1); SODIUM LEVEL 141 MMOL/L (136-145); TOTAL PROTEIN 7.5 G/DL (5.7-8.2)
[2023-12-20 14:34] LABS: CPK CREATINE PHOSPHOKINASE 68 U/L (34-145); MB/CK RELATIVE INDEX 1.47 (< OR =4)
[2023-12-20] MEDS: METOPROLOL TART 50 MG TAB PO ONE (14:59)
[2023-12-20] MEDS ORDERED: ISOVUE-370 76% 100ML VIAL As Ordered ONE (15:06)
[2023-12-20 15:36] LABS: CK-MB VALUE MASS < 1.0 NG/ML (<3.6); CPK CREATINE PHOSPHOKINASE 53 U/L (34-145); MB/CK RELATIVE INDEX 1.88 (< OR =4)
[2023-12-20] MEDS: MAG SULF 1GM/100ML (MAG RUN) 1 GM in IV 1 EA IV ONE (16:50)
[2023-12-20] MEDS: NS 500 ML IV ONE (17:26)
[2023-12-20 17:45] LABS: CK-MB VALUE MASS 1.2 NG/ML (<3.6)
[2023-12-20 17:46] LABS: MB/CK RELATIVE INDEX 2.06 (< OR =4)
[2023-12-20] MEDS ORDERED: FURO40TA2 PO (20:44)
[2023-12-20] MEDS ORDERED: CO-E50CA PO (20:44)
[2023-12-20] MEDS ORDERED: SENN-186 PO (20:44)
[2023-12-20] MEDS ORDERED: HOME MED LIST COMPLETE! XX SCH (20:45)
[2023-12-20] MEDS ORDERED: NITROGLYCERIN 0.4MG SUBL TABLET SL PRN (21:15)
[2023-12-20] MEDS: rOPINIRole 2MG TAB PO STA (21:30)
[2023-12-20] MEDS: ENOXAPARIN 120MG/0.8ML SYRINGE SC SCH (21:31)
[2023-12-20] MEDS: ATORVASTATIN 20 MG TAB PO ONE (21:31)
[2023-12-20 22:00] VITALS: BP 134/64; TEMP 98.1; O2SAT 98
[2023-12-20 23:53] LABS: ALBUMIN 3.2 G/DL (3.2-5.2); BLOOD UREA NITROGEN 26 MG/DL (9-23); CALCIUM LEVEL 8.8 MG/DL (8.3-10.6); CARBON DIOXIDE LEVEL 30 MMOL/L (20-31); CHLORIDE LEVEL 105 MMOL/L (98-107); CREATININE FOR GFR 0.87 MG/DL (0.55-1.30); GLOMERULAR FILTRATION RATE > 60.0 (>32); GLUCOSE, FASTING 131 MG/DL (74-106); MAGNESIUM LEVEL 1.9 MG/DL (1.8-2.4); POTASSIUM SERUM 3.4 MMOL/L (3.5-5.1); SODIUM LEVEL 142 MMOL/L (136-145)
[2023-12-20 23:54] LABS: MB/CK RELATIVE INDEX 3.57 (< OR =4)
[2023-12-20 23:56] VITALS: BP 113/54; TEMP 97.9; O2SAT 98
[2023-12-20 23:57] LABS: FREE T4 1.29 NG/DL (0.89-1.76); THYROID STIMULATING HORMONE 1.968 uIU/ML (0.55-4.78)
[2023-12-21] MEDS ORDERED: MIRALAX *UNIT DOSE* 17GM PACKET PO PRN (00:30)
[2023-12-21] MEDS: PRAVASTATIN 20 MG TAB PO SCH (01:51)
[2023-12-21] MEDS: SENNA 8.6 MG TAB (SENOKOT) PO SCH (01:52)
[2023-12-21] MEDS: POTASSIUM CHLORIDE 10MEQ SR TABLET PO ONE ×2 (01:52→10:10)
[2023-12-21] MEDS: LOSARTAN 25 MG TAB PO SCH (01:54)
[2023-12-21] MEDS: clonazePAM 1 MG TAB PO ONE (01:57)
[2023-12-21 03:32] VITALS: BP 110/53; TEMP 97.4; O2SAT 97
[2023-12-21] MEDS: LEVOTHYROXINE 125MCG TABLET (0.125MG) PO SCH (06:36)
[2023-12-21 07:44] VITALS: BP 102/51; TEMP 97.5; O2SAT 94
[2023-12-21 08:23] LABS: BASO % 0.2 % (0.0-1.0); EOS # 0.1 10^3/uL (0.0-0.5); EOS % 3.3 % (0.0-3.0); HEMOGLOBIN 11.3 g/dl (12.0-15.5); LYMPH # 0.5 10^3/uL (1.5-5.0); LYMPH % 10.6 % (24.0-44.0); MEAN CORPUSCULAR HEMOGLOBIN 35.8 pg (27.0-33.0); MEAN CORPUSCULAR HGB CONC 33.2 g/dl (32.0-36.5); MEAN CORPUSCULAR VOLUME 107.6 fl (80.0-96.0); MONO # 0.4 10^3/uL (0.0-0.8); MONO % 9.9 % (2.0-8.0); NEUTROPHILS # 3.2 10^3/uL (1.5-8.5); NEUTROPHILS % 75.5 % (36.0-66.0); PLATELET COUNT, AUTOMATED 211 10^3/uL (150-450); RED BLOOD COUNT 3.16 10^6/uL (4.00-5.40); WHITE BLOOD COUNT 4.2 10^3/uL (4.0-10.0)
[2023-12-21 08:34] VITALS: O2SAT 98
[2023-12-21 09:12] LABS: BLOOD UREA NITROGEN 25 MG/DL (9-23); CALCIUM LEVEL 9.2 MG/DL (8.3-10.6); CARBON DIOXIDE LEVEL 28 MMOL/L (20-31); CHLORIDE LEVEL 106 MMOL/L (98-107); CREATININE FOR GFR 0.82 MG/DL (0.55-1.30); GLOMERULAR FILTRATION RATE > 60.0 (>32); GLUCOSE, FASTING 112 MG/DL (74-106); MAGNESIUM LEVEL 1.9 MG/DL (1.8-2.4); POTASSIUM SERUM 3.4 MMOL/L (3.5-5.1); SODIUM LEVEL 142 MMOL/L (136-145)
[2023-12-21] MEDS: CO-ENZYME Q10 50 MG CAP PO SCH (09:14)
[2023-12-21] MEDS: FUROSEMIDE 40 MG TAB PO SCH (09:15)
[2023-12-21] MEDS: rOPINIRole 1MG TAB PO SCH (09:15)
[2023-12-21] MEDS: FOLIC ACID 1MG TAB PO SCH (09:15)
[2023-12-21] MEDS ORDERED: ELIQ5TAB PO (09:21)
[2023-12-21 09:22] VITALS: BP 104/50
[2023-12-21] MEDS: METOPROLOL TART 25 MG TABLET PO SCH (09:22)
[2023-12-21] MEDS: sulfaSALAzine 500 MG TABEC PO SCH (10:11)
[2023-12-21] MEDS: METAMUCIL (PSYLLIUM) PACKET PO SCH (10:11)
[2023-12-21 12:00] VITALS: BP 110/58; TEMP 96.9; O2SAT 100
[2023-12-21] MEDS: SENOKOT S TAB PO SCH (13:18)
[2023-12-21] MEDS: MIRALAX *UNIT DOSE* 17GM PACKET PO SCH (13:18)
[2023-12-21] MEDS: PANTOPRAZOLE 40MG TAB (PROTONIX) PO SCH (13:46)
[2023-12-21] MEDS ORDERED: MIRA3350 PO (14:39)
[2023-12-21] MEDS ORDERED: SENN-52 PO (14:39)
[2023-12-21] MEDS ORDERED: METO1TAB87 PO (14:39)
[2023-12-21] MEDS ORDERED: DULC10SU2 PR (14:42)
[2023-12-21] MEDS ORDERED: POTA-151 PO (14:42)
[2023-12-21] MEDS ORDERED: MAGN400T35 PO (14:42)
[2023-12-21] MEDS ORDERED: FUROSEMIDE 40 MG TAB PO SCH (17:00)
[2023-12-21] MEDS ORDERED: ENTER DRUG NAME HERE (PATIENT'S OWN MED) PO SCH (21:00)
[2023-12-21] MEDS ORDERED: clonazePAM 1 MG TAB PO SCH (21:00)
[2023-12-21] MEDS ORDERED: ASPIRIN 81MG ENTERIC TABLET PO SCH (21:00)
== END 2023-12-21 15:55 | disposition home or self-care (01) | DRG 309 ==
LOC: M ED 13:26 → M ED INP 19:03 → M PCU 21:59
PROVIDERS: ADMIT Internal Medicine; ATTEND Internal Medicine
PROC: B246ZZZ Ultrasonography of Right and Left Heart (ICD-10-PCS; principal; 2023-12-21)
DX: I48.0 Paroxysmal atrial fibrillation (principal); I50.32 Chronic diastolic (congestive) heart failure; I11.0 Hypertensive heart disease with heart failure; E78.5 Hyperlipidemia, unspecified; G47.33 Obstructive sleep apnea (adult) (pediatric); M05.89 Other rheumatoid arthritis with rheumatoid factor of multiple sites; E03.9 Hypothyroidism, unspecified; I25.10 Atherosclerotic heart disease of native coronary artery without angina pectoris; K59.00 Constipation, unspecified; M15.9 Polyosteoarthritis, unspecified; D64.9 Anemia, unspecified; G25.81 Restless legs syndrome; I34.0 Nonrheumatic mitral (valve) insufficiency; K21.9 Gastro-esophageal reflux disease without esophagitis; F34.1 Dysthymic disorder; L40.0 Psoriasis vulgaris; I65.23 Occlusion and stenosis of bilateral carotid arteries; I25.2 Old myocardial infarction; E87.6 Hypokalemia; R29.6 Repeated falls; R60.0 Localized edema; Z85.038 Personal history of other malignant neoplasm of large intestine; Z92.21 Personal history of antineoplastic chemotherapy; Z95.5 Presence of coronary angioplasty implant and graft; Z92.3 Personal history of irradiation; Z87.442 Personal history of urinary calculi; Z96.651 Presence of right artificial knee joint; Z96.611 Presence of right artificial shoulder joint; Z87.891 Personal history of nicotine dependence; Z79.82 Long term (current) use of aspirin; Z79.899 Other long term (current) drug therapy; Z88.8 Allergy status to other drugs, medicaments and biological substances; Z85.118 Personal history of other malignant neoplasm of bronchus and lung

== ENCOUNTER → 2024-01-23 | Outpatient (CLI) | payer MEDICARE ==
[~2024-01-23] MED LIST changes: +CO-E50CA PO; +DULC10SU2 PR; +ELIQ5TAB PO; +MAGN400T35 PO; +METO1TAB87 PO; +POTA-151 PO; +PROHANCE 279.3MG/ML 15ML VIAL As Ordered ONE; +PROHANCE 279.3MG/ML 5ML VIAL As Ordered ONE; +SENN-186 PO; +SENN-52 PO
== END ==
LOC: M RAD 12:12
PROVIDERS: ATTEND General Practice
DX: Z51.0 Encounter for antineoplastic radiation therapy (principal)
CPT/HCPCS: 70553; A9576

== ENCOUNTER → 2024-02-04 | Outpatient (CLI) | payer MEDICARE ==
[~2024-02-04] MED LIST changes: -PROHANCE 279.3MG/ML 15ML VIAL As Ordered ONE; -PROHANCE 279.3MG/ML 5ML VIAL As Ordered ONE
== END ==
LOC: M ONCR 11:10
PROVIDERS: ATTEND General Practice
DX: C34.32 Malignant neoplasm of lower lobe, left bronchus or lung (principal); Z92.21 Personal history of antineoplastic chemotherapy; Z92.3 Personal history of irradiation; Z87.891 Personal history of nicotine dependence; Z88.8 Allergy status to other drugs, medicaments and biological substances; Z79.01 Long term (current) use of anticoagulants; Z79.82 Long term (current) use of aspirin; Z79.890 Hormone replacement therapy; Z79.899 Other long term (current) drug therapy

== ENCOUNTER → 2024-02-23 | Outpatient (CLI) | payer MEDICARE ==
[2024-02-23 13:33] LABS: BASO % 0.4 % (0.0-1.0); EOS # 0.2 10^3/uL (0.0-0.5); EOS % 3.8 % (0.0-3.0); HEMATOCRIT 33.1 % (36.0-47.0); HEMOGLOBIN 10.8 g/dl (12.0-15.5); LYMPH # 0.6 10^3/uL (1.5-5.0); LYMPH % 11.4 % (24.0-44.0); MEAN CORPUSCULAR HEMOGLOBIN 34.1 pg (27.0-33.0); MEAN CORPUSCULAR HGB CONC 32.6 g/dl (32.0-36.5); MEAN CORPUSCULAR VOLUME 104.4 fl (80.0-96.0); MONO # 0.5 10^3/uL (0.0-0.8); MONO % 10.2 % (2.0-8.0); NEUTROPHILS # 3.7 10^3/uL (1.5-8.5); PLATELET COUNT, AUTOMATED 258 10^3/uL (150-450); RED BLOOD COUNT 3.17 10^6/uL (4.00-5.40)
[2024-02-23 13:34] LABS: C REACTIVE PROTEIN QUANTITATIV < 0.40 MG/DL (<1.0)
[2024-02-23 13:36] LABS: ALBUMIN 3.4 G/DL (3.2-5.2); ALKALINE PHOSPHATASE 70 U/L (46-116); ALT/SGPT 15 U/L (7.0-40); AST/SGOT 19 U/L (<34); BILIRUBIN,TOTAL 0.4 MG/DL (0.3-1.2); BLOOD UREA NITROGEN 32 MG/DL (9-23); CALCIUM LEVEL 9.1 MG/DL (8.3-10.6); CARBON DIOXIDE LEVEL 32 MMOL/L (20-31); CHLORIDE LEVEL 105 MMOL/L (98-107); CREATININE FOR GFR 0.88 MG/DL (0.55-1.30); GLOMERULAR FILTRATION RATE > 60.0 (>32); GLUCOSE, FASTING 101 MG/DL (74-106); POTASSIUM SERUM 4.3 MMOL/L (3.5-5.1); SODIUM LEVEL 140 MMOL/L (136-145); TOTAL PROTEIN 6.7 G/DL (5.7-8.2)
[2024-02-23 13:40] LABS: ERYTHROCYTE SEDIMENTATION RATE 55 mm/hr (0-30)
== END ==
LOC: M PLALAB 10:06
PROVIDERS: ATTEND Internal Medicine Rheumatology
DX: M05.79 Rheumatoid arthritis with rheumatoid factor of multiple sites without organ or systems involvement (principal); M87.00 Idiopathic aseptic necrosis of unspecified bone; M89.49 Other hypertrophic osteoarthropathy, multiple sites; Z79.899 Other long term (current) drug therapy

== ENCOUNTER → 2024-04-16 | Outpatient (CLI) | payer MEDICARE ==
[2024-04-16 10:40] LABS: BASO % 0.4 % (0.0-1.0); EOS # 0.2 10^3/uL (0.0-0.5); EOS % 3.3 % (0.0-3.0); HEMATOCRIT 32.2 % (36.0-47.0); HEMOGLOBIN 10.7 g/dl (12.0-15.5); LYMPH # 0.6 10^3/uL (1.5-5.0); LYMPH % 11.3 % (24.0-44.0); MEAN CORPUSCULAR HEMOGLOBIN 34.4 pg (27.0-33.0); MEAN CORPUSCULAR HGB CONC 33.2 g/dl (32.0-36.5); MEAN CORPUSCULAR VOLUME 103.5 fl (80.0-96.0); MONO # 0.6 10^3/uL (0.0-0.8); MONO % 10.6 % (2.0-8.0); NEUTROPHILS # 3.9 10^3/uL (1.5-8.5); PLATELET COUNT, AUTOMATED 240 10^3/uL (150-450); RED BLOOD COUNT 3.11 10^6/uL (4.00-5.40); WHITE BLOOD COUNT 5.2 10^3/uL (4.0-10.0)
[2024-04-16 11:12] LABS: C REACTIVE PROTEIN QUANTITATIV < 0.40 MG/DL (<1.0)
[2024-04-16 11:13] LABS: ALBUMIN 3.3 G/DL (3.2-5.2); ALKALINE PHOSPHATASE 76 U/L (46-116); ALT/SGPT < 9 U/L (7.0-40); AST/SGOT 13 U/L (<34); BILIRUBIN,TOTAL 0.4 MG/DL (0.3-1.2); BLOOD UREA NITROGEN 26 MG/DL (9-23); CALCIUM LEVEL 9.4 MG/DL (8.3-10.6); CARBON DIOXIDE LEVEL 31 MMOL/L (20-31); CHLORIDE LEVEL 103 MMOL/L (98-107); CHOLESTEROL LEVEL 154 MG/DL (<200); CHOLESTEROL RISK RATIO 2.32 (<5); CREATININE FOR GFR 0.84 MG/DL (0.55-1.30); GLOMERULAR FILTRATION RATE > 60.0 (>32); GLUCOSE, FASTING 88 MG/DL (74-106); HDL CHOLESTEROL 66.3 MG/DL (>40); LDL CHOLESTEROL 77.9 MG/DL (<100); NON-HDL-C 87.7 MG/DL; POTASSIUM SERUM 3.8 MMOL/L (3.5-5.1); SODIUM LEVEL 137 MMOL/L (136-145); TOTAL PROTEIN 6.8 G/DL (5.7-8.2); TRIGLYCERIDES LEVEL 49 MG/DL (<150)
[2024-04-16 11:15] LABS: FREE T4 1.38 NG/DL (0.89-1.76); THYROID STIMULATING HORMONE 0.753 uIU/ML (0.55-4.78); TOTAL 25(OH) VITAMIN D 38.9 NG/ML (20.0-100.0); VITAMIN B12 LEVEL 1442 PG/ML (211-911)
== END ==
LOC: M PLALAB 08:18
PROVIDERS: ATTEND Internal Medicine Hematology
DX: D64.9 Anemia, unspecified (principal); Z79.899 Other long term (current) drug therapy

== ENCOUNTER → 2024-04-23 | Outpatient (CLI) | payer MEDICARE ==
[~2024-04-23] MED LIST changes: +GASTROGRAFIN SOLUTION 30ML As Ordered ONE; +ISOVUE-370 76% 100ML VIAL As Ordered ONE
== END ==
LOC: M RAD 08:54
PROVIDERS: ATTEND Dietitian, Registered
DX: C34.90 Malignant neoplasm of unspecified part of unspecified bronchus or lung (principal); D64.9 Anemia, unspecified
CPT/HCPCS: 71260; 74177; 82728; 83540; Q9963; Q9967

== ENCOUNTER → 2024-04-23 | Outpatient (CLI) | payer MEDICARE ==
[~2024-04-23] MED LIST changes: -GASTROGRAFIN SOLUTION 30ML As Ordered ONE; -ISOVUE-370 76% 100ML VIAL As Ordered ONE
[2024-04-23 10:34] LABS: FERRITIN 97.6 NG/ML (7.3-270.7)
== END ==
LOC: M LAB 08:57
PROVIDERS: ATTEND Internal Medicine Hematology
DX: D64.9 Anemia, unspecified (principal)

== ENCOUNTER → 2024-04-28 | Outpatient (CLI) | payer MEDICARE ==
[~2024-04-28] MED LIST changes: +PROHANCE 279.3MG/ML 15ML VIAL As Ordered ONE; +PROHANCE 279.3MG/ML 5ML VIAL As Ordered ONE
== END ==
LOC: M RAD 10:33
PROVIDERS: ATTEND General Practice
DX: C34.90 Malignant neoplasm of unspecified part of unspecified bronchus or lung (principal)
CPT/HCPCS: 70553; A9576

== ENCOUNTER → 2024-05-06 | Outpatient (CLI) | payer MEDICARE ==
[~2024-05-06] MED LIST changes: -PROHANCE 279.3MG/ML 15ML VIAL As Ordered ONE; -PROHANCE 279.3MG/ML 5ML VIAL As Ordered ONE
== END ==
LOC: M ONCR 09:37
PROVIDERS: ATTEND General Practice
DX: C34.32 Malignant neoplasm of lower lobe, left bronchus or lung (principal); R91.1 Solitary pulmonary nodule; Z92.21 Personal history of antineoplastic chemotherapy; Z92.3 Personal history of irradiation; Z87.891 Personal history of nicotine dependence; Z88.8 Allergy status to other drugs, medicaments and biological substances; Z79.01 Long term (current) use of anticoagulants; Z79.899 Other long term (current) drug therapy; Z79.890 Hormone replacement therapy

== ENCOUNTER → 2024-06-09 | Outpatient (REF) | payer MEDICARE ==
[~2024-06-09] MED LIST changes: +NYST1POW3 TOP; -NYST1POW9 TOP
[2024-06-09 09:09] LABS: BASO % 0.2 % (0.0-1.0); EOS # 0.1 10^3/uL (0.0-0.5); EOS % 1.9 % (0.0-3.0); HEMATOCRIT 31.3 % (36.0-47.0); HEMOGLOBIN 10.5 g/dl (12.0-15.5); LYMPH # 0.6 10^3/uL (1.5-5.0); LYMPH % 10.5 % (24.0-44.0); MEAN CORPUSCULAR HEMOGLOBIN 33.8 pg (27.0-33.0); MEAN CORPUSCULAR HGB CONC 33.5 g/dl (32.0-36.5); MEAN CORPUSCULAR VOLUME 100.6 fl (80.0-96.0); MONO # 0.7 10^3/uL (0.0-0.8); MONO % 11.2 % (2.0-8.0); NEUTROPHILS # 4.5 10^3/uL (1.5-8.5); NEUTROPHILS % 75.9 % (36.0-66.0); PLATELET COUNT, AUTOMATED 270 10^3/uL (150-450); RED BLOOD COUNT 3.11 10^6/uL (4.00-5.40); WHITE BLOOD COUNT 5.9 10^3/uL (4.0-10.0)
[2024-06-09 09:35] LABS: ERYTHROCYTE SEDIMENTATION RATE 90 mm/hr (0-30)
[2024-06-09 09:51] LABS: ALBUMIN 3.3 G/DL (3.2-5.2); ALKALINE PHOSPHATASE 76 U/L (35-104); ALT/SGPT 9 U/L (7.0-40); AST/SGOT 15 U/L (<34); BILIRUBIN,TOTAL 0.4 MG/DL (0.3-1.2); BLOOD UREA NITROGEN 25 MG/DL (9-23); CALCIUM LEVEL 9.3 MG/DL (8.3-10.6); CARBON DIOXIDE LEVEL 30 MMOL/L (20-31); CHLORIDE LEVEL 102 MMOL/L (98-107); CREATININE FOR GFR 0.84 MG/DL (0.55-1.30); GLOMERULAR FILTRATION RATE > 60.0 (>32); GLUCOSE, FASTING 92 MG/DL (74-106); POTASSIUM SERUM 3.5 MMOL/L (3.5-5.1); SODIUM LEVEL 138 MMOL/L (136-145); TOTAL PROTEIN 7.1 G/DL (5.7-8.2)
== END ==
LOC: M LAB REF 08:48
PROVIDERS: ATTEND Internal Medicine Rheumatology
DX: Z00.00 Encounter for general adult medical examination without abnormal findings (principal)

== ENCOUNTER → 2024-07-05 | Outpatient (CLI) | payer MEDICARE | LOC: M PLAIMG 10:43 | PROVIDERS: ATTEND Physician Assistant Medical | DX: G89.29 Other chronic pain (principal); M47.812 Spondylosis without myelopathy or radiculopathy, cervical region; M47.814 Spondylosis without myelopathy or radiculopathy, thoracic region; Z98.1 Arthrodesis status ==

== ENCOUNTER → 2024-07-30 | Outpatient (CLI) | payer MEDICARE ==
[~2024-07-30] MED LIST changes: +HUMI40IN2; +PROHANCE 279.3MG/ML 15ML VIAL As Ordered ONE; +PROHANCE 279.3MG/ML 5ML VIAL As Ordered ONE
== END ==
LOC: M RAD 11:16
PROVIDERS: ATTEND General Practice
DX: Z51.0 Encounter for antineoplastic radiation therapy (principal); C34.32 Malignant neoplasm of lower lobe, left bronchus or lung

== ENCOUNTER → 2024-08-10 | Outpatient (CLI) | payer MEDICARE ==
[~2024-08-10] MED LIST changes: +ISOVUE-370 76% 100ML VIAL ONE; +PRED10TA2 PO; +PRED50TA PO; -PROHANCE 279.3MG/ML 15ML VIAL As Ordered ONE; -PROHANCE 279.3MG/ML 5ML VIAL As Ordered ONE
== END ==
LOC: M PLAIMG 09:07
PROVIDERS: ATTEND Internal Medicine Medical Oncology
DX: C34.90 Malignant neoplasm of unspecified part of unspecified bronchus or lung (principal); R91.8 Other nonspecific abnormal finding of lung field

== ENCOUNTER → 2024-08-10 | Outpatient (CLI) | payer MEDICARE ==
[~2024-08-10] MED LIST changes: -ISOVUE-370 76% 100ML VIAL ONE
[2024-08-10 15:33] LABS: FERRITIN 154.6 NG/ML (7.3-270.7)
[2024-08-10 15:35] LABS: BASO % 0.4 % (0.0-1.0); EOS # 0.1 10^3/uL (0.0-0.5); EOS % 0.9 % (0.0-3.0); HEMATOCRIT 31.1 % (36.0-47.0); LYMPH # 0.7 10^3/uL (1.5-5.0); LYMPH % 9.7 % (24.0-44.0); MEAN CORPUSCULAR HEMOGLOBIN 31.8 pg (27.0-33.0); MEAN CORPUSCULAR HGB CONC 32.2 g/dl (32.0-36.5); MONO # 0.6 10^3/uL (0.0-0.8); MONO % 9.2 % (2.0-8.0); NEUTROPHILS # 5.4 10^3/uL (1.5-8.5); NEUTROPHILS % 79.5 % (36.0-66.0); PLATELET COUNT, AUTOMATED 377 10^3/uL (150-450); RED BLOOD COUNT 3.14 10^6/uL (4.00-5.40); WHITE BLOOD COUNT 6.7 10^3/uL (4.0-10.0)
== END ==
LOC: M PLALAB 09:13
PROVIDERS: ATTEND Internal Medicine Hematology
DX: D64.9 Anemia, unspecified (principal)

== ENCOUNTER → 2024-08-13 | Outpatient (RCR) | payer MEDICARE ==
[~2024-08-13] MED LIST changes: -PRED10TA2 PO
== END ==
LOC: M PT 07-21 07:50
PROVIDERS: ATTEND Physician Assistant Medical
DX: Z51.0 Encounter for antineoplastic radiation therapy (principal); M89.49 Other hypertrophic osteoarthropathy, multiple sites; C34.32 Malignant neoplasm of lower lobe, left bronchus or lung; M05.79 Rheumatoid arthritis with rheumatoid factor of multiple sites without organ or systems involvement
CPT/HCPCS: 70553; 97110; 97161; 97530; A9576

== ENCOUNTER → 2024-08-13 | Outpatient (CLI) | payer MEDICARE ==
[~2024-08-13] MED LIST changes: +PRED10TA2 PO
== END ==
LOC: M ONCR 09:43
PROVIDERS: ATTEND General Practice
DX: C34.32 Malignant neoplasm of lower lobe, left bronchus or lung (principal); R07.9 Chest pain, unspecified; R91.8 Other nonspecific abnormal finding of lung field; Z87.891 Personal history of nicotine dependence; Z92.3 Personal history of irradiation; Z92.21 Personal history of antineoplastic chemotherapy; Z88.8 Allergy status to other drugs, medicaments and biological substances; Z79.82 Long term (current) use of aspirin; Z79.899 Other long term (current) drug therapy; Z79.01 Long term (current) use of anticoagulants; Z79.890 Hormone replacement therapy; Z79.620 Long term (current) use of immunosuppressive biologic

== ENCOUNTER 2024-08-19 09:15 | Outpatient (RCR) | payer MEDICARE ==
[2024-08-26] MEDS ORDERED: MELO15TA28 PO (09:25)
[2024-09-08] MEDS ORDERED: DIGO0.253 PO (12:09)
[2024-09-08] MEDS ORDERED: METO50TA7 PO (12:09)
== END 2024-09-10 ==
LOC: M PT 09:15
PROVIDERS: ATTEND Physician Assistant Medical
DX: M89.49 Other hypertrophic osteoarthropathy, multiple sites (principal); M05.79 Rheumatoid arthritis with rheumatoid factor of multiple sites without organ or systems involvement; M54.09 Panniculitis affecting regions, neck and back, multiple sites in spine

== ENCOUNTER 2024-08-24 14:31 | Outpatient (CLI) | payer MEDICARE ==
[~2024-08-24 14:31] MED LIST changes: +ALBUTEROL SULFATE 2.5MG/0.5ML INH NEB SOLN INH PRN; +EPINEPHrine INJ 1 MG/ML 1ML AMP IM PRN; +diphenhydrAMINE 50MG/ML VIAL IV PRN; +methylPREDNISolone 125MG 2ML VIAL IV PRN
[2024-08-24 14:35] VITALS: BP 122/56; O2SAT 95
[2024-08-24] MEDS: IRON SUCROSE 300 MG in NS 250 ML OVER 90 MIN. IV ONE (14:41)
[2024-08-24 16:20] VITALS: BP 102/52; O2SAT 96
== END 2024-08-24 16:25 ==
LOC: M INFU 14:31
PROVIDERS: ATTEND Internal Medicine Hematology
DX: D64.9 Anemia, unspecified (principal); Z88.8 Allergy status to other drugs, medicaments and biological substances
CPT/HCPCS: 96365; 96366; J1756

== ENCOUNTER 2024-09-07 13:17 | Outpatient (CLI) | payer MEDICARE ==
[~2024-09-07] VITALS: Ht 162.6 cm; Wt 93.6 kg
[~2024-09-07 13:17] MED LIST changes: +MELO15TA28 PO
[2024-09-07 13:35] VITALS: BP 105/59; O2SAT 95
[2024-09-07] MEDS: IRON SUCROSE 300 MG in NS 250 ML OVER 90 MIN. IV ONE (13:47)
[2024-09-07 15:20] VITALS: BP 126/62; O2SAT 98
[2024-09-08] MEDS ORDERED: METO50TA7 PO (12:09)
[2024-09-08] MEDS ORDERED: DIGO0.253 PO (12:09)
== END 2024-09-07 15:30 | disposition home or self-care (01) ==
LOC: M INFU 13:17
PROVIDERS: ATTEND Internal Medicine Hematology
DX: D64.9 Anemia, unspecified (principal); Z88.8 Allergy status to other drugs, medicaments and biological substances
CPT/HCPCS: 96365; 96366; J1756

== ENCOUNTER 2024-09-08 04:55 | Emergency (ER) | payer MEDICARE ==
[~2024-09-08] VITALS: Ht 162.6 cm; Wt 94.2 kg
[~2024-09-08 04:55] MED LIST changes: -ALBUTEROL SULFATE 2.5MG/0.5ML INH NEB SOLN INH PRN; -EPINEPHrine INJ 1 MG/ML 1ML AMP IM PRN; -diphenhydrAMINE 50MG/ML VIAL IV PRN; -methylPREDNISolone 125MG 2ML VIAL IV PRN
[2024-09-08] MEDS ORDERED: METOPROLOL 5 MG/5 ML VIAL As Ordered ONE (05:29)
[2024-09-08] MEDS: METOPROLOL 5 MG/5 ML VIAL IV SCH (05:30)
[2024-09-08] MEDS: NS (Normal Saline) 0.9% 1,000 ML IV SCH (05:40)
[2024-09-08] MEDS: DIGOXIN INJ 0.5 MG/2 ML AMP IV ONE ×2 (05:47→06:52)
[2024-09-08 05:48] VITALS: BP 96/69
[2024-09-08] MEDS: METOPROLOL TART 50 MG TAB PO ONE (05:48)
[2024-09-08 06:14] LABS: BASO % 0.3 % (0.0-1.0); EOS # 0.1 10^3/uL (0.0-0.5); EOS % 0.7 % (0.0-3.0); HEMATOCRIT 34.3 % (36.0-47.0); HEMOGLOBIN 10.9 g/dl (12.0-15.5); LYMPH # 0.7 10^3/uL (1.5-5.0); LYMPH % 9.2 % (24.0-44.0); MEAN CORPUSCULAR HEMOGLOBIN 31.5 pg (27.0-33.0); MEAN CORPUSCULAR HGB CONC 31.8 g/dl (32.0-36.5); MEAN CORPUSCULAR VOLUME 99.1 fl (80.0-96.0); MONO # 0.8 10^3/uL (0.0-0.8); MONO % 10.7 % (2.0-8.0); NEUTROPHILS # 5.6 10^3/uL (1.5-8.5); NEUTROPHILS % 78.8 % (36.0-66.0); PLATELET COUNT, AUTOMATED 300 10^3/uL (150-450); RED BLOOD COUNT 3.46 10^6/uL (4.00-5.40); WHITE BLOOD COUNT 7.1 10^3/uL (4.0-10.0)
[2024-09-08] MEDS: NS 500 ML IV ONE (07:05)
[2024-09-08 07:40] LABS: LIPASE 37 U/L (12-53)
[2024-09-08 07:46] LABS: ALBUMIN 2.4 G/DL (3.2-5.2); ALKALINE PHOSPHATASE 100 U/L (35-104); ALT/SGPT 32 U/L (7.0-40); AST/SGOT 74 U/L (<34); BILIRUBIN,DIRECT 0.1 MG/DL (<0.4); BILIRUBIN,TOTAL 0.3 MG/DL (0.3-1.2); BLOOD UREA NITROGEN 21 MG/DL (9-23); CALCIUM LEVEL 8.3 MG/DL (8.3-10.6); CARBON DIOXIDE LEVEL 25 MMOL/L (20-31); CHLORIDE LEVEL 104 MMOL/L (98-107); CK-MB VALUE MASS 1.5 NG/ML (<3.6); CPK CREATINE PHOSPHOKINASE 71 U/L (34-145); GLOMERULAR FILTRATION RATE > 60.0 (>32); GLUCOSE, FASTING 86 MG/DL (74-106); MB/CK RELATIVE INDEX 2.11 (< OR =4); POTASSIUM SERUM 4.1 MMOL/L (3.5-5.1); SODIUM LEVEL 141 MMOL/L (136-145); TOTAL PROTEIN 6.2 G/DL (5.7-8.2)
[2024-09-08] MEDS ORDERED: ISOVUE-370 76% 100ML VIAL As Ordered ONE (10:06)
[2024-09-08] MEDS ORDERED: METO50TA7 PO (12:09)
[2024-09-08] MEDS ORDERED: DIGO0.253 PO (12:09)
[2024-09-08 12:25] VITALS: BP 110/60
[2024-09-08 12:30] VITALS: TEMP 98; O2SAT 83
== END 2024-09-08 12:55 | disposition home or self-care (01) ==
LOC: M ED 04:55
DX: I48.91 Unspecified atrial fibrillation (principal); C34.92 Malignant neoplasm of unspecified part of left bronchus or lung; J18.1 Lobar pneumonia, unspecified organism; I45.10 Unspecified right bundle-branch block; I25.119 Atherosclerotic heart disease of native coronary artery with unspecified angina pectoris; K21.9 Gastro-esophageal reflux disease without esophagitis; I10 Essential (primary) hypertension; E78.5 Hyperlipidemia, unspecified; E03.9 Hypothyroidism, unspecified; M06.9 Rheumatoid arthritis, unspecified; Z88.8 Allergy status to other drugs, medicaments and biological substances; Z79.01 Long term (current) use of anticoagulants; Z79.1 Long term (current) use of non-steroidal anti-inflammatories (NSAID); Z79.52 Long term (current) use of systemic steroids; Z79.899 Other long term (current) drug therapy
CPT/HCPCS: 71045; 71275; 80048; 80076; 82550; 82553; 83690; 84484; 85025; 93005; 93041; 94760; 96361; 96374; 96375; 99285; J1160; Q9967

== ENCOUNTER → 2024-09-13 | Outpatient (CLI) | payer MEDICARE ==
[~2024-09-13] MED LIST changes: +DIGO0.253 PO; +METO50TA7 PO
== END ==
LOC: M IRPRO 11:24
PROVIDERS: ATTEND General Practice
DX: J90 Pleural effusion, not elsewhere classified (principal)

== ENCOUNTER 2024-09-16 10:16 | Observation (INO) | payer MEDICARE ==
[~2024-09-16] VITALS: Ht 162.6 cm; Wt 91.4 kg
[~2024-09-16 10:16] MED LIST changes: -HUMI40IN2; +HUMI40IN2 INJ
[2024-09-16 11:24] LABS: BASO % 0.4 % (0.0-1.0); EOS # 0.1 10^3/uL (0.0-0.5); EOS % 0.6 % (0.0-3.0); HEMATOCRIT 32.7 % (36.0-47.0); HEMOGLOBIN 11.1 g/dl (12.0-15.5); LYMPH # 0.6 10^3/uL (1.5-5.0); MEAN CORPUSCULAR HEMOGLOBIN 32.4 pg (27.0-33.0); MEAN CORPUSCULAR HGB CONC 33.9 g/dl (32.0-36.5); MEAN CORPUSCULAR VOLUME 95.3 fl (80.0-96.0); MONO # 0.8 10^3/uL (0.0-0.8); MONO % 10.1 % (2.0-8.0); NEUTROPHILS # 6.8 10^3/uL (1.5-8.5); NEUTROPHILS % 81.5 % (36.0-66.0); PLATELET COUNT, AUTOMATED 369 10^3/uL (150-450); RED BLOOD COUNT 3.43 10^6/uL (4.00-5.40); WHITE BLOOD COUNT 8.3 10^3/uL (4.0-10.0)
[2024-09-16 11:47] LABS: ALBUMIN 2.4 G/DL (3.2-5.2); ALKALINE PHOSPHATASE 161 U/L (35-104); ALT/SGPT 56 U/L (7.0-40); AST/SGOT 132 U/L (<34); BILIRUBIN,DIRECT 0.2 MG/DL (<0.4); BILIRUBIN,TOTAL 0.4 MG/DL (0.3-1.2); BLOOD UREA NITROGEN 16 MG/DL (9-23); CALCIUM LEVEL 8.7 MG/DL (8.3-10.6); CARBON DIOXIDE LEVEL 30 MMOL/L (20-31); CHLORIDE LEVEL 96 MMOL/L (98-107); CREATININE FOR GFR 0.75 MG/DL (0.55-1.30); GLOMERULAR FILTRATION RATE > 60.0 (>32); GLUCOSE, FASTING 81 MG/DL (74-106); POTASSIUM SERUM 4.4 MMOL/L (3.5-5.1); SODIUM LEVEL 137 MMOL/L (136-145); TOTAL PROTEIN 6.6 G/DL (5.7-8.2)
[2024-09-16] MEDS ORDERED: SENN-52 PO (11:57)
[2024-09-16] MEDS ORDERED: MELO15TA28 PO (11:57)
[2024-09-16] MEDS ORDERED: POTA-298 PO (11:57)
[2024-09-16] MEDS ORDERED: ELIQ5TAB PO (11:57)
[2024-09-16] MEDS ORDERED: POLY17PO18 PO (11:57)
[2024-09-16] MEDS ORDERED: MAGN400T2 PO (11:57)
[2024-09-16] MEDS ORDERED: METO50TA7 PO (11:57)
[2024-09-16] MEDS ORDERED: DIGO0.253 PO (11:57)
[2024-09-16] MEDS ORDERED: HOME MED LIST COMPLETE! XX SCH (12:00)
[2024-09-16 12:08] LABS: DIGOXIN LEVEL 2.6 NG/ML (0.8-2.0)
[2024-09-16] MEDS ORDERED: ISOVUE-370 76% 100ML VIAL As Ordered ONE (12:36)
[2024-09-16 12:37] LABS: CK-MB VALUE MASS 1.4 NG/ML (<3.6)
[2024-09-16 12:38] LABS: CPK CREATINE PHOSPHOKINASE 84 U/L (34-145); MB/CK RELATIVE INDEX 1.66 (< OR =4)
[2024-09-16 13:26] LABS: CK-MB VALUE MASS 2.2 NG/ML (<3.6)
[2024-09-16 13:28] LABS: MB/CK RELATIVE INDEX 2.41 (< OR =4)
[2024-09-16] MEDS: rOPINIRole 2MG TAB PO ONE (14:31)
[2024-09-16] MEDS ORDERED: ONDANSETRON 4MG 2ML VIAL IV PRN (15:55)
[2024-09-16] MEDS: PANTOPRAZOLE 40MG VIAL IV SCH (16:59)
[2024-09-16] MEDS: LR 1,000 ML IV ONE (17:00)
[2024-09-16] MEDS ORDERED: PRAVASTATIN 20 MG TAB PO SCH (21:00)
[2024-09-16] MEDS: APIXABAN 5 MG TAB (ELIQUIS) PO SCH (21:24)
[2024-09-16] MEDS: ASPIRIN 81MG ENTERIC TABLET PO SCH (21:24)
[2024-09-16] MEDS: clonazePAM 1 MG TAB PO SCH (21:24)
[2024-09-16] MEDS: LOSARTAN 25 MG TAB PO SCH (21:25)
[2024-09-16] MEDS: rOPINIRole 2MG TAB PO SCH (21:25)
[2024-09-16 21:48] VITALS: BP 137/60; TEMP 97.5; O2SAT 96
[2024-09-17] VITALS (7 sets, daily range): BP systolic 133–146; BP diastolic 51–58; TEMP 97.3–97.5; O2SAT 92–96
[2024-09-17] MEDS: traMADol 50 MG TAB PO ONE (00:22)
[2024-09-17] MEDS: MORPHINE 2 MG/ML 1ML VIAL IV ONE (00:58)
[2024-09-17] MEDS: LEVOTHYROXINE 125MCG TABLET (0.125MG) PO SCH (05:06)
[2024-09-17 05:46] LABS: HEMATOCRIT 31.3 % (36.0-47.0); HEMOGLOBIN 10.4 g/dl (12.0-15.5); MEAN CORPUSCULAR HEMOGLOBIN 31.6 pg (27.0-33.0); MEAN CORPUSCULAR HGB CONC 33.2 g/dl (32.0-36.5); MEAN CORPUSCULAR VOLUME 95.1 fl (80.0-96.0); PLATELET COUNT, AUTOMATED 314 10^3/uL (150-450); RED BLOOD COUNT 3.29 10^6/uL (4.00-5.40); WHITE BLOOD COUNT 7.3 10^3/uL (4.0-10.0)
[2024-09-17 06:05] LABS: ALBUMIN 2.2 G/DL (3.2-5.2); ALKALINE PHOSPHATASE 149 U/L (35-104); ALT/SGPT 54 U/L (7.0-40); AST/SGOT 128 U/L (<34); BILIRUBIN,TOTAL 0.4 MG/DL (0.3-1.2); BLOOD UREA NITROGEN 12 MG/DL (9-23); CALCIUM LEVEL 8.3 MG/DL (8.3-10.6); CARBON DIOXIDE LEVEL 28 MMOL/L (20-31); CHLORIDE LEVEL 99 MMOL/L (98-107); CREATININE FOR GFR 0.67 MG/DL (0.55-1.30); GLOMERULAR FILTRATION RATE > 60.0 (>32); GLUCOSE, FASTING 55 MG/DL (74-106); SODIUM LEVEL 138 MMOL/L (136-145); TOTAL PROTEIN 6.1 G/DL (5.7-8.2)
[2024-09-17] MEDS: MAGNESIUM OXIDE 400MG TAB (MAG-OX) PO SCH (09:16)
[2024-09-17] MEDS: METOPROLOL TART 50 MG TAB PO SCH (09:16)
[2024-09-17] MEDS: FOLIC ACID 1MG TAB PO SCH (09:16)
[2024-09-17] MEDS: traMADol 50 MG TAB PO PRN (09:16)
[2024-09-17] MEDS: MIRALAX *UNIT DOSE* 17GM PACKET PO SCH ×2 (09:16→21:52)
[2024-09-17] MEDS: CO-ENZYME Q10 50 MG CAP PO SCH (09:55)
[2024-09-17] MEDS ORDERED: ONDANSETRON 4MG ORAL DISINTEGRATING TAB PO PRN (15:10)
[2024-09-17] MEDS: ONDANSETRON 4MG ORAL DISINTEGRATING TAB PO SCH (15:33)
[2024-09-17] MEDS: MORPHINE 10MG/0.5ML ORAL CONCENTRATE SOLUTION U/D SL PRN (15:34)
[2024-09-17] MEDS: MORPHINE 10MG/0.5ML ORAL CONCENTRATE SOLUTION U/D SL SCH (17:27)
[2024-09-17] MEDS: SENNA 8.6 MG TAB (SENOKOT) PO SCH (21:52)
[2024-09-18] MEDS: HYOSCYAMINE SULFATE 0.125 MG SUBL TABLET PO PRN (06:40)
[2024-09-20] MEDS: LORazepam 1 MG TAB PO PRN (18:39)
[2024-09-21 10:23] VITALS: BP 124/54
[2024-09-22] MEDS ORDERED: MORP1SOL5 PO (11:56)
[2024-09-22] MEDS ORDERED: ONDA-282 PO (11:56)
[2024-09-22] MEDS ORDERED: HYOS125TA PO (11:56)
[2024-09-22] MEDS ORDERED: ATIV1TAB10 PO (12:09)
[2024-09-22] MEDS ORDERED: MIRALAX *UNIT DOSE* 17GM PACKET PO PRN (15:40)
[2024-09-22] MEDS ORDERED: SENNA 8.6 MG TAB (SENOKOT) PO PRN (15:40)
[2024-09-22] MEDS: ACETAMINOPHEN 325MG/10.15ML UDC PO PRN (16:07)
[2024-09-23] MEDS: LEVOTHYROXINE 125MCG TABLET (0.125MG) PO SCH (05:03)
== END 2024-09-23 15:43 | disposition hospice, home (50) ==
LOC: M ED 10:16 → M ED INP 10:17 → M MSPAV 21:46
PROVIDERS: ADMIT Internal Medicine; ATTEND Student in an Organized Health Care Education/Training Program
DX: C34.92 Malignant neoplasm of unspecified part of left bronchus or lung (principal); R11.2 Nausea with vomiting, unspecified; R74.01 Elevation of levels of liver transaminase levels; R53.83 Other fatigue; J98.4 Other disorders of lung; R07.9 Chest pain, unspecified; R91.8 Other nonspecific abnormal finding of lung field; R10.9 Unspecified abdominal pain; R54 Age-related physical debility; R06.02 Shortness of breath; R63.8 Other symptoms and signs concerning food and fluid intake; R89.2 Abnormal level of other drugs, medicaments and biological substances in specimens from other organs, systems and tissues; I48.91 Unspecified atrial fibrillation; I25.10 Atherosclerotic heart disease of native coronary artery without angina pectoris; Z98.61 Coronary angioplasty status; E03.9 Hypothyroidism, unspecified; E78.5 Hyperlipidemia, unspecified; D64.9 Anemia, unspecified; G25.81 Restless legs syndrome; I35.9 Nonrheumatic aortic valve disorder, unspecified; K21.9 Gastro-esophageal reflux disease without esophagitis; M06.9 Rheumatoid arthritis, unspecified; G47.30 Sleep apnea, unspecified; L40.9 Psoriasis, unspecified; M19.90 Unspecified osteoarthritis, unspecified site; F41.9 Anxiety disorder, unspecified; Z85.038 Personal history of other malignant neoplasm of large intestine; Z90.49 Acquired absence of other specified parts of digestive tract; Z80.1 Family history of malignant neoplasm of trachea, bronchus and lung; Z87.891 Personal history of nicotine dependence; Z88.1 Allergy status to other antibiotic agents; Z88.8 Allergy status to other drugs, medicaments and biological substances; Z79.899 Other long term (current) drug therapy; Z79.891 Long term (current) use of opiate analgesic; Z66 Do not resuscitate; Z51.5 Encounter for palliative care
CPT/HCPCS: 36415; 71045; 71275; 76604; 80048; 80053; 80076; 80162; 82550; 82553; 83880; 84484; 85025; 85027; 87486; 87581; 87633; 87798; 93005; 93041; 94760; 96374; 96375; 96376; 99285; G0378; G0463; J2470; Q9967